=== PATIENT | female | born 1960 | race African-American/Black ===

== ENCOUNTER → 2018-05-28 12:12 | Outpatient (CLI) | payer OTHER, SELFPAY ==
[2018-05-28 14:26] LABS: Hematocrit 40.6 % (37-47); Hemoglobin 13.5 g/dl (12.0-15.0); Mean Corp Hgb Conc 33.3 g/gl (32-36); Mean Corpuscular Hgb 28.8 pg (27.0-32.0); Mean Corpuscular Volume 86.6 fL (81-99); Mean Platelet Vol. 9.2 fl (6.2-12.0); Platelet Count 359 K/mm3 (150-450); RBC Distribution Width CV 12.8 % (11.6-14.6); RBC Distribution Width SD 39.8 fl (35.1-43.9); Red Blood Count 4.69 M/mm3 (4.2-5.4); White Blood Count 8.4 K/mm3 (4.4-11.0)
[2018-05-28 14:36] LABS: Scan Indicated on CBC? Y/N NO
[2018-05-28 14:42] LABS: Vitamin B12 778 pg/mL (211-911); Vitamin D,25 Hydroxy 8.6 ng/mL (29.95-100.01)
[2018-05-28 14:46] LABS: ALB/GLOB Ratio 0.8 RATIO (0.9-2.4); AST(SGOT) 20 U/L (15-37); Alanine Aminotransfer ALT/SGPT 28 U/L (13-56); Albumin, Serum 3.6 g/dL (3.2-5.0); Alkaline Phosphatase 100 U/L (45-117); Anion Gap 7 (5-15); BUN 9 mg/dL (7-18); BUN/Creat Ratio 9.8 RATIO (10-20); Calcium,Total 8.9 mg/dL (8.5-10.1); Chloride 106 mmol/L (98-107); Creatinine, Serum 0.92 mg/dL (0.55-1.02); EST Glomerular Filtration Rate 66 mL/min (>60); Est Glom Filt Rate - Afr Amer 80 mL/min (>60); Globulin 4.7 g/dL (2.2-4.2); Glucose 89 mg/dL (74-106); Potassium 3.9 mmol/L (3.5-5.1); Protein, Total 8.3 g/dL (6.4-8.2); Sodium Level 140 mmol/L (136-145); Thyroid Stim Hormone (TSH) 1.79 uIU/mL (0.358-3.74)
== END ==
PROVIDERS: Family Provider Family Medicine; PCP Family Medicine; Visit Provider Nurse Practitioner Family
DX: R42 Dizziness and giddiness (principal); R53.83 Other fatigue; E56.9 Vitamin deficiency, unspecified; K59.00 Constipation, unspecified
CPT/HCPCS: 36415; 80053; 82306; 82607; 84443; 85027

== ENCOUNTER 2018-07-01 07:22 | Day surgery (SDC) | payer OTHER, SELFPAY ==
--- NOTE | 2018-07-01 | COLBX_PTH ---
PATIENT: ANDREW LYNN LOC: EN U#:[id number] AGE/SX: 57/F ROOM: RE07/01/[address]: Dr. Jared Robertson MD : 1960 BED: DIS: 07/01/2018 SPEC #: [id number] RECD: 07/01/18 14:35 STATUS: RAYO FABY #: [id number] CÉSAR: 07/01/18 00:[address]: Jared Robertson DEPT: SURGICAL PATHOLOGY RECD BY: Tesfaye Collado ENTERED: 07/01/18 14:35 SP TYPE: COLON BX OTHR DR: Dr. Isaiah Bryant, DO Tissues: Cecum, NOS Procedures: Surgery Specimen Level IV HEADER OPERATION: Colonoscopy PRE-OP DIAGNOSIS: Screening TISSUE SUBMITTED: Cecal polyp MICROSCOPIC DIAGNOSIS Cecal polyp, biopsy: Fragments of tubular adenoma. SJ:tani 07/02/18 MICROSCOPIC DESCRIPTION Slides are reviewed. GROSS DESCRIPTION Received in fixative is one container labeled with the patient's name and designated cecal polyp. The specimen consists of a pink-red polyp measuring 0.7 x 0.7 x 0.6 cm. The apparent base is inked. Also present in the container is a piece of tam-pink soft tissue measuring 0.3 x 0.3 x 0.1 cm. The polyp is bisected. The entire specimen is submitted in one cassette. / SJ:tani 07/01/18 TC:1 CPT: 56498
[2018-07-01 07:45] VITALS: BP 107/73; PULSE 77; RESP 16; TEMP 36.4; O2SAT 96; BMI 27.8
[2018-07-01 09:46] VITALS: BP 107/73; PULSE 73; RESP 14; TEMP 36.9; O2SAT 96
--- NOTE | 2018-07-01 09:50 | PCM.OPRPT ---
Problem List (1) Screen for colon cancer Status: Acute Report of Operation Date of Procedure: 07/01/18 Pre-Operative Diagnosis: Screening colon cancer Post-Operative Diagnosis: Cecum polyp Surgery/Procedure Performed:: Colonoscopy with snare polypectomy Description of Procedure: The major risks and benefits associated with the procedure were explained to the patient in detail. The patient verbalized understanding and agreement with the same. The patient was brought to the endoscopy suite. After adequate sedation was achieved, the patient was placed in the left lateral decubitus position and a digital rectal exam was performed. This examination was within normal limits. A well-lubricated colonoscope was then inserted into the rectum and advanced under direct visualization to the level of the cecum. The bowel prep was good. The cecum was identified by both visual and anatomic landmarks. A photograph was taken of the end of the cecum. The scope was then fully withdrawn while examining the color, texture, anatomy and integrity of the mucosa from the cecum to the anal canal. There was a polyp in the cecum just distal to the ileocecal valve. This was removed with cautery snare. Otherwise the findings were consistent with normal colonic mucosa. Over 6 minutes were taken to examine the colonic mucosa. Upon reaching the rectum the scope was retroflexed to examine the distal rectal vault. The scope was then straightened and was completely retrieved upon exiting the anal canal and the procedure was terminated. The patient was then transferred to the recovery room in stable condition. Recommendations for follow up: Depending on pathology
[2018-07-01 09:55] VITALS: BP 107/73; BP 108/60; PULSE 82; RESP 18; O2SAT 96
[2018-07-01 09:59] VITALS: BP 107/73; BP 121/72; PULSE 73; RESP 18; O2SAT 96
[2018-07-01 10:03] VITALS: BP 107/73; BP 116/71; PULSE 69; RESP 18; TEMP 36.3; O2SAT 96
[2018-07-01 10:22] VITALS: BP 107/73
== END 2018-07-01 10:24 | disposition home or self-care (01) ==
LOC: EN 07:22 → AC 07:23
PROVIDERS: Family Provider Family Medicine; PCP Family Medicine; Visit Provider Surgery
PROC: 0DJD8ZZ Inspection of Lower Intestinal Tract, Via Natural or Artificial Opening Endoscopic (ICD-10-PCS; CPT 45378; principal; 2018-07-01 08:40)
DX: Z12.11 Encounter for screening for malignant neoplasm of colon (principal); D12.0 Benign neoplasm of cecum; K64.9 Unspecified hemorrhoids; R19.7 Diarrhea, unspecified; K21.9 Gastro-esophageal reflux disease without esophagitis; G47.30 Sleep apnea, unspecified; F32.9 Major depressive disorder, single episode, unspecified; F41.9 Anxiety disorder, unspecified; Z79.899 Other long term (current) drug therapy; Z86.2 Personal history of diseases of the blood and blood-forming organs and certain disorders involving the immune mechanism
CPT/HCPCS: 45385; 88305; J7120

== ENCOUNTER → 2018-08-27 12:35 | Outpatient (CLI) | payer OTHER, SELFPAY ==
--- NOTE | 2018-08-27 12:38 | BI_ITS ---
MAMMOGRAPHY - BILATERAL SCREENING REASON FOR EXAM: Female, 57 years old. Routine annual screening examination. PERTINENT HISTORY: Non-contributory. TECHNIQUE: Digital bilateral breast randi (3D mammographic acquisition) in the CC and MLO projections. 2-D mediolateral oblique (MLO) and craniocaudad (CC) views of both breasts were obtained. CAD: Full Field Digital Mammography with Computer Added Detection was performed. COMPARISON: Comparison is made with prior ocular examination dated August 05, 2017. FINDINGS: Breast Composition: There are scattered areas of fibroglandular density. There are no dominant masses or suspicious calcifications. No other significant abnormalities are identified. There has been no significant change since the prior study. BI/SCREENING MAMM (CAD), BILAT IMPRESSION: Stable bilateral screening mammogram. Yearly follow-up mammogram recommended. (A) ASSESSMENT CATEGORY: BIRADS Category 1: Negative. A letter regarding these results will be sent to the patient by the facility within 30 days. Approximately 10% of breast cancers are not detected by mammography. A normal mammogram should not delay biopsy of a clinically suspicious abnormality. [id number] Electronically Signed: Dl Rainey MD at 8:21 EDT Tel [phone], Service support ,
== END ==
PROVIDERS: Family Provider Family Medicine; PCP Family Medicine; Visit Provider Family Medicine
DX: Z12.31 Encounter for screening mammogram for malignant neoplasm of breast (principal)
CPT/HCPCS: 77063; 77067

== ENCOUNTER → 2019-02-16 10:02 | Outpatient (CLI) | payer OTHER, SELFPAY ==
[2019-02-12 15:56] VITALS: BMI 28.8
[2019-02-16 13:05] LABS: Anion Gap 6 (5-15); BUN 15 mg/dL (7-18); BUN/Creat Ratio 17.1 RATIO (10-20); Calcium,Total 8.6 mg/dL (8.5-10.1); Chloride 109 mmol/L (98-107); Creatinine, Serum 0.88 mg/dL (0.55-1.02); EST Glomerular Filtration Rate 70 mL/min (>60); Est Glom Filt Rate - Afr Amer 85 mL/min (>60); Glucose 104 mg/dL (74-106); Hemoglobin A1c 6.1 % (4.2-6.3); Potassium 4.2 mmol/L (3.5-5.1); Sodium Level 138 mmol/L (136-145)
== END ==
PROVIDERS: Family Provider Family Medicine; PCP Family Medicine; Visit Provider Family Medicine
DX: Z83.3 Family history of diabetes mellitus (principal)
CPT/HCPCS: 36415; 80048; 83036

== ENCOUNTER → 2020-10-28 14:15 | Outpatient (CLI) | payer MEDICAID, SELFPAY ==
[2020-09-13 13:51] VITALS: BMI 27.6
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
== END ==
PROVIDERS: PCP Family Medicine; Referring Provider Nurse Practitioner Family; Visit Provider Nurse Practitioner Family
DX: M25.511 Pain in right shoulder (principal)
CPT/HCPCS: 73030

== ENCOUNTER → 2021-07-05 09:08 | Outpatient (CLI) | payer MEDICAID, SELFPAY ==
[2021-07-05 12:19] LABS: Hematocrit 40.9 % (37-47); Hemoglobin 13.3 g/dL (12.0-15.0); Mean Corp Hgb Conc 32.5 g/dL (32-36); Mean Corpuscular Hgb 28.9 pg (27.0-32.0); Mean Corpuscular Volume 88.7 fL (81-99); Mean Platelet Vol. 8.9 fl (6.2-12.0); Platelet Count 363 K/mm3 (150-450); RBC Distribution Width CV 12.7 % (11.6-14.6); RBC Distribution Width SD 41.6 fl (35.1-43.9); Red Blood Count 4.61 M/mm3 (4.2-5.4); White Blood Count 6.9 K/mm3 (4.4-11.0)
[2021-07-05 12:50] LABS: Anion Gap 4 (5-15); BUN 10 mg/dL (7-18); BUN/Creat Ratio 12.7 RATIO (10-20); Chloride 109 mmol/L (98-107); Creatinine, Serum 0.78 mg/dL (0.55-1.02); EST Glomerular Filtration Rate 79 mL/min (>60); Est Glom Filt Rate - Afr Amer 96 mL/min (>60); Glucose 108 mg/dL (74-106); Potassium 4.2 mmol/L (3.5-5.1); Sodium Level 138 mmol/L (136-145); Thyroid Stim Hormone (TSH) 1.36 uIU/mL (0.358-3.74)
== END ==
PROVIDERS: PCP Family Medicine; Referring Provider Family Medicine; Visit Provider Family Medicine
DX: R53.83 Other fatigue (principal); L65.9 Nonscarring hair loss, unspecified; N95.1 Menopausal and female climacteric states
CPT/HCPCS: 36415; 80048; 82306; 84443; 85027

== ENCOUNTER → 2022-04-11 | Outpatient (CLI) | payer MEDICAID, SELFPAY ==
[2022-04-11 17:12] LABS: Absolute Lymphocyte Count 1.91 X10^3/uL (0.83-4.51); Absolute Neutrophil Count 4.8 X10^3/uL (2.0-7.7); Basophil# 0.06 X10^3/uL; Basophil% 0.8 % (0-1); Eosinophil# 0.07 X10^3/uL; Eosinophils% 0.9 % (0-5); Hemoglobin 13.6 g/dL (12.0-15.0); Lymphocyte # 1.91 X10^3/ul (0.83-4.51); Lymphocyte % 25.8 % (19-41); Mean Corp Hgb Conc 32.4 g/dL (32-36); Mean Corpuscular Hgb 28.6 pg (27.0-32.0); Mean Corpuscular Volume 88.4 fL (81-99); Mean Platelet Vol. 9.1 fl (6.2-12.0); Monocyte% 6.8 % (0-10); NRBC Flagged by Analyzer 0 % (0-5); Neutrophil # 4.83 X10^3/uL (2.7-7.7); Neutrophil % 65.4 % (47-70); Platelet Count 363 K/mm3 (150-450); RBC Distribution Width CV 12.3 % (11.6-14.6); RBC Distribution Width SD 39.8 fl (35.1-43.9); Red Blood Count 4.75 M/mm3 (4.2-5.4); White Blood Count 7.4 K/mm3 (4.4-11.0)
[2022-04-11 17:25] LABS: Erythrocyte Sedimentation Rate 29 mm/hr (0-30)
[2022-04-11 17:40] LABS: ALB/GLOB Ratio 0.8 RATIO (0.9-2.4); AST(SGOT) 20 U/L (15-37); Alanine Aminotransfer ALT/SGPT 21 U/L (13-56); Albumin, Serum 3.6 g/dL (3.2-5.0); Alkaline Phosphatase 95 U/L (45-117); Amylase 111 U/L (25-115); Anion Gap 6 (5-15); BUN 11 mg/dL (7-18); BUN/Creat Ratio 11.6 RATIO (10-20); CRP 5.35 mg/L (0.0-3.0); Calcium,Total 9.3 mg/dL (8.5-10.1); Chloride 107 mmol/L (98-107); Creatinine, Serum 0.95 mg/dL (0.55-1.02); EST Glomerular Filtration Rate 63 mL/min (>60); Est Glom Filt Rate - Afr Amer 76 mL/min (>60); Globulin 4.3 g/dL (2.2-4.2); Glucose 105 mg/dL (74-106); LDH 200 U/L (84-246); Lipase 143 U/L (73-393); Potassium 3.8 mmol/L (3.5-5.1); Protein, Total 7.9 g/dL (6.4-8.2); Sodium Level 140 mmol/L (136-145); Thyroid Stim Hormone (TSH) 1.06 uIU/mL (0.358-3.74)
[2022-04-13 14:10] LABS: Anti-Centromere B Ab <0.2 AI (0.0-0.9); Anti-Chromatin <0.2 AI (0.0-0.9); Anti-Jo <0.2 AI (0.0-0.9); Anti-Scleroderma-70 AB <0.2 AI (0.0-0.9); RNP Ab <0.2 AI (0.0-0.9); SJOGREN'S Anti-SS-A test < 0.2 AI (0.0-0.9); SJOGREN'S Anti-SS-B test < 0.2 AI (0.0-0.9); Smith Ab <0.2 AI (0.0-0.9)
[2022-04-13 16:40] LABS: Anti-dsDNA Ab <1 IU/mL (0-9)
[2022-04-13 17:07] LABS: Endomysial Antibody IgA Negative (Negative)
[2022-04-13 20:14] LABS: Immunoglobulin A 207 mg/dL (87-352); t-Transglutaminase IgA <2 U/mL (0-3)
== END | disposition home or self-care (01) ==
PROVIDERS: Nurse Practitioner Adult Health; PCP Family Medicine; Visit Provider Internal Medicine Gastroenterology
DX: R10.13 Epigastric pain (principal); R10.30 Lower abdominal pain, unspecified; K59.00 Constipation, unspecified; D12.6 Benign neoplasm of colon, unspecified
CPT/HCPCS: 36415; 80053; 82150; 82784; 83516; 83615; 83690; 84443; 85025; 85652; 86140; 86225; 86235; 86255

== ENCOUNTER → 2022-06-04 | Outpatient (CLI) | payer MEDICAID, SELFPAY ==
--- NOTE | 2022-06-04 10:06 | US_ITS ---
STUDY: ABDOMINAL ULTRASOUND REASON FOR EXAM: Female, 61 years old. Abdominal pain TECHNIQUE: Transabdominal ultrasound was performed with real-time and static thomason scale imaging. TECHNICAL QUALITY: Adequate. COMPARISON: None. FINDINGS: Liver: The liver measures 12.2 cm. There is increased echogenicity consistent with fatty infiltration. The bile ducts are within normal limits. There is hepatic color flow. The direction of portal flow is hepatopetal. There is no demonstrated mass lesion. Portal vein measurement: Gallbladder: Normal distended gallbladder. The gallbladder wall measures 1.9 mm. There is a negative sonographic Peraza''s sign. There is no pericholecystic fluid. There are multiple echogenic structures within the gallbladder, consistent with multiple gallstones. Common Bile Duct (C.B.D.): The common bile duct measures 4 mm. Pancreas: Normal size of the head, body and tail of the pancreas. There is increased echogenicity of the pancreas. There is no demonstrated pancreatic mass or cyst. Spleen: Normal size of the spleen. The spleen measures 8.8 cm x 8.5 cm x 6.8 cm. Calcified splenic granulomas. Right Kidney: Normal size of the right kidney. The right kidney measures 10.8 cm x 6.1 cm x 5 cm. Normal renal cortex. The right cortex measures 1.2 cm. There is no demonstrated renal mass or cyst. There is no right hydronephrosis. Left Kidney: Normal size of the left kidney. The left kidney measures 11.7 cm x 4.7 cm x 4.3 cm. Normal renal cortex. The left cortex measures 1.1 cm. There is no demonstrated renal mass or cyst. There is no left hydronephrosis. Aorta: Unremarkable I.V.C.: The IVC is patent. There is no ascites. US/Abdomen Complete IMPRESSION: Fatty infiltration of the liver. Electronically Signed: Dl Rainey MD at 13:17 EDT ,
== END | disposition home or self-care (01) ==
LOC: US 09:46
PROVIDERS: PCP Family Medicine; Referring Provider Internal Medicine Gastroenterology; Visit Provider Internal Medicine Gastroenterology
DX: R10.9 Unspecified abdominal pain (principal); K76.0 Fatty (change of) liver, not elsewhere classified
CPT/HCPCS: 76700

== ENCOUNTER → 2022-06-20 | Outpatient (CLI) | payer MEDICAID, SELFPAY ==
--- NOTE | 2022-06-20 09:05 | US_ITS ---
STUDY: ABDOMINAL ULTRASOUND - ELASTOGRAPHY REASON FOR VISIT: Female, 61 years old. Fatty infiltration of the liver. TECHNIQUE: Liver stiffness measurements were obtained on a Kngroo RS 85 ultrasound machine using a CA 1-7 probe following the SRU guidelines. 3 measurements were obtained using a 2-D-SWE method. The IQR/M was 20% suggesting a quality data set. TECHNICAL QUALITY: Adequate. COMPARISON: Comparison is made with prior study dated 06/04/2022. FINDINGS: Liver: There is evidence of fatty infiltration of the liver. Median liver stiffness measured 8.3 kPa. US/Elastography Parenchyma/Organ IMPRESSION: Liver stiffness measures 8.3 kPa compatible with F2-F3 (Mild to moderate liver fibrosis) Metavir score. Electronically Signed: Dl Rainey MD at 15:35 EDT ,
== END | disposition home or self-care (01) ==
LOC: NM 09:05
PROVIDERS: PCP Family Medicine; Referring Provider Nurse Practitioner Adult Health; Visit Provider Nurse Practitioner Adult Health
DX: K76.0 Fatty (change of) liver, not elsewhere classified (principal)
CPT/HCPCS: 76981

== ENCOUNTER → 2022-07-02 | Outpatient (CLI) | payer MEDICAID, SELFPAY ==
--- NOTE | 2022-07-02 16:10 | CT_ITS ---
STUDY: CT ABDOMEN AND PELVIS WITH CONTRAST REASON FOR EXAM: Female, 61 years old. upper and lower abd pain, constipation -- oral and iv RADIATION DOSAGE (If Supplied By Facility): CTDIvol = ( 14.34 ) mGy, DLP = ( 893.25 ) mGycm TECHNIQUE: Transaxial images were obtained from the dome of the diaphragm to the symphysis pubis with oral contrast. Oral and amp; IV Readi-CAT and amp; 100mL Isovue-300 was administered. Sagittal and coronal images were reconstructed. Individualized dose optimization techniques were used for this CT. COMPARISON: None. FINDINGS: The visualized lung bases are unremarkable. The visualized portions of the heart are within normal limits. Normal liver. There are multiple gallstones. Normal spleen. Normal pancreas. Normal bilateral adrenal glands. Normal right kidney. Normal left kidney. Normal visualized stomach. Normal small intestine. Normal colon. The appendix is visualized and appears normal. Normal abdominal aorta. Normal inferior vena cava. Normal retroperitoneum. Normal urinary bladder. There is a small umbilical hernia containing fat. Normal osseous structures. CT/Abdomen/Pelvis WITH Contrast IMPRESSION: Cholelithiasis. Electronically Signed: Trever Ivan MD at 16:37 EDT ,
[2022-07-02 16:30] LABS: CREATININE FINGERSTICK < 0.9 mg/dL (0.55-1.02); EGFR FINGERSTICK > 60.0000 mL/min (>60)
== END | disposition home or self-care (01) ==
LOC: CT 15:58
PROVIDERS: PCP Family Medicine; Referring Provider Nurse Practitioner Adult Health; Visit Provider Nurse Practitioner Adult Health
DX: D12.6 Benign neoplasm of colon, unspecified (principal); K59.00 Constipation, unspecified; R10.30 Lower abdominal pain, unspecified; R10.13 Epigastric pain
CPT/HCPCS: 74177; Q9967

== ENCOUNTER → 2022-07-18 | Outpatient (CLI) | payer MEDICAID, SELFPAY ==
--- NOTE | 2022-07-18 12:18 | NM_ITS ---
CLINICAL: 61-year-old female with history of abdominal pain and chronic nausea. SEMI-SOLID PHASE 99m Tc SULFUR COLLOID GASTRIC EMPTYING STUDY COMPARISON: CT of the abdomen-pelvis report 07/02/2022 FINDINGS: The patient was administered 1.1 mCi of 99m Tc sulfur colloid mixed with oatmeal and consumed per os. Image acquisitions in the anterior-posterior projections were obtained for 60 minutes. There is prompt visualization of the stomach. There is no gastroesophageal reflux identified. The T ? linear fit was calculated to be 49.69 minutes, (Normal: 12-56 minutes). NM/Gastric Emptying Study IMPRESSION: 1. NORMAL 99m Tc sulfur colloid semi-solid phase (oatmeal) gastric emptying imaging examination. A. There is normal and preserved semi-solid phase gastric emptying compared to normal controls. (Nicole et al, J Nucl Med Tech 38: 186, 2010). Electronically Signed: Trever Hitchcock, at 20:37 EDT ,
== END | disposition home or self-care (01) ==
LOC: NM 12:17
PROVIDERS: PCP Family Medicine; Referring Provider Nurse Practitioner Adult Health; Visit Provider Nurse Practitioner Adult Health
DX: R10.13 Epigastric pain (principal); R14.0 Abdominal distension (gaseous); R68.81 Early satiety
CPT/HCPCS: 78264; A9541

== ENCOUNTER 2022-10-08 06:26 | Day surgery (SDC) | payer MEDICAID, SELFPAY ==
[2022-10-08] VITALS (7 sets, daily range): BP systolic 89–112; BP diastolic 58–74; PULSE 72–90; RESP 12–18; TEMP 35.9–36.3; O2SAT 95–98; BMI 26.7
[2022-10-08] MEDS: Lactated Ringers 1,000 ML 15 ML IV (06:40)
--- NOTE | 2022-10-08 07:00 | PCM.HP.BLA ---
History and Physical Date of Admission: 10/08/22 ?61 F who presents to the office today for approximately 6 months of epigastric pain. Describes it as severe, doesn't radiate. It is less bothersome since starting pantoprazole 40 mg daily approx 2 mos ago. Thinks it started with acid reflux. Has occasional heartburn. C/o intermittent burning with BM that she attributes to increased acid. Feels best to lie on right side, then stomach feels better. Occas nausea, no vomiting or hematemesis. Epigastric pain worse with belt or tight clothes. Intermittent, occurs approx 2x per week, wonders if it's gas. Increases with eating and also if stomach is empty. No relief from famotidine. Some relief with pantoprazole 40 mg daily. Takes daily fiber supplement, helps with bowels. Some discomfort in lower abd, may be related to constipation and gas, much less bothersome than epigastric pain. Having BM daily, but has to strain. Used to use Fleets enema 2x per week, felt great then. Took milk of magnesia once last week, then had BMs x 3 hours in the middle of the night. Stool looked black then, but now back to normal since she started daily fiber pill. Occas takes GasX, not clear if that helps symptoms. She thinks she has lost weight, can wear clothes now that used to be too tight. No aspirin. Occas takes aleve for sinus headache. 2018 screening colonoscopy--tubular adenoma ROS Const Constitutional: Positive for fatigue, headache(s) and weight change (gain); No fever(s), sleep problems, abnormal sleep pattern or change in appetite ENT ENT: Positive for headache(s); No difficulty swallowing, hoarseness or sore throat Resp Respiratory: No cough, hemoptysis or shortness of breath Cardio Cardiology: No chest pain at rest or generalized swelling Gastro GI: Positive for abdominal pain, bloating, change in bowel habits, constipation, heartburn, Blood in stool and nausea/dyspepsia; No belching, change in stool character, coffee ground emesis, cramping, diarrhea, difficulty swallowing, feeling full early, excessive flatus, incontinent of stools, Vomiting blood/hematemesis, loose stools, Black,tarry stools, pain with swallowing or vomiting Musc Musculoskeletal: Positive for joint pain, back pain, muscle cramps, Arthritis and leg pain at night; No joint swelling, numbness or tingling Skin Skin: Positive for itchy eyes; No rash Neuro Neurology: Positive for behavioral changes and headache(s); No confusion, numbness or tingling Psych Psychiatric: No abnormal sleep pattern, Positive for anxiety, Positive for behavioral changes, No change in appetite, No confusion and Positive for depression Endo Endocrine: Positive for fatigue and weight change (gain); No cold intolerance, heat intolerance or increased thirst/drinking Aller/Imm Allergy/Immunologic: Positive for itchy eyes; No food intolerance Dar/Lymp Hematologic/Lymphatic: No easy bleeding, easy bruising or enlarged lymph nodes Exam Const General: cooperative, healthy appearing, well developed and well groomed Nutritional Appearance: average body habitus Eyes General: appearance normal, both eyes and all related structures Neck Neck: normal visual inspection Chest Chest palpation & inspection: normal inspection of the chest Resp Effort & Inspection: normal respiratory effort GI Inspection: normal to inspection Auscultation: normal bowel sounds Percussion: normal to percussion Palpation: soft, no hepatosplenomegaly, no masses and nontender Skin General: no rashes or lesions noted Neuro General: patient alert, patient awake and patient oriented x3 Gait: normal gait Extrem General: no pedal edema Psych Mood: euthymic mood Affect: normal affect Quality Reporting Tobacco Screening ([facility] 138) Smoking Status: Never smoker Assessment and Plan Assessment and Plan (1) Lower abdominal pain: ?Status:?Acute (2) Epigastric pain: ?Status:?Acute (3) Constipation: ?Status:?Acute (4) Tubular adenoma of colon: ?Status:?Acute ? ? ? Orders:?Orders: ? Amylase Today R10.30, R10.13, K59.00, D12.6 ? ? Comprehensive Metabolic Profil Today R10.30, R10.13, K59.00, D12.6 ? ? CRP Today R10.30, R10.13, K59.00, D12.6 ? ? LDH Today R10.30, R10.13, K59.00, D12.6 ? ? Lipase Today R10.30, R10.13, K59.00, D12.6 ? ? Thyroid Stim Hormone (TSH) Today R10.30, R10.13, K59.00, D12.6 ? ? CBC W/Diff, Automated Today R10.30, R10.13, K59.00, D12.6 ? ? Erythrocyte Sed Rate Today R10.30, R10.13, K59.00, D12.6 ? ? JESUSITA Comprehensive Panel Today R10.30, R10.13, K59.00, D12.6 ? ? Celiac Disease Profile Today R10.30, R10.13, K59.00, D12.6 ? ? Abdomen/Pelvis WITH Contrast Today R10.30, R10.13, K59.00, D12.6 ?Plan: 61 yr old female w/ intermittent epigastric pain, heartburn, chronic constipation, lower abd pain, hx tubular adenoma. Epigastric pain has improved since starting PPI but she still has intermittent severe pain. DDx for her epigastric pain includes esophagitis, gastritis, peptic ulcer, duodenitis, pancreatitis, malignancy. Lower abdominal pain DDx includes constipation, gas pains, IBS, malignancy. She previously relied on Fleets enemas for BMs. Will have her try MiraLAX every evening in addition to prunes.? Biochemical w/u today. CT abdomen and pelvis with oral and IV contrast ordered to evaluate the upper and lower abdominal pains, constipation. Upper and lower endoscopy will be scheduled.? Follow-up approximately 6 weeks. Plan Details Other Medications: ?Discontinued: ? sertraline ?? Discontinued Reason:? Pt no longer taking 50 mg? PO DAILY 30 tabs 6RF ? ? ? cyclobenzaprine ?? Discontinued Reason:? Pt no longer taking 5 - 10 mg (0.5 - 1 x 10 mg) PO TID PRN 30 tabs 0RF muscle spasm ? ? I have examined the patient and the H&P has been reviewed. There are no clinical changes since date of exam.
--- NOTE | 2022-10-08 07:30 | EGD_PTH ---
PATIENT: ANDREW LYNN LOC: EN U#:[id number] AGE/SX: 61/F ROOM: RE10/08/[address]: Dr. Mark Aguirre DO : 1960 BED: DIS: 10/08/2022 SPEC #: [id number] RECD: 10/08/22 11:30 STATUS: RAYO FABY #: [id number] CÉSAR: 10/08/22 07:[address]: Mark Aguirre DEPT: SURGICAL PATHOLOGY RECD BY: Nellie Fortune ENTERED: 10/08/22 12:26 SP TYPE: EGD BIOPSY OT DR: Dr. Isaiah Bryant DO Tissues: A - Duodenum, NOS B - Esophagus, NOS C - Cecum, NOS D - Ileum, NOS E - COLON BIOPSY Procedures: Special Stain Group II Surgery Specimen Level IV Alcian Blue/PAS (control) HEADER OPERATION: Colonoscopy with biopsies, [place] [place] PRE-OP DIAGNOSIS: Abdominal pain, GERD TISSUE SUBMITTED: A ? Duodenal ulcer biopsy, B ? Distal esophagus biopsy, C ? Cecal cap biopsy, D ? Terminal ileum biopsy, E ? Random colon biopsy MICROSCOPIC DIAGNOSIS A. Duodenal ulcer, biopsy: Chronic nonspecific duodenitis with focal acute duodenitis. Focal gastric metaplasia. B. Distal esophagus, biopsy: Gastroesophageal junctional mucosa with chronic inflammation. No evidence of goblet cell metaplasia. See comment. C. Cecal cap, biopsy: Melanosis coli. D. Terminal ileum, biopsy: No pathologic change. E. Colon, random biopsy: Melanosis coli. AM:tani 10/09/2022 COMMENT B. Alcian blue/PAS stain with matched control supports the above diagnosis. MICROSCOPIC DESCRIPTION Slides are reviewed. GROSS DESCRIPTION A - Received in fixative is one container labeled with the patient's name and designated duodenal ulcer biopsy. The specimen consists of multiple irregular fragments of light tam soft tissue that in aggregate measure 1.3 x 0.3 x 0.1 cm. The specimen is totally submitted in one cassette. B - Received in fixative is one container labeled with the patient's name and designated distal esophagus biopsy. The specimen consists of multiple irregular fragments of light tam soft tissue that in aggregate measure 0.6 x 0.6 x 0.1 cm. The specimen is totally submitted in one cassette. C - Received in fixative is one container labeled with the patient's name and designated cecal cap biopsy. The specimen consists of two irregular fragments of light tam soft tissue that in aggregate measure 0.6 x 0.4 x 0.1 cm. The specimen is totally submitted in one cassette. D - Received in fixative is one container labeled with the patient's name and designated terminal ileum biopsy. The specimen consists of one irregular fragment of light tam soft tissue that measures 0.3 x 0.2 x 0.1 cm. The specimen is totally submitted in one cassette. E - Received in fixative is one container labeled with the patient's name and designated random colon biopsy. The specimen consists of multiple irregular fragments of light tam soft tissue that in aggregate measure 1 x 0.7 x 0.1 cm. The specimen is totally submitted in one cassette. / SJ:rg 10/08/2022 TC:3 CPT: 10566 x5, 87680
--- NOTE | 2022-10-08 08:02 | OP.EGD_ITS ---
Patient Name: Bharti Adair Procedure Date: 10/08/2022 7:20 AM Date of : 1960 Age: 61 Procedure: Upper GI endoscopy Indications: Epigastric abdominal pain, Failure to respond to medical treatment Providers: Mark Aguirre DO Referring MD: Isaiah Bryant Medicines: Monitored Anesthesia Care Patient Profile: This is a 61 year old female. Refer to note in patient chart for documentation of history and physical. Patient has symptoms of acute epigastric abdominal pain and chronic heartburn. Complications: No immediate complications. Procedure: Pre-Anesthesia Assessment: - Prior to the procedure, a History and Physical was performed, and patient medications and allergies were reviewed. The patient is competent. The risks and benefits of the procedure and the sedation options and risks were discussed with the patient. All questions were answered and informed consent was obtained. Patient identification and proposed procedure were verified by the physician in the pre-procedure area. Mental Status Examination: alert and oriented. Airway Examination: normal oropharyngeal airway and neck mobility. Respiratory Examination: clear to auscultation. CV Examination: normal. Prophylactic Antibiotics: The patient does not require prophylactic antibiotics. Prior Anticoagulants: The patient has taken no previous anticoagulant or antiplatelet agents. After reviewing the risks and benefits, the patient was deemed in satisfactory condition to undergo the procedure. The anesthesia plan was to use monitored anesthesia care (MAC). Immediately prior to administration of medications, the patient was re-assessed for adequacy to receive sedatives. The heart rate, respiratory rate, oxygen saturations, blood pressure, adequacy of pulmonary ventilation, and response to care were monitored throughout the procedure. The physical status of the patient was re-assessed after the procedure. After obtaining informed consent, the endoscope was passed under direct vision. Throughout the procedure, the patient's blood pressure, pulse, and oxygen saturations were monitored continuously. The Colonoscope was introduced through the mouth, and advanced to the second part of duodenum. The upper GI endoscopy was accomplished without difficulty. The patient tolerated the procedure well. Scope In: 7:27:37 AM Scope Out: 7:32:05 AM Total Procedure Duration Time 0 hours 4 minutes 28 seconds Findings: The Z-line was irregular and was found 37 cm from the incisors. Biopsies were taken with a cold forceps for histology. Biopsies were taken with a cold forceps for histology. Verification of patient identification for the specimen was done. Estimated blood loss was minimal. A small hiatal hernia was present. The entire examined stomach was normal. Three non-bleeding cratered duodenal ulcers with no stigmata of bleeding were found in the duodenal bulb. The largest lesion was 4 mm in largest dimension. Biopsies were taken with a cold forceps for histology. Verification of patient identification for the specimen was done. Estimated blood loss was minimal. Impression: - Z-line irregular, 37 cm from the incisors. Biopsied. - Small hiatal hernia. - Normal stomach. - Multiple non-bleeding duodenal ulcers with no stigmata of bleeding. Biopsied. Recommendation: - Discharge patient to home. - Resume previous diet. - Use Protonix (pantoprazole) 40 mg PO BID for 8 weeks. - Continue present medications. - No aspirin, ibuprofen, naproxen, or other non-steroidal anti-inflammatory drugs for 8 days. Procedure Code(s): --- Professional --- 41594, Esophagogastroduodenoscopy, flexible, transoral; with biopsy, single or multiple CPT copyright 2017 [employer]. All rights reserved. The codes documented in this report are preliminary and upon sanitor review may be revised to meet current compliance requirements. Mark Aguirre DO 10/08/2022 8:01:59 AM This report has been signed electronically. Number of Addenda: 0 Note Initiated On: 10/08/2022 7:20 AM
--- NOTE | 2022-10-08 08:02 | OP.CCLET_ITS ---
10/08/2022 Isaiah Bryant Re : Upper GI endoscopy procedure for Bharti Adair Dear Dr. Bryant This procedure was performed on Saturday, October 08, 2022. My impressions and recommendations are as follows: Impressions : - Z-line irregular, 37 cm from the incisors. Biopsied. - Small hiatal hernia. - Normal stomach. - Multiple non-bleeding duodenal ulcers with no stigmata of bleeding. Biopsied. Recommendations : - Discharge patient to home. - Resume previous diet. - Use Protonix (pantoprazole) 40 mg PO BID for 8 weeks. - Continue present medications. - No aspirin, ibuprofen, naproxen, or other non-steroidal anti-inflammatory drugs for 8 days. My findings are described in the full procedure note, which is enclosed. If I can be of further assistance, please feel free to contact me at . Sincerely, Mark Friend, 10/08/2022 8:01:59 AM This report has been signed electronically.
--- NOTE | 2022-10-08 08:08 | OP.COLON_ITS ---
Patient Name: Bharti Adair Procedure Date: 10/08/2022 7:32 AM Date of : 1960 Age: 61 Procedure: Colonoscopy Indications: Epigastric abdominal pain, Follow-up for history of adenomatous polyps in the colon Providers: Mark Aguirre DO Referring MD: Isaiah Bryant Medicines: Monitored Anesthesia Care Patient Profile: This is a 61 year old female. Refer to note in patient chart for documentation of history and physical. Patient has symptoms of acute epigastric abdominal pain and chronic heartburn. Last Colonoscopy: more than 3 years ago. Complications: No immediate complications. Procedure: Pre-Anesthesia Assessment: - Prior to the procedure, a History and Physical was performed, and patient medications and allergies were reviewed. The patient is competent. The risks and benefits of the procedure and the sedation options and risks were discussed with the patient. All questions were answered and informed consent was obtained. Patient identification and proposed procedure were verified by the physician in the pre-procedure area. Mental Status Examination: alert and oriented. Airway Examination: normal oropharyngeal airway and neck mobility. Respiratory Examination: clear to auscultation. CV Examination: normal. Prophylactic Antibiotics: The patient does not require prophylactic antibiotics. Prior Anticoagulants: The patient has taken no previous anticoagulant or antiplatelet agents. After reviewing the risks and benefits, the patient was deemed in satisfactory condition to undergo the procedure. The anesthesia plan was to use monitored anesthesia care (MAC). Immediately prior to administration of medications, the patient was re-assessed for adequacy to receive sedatives. The heart rate, respiratory rate, oxygen saturations, blood pressure, adequacy of pulmonary ventilation, and response to care were monitored throughout the procedure. The physical status of the patient was re-assessed after the procedure. After I obtained informed consent, the scope was passed under direct vision. Throughout the procedure, the patient's blood pressure, pulse, and oxygen saturations were monitored continuously. The Colonoscope was introduced through the anus and advanced to the terminal ileum. The colonoscopy was performed without difficulty. The patient tolerated the procedure well. The quality of the bowel preparation was good. Scope In: 7:33:53 AM Scope Withdrawal Time 0 hours 14 minutes 17 seconds Scope Out: 7:52:06 AM Total Procedure Duration Time 0 hours 18 minutes 13 seconds Findings: The perianal and digital rectal examinations were normal. An area of mildly congested mucosa was found in the recto-sigmoid colon, in the transverse colon, in the ascending colon and in the cecum. Biopsies were taken with a cold forceps for histology. Verification of patient identification for the specimen was done. Estimated blood loss was minimal. The terminal ileum appeared normal. Biopsies were taken with a cold forceps for histology. Verification of patient identification for the specimen was done. Estimated blood loss was minimal. Impression: - Congested mucosa in the recto-sigmoid colon, in the transverse colon, in the ascending colon and in the cecum. Biopsied. - The examined portion of the ileum was normal. Biopsied. Recommendation: - Discharge patient to home. - Resume previous diet. - Continue present medications. - Await pathology results. - Repeat colonoscopy in 5 years for surveillance. Procedure Code(s): --- Professional --- 24926, Colonoscopy, flexible; with biopsy, single or multiple CPT copyright 2017 [employer]. All rights reserved. The codes documented in this report are preliminary and upon technical engineer review may be revised to meet current compliance requirements. Mark Aguirre DO 10/08/2022 8:08:00 AM This report has been signed electronically. Number of Addenda: 0 Note Initiated On: 10/08/2022 7:32 AM
--- NOTE | 2022-10-08 08:09 | OP.CCLET_ITS ---
10/08/2022 Isaiah Bryant Re : Colonoscopy procedure for Bharti Adair Dear Dr. Bryant This procedure was performed on Saturday, October 08, 2022. My impressions and recommendations are as follows: Impressions : - Congested mucosa in the recto-sigmoid colon, in the transverse colon, in the ascending colon and in the cecum. Biopsied. - The examined portion of the ileum was normal. Biopsied. Recommendations : - Discharge patient to home. - Resume previous diet. - Continue present medications. - Await pathology results. - Repeat colonoscopy in 5 years for surveillance. My findings are described in the full procedure note, which is enclosed. If I can be of further assistance, please feel free to contact me at . Sincerely, Mark Aguirre, 10/08/2022 8:08:00 AM This report has been signed electronically.
== END 2022-10-08 08:55 | disposition home or self-care (01) ==
LOC: EN 06:26 → AC 06:28
PROVIDERS: PCP Family Medicine; Referring Provider Family Medicine; Visit Provider Internal Medicine Gastroenterology
PROC: 0DJD8ZZ Inspection of Lower Intestinal Tract, Via Natural or Artificial Opening Endoscopic (ICD-10-PCS; CPT 45378; principal; 2022-10-08 07:25)
DX: K26.9 Duodenal ulcer, unspecified as acute or chronic, without hemorrhage or perforation (principal); K44.9 Diaphragmatic hernia without obstruction or gangrene; K29.80 Duodenitis without bleeding; K21.9 Gastro-esophageal reflux disease without esophagitis; K63.89 Other specified diseases of intestine; M19.90 Unspecified osteoarthritis, unspecified site; Z78.0 Asymptomatic menopausal state; Z86.010 Personal history of colon polyps
CPT/HCPCS: 45380; 43239; 88305; 88313; J2405

== ENCOUNTER → 2022-11-14 | Outpatient (CLI) | payer MEDICAID, SELFPAY ==
[2022-11-14 12:58] LABS: Absolute Lymphocyte Count 1.82 X10^3/uL (0.83-4.51); Absolute Neutrophil Count 4.7 X10^3/uL (2.0-7.7); Basophil# 0.04 X10^3/uL; Basophil% 0.6 % (0-1); Eosinophil# 0.06 X10^3/uL; Eosinophils% 0.9 % (0-5); Hemoglobin 13.1 g/dL (12.0-15.0); Lymphocyte # 1.82 X10^3/ul (0.83-4.51); Mean Corpuscular Hgb 28.5 pg (27.0-32.0); Mean Corpuscular Volume 89.3 fL (81-99); Mean Platelet Vol. 9.1 fl (6.2-12.0); Monocyte% 5.7 % (0-10); NRBC Flagged by Analyzer 0 % (0-5); Neutrophil # 4.65 X10^3/uL (2.7-7.7); Neutrophil % 66.5 % (47-70); Platelet Count 343 K/mm3 (150-450); RBC Distribution Width CV 12.5 % (11.6-14.6); RBC Distribution Width SD 41.1 fl (35.1-43.9); Red Blood Count 4.59 M/mm3 (4.2-5.4)
[2022-11-14 13:06] LABS: Vitamin D,25 Hydroxy 20.5 ng/mL
[2022-11-14 13:34] LABS: ALB/GLOB Ratio 0.9 RATIO (0.9-2.4); AST(SGOT) 17 U/L (15-37); Alanine Aminotransfer ALT/SGPT 20 U/L (13-56); Albumin, Serum 3.6 g/dL (3.2-5.0); Alkaline Phosphatase 84 U/L (45-117); Anion Gap 6 (5-15); BUN 11 mg/dL (7-18); BUN/Creat Ratio 13.2 RATIO (10-20); Calcium,Total 9.1 mg/dL (8.5-10.1); Chloride 111 mmol/L (98-107); Cholesterol 226 mg/dL (200); Creatinine, Serum 0.84 mg/dL (0.55-1.02); EST Glomerular Filtration Rate 73 mL/min (>60); Est Glom Filt Rate - Afr Amer 89 mL/min (>60); Glucose 95 mg/dL (74-106); High Density Lipoprotein 71 mg/dL; Protein, Total 7.6 g/dL (6.4-8.2); Sodium Level 141 mmol/L (136-145); Thyroid Stim Hormone (TSH) 0.87 uIU/mL (0.358-3.74); Triglycerides 71 mg/dL; Very Low Density Lipoprotein 14 mg/dL (5-40)
== END | disposition home or self-care (01) ==
LOC: BIMLAB 10:43
PROVIDERS: PCP Family Medicine; Referring Provider Physician Assistant; Visit Provider Physician Assistant
DX: Z00.00 Encounter for general adult medical examination without abnormal findings (principal); F41.9 Anxiety disorder, unspecified; F32.A Depression, unspecified; Z86.2 Personal history of diseases of the blood and blood-forming organs and certain disorders involving the immune mechanism
CPT/HCPCS: 36415; 80053; 80061; 82306; 84443; 85025

== ENCOUNTER → 2023-03-05 | Outpatient (CLI) | payer MEDICAID, SELFPAY ==
[2023-03-05 14:01] LABS: Amphetamine Urine VISTA NEGATIVE (<1000 ng/mL); Barbiturate Urine VISTA NEGATIVE (< 200 ng/mL); Benzodiazepine Urine VISTA NEGATIVE (< 200 ng/mL); Cocaine Urine VISTA NEGATIVE (< 300 ng/mL); Ecstacy Urine VISTA NEGATIVE (< 500 ng/mL); Methadone Urine VISTA NEGATIVE (< 300 ng/mL); PCP Urine VISTA NEGATIVE (< 25 ng/mL); THC Urine VISTA NEGATIVE (< 50 ng/mL); Vista UDS pH Range 5
== END | disposition home or self-care (01) ==
LOC: LABSPEC 09:57
PROVIDERS: PCP Family Medicine; Visit Provider Nurse Practitioner Family
DX: F41.9 Anxiety disorder, unspecified (principal)
CPT/HCPCS: 80307

== ENCOUNTER → 2023-12-20 | Outpatient (CLI) | payer OTHER, SELFPAY ==
[2023-12-20 15:35] LABS: Bacteria 0 SEEN /hpf (None Seen); Mucous, Urine 0 SEEN /hpf (<or=2+); Red Blood Cells-Urine 0 SEEN /hpf (0-5)
--- OUTSIDE RECORDS SUMMARY | 2023-12-20 17:19 | XMS RPT_ITS | CCD ---
Author Name Unknown Address [address] [facility] [address] [place] [address] Organization [facility] Care Team Providers Care Entomology Professor Name Role Phone REESE HICKS DO Primary Care Physician LIO CAO DO Attending Unavailable REESE HICKS DO Primary Care Unavailable REESE HICKS DO Primary Care Unavailable LIO CAO DO Attending Unavailable Medications Current Medications Medication Drug Class(es) Dates Sig (Normalized) Sig (Original) famotidine 20 mg oral tablet (2 sources) Histamine-2 Receptor Antagonist Start: 06-07-2019 Pepcid 20 mg oral tablet Dose : 20 mg = 1 tab(s), Oral, qDay, # 30 tab(s), 0 Refill(s) Start Date: 06/07/19 Status: Ordered {20 (nirmatrelvir 150 MG Oral Tablet) / 10 (ritonavir 100 MG Oral Tablet) } Pack (1 source) Start: 05-20-2022 End: 05-25-2022 nirmatrelvir-ritona vir 150 mg-100 mg (300 mg-100 mg Dose) oral tablet Dose = 1 packet(s), Oral, BID, Take 1 Packet = two 150mg nirmatrelvir tabs and one 100mg ritonavir tab. 3 tablets to be taken together by mouth twice a day for 5 days, X 5 day(s), # 5 EA, 0 Refill(s), COVID-19 Start Date: 05/20/22 Stop Date: 05/25/22 Status: Ordered Problems Active Problems Problem Classification Problem Date Documented Da te Episodic/Chronic Nonspecific chest pain (1 source) Chest pain; Translations: [Chest pain, unspecified] Onset: 11-21-2023 Episodic Other connective tissue disease (1 source) Muscle pain; Translations: [Myalgia, unspecified site] Onset: 11-21-2023 Episodic Past or Other Problems Problem Classification Problem Date Documented Da te Episodic/Chronic Viral infection (1 source) Disease caused by 2019-nCoV; Translations: [COVID-19] Onset: 05-20-2022 Results Test Name Value Interpretation Reference Range Facil ity Vital Signs Date Time Vital Sign Value Performing Clinician Bettie dykes 11-21-2023 01:52-0500 Diastolic Blood Pressure Non-Invasive 85 mm[Hg] LIO REICHFIELD DO [facility] 11-21-2023 01:52-0500 Heart rate 76 /min LIO REICHFIELD DO [facility] 11-21-2023 01:52-0500 Respiratory rate 18 /min LIO REICHFIELD DO [facility] 11-21-2023 01:52-0500 Systolic Blood Pressure Non-Invasive 140 mm[Hg] LIO REICHFIELD DO [facility] 11-21-2023 00:05-0500 Blood Pressure Location LIO REICHFIELD DO [facility] 11-21-2023 00:05-0500 Blood Pressure Method LIO REICHFIELD D O [facility] 11-21-2023 00:05-0500 Body height 167.6 cm LIO REICHFIELD DO [facility] 11-21-2023 00:05-0500 Body temperature 99.68 [degF] LIO REICHFIELD DO [facility] 11-21-2023 00:05-0500 Body weight 77.3 kg LIO REICHFIELD DO [facility] 11-21-2023 00:05-0500 Diastolic Blood Pressure Non-Invasive 94 mm[Hg] LIO REICHFORMERLY [facility] DO [facility] 11-21-2023 00:05-0500 Heart rate 88 /min LIO ANSARIFORMERLY [facility] DO [facility] 11-21-2023 00:05-0500 Respiratory rate 18 /min LIO ANSARIFORMERLY [facility] DO [facility] 11-21-2023 00:05-0500 Systolic Blood Pressure Non-Invasive 168 mm[Hg] LIO ANSARIFORMERLY [facility] DO [facility] 05-20-2022 11:16-0400 Body temperature 98.6 [degF] DR MARÍA RODRIGES MD [facility] 05-20-2022 11:16-0400 Diastolic blood pressure 85 mm[Hg] DR MARÍA RODRIGES MD [facility] 05-20-2022 11:16-0400 Heart rate 96 /min DR MARÍA RODRIGES MD [facility] 05-20-2022 11:16-0400 Respiratory rate 18 /min DR MARÍA RODRIGES MD [facility] 05-20-2022 11:16-0400 Systolic blood pressure 112 mm[Hg] DR MARÍA RODRIGES MD [facility] Encounters Encounter Date Encounter Type Care Provider Facility Start: 11-21-2023 End: 11-21-2023 Emergency department patient visit LIO ANSARIFORMERLY [facility] DO Facility:B Start: 11-21-2023 End: 11-21-2023 Emergency department patient visit LIO ANSARIFORMERLY [facility] DO [facility] Start: 03-29-2023 End: 03-29-2023 Emergency department patient visit REESE HICKS DO Facility:B Start: 05-20-2022 End: 05-20-2022 Emergency department patient visit DR MARÍA RODRIGES MD [facility] Procedures Date Procedure Procedure Detail Performing Clinician None (qualifier value) DR NOA RODRIGES MD Immunizations Immunization Date Immunization Notes Care Provider Fa cility 06-07-2019 tetanus toxoid, redu kenzie diphtheria toxoid, and acellular pertussis vaccine, adsorbed DR MARÍA RODRIGES MD [facility] Payers Date Payer Category Payer Unknown [id number] 2023 Unknown [id number] 1960 Unknown [id number] 1960 Unknown [id number] Social History Date Type Detail Facility Tobacco smoking status Never smo ked tobacco (finding) [facility] Sex Assigned At Sex [facility] Functional Status Date Assessment Result Facility 11-21-2023 Functional Status Independent [facility] 11-21-2023 Functional Status Standard Safet y ID band on, Call device within reach, Bed in low position, Wheels locked, Upper/Half-Length side-rails up, personal items within reach, Bedside Cart Locked, Visitor at bedside [facility] 05-20-2022 Functional Status Independent [facility] 05-20-2022 Functional Status Standard Safet y ID band on, Call device within reach, Bed in low position, Wheels locked, Upper/Half-Length side-rails up, Phone within reach, personal items within reach, Assistive devices within reach, Toileting device within reach, Bedside Cart Locked, Safety level maintained [facility] Mental Status Date Assessment Result Facility 11-21-2023 Mental Status Orientation Oriented x 4 [facility] 11-21-2023 Mental Status [facility] 05-20-2022 Mental Status Orientation Oriented x 4 [facility] 05-20-2022 Mental Status [facility] Clinical Notes 05-20-2022 to 11-21-2023 Note Date & Type Note Facility 11-21-2023 Hospital Discharge instructions Patient Education 11/21/2023 00:23:14 Chest Pain, Uncertain Cause Uncertain Causes of Chest Pain Chest pain can happen for a number of reasons. Sometimes the cause can't be determined. If your condition does not seem serious, and your pain does not appear to be coming from your heart, your healthcare provider may recommend watching it closely. Sometimes the signs of a serious problem take more time to appear. Many problems not related to your heart can cause chest pain. These include: Musculoskeletal. Costochondritis is an inflammation of the tissues around the ribs that can occur from trauma or overuse injuries, or a strain of the muscles of the chest wall Respiratory. Pneumonia, collapsed lung (pneumothorax), or inflammation of the lining of the chest and lungs (pleurisy) Gastrointestinal. Esophageal reflux, heartburn, ulcers, or gallbladder disease Anxiety and panic disorders Nerve compression and inflammation Rare miscellaneous problems such as aortic aneurysm (a swelling of the large artery coming out of the heart) or pulmonary embolism (a blood clot in the lungs) Home care After your visit, follow these recommendations: Rest today and avoid strenuous activity. Take any prescribed medicine as directed. Be aware of any recurrent chest pain and notice any changes Follow-up care Follow up with your healthcare provider if you do not start to feel better within 24 hours, or as advised. Call 911 Call 911 if any of these occur: A change in the type of pain: if it feels different, becomes more severe, lasts longer, or begins to spread into your shoulder, arm, neck, jaw or back Shortness of breath or increased pain with breathing Weakness, dizziness, or fainting Rapid heart beat Crushing sensation in your chest When to seek medical advice Call your healthcare provider right away if any of the following occur: Cough with dark colored sputum (phlegm) or blood Fever of 100.4 F (38 C) or higher, or as directed by your healthcare provider Swelling, pain or redness in one leg [id number] [employer]. [address] [place] [address], [place] [address]. All rights reserved. This information is not intended as a substitute for professional medical care. Always follow your healthcare professional's instructions. Follow Up Care 11/21/2023 00:03:44 With:DEBORAH MIJARES MD Address: [address] [facility] [address] [address] [phone] When:1-2 days With:Go to emergency room if symptoms worsen Address:Unknown When:2-4 days With:REESE HICKS DO Address: [facility] [address] [address] [phone] When:2-4 days [facility] 11-21-2023 Note Discharge Instructions Thank you for allowing [facility] to assist you with your healthcare needs. The following is important discharge information regarding your hospital visit. Diagnosis from Today's Visit Chest pain Chest pain Musculoskeletal pain What to Do Next Instructions from Your Care Team Take Tylenol and or Motrin as needed for pain. Follow-up with your primary care provider. Follow-up with Dr. Mijares of cardiology or retail agent of your choosing by calling tomorrow. Return the emergency department immediately if you develop worsening pain, shortness of breath, or any other care concern. Your x-ray of the shoulder did show some AC arthritis. Follow-up with your primary care provider. No qualifying data available. Post Acute Orders No qualifying data available. You Need to Schedule the Following Appointments Follow Up with DEBORAH MIJARES MD When Within 1-2 days Where: [address] [facility] [address] [address] [phone] Follow Up with Go to emergency room if symptoms worsen When Within 2-4 days Follow Up with REESE HICKS DO When Within 2-4 days Where: [facility] [address] [place] [address] [place] [address]- [phone] Allergies NKA Medications Please ask your primary doctor or pharmacist before taking any other medication not listed, including over the counter drugs, herbal medications, vitamins and or supplements as they may interact with your home medications. What How Much When Instructions Last Dose Unchanged famotidine (Pepcid 20 mg oral tablet) 1 tab(s) by mouth Once a day Please take this list to your next doctor s visit. Bring all medications you take, including over the counter medications, herbals and other supplements with you to your doctor s visit. Patients and families are reminded to discard old lists and to update any records with all medication providers or retail pharmacies. Education Materials Uncertain Causes of Chest Pain Chest pain can happen for a number of reasons. Sometimes the cause can't be determined. If your condition does not seem serious, and your pain does not appear to be coming from your heart, your healthcare provider may recommend watching it closely. Sometimes the signs of a serious problem take more time to appear. Many problems not related to your heart can cause chest pain. These include: Musculoskeletal. Costochondritis is an inflammation of the tissues around the ribs that can occur from trauma or overuse injuries, or a strain of the muscles of the chest wall Respiratory. Pneumonia, collapsed lung (pneumothorax), or inflammation of the lining of the chest and lungs (pleurisy) Gastrointestinal. Esophageal reflux, heartburn, ulcers, or gallbladder disease Anxiety and panic disorders Nerve compression and inflammation Rare miscellaneous problems such as aortic aneurysm (a swelling of the large artery coming out of the heart) or pulmonary embolism (a blood clot in the lungs) Home care After your visit, follow these recommendations: Rest today and avoid strenuous activity. Take any prescribed medicine as directed. Be aware of any recurrent chest pain and notice any changes Follow-up care Follow up with your healthcare provider if you do not start to feel better within 24 hours, or as advised. Call 911 Call 911 if any of these occur: A change in the type of pain: if it feels different, becomes more severe, lasts longer, or begins to spread into your shoulder, arm, neck, jaw or back Shortness of breath or increased pain with breathing Weakness, dizziness, or fainting Rapid heart beat Crushing sensation in your chest When to seek medical advice Call your healthcare provider right away if any of the following occur: Cough with dark colored sputum (phlegm) or blood Fever of 100.4 F (38 C) or higher, or as directed by your healthcare provider Swelling, pain or redness in one leg [phone] [employer]. [address] [place] [address], [place] [address]. All rights reserved. This information is not intended as a substitute for professional medical care. Always follow your healthcare professional's instructions. Additional Information VACCINATE! IT SAVES LIVES! Members of the community who have not yet received the COVID-19 vaccine and would like to receive it can visit one of [facility] vaccine clinics. There are many vaccine clinic locations within the [facility]. For locations and available times, please visit [email or web address].[email or web address] [email or web address] It is important to note that some COVID mobile vaccine clinics are held outdoors and may be canceled in rainy or stormy conditions. To learn more about pediatric vaccinations (ages 5-11), we invite you to visit the [facility] webpage. https://www.eVariants.org/pa ges/0812-Funfx-Vuuvyufypzc-Freque wuuw-Cfdry-Iiwisevlp.html To learn more about the COVID-19 vaccine, we invite you to visit the CDC website for a list of frequently asked questions. https://www.cdc.gov/coronavirus/2 019-ncov/vaccines/faq.html [facility] Patient Portal Access Instructions: Stay connected with your healthcare team and access your personal medical information anytime with the [facility] Patient Portal. If you would like a full copy of your medical records please contact the [facility] Medical Records Department Saturday through Saturday between 8a.m. and 4:30p.m. Please follow the directions below to access the portal: 1.Access the email account you provided upon registration to the hospital.2.Look for an invitation email from [facility].3.Open the email and access the invitation link: Accept Invitation to [facility].Fill in the required machado to create your account. Sign into www.[employer]ak with your username and password that you created in the above steps to stay up to date. You can then view a summary of results, a summary of your visits, and the ability to download your summaries to your computer or send the information securely to a physician. Remember that your healthcare information is confidential, so carefully consider who you will allow to register on the [facility] Patient Portal for access to your information. You can also access the [facility] Patient Portal on the [employer] dony. Simply click on Health Records under Health Data and then click on the [employer] logo. HOW TO SAFELY DISPOSE OF PRESCRIPTION MEDICATIONS Please use one of the following methods to safely dispose of your unused medications. 1.Use a drug disposal kit: the drug disposal pouch allows you to safely discard your old and unused drugs. Ask your nurse to give you one when you are discharged.2.Visit a local take-back location: Many local pharmacies and police departments have programs that collect old and unwanted prescription drugs. Call your local pharmacy or go to http://Jiankongbao.PT [employer] Network/9H2Da2c to find one close to you.3.Make use of household items: Use cat litter or old coffee grounds to dispose medications if other options are not available. Mix your drugs with these household products, seal them in an airtight container and throw it into the garbage. Call [facility]: [phone] to be sure your drugs can be disposed of in this way. Some medicines may require a different approach.4.Never flush your medications down the toilet. IF YOU HAVE BEEN PRESCRIBED AN OPIOIDS FOR PAIN If you have been prescribed an opioid (such as hydrocodone, oxycodone or morphine), it is critical to understand the possible side effects and risks of opioid pain medications. Even when taken as directed, opioids can have several side effects including: Tolerance, meaning you might need to take more of a medication for the same pain relief. Nausea, vomiting and/or constipation. Sleepiness, dizziness, dry mouth, confusion, depression or itching. Physical dependence, meaning you have withdrawal symptoms when a medication is stopped ? this can develop within a few days. KNOW YOUR RESPONSIBILITIES It is important to know exactly how much and how often to take the opioid pain medications you are prescribed. Never take opioids in higher amounts or more often than prescribed. Do not combine opioids with alcohol or other drugs that cause drowsiness, such as benzodiazepines, also known as benzos, including diazepam and alprazolam, muscle relaxants or sleep aids. Never sell or share prescription opioids. This is illegal. Store opioids in a secure place and out of reach of others (including children, family, friends and visitors). The last page(s) of this document has been signed and retained as a CHART COPY Signatures Patient Education Materials Chest Pain, Uncertain Cause Medication Leaflets My discharge plan and instructions have been reviewed and explained to me and I,ANDREW LYNN understand my current condition and have read and understand these discharge instructions. I have received a written copy of the plan/instructions. If I have questions, I am aware that I should contact my doctor. Patient/Rn Vascular Signature: Date/Time: Relationship to Patient: ____ Witness Name/Signature: Date/Time: [facility] 11-21-2023 Note ORIGINAL EXAMINATION: 4 XRAY VIEWS OF THE LEFT SHOULDER11/21/2023 1:00 am COMPARISON: Left shoulder radiograph 03/29/2023 HISTORY: ORDERING SYSTEM PROVIDED HISTORY: Reason for Exam: Chest pain radiating down left arm FINDINGS: No acute fracture or dislocation is identified. Bony alignment appears maintained. Mild degenerative changes of the left acromioclavicular joint. The soft tissues appear unremarkable. The included thoracic structures are unremarkable. Stable calcified granuloma in the left lung. IMPRESSION: No acute fracture or dislocation. Mild acromioclavicular arthritis. I have personally reviewed the images of this examination, and agree with the resident's findings and interpretation. Interpreted by: Onur Zafar MD Preliminary Report By: Ya Espana Electronically signed By Onur Zafar MD Dictated Date: 11/21/2023 1:15:21 AM Prelim Date: 11/21/2023 1:18:25 AM Sign Date: 11/21/2023 1:33:05 AM [facility] Note ORIGINAL EXAMINATION: ONE XRAY VIEW OF THE CHEST11/21/2023 1:00 am COMPARISON: Chest radiograph 03/29/2023 HISTORY: ORDERING SYSTEM PROVIDED HISTORY: Reason for Exam: pain FINDINGS: Stable cardiomediastinal silhouette. No focal consolidation or pulmonary edema. Similar bilateral calcified granulomas. Streaky opacities in the right lung base may represent atelectasis. No pneumothorax or large volume pleural effusion. No acute osseous abnormalities. IMPRESSION: Streaky opacities in the right lung base are favored to represent atelectasis. I have personally reviewed the images of this examination, and agree with the resident's findings and interpretation. Interpreted by: Onur Zafar MD Preliminary Report By: Ya Espana Electronically signed By Onur Zafar MD Dictated Date: 11/21/2023 1:12:58 AM Prelim Date: 11/21/2023 1:15:13 AM Sign Date: 11/21/2023 1:31:21 AM Ordering Provider: LIO CAO [facility] 11-21-2023 Note Sinus rhythm Probable left atrial enlargement Electronic Signature: LIO CAO DO 11/21/2023 00:30:36 [facility] 05-20-2022 Hospital Discharge instructions Patient Education 05/20/2022 14:03:16 COVID-19 Prevent the Spread of COVID-19 If You Are Sick (03/29/2020)(CUSTOM) Prevent the Spread of COVID-19 If You Are Sick Accessible version: https://www.cdc.gov/coronavirus/2 019-ncov/mg-ysc-xyq-sick/steps-wh en-sick.html If you are sick with COVID-19 or think you might have COVID-19, follow the steps below to help protect other people in your home and community. Stay home except to get medical care. Stay home. Most people with COVID-19 have mild illness and are able to recover at home without medical care. Do not leave your home, except to get medical care. Do not visit public areas. Take care of yourself. Get rest and stay hydrated. Get medical care when needed. Call your doctor before you go to their office for care. But, if you have trouble breathing or other concerning symptoms, call 911 for immediate help. Avoid public transportation, ride-sharing, or taxis. Separate yourself from other people and pets in your home. As much as possible, stay in a specific room and away from other people and pets in your home. Also, you should use a separate bathroom, if available. If you need to be around other people or animals in or outside of the home, wear a cloth face covering. See COVID-19 and Animals if you have questions about pets: https://www.cdc.gov/coronavirus/2 019ncov/faq.html#IGRII01lxbfgwf Monitor your symptoms. Common symptoms of COVID-19 include fever and cough. Trouble breathing is a more serious symptom that means you should get medical attention. Follow care instructions from your healthcare provider and local health department. Your local health authorities will give instructions on checking your symptoms and reporting information. If you develop emergency warning signs for COVID-19 get medical attention immediately. Emergency warning signs include*: Trouble breathing Persistent pain or pressure in the chest New confusion or not able to be woken Bluish lips or face *This list is not all inclusive. Please consult your medical provider for any other symptoms that are severe or concerning to you. Call 911 if you have a medical emergency. If you have a medical emergency and need to call 911, notify the semi automatic sewing machine operator that you have or think you might have, COVID-19. If possible, put on a facemask before medical help arrives Call ahead before visiting your doctor. Call ahead. Many medical visits for routine care are being postponed or done by phone or telemedicine. If you have a medical appointment that cannot be postponed, call your doctor s office. This will help the office protect themselves and other patients. If you are sick, wear a cloth covering over your nose and mouth. You should wear a cloth face covering over your nose and mouth if you must be around other people or animals, including pets (even at home). You don t need to wear the cloth face covering if you are alone. If you can t put on a cloth face covering (because of trouble breathing for example), cover your coughs and sneezes in some other way. Try to stay at least 6 feet away from other people. This will help protect the people around you. Note: During the COVID-19 pandemic, medical grade facemasks are reserved for healthcare workers and some first responders. You may need to make a cloth face covering using a scarf or bandana. Cover your coughs and sneezes. Cover your mouth and nose with a tissue when you cough or sneeze. Throw used tissues in a lined trash can. Immediately wash your hands with soap and water for at least 20 seconds. If soap and water are not available, clean your hands with an alcohol-based hand termite inspector that contains at least 60% alcohol. Clean your hands often. Wash your hands often with soap and water for at least 20 seconds. This is especially important after blowing your nose, coughing, or sneezing; going to the bathroom; and before eating or preparing food. Use hand termite inspector if soap and water are not available. Use an alcohol-based hand termite inspector with at least 60% alcohol, covering all surfaces of your hands and rubbing them together until they feel dry. Soap and water are the best option, especially if your hands are visibly dirty. \ Avoid touching your eyes, nose, and mouth with unwashed hands. Avoid sharing personal household items. Do not share dishes, drinking glasses, cups, eating utensils, towels, or bedding with other people in your home. Wash these items thoroughly after using them with soap and water or put them in the trailer body assembler. Clean all high-touch surfaces everyday. Clean and disinfect high-touch surfaces in your sick room and bathroom. Let someone else clean and disinfect surfaces in common areas, but not your bedroom and bathroom. If a caregiver or other person needs to clean and disinfect a sick person s bedroom or bathroom, they should do so on an as-needed basis. The caregiver/other person should wear a mask and wait as long as possible after the sick person has used the bathroom High-touch surfaces include phones, remote controls, counters, tabletops, doorknobs, bathroom fixtures, toilets, keyboards, tablets, and bedside tables. Clean and disinfect areas that may have blood, stool, or body fluids on them. Use household business systems architect and disinfectants. Clean the area or item with soap and water or another detergent if it is dirty. Then use a household disinfectant. Be sure to follow the instructions on the label to ensure safe and effective use of the product. Many products recommend keeping the surface wet for several minutes to ensure germs are killed. Many also recommend precautions such as wearing gloves and making sure you have good ventilation during use of the product. Most EPA-registered household disinfectants should be effective. How to discontinue home isolation. People with COVID-19 who have stayed home (home isolated) can stop home isolation under the following conditions: If you will not have a test to determine if you are still contagious, you can leave home after these three things have happened: You have had no fever for at least 72 hours (that is three full days of no fever without the use of medicine that reduces fevers) AND other symptoms have improved (for example, when your cough or shortness of breath has improved) AND at least 10 days have passed since your symptoms first appeared. If you will be tested to determine if you are still contagious, you can leave home after these three things have happened: You no longer have a fever (without the use of medicine that reduces fevers) AND other symptoms have improved (for example, when your cough or shortness of breath has improved) AND you received two negative tests in a row, 24 hours apart. Your doctor will follow CDC guidelines. In all cases, follow the guidance of your healthcare provider and local health department. The decision to stop home isolation should be made in consultation with your healthcare provider and state and local health departments. Local decisions depend on local circumstances. cdc.gov/coronavirus Follow Up Care 05/20/2022 11:08:09 With:REESE HICKS DO Address: [facility] [address] [place] [phone] When:2-4 days Comments:Return to ED if symptoms worsen [facility] 05-20-2022 Note Discharge Instructions Thank you for allowing [facility] to assist you with your healthcare needs. The following is important discharge information regarding your hospital visit. Diagnosis from Today's Visit COVID-19 What to Do Next Instructions from Your Care Team Covid-19 Discharge Packet (ED ONLY) - Ordered -- 05/20/22 14:03:00 EDT, Once Post Acute Orders No qualifying data available. You Need to Schedule the Following Appointments Follow Up with REESE HICKS DO When Within 2-4 days Why: Return to ED if symptoms worsen Where: [facility] [address] [place] [phone] Allergies NKA Medications Please ask your primary doctor or pharmacist before taking any other medication not listed, including over the counter drugs, herbal medications, vitamins and or supplements as they may interact with your home medications. What How Much When Why Instructions Last Dose New nirmatrelvir-ritonavir (nirmatrelvir-ritonavir 150 mg-100 mg (300 mg-100 mg Dose) oral tablet) 1 Packet(s) by mouth Two (2) times a day COVID-19 Duration: 5 Days Take 1 Packet = two 150mg nirmatrelvir tabs and one 100mg ritonavir tab. 3 tablets to be taken together by mouth twice a day for 5 days Printed Prescription Unchanged famotidine (Pepcid 20 mg oral tablet) 1 tab(s) by mouth Once a day Please take this list to your next doctor s visit. Bring all medications you take, including over the counter medications, herbals and other supplements with you to your doctor s visit. Patients and families are reminded to discard old lists and to update any records with all medication providers or retail pharmacies. Medication Leaflets nirmatrelvir and ritonavir Vijay What is the most important information I should know about nirmatrelvir and ritonavir? The [place] Food and Drug Administration (FDA) has authorized emergency use of nirmatrelvir in combination with another medicine called ritonavir for the treatment of tlkb-qa-kwwirsjz COVID-19 in adults and people 12 years of age and older (weighing at least 40 kg or 88 lbs). What is nirmatrelvir and ritonavir? Nirmatrelvir in combination with ritonavir is an experimental medicine being studied for the treatment of ntdz-pq-tlaybohe COVID-19. This drug is still being studied and all of its risks are not yet known. The [place] Food and Drug Administration (FDA) has authorized emergency use of nirmatrelvir in combination with another medicine called ritonavir for the treatment of wczl-jc-jyqxboea COVID-19 in adults and people 12 years of age and older (weighing at least 40 kg or 88 lbs) testing positive for COVID-19, and who are at high risk for progression to severe COVID-19, including hospitalization or . Nirmatrelvir and ritonavir is not authorized for use: for initiation of treatment in people needing hospitalization due to COVID-19; for prevention before or after exposure of COVID-19; or longer than 5 consecutive days. Nirmatrelvir and ritonavir may also be used for purposes not listed in this medication guide. What should I discuss with my healthcare provider before taking nirmatrelvir and ritonavir? You should not use nirmatrelvir and ritonavir if you are allergic to it. Some drugs should not be used with nirmatrelvir and ritonavir, such as those listed below. alfuzosin, colchicine; sildenafil (Revatio) when used to treat pulmonary arterial hypertension (PAH); pain medicine--pethidine, piroxicam, propoxyphene; heart medicine--amiodarone, dronedarone, flecainide, propafenone, quinidine, ranolazine; antipsychotic medicine--lurasidone, pimozide, clozapine; ergot medicine--dihydroergotamine, ergotamine, methylergonovine; cholesterol-lowering medicine--lovastatin, simvastatin; or a sedative--triazolam, oral midazolam. Nirmatrelvir and ritonavir should not be started immediately after discontinuation of any of the following drugs: rifampin; Violeta's Wort; a cancer medicine--apalutamide; or seizure medicine--carbamazepine, phenobarbital, phenytoin. Tell your doctor if: you have liver problems or a liver disease such as hepatitis; you have kidney problems; you have an HIV-1 infection; you are or ; or you have any serious or chronic disease. COVID-19 is more likely to cause serious illness or in a woman. Not all risks are known yet, but being treated with nirmatrelvir and ritonavir is likely to be less harmful than being infected with COVID-19 during . Ritonavir can make control pills or skin patches less effective. Ask your doctor about other control options such as an injection, implant, vaginal ring, condom, diaphragm, cervical cap, or contraceptive sponge. How should I take nirmatrelvir and ritonavir? Follow all directions on your prescription label and read all medication guides or instruction sheets. Use the medicine exactly as directed. Take nirmatrelvir together with ritonavir (two tablets of nirmatrelvir and one tablet of ritonavir) twice a day for 5 consecutive days. Take this medicine as soon as possible after diagnosis of COVID-19 and within 5 days of when symptoms first appear. You may take nirmatrelvir and ritonavir with or without food. Swallow the tablets whole and do not crush, chew, or break them. You may need frequent blood tests to check your liver function. Being treated with nirmatrelvir and ritonavir will not make you less contagious to other people. Keep using infection control methods such as self-isolation, social distancing, hand-washing, using protective face covering, disinfecting surfaces you touch a lot, and not sharing personal items with others. Nirmatrelvir and ritonavir are still being studied and all of the risks are not yet known. What happens if I miss a dose? Use the medicine as soon as you can, but skip the missed dose if you are more than 8 hours late for the dose. Do not use two doses at one time. What happens if I overdose? Seek emergency medical attention or call the Poison Help line at . What should I avoid while taking nirmatrelvir and ritonavir? Follow your doctor's instructions about any restrictions on food, beverages, or activity. What are the possible side effects of nirmatrelvir and ritonavir? Get emergency medical help if you have signs of an allergic reaction (hives, difficult breathing, swelling in your face or throat) or a severe skin reaction (fever, sore throat, burning eyes, skin pain, red or purple skin rash with blistering and peeling). Call your doctor at once if you have: liver problems--loss of appetite, stomach pain (upper right side), tiredness, itching, dark urine, tay-colored stools, jaundice (yellowing of the skin or eyes). Ritonavir affects your immune system, which may cause certain side effects (even weeks or months after you've taken this medicine). Tell your doctor if you have: signs of a new infection--fever, night sweats, swollen glands, cold sores, cough, wheezing, diarrhea, weight loss; trouble speaking or swallowing, problems with balance or eye movement, weakness or prickly feeling; or swelling in your neck or throat (enlarged thyroid), menstrual changes, impotence. Common side effects may include: changes in your sense of taste; diarrhea; elevated blood pressure; or muscle pain. This is not a complete list of side effects and others may occur. Call your doctor for medical advice about side effects. You may report side effects to FDA at 9-012-REH-0906. What other drugs will affect nirmatrelvir and ritonavir? Sometimes it is not safe to use certain medicines at the same time. Some drugs can affect your blood levels of other drugs you use, which may increase side effects or make the medicines less effective. Many drugs can affect nirmatrelvir and ritonavir, and some drugs should not be used at the same time. Tell your doctor about all other medicines you use. This includes prescription and vnpy-evx-ewtqdbf medicines, vitamins, and herbal products. Not all possible interactions are listed here. Where can I get more information? Your doctor or pharmacist can provide more information about nirmatrelvir and ritonavir. Remember, keep this and all other medicines out of the reach of children, never share your medicines with others, and use this medication only for the indication prescribed. Every effort has been made to ensure that the information provided by [employer]. ('[employer]') is accurate, up-to-date, and complete, but no guarantee is made to that effect. Drug information contained herein may be time sensitive. [employer] information has been compiled for use by healthcare practitioners and consumers in the [place] and therefore [employer] does not warrant that uses outside of the [place] are appropriate, unless specifically indicated otherwise. [employer] drug information does not endorse drugs, diagnose patients or recommend therapy. [employer] drug information is an informational resource designed to assist licensed healthcare practitioners in caring for their patients and/or to serve consumers viewing this service as a supplement to, and not a substitute for, the expertise, skill, knowledge and judgment of healthcare practitioners. The absence of a warning for a given drug or drug combination in no way should be construed to indicate that the drug or drug combination is safe, effective or appropriate for any given patient. [employer] does not assume any responsibility for any aspect of healthcare administered with the aid of information [facility] provides. The information contained herein is not intended to cover all possible uses, directions, precautions, warnings, drug interactions, allergic reactions, or adverse effects. If you have questions about the drugs you are taking, check with your doctor, nurse or pharmacist. Copyright 8670-6841 [employer]. Version: 1.01. Revision Date: 11/15/2021. Education Materials Prevent the Spread of COVID-19 If You Are Sick Accessible version: https://www.cdc.gov/coronavirus/2 019-ncov/ee-fom-lxy-sick/steps-wh en-sick.html If you are sick with COVID-19 or think you might have COVID-19, follow the steps below to help protect other people in your home and community. Stay home except to get medical care. Stay home. Most people with COVID-19 have mild illness and are able to recover at home without medical care. Do not leave your home, except to get medical care. Do not visit public areas. Take care of yourself. Get rest and stay hydrated. Get medical care when needed. Call your doctor before you go to their office for care. But, if you have trouble breathing or other concerning symptoms, call 911 for immediate help. Avoid public transportation, ride-sharing, or taxis. Separate yourself from other people and pets in your home. As much as possible, stay in a specific room and away from other people and pets in your home. Also, you should use a separate bathroom, if available. If you need to be around other people or animals in or outside of the home, wear a cloth face covering. See COVID-19 and Animals if you have questions about pets: https://www.cdc.gov/coronavirus/2 019ncov/faq.html#MVMUT34zzoxvrz Monitor your symptoms. Common symptoms of COVID-19 include fever and cough. Trouble breathing is a more serious symptom that means you should get medical attention. Follow care instructions from your healthcare provider and local health department. Your local health authorities will give instructions on checking your symptoms and reporting information. If you develop emergency warning signs for COVID-19 get medical attention immediately. Emergency warning signs include*: Trouble breathing Persistent pain or pressure in the chest New confusion or not able to be woken Bluish lips or face *This list is not all inclusive. Please consult your medical provider for any other symptoms that are severe or concerning to you. Call 911 if you have a medical emergency. If you have a medical emergency and need to call 911, notify the semi automatic sewing machine operator that you have or think you might have, COVID-19. If possible, put on a facemask before medical help arrives Call ahead before visiting your doctor. Call ahead. Many medical visits for routine care are being postponed or done by phone or telemedicine. If you have a medical appointment that cannot be postponed, call your doctor s office. This will help the office protect themselves and other patients. If you are sick, wear a cloth covering over your nose and mouth. You should wear a cloth face covering over your nose and mouth if you must be around other people or animals, including pets (even at home). You don t need to wear the cloth face covering if you are alone. If you can t put on a cloth face covering (because of trouble breathing for example), cover your coughs and sneezes in some other way. Try to stay at least 6 feet away from other people. This will help protect the people around you. Note: During the COVID-19 pandemic, medical grade facemasks are reserved for healthcare workers and some first responders. You may need to make a cloth face covering using a scarf or bandana. Cover your coughs and sneezes. Cover your mouth and nose with a tissue when you cough or sneeze. Throw used tissues in a lined trash can. Immediately wash your hands with soap and water for at least 20 seconds. If soap and water are not available, clean your hands with an alcohol-based hand termite inspector that contains at least 60% alcohol. Clean your hands often. Wash your hands often with soap and water for at least 20 seconds. This is especially important after blowing your nose, coughing, or sneezing; going to the bathroom; and before eating or preparing food. Use hand termite inspector if soap and water are not available. Use an alcohol-based hand termite inspector with at least 60% alcohol, covering all surfaces of your hands and rubbing them together until they feel dry. Soap and water are the best option, especially if your hands are visibly dirty. \ Avoid touching your eyes, nose, and mouth with unwashed hands. Avoid sharing personal household items. Do not share dishes, drinking glasses, cups, eating utensils, towels, or bedding with other people in your home. Wash these items thoroughly after using them with soap and water or put them in the trailer body assembler. Clean all high-touch surfaces everyday. Clean and disinfect high-touch surfaces in your sick room and bathroom. Let someone else clean and disinfect surfaces in common areas, but not your bedroom and bathroom. If a caregiver or other person needs to clean and disinfect a sick person s bedroom or bathroom, they should do so on an as-needed basis. The caregiver/other person should wear a mask and wait as long as possible after the sick person has used the bathroom High-touch surfaces include phones, remote controls, counters, tabletops, doorknobs, bathroom fixtures, toilets, keyboards, tablets, and bedside tables. Clean and disinfect areas that may have blood, stool, or body fluids on them. Use household business systems architect and disinfectants. Clean the area or item with soap and water or another detergent if it is dirty. Then use a household disinfectant. Be sure to follow the instructions on the label to ensure safe and effective use of the product. Many products recommend keeping the surface wet for several minutes to ensure germs are killed. Many also recommend precautions such as wearing gloves and making sure you have good ventilation during use of the product. Most EPA-registered household disinfectants should be effective. How to discontinue home isolation. People with COVID-19 who have stayed home (home isolated) can stop home isolation under the following conditions: If you will not have a test to determine if you are still contagious, you can leave home after these three things have happened: You have had no fever for at least 72 hours (that is three full days of no fever without the use of medicine that reduces fevers) AND other symptoms have improved (for example, when your cough or shortness of breath has improved) AND at least 10 days have passed since your symptoms first appeared. If you will be tested to determine if you are still contagious, you can leave home after these three things have happened: You no longer have a fever (without the use of medicine that reduces fevers) AND other symptoms have improved (for example, when your cough or shortness of breath has improved) AND you received two negative tests in a row, 24 hours apart. Your doctor will follow CDC guidelines. In all cases, follow the guidance of your healthcare provider and local health department. The decision to stop home isolation should be made in consultation with your healthcare provider and state and local health departments. Local decisions depend on local circumstances. cdc.gov/coronavirus Additional Information VACCINATE! IT SAVES LIVES! Members of the community who have not yet received the COVID-19 vaccine and would like to receive it can visit one of [facility] vaccine clinics. There are many vaccine clinic locations within the [facility]. For locations and available times, please visit [email or web address]. It is important to note that some COVID mobile vaccine clinics are held outdoors and may be canceled in rainy or stormy conditions. To learn more about pediatric vaccinations (ages 5-11), we invite you to visit the [employer] webpage. [email or web address] [email or web address].html To learn more about the COVID-19 vaccine, we invite you to visit the [employer] website for a list of frequently asked questions. [email or web address] [email or web address] [employer] Patient Portal Access Instructions: Stay connected with your healthcare team and access your personal medical information anytime with the [employer] Patient Portal. If you would like a full copy of your medical records please contact the [facility] Medical Records Department Saturday through Saturday between 8a.m. and 4:30p.m. Please follow the directions below to access the portal: 1.Access the email account you provided upon registration to the hospital.2.Look for an invitation email from [facility].3.Open the email and access the invitation link: Accept Invitation to [facility]4.Fill in the required machado to create your account. Sign into [email or web address] with your username and password that you created in the above steps to stay up to date. You can then view a summary of results, a summary of your visits, and the ability to download your summaries to your computer or send the information securely to a physician. Remember that your healthcare information is confidential, so carefully consider who you will allow to register on the [employer] Patient Portal for access to your information. You can also access the [employer] Patient Portal on the [employer] dony. Simply click on Health Records under Health Data and then click on the [employer] logo. HOW TO SAFELY DISPOSE OF PRESCRIPTION MEDICATIONS Please use one of the following methods to safely dispose of your unused medications. 1.Use a drug disposal kit: the drug disposal pouch allows you to safely discard your old and unused drugs. Ask your nurse to give you one when you are discharged.2.Visit a local take-back location: Many local pharmacies and police departments have programs that collect old and unwanted prescription drugs. Call your local pharmacy or go to http://Jiankongbao.PT [employer]/5N8Ds4w to find one close to you.3.Make use of household items: Use cat litter or old coffee grounds to dispose medications if other options are not available. Mix your drugs with these household products, seal them in an airtight container and throw it into the garbage. Call [facility]: [phone] to be sure your drugs can be disposed of in this way. Some medicines may require a different approach.4.Never flush your medications down the toilet. IF YOU HAVE BEEN PRESCRIBED AN OPIOIDS FOR PAIN If you have been prescribed an opioid (such as hydrocodone, oxycodone or morphine), it is critical to understand the possible side effects and risks of opioid pain medications. Even when taken as directed, opioids can have several side effects including: Tolerance, meaning you might need to take more of a medication for the same pain relief. Nausea, vomiting and/or constipation. Sleepiness, dizziness, dry mouth, confusion, depression or itching. Physical dependence, meaning you have withdrawal symptoms when a medication is stopped ? this can develop within a few days. KNOW YOUR RESPONSIBILITIES It is important to know exactly how much and how often to take the opioid pain medications you are prescribed. Never take opioids in higher amounts or more often than prescribed. Do not combine opioids with alcohol or other drugs that cause drowsiness, such as benzodiazepines, also known as benzos, including diazepam and alprazolam, muscle relaxants or sleep aids. Never sell or share prescription opioids. This is illegal. Store opioids in a secure place and out of reach of others (including children, family, friends and visitors). The last page(s) of this document has been signed and retained as a CHART COPY Signatures Patient Education Materials COVID-19 Prevent the Spread of COVID-19 If You Are Sick (03/29/2020)(CUSTOM) Medication Leaflets nirmatrelvir and ritonavir My discharge plan and instructions have been reviewed and explained to me and I,LYNN ANDREW Harrell understand my current condition and have read and understand these discharge instructions. I have received a written copy of the plan/instructions. If I have questions, I am aware that I should contact my doctor. Patient/Rn Vascular Signature: Date/Time: Relationship to Patient: ____ Witness Name/Signature: Date/Time: [facility] 05-20-2022 Note ORIGINAL EXAMINATION: ONE XRAY VIEW OF THE CHEST 05/20/2022 11:46 am COMPARISON: None. HISTORY: ORDERING SYSTEM PROVIDED HISTORY: Reason for Exam: SOB/cough/fever FINDINGS: The lungs are without acute focal process. There is no effusion or pneumothorax. The cardiomediastinal silhouette is without acute process. Scattered calcified granulomata project over the lungs bilaterally. The osseous structures are without acute process. IMPRESSION: No acute process. Interpreted by: Jose Lugo Preliminary Report By: Jose Lugo Electronically signed By Jose Lugo Dictated Date: 05/20/2022 11:51:04 AM Prelim Date: 05/20/2022 11:51:25 AM Sign Date: 05/20/2022 11:51:25 AM Ordering Provider: MARÍA RODRIGES [facility] 05-20-2022 Note ORIGINAL EXAMINATION: ONE XRAY VIEW OF THE CHEST 05/20/2022 11:46 am COMPARISON: None. HISTORY: ORDERING SYSTEM PROVIDED HISTORY: Reason for Exam: SOB/cough/fever FINDINGS: The lungs are without acute focal process. There is no effusion or pneumothorax. The cardiomediastinal silhouette is without acute process. Scattered calcified granulomata project over the lungs bilaterally. The osseous structures are without acute process. IMPRESSION: No acute process. Interpreted by: Jose Lugo Preliminary Report By: Jose Lugo Electronically signed By Jose Lugo Dictated Date: 05/20/2022 11:51:04 AM Prelim Date: 05/20/2022 11:51:25 AM Sign Date: 05/20/2022 11:51:25 AM Ordering Provider: MARÍA RODRIGES [facility] 05-20-2022 SARS-CoV-2 (COVID-19) RNA KAEL+probe Ql (Nph) Positive *ABN* (05/20/22 11:33 AM) AO Auto Urine SS Evaluation + Plan note No data available for this section [facility] Summary Purpose Family History No Family History Records Found Advance Directives No Advanced Directives Records Found Additional Source Comments Care Team (unrecognized sect ion and content) Care Team Personnel Name: REESE HICKS DO Member Role: Primary Care Physician Address: Address: [address] Care Team Related Persons Name: DODIE LYNN Patient Care team informatio n (unrecognized section and content) Care Team Personnel Name: REESE HICKS DO Member Role: Primary Care Physician Address: Address: [address] Name: Aissatou Dias RN Position: AO RN Member Role: ED RN Name: LIO CAO DO Position: ED Physician Member Role: Attending Physician Address: Address: [address] [place] [id number] Care Team Related Persons Name: DODIE LYNN INFORMATION SOURCE (unrecogn ized section and content) FOR RECORDS PERTAINING TO PATIENTS WHO ARE OR HAVE BEEN ENROLLED IN A CHEMICAL DEPENDENCY/SUBSTANCEABUSE PROGRAM, SOME INFORMATION MAY BE OMITTED. This clinical summary was aggregated from multiple sources. Caution should be exercised in using it in the provision of clinical care. This summary normalizes information from multiple sources, and as a consequence, information in this document may materially change the coding, format and clinical context of patient data. In addition, data may be omitted in some cases. CLINICAL DECISIONS SHOULD BE BASED ON THE PRIMARY CLINICAL RECORDS. [facility]. provides no warranty or guarantee of the accuracy or completeness of information in this document.
[2023-12-20 17:24] LABS: Color, Urine Yellow (Yellow); Glucose, Dipstick Normal (Normal); Ketone-Dipstick 5 mg/dl (Negative); Leukocyte Esterase-Dipstick 100 /ul (Negative); Nitrite-Dipstick Negative (Negative); Occult Blood-Urine 10 /ul (Negative); Protein-Dipstick 15 mg/dl (Negative); Specific Gravity, Urine 1.025 (1.002-1.030); Urine Bilirubin Dipstick Negative (Negative); Urine Clarity Clear (Clear); Urine Urobilinogen Normal (Normal)
[2023-12-20 17:37] LABS: Vitamin B12 356 pg/mL (211-911)
[2023-12-20 17:46] LABS: Squamous Epithelial Cells - UA 0-5 SEEN /hpf (5-10); White Blood Cells 0-5 SEEN /hpf (0-5)
== END | disposition home or self-care (01) ==
PROVIDERS: PCP Family Medicine; Referring Provider Nurse Practitioner; Visit Provider Nurse Practitioner
DX: R30.0 Dysuria (principal); R53.83 Other fatigue
CPT/HCPCS: 36415; 81001; 82607; 87086

== ENCOUNTER → 2024-06-25 | Outpatient (CLI) | payer OTHER, SELFPAY ==
[2024-07-01 13:08] LABS: HPV APTIMA, High Risk Negative (Negative)
== END | disposition home or self-care (01) ==
LOC: LABSPEC 16:30
PROVIDERS: PCP Family Medicine; Visit Provider Family Medicine
DX: N95.1 Menopausal and female climacteric states (principal)
CPT/HCPCS: 87624; 88142

== ENCOUNTER → 2024-07-20 | Outpatient (CLI) | payer OTHER, SELFPAY ==
--- NOTE | 2024-07-20 13:24 | BI_ITS ---
MAMMOGRAPHY - BILATERAL SCREENING 3-D TOMOSYNTHESIS REASON FOR EXAM: Female, 63 years old. scree PERTINENT HISTORY: No significant family history. TECHNIQUE: 2-D mammograms and 3-D Tomosynthesis of the breast (s) were performed. CAD was performed. COMPARISON: 08/27/2019 FINDINGS: The breast composition is composed of scattered fibroglandular density. Scattered benign calcifications are seen. No dense spiculated masses or suspicious microcalcifications are identified. No architectural distortion is identified. There is no skin thickening or retraction. There has been no significant change since the prior study. BI/SCRN MAMM (CAD)W/CHRISTIAN BILAT IMPRESSION: No mammographic signs of malignancy. Routine yearly mammograms recommended. ASSESSMENT CATEGORY: BIRADS Category 1: Negative. A letter regarding these results will be sent to the patient by the facility within 30 days. FOLLOW UP RECOMMENDATION: Yearly follow up mammogram recommended. (A) Approximately 10% of breast cancers are not detected by mammography. A normal mammogram should not delay biopsy of a clinically suspicious abnormality. Electronically Signed: Trever Ivan MD at 14:40 EDT ,
== END | disposition home or self-care (01) ==
LOC: OPBI 13:24
PROVIDERS: PCP Family Medicine; Referring Provider Family Medicine; Visit Provider Family Medicine
DX: Z12.31 Encounter for screening mammogram for malignant neoplasm of breast (principal)
CPT/HCPCS: 77063; 77067

== ENCOUNTER → 2024-12-09 | Outpatient (CLI) | payer MEDICAID, SELFPAY ==
[2024-12-09 15:22] LABS: Absolute Neutrophil Count 4.3 X10^3/uL (2.0-7.7); Basophil# 0.05 X10^3/uL; Basophil% 0.7 % (0-1); Eosinophil# 0.07 X10^3/uL; Hemoglobin 12.7 g/dL (12.0-15.0); Lymphocyte % 31.3 % (19-41); Mean Corp Hgb Conc 31.8 g/dL (32-36); Mean Corpuscular Hgb 27.8 pg (27.0-32.0); Mean Corpuscular Volume 87.5 fL (81-99); Monocyte# 0.44 X10^3/uL; Monocyte% 6.3 % (0-10); NRBC Flagged by Analyzer 0 % (0-5); Neutrophil # 4.27 X10^3/uL (2.7-7.7); Neutrophil % 60.6 % (47-70); Platelet Count 341 K/mm3 (150-450); RBC Distribution Width CV 12.7 % (11.6-14.6); RBC Distribution Width SD 40.6 fl (35.1-43.9); Red Blood Count 4.57 M/mm3 (4.2-5.4)
[2024-12-09 16:06] LABS: ALB/GLOB Ratio 0.8 RATIO (0.9-2.4); AST(SGOT) 20 U/L (15-37); Alanine Aminotransfer ALT/SGPT 19 U/L (13-56); Albumin, Serum 3.5 g/dL (3.2-5.0); Alkaline Phosphatase 87 U/L (45-117); Anion Gap 6 (5-15); BUN 15 mg/dL (7-18); BUN/Creat Ratio 16.9 RATIO (10-20); Calcium,Total 9.4 mg/dL (8.5-10.1); Chloride 108 mmol/L (98-107); Creatinine, Serum 0.89 mg/dL (0.55-1.02); EST Glomerular Filtration Rate 68 mL/min (>60); Est Glom Filt Rate - Afr Amer 82 mL/min (>60); Globulin 4.3 g/dL (2.2-4.2); Glucose 120 mg/dL (74-106); Protein, Total 7.8 g/dL (6.4-8.2); Sodium Level 140 mmol/L (136-145); Thyroid Stim Hormone (TSH) 0.756 uIU/mL (0.358-3.740)
[2024-12-09 16:39] LABS: Vitamin D,25 Hydroxy 15.1 ng/mL
== END | disposition home or self-care (01) ==
LOC: BIMLAB 13:45
PROVIDERS: PCP Family Medicine; Visit Provider Family Medicine
DX: R53.83 Other fatigue (principal)
CPT/HCPCS: 36415; 80053; 82306; 84443; 85025

== ENCOUNTER → 2024-12-14 | Outpatient (CLI) | payer MEDICARE, SELFPAY ==
--- NOTE | 2024-12-14 15:36 | US_ITS ---
PROCEDURE: PELVIC W/ TRANSVAGINAL REASON FOR EXAM: Uterine prolapse TECHNIQUE: Transabdominal and transvaginal pelvic ultrasound COMPARISON: None. FINDINGS: The uterus is anteverted and appears heterogeneous in echotexture. Uterus measures 8.8 x 4.6 x 3.5 cm. No masses or fluid collections are identified. Endometrial stripe measures 3 mm, with punctate calcifications. Nabothian cysts within the lower uterine segment. The bilateral ovaries are not well appreciated. No adnexal masses are identified bilaterally. No free fluid seen within the pelvis. Urinary bladder measures 5.0 x 6.1 x 9.4 cm, for an estimated volume of 149.3 mL. US/Pelvic w/ Transvaginal IMPRESSION: 1. Heterogeneous uterus, with measurements provided above. No discrete masses or fluid collections are identified. 2. Bilateral ovaries are not well seen. No adnexal masses or fluid collections . 3. Additional measurements, as provided above. Reading [facility]
== END | disposition home or self-care (01) ==
LOC: US 15:34
PROVIDERS: PCP Family Medicine; Referring Provider Obstetrics & Gynecology; Visit Provider Obstetrics & Gynecology
DX: N81.6 Rectocele (principal)
CPT/HCPCS: 76830; 76856

== ENCOUNTER → 2025-03-15 | Outpatient (CLI) | payer MEDICARE, OTHER, SELFPAY ==
[2025-03-15 12:02] LABS: Absolute Lymphocyte Count 1.87 X10^3/uL (0.83-4.51); Absolute Neutrophil Count 5.3 X10^3/uL (2.0-7.7); Basophil# 0.05 X10^3/uL; Basophil% 0.6 % (0-1); Eosinophils% 1.3 % (0-5); Hematocrit 40.8 % (37-47); Hemoglobin 13.7 g/dL (12.0-15.0); Lymphocyte # 1.87 X10^3/ul (0.83-4.51); Lymphocyte % 23.8 % (19-41); Mean Corp Hgb Conc 33.6 g/dL (32-36); Mean Corpuscular Hgb 29.5 pg (27.0-32.0); Mean Corpuscular Volume 87.7 fL (81-99); Mean Platelet Vol. 8.4 fl (6.2-12.0); Monocyte# 0.57 X10^3/uL; Monocyte% 7.2 % (0-10); NRBC Flagged by Analyzer 0 % (0-5); Neutrophil # 5.26 X10^3/uL (2.7-7.7); Neutrophil % 66.8 % (47-70); Platelet Count 325 K/mm3 (150-450); RBC Distribution Width CV 12.5 % (11.6-14.6); RBC Distribution Width SD 39.8 fl (35.1-43.9); Red Blood Count 4.65 M/mm3 (4.2-5.4); White Blood Count 7.9 K/mm3 (4.4-11.0)
[2025-03-15 12:45] LABS: ALB/GLOB Ratio 1.1 RATIO (0.9-2.4); AST(SGOT) 20 U/L (<=31); Alanine Aminotransfer ALT/SGPT 12 U/L (<=34); Alkaline Phosphatase 89 U/L (35-104); Anion Gap 8 (5-15); BUN 11 mg/dL (4-19); BUN/Creat Ratio 13.1 RATIO (10-20); Calcium,Total 10.2 mg/dL (7.6-11.0); Carbon Dioxide 25.2 mmol/L (21.0-32.0); Chloride 105 mmol/L (98-108); Creatinine, Serum 0.82 mg/dL (0.70-1.20); EST Glomerular Filtration Rate 80 (>60); Globulin 3.6 g/dL (2.2-4.2); Glucose 90 mg/dL (70-99); Potassium 4.4 mmol/L (3.3-5.1); Protein, Total 7.6 g/dL (5.9-8.4); Sodium Level 138 mmol/L (133-145); Total Bilirubin 0.44 mg/dL (0.00-1.30)
== END | disposition home or self-care (01) ==
LOC: BWCLAB 11:28
PROVIDERS: PCP Family Medicine; Visit Provider Obstetrics & Gynecology
DX: Z01.818 Encounter for other preprocedural examination (principal)
CPT/HCPCS: 36415; 80053; 85025; 86850; 86900; 86901

== ENCOUNTER 2025-03-26 14:20 | Observation (INO) | payer MEDICARE, SELFPAY ==
--- NOTE | 2025-03-24 15:28 | PAT.ANESEVAL ---
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 When Was Last Pacemaker Check QUESTION #4 FULL TEXT: You/Your Family Experience fever (hyperthermia) with Anesthesia Last Oral Intake Last Oral intake: Last Oral Intake NPO since Meds taken in AM with sips of water? 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 Female Yes 03/24/25 13:28 HX of Motion Sickness No 03/24/25 13:28 HX of N/V After Surgery No 03/24/25 13:28 Non-Smoker Yes 03/24/25 13:28 Duration of Surgery greater Yes 03/24/25 13:28 than 60 minutes Number of Risk Factors 3 03/24/25 13:28 PONV Score Moderate Risk 03/24/25 13:28 Height & Weight Height & Weight: Anesthesia: Height & Weight Height 5 ft 6 in 03/15/25 10:55 Respiratory Assessment Respiratory Assessment - assembler aircraft power plant: Respiratory Tract Infection Hx - assembler aircraft power plant Hx Respiratory Tract Infection No 03/24/25 13:28 STOP Sleep Apnea STOP Sleep Apnea - assembler aircraft power plant: STOP Sleep Apnea - assembler aircraft power plant Hx Hypertension No 03/24/25 13:28 Hx Sleep Apnea No 03/24/25 13:28 CPAP BIPAP Do you snore loudly (louder No 03/24/25 13:28 than talking or can be heard Do you often feel tired/ Yes 03/24/25 13:28 fatigued/ sleepy during daytime? Has anyone observed you stop No 03/24/25 13:28 breathing during sleep? STOP Results Negative 03/24/25 13:28 QUESTION #5 FULL TEXT : Do you snore loudly (louder than talking or can be heard through closed doors)? 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 Specify any problems Hx of Preganancy in last 3 No 03/24/25 13:28 Months Nurse Filling Out Transfusion DSCHRIBER 03/24/25 13:28 & Questions: Date: 03/24/25 03/24/25 13:28 Time: 13:29 03/24/25 13:28 Patient unable to answer at this time (ie. 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: /Reproductive Hx- assembler aircraft power plant Hx Now No 03/24/25 13:28 Gestational Age (in weeks): EDC: Hx Hx Para Hx Section SAB No 03/24/25 13:28 PFSH Medical History (Updated 03/24/25 @ 13:34 by Gaby Watters) History of steroid therapy Bladder disease Restless legs Syncope History of ulceration Shortness of breath on exertion History of pain when walking History of edema Wears glasses Post-menopausal Arthritis Fatty liver Non-smoker Leg cramps Acid reflux Depression History of anemia Anxiety Home Medications ?Medication ?Instructions ?Recorded ?Last Taken ?Type calcium carbonate (Antacid Ext Str 300 mg PO TID PRN dyspepsia 03/24/25 Unknown History (calcium carb)) Allergy/AdvReac Type Severity Reaction Status Date / Time adhesive tape Allergy Unknown Rash Verified 03/24/25 13:27 Family History Mother Dementia Diabetes Sister Diabetes Hypertension Surgical History History of colonoscopy Social History Smoking Status: Never smoker alcohol intake: never substance use type: does not use caffeine: Yes what type of physical activity do you participate in: none seatbelt use: always do you feel safe at home: Yes additional social history: Audit: Pertinent Findings Pertinent Findings EKG Perinent findings: 11/21/2023. Sinus rhythm. Probable left atrial enlargement. Compared to 2022 nonspecific T waves are no longer seen. Recommendation Anesthesia Recommendation Anesthesia recommendation: OPTIMIZED for anesthesia
[2025-03-26] VITALS (13 sets, daily range): BP systolic 119–140; BP diastolic 68–82; PULSE 69–91; RESP 15–18; TEMP 36.1–37.1; O2SAT 94–100; BMI 28.7
--- NOTE | 2025-03-26 07:43 | PCM.HP.BLA ---
History and Physical Date of Admission: 03/26/25 Intake Vital Signs 12/17/2511:32 03/15/2510:55 Height 5 ft 6 in 5 ft 6 in Weight: 179 lb 6 oz 178 lb 4 oz BMI 28.9 28.8 BP 132/82 H 134/87 H Blood Pressure Location Rt brachial Position Sitting Respiration 16 Pulse 85 Pulse Source Monitor Temp 96.7 F L Pulse Oximetry (%) 96 Oxygen Delivery Method room air Intake Visit Reasons: TVH poss. BSO Cysto Cranberry Sorter Required: No Is patient in pain?: No Allergies adhesive tape Allergy (Unknown, Verified 03/15/25 10:53) Rash Medications ?Medication ?Instructions ?Recorded ?Confirmed ?Type NK 03/15/25 03/15/25 History Is last menstrual period known: No Post menopausal: Yes [facility] : No : [facility] Wears glasses Post-menopausal Arthritis Fatty liver Easy bruising Migraine headache Non-smoker Leg cramps Chronic cough Sleep apnea Abdominal pain Hemorrhoid Diarrhea Acid reflux Depression History of anemia Anxiety Surgical History History of colonoscopy Family History Mother Dementia DiabetesSister Diabetes Hypertension Social History Smoking Status: Never smoker alcohol intake: never substance use type: does not use caffeine: Yes what type of physical activity do you participate in: none seatbelt use: always do you feel safe at home: Yes additional social history: HPI H poss. BSO Cysto Details: ANDREW LYNN is a 64 year old , vaginal deliveries, who presents for vaginal hysterectomy consultation. She complains of having to push herself back up and has to strain often to have a bowel movement. She denies medical problems such as diabetes, high blood pressure, lupus, etc. She urinates often at night but denies incontinence unless she drinks a lot of water. She does not drink alcohol or use drugs. She is not interested in a pessary. Patient is sexually active very infrequently (every 2 months or less). She denies vaginal bleeding and stopped having periods when she was in her 40's . Ultrasound showed the following: FINDINGS: The uterus is anteverted and appears heterogeneous in echotexture. Uterus measures 8.8 x 4.6 x 3.5 cm. No masses or fluid collections are identified. Endometrial stripe measures 3 mm, with punctate calcifications. Nabothian cysts within the lower uterine segment. The bilateral ovaries are not well appreciated. No adnexal masses are identified bilaterally. No free fluid seen within the pelvis. Urinary bladder measures 5.0 x 6.1 x 9.4 cm, for an estimated volume of 149.3 mL. US/Pelvic w/ Transvaginal IMPRESSION: 1. Heterogeneous uterus, with measurements provided above. No discrete masses or fluid collections are identified. 2. Bilateral ovaries are not well seen. No adnexal masses or fluid collections. 3. Additional measurements, as provided above. History 3 Elective abortions Hx Para 3 Spontaneous abortions Hx # Term Pregnancies Ectopic pregnancies Hx # Pregnancies Multiple births # of living children Past Pregnancies Del. Date Name GA/Weeks Outcome Route Bth Weight Infant Gen Labor Lgth Anesthesia Del Locatn Provider FOB Unknown Josh Unknown Rell Unknown Jamari ROS Const ROS Unobtainable: All systems reviewed & are unremarkable except as noted in H Resp Resp: Reports system reviewed and no additional complaints, except as documented; Denies cough GI GI: Reports as per HPI Psych Psych: Reports system reviewed and no additional complaints, except as documented Exam Const General: cooperative, healthy appearing, comfortable and no acute distress Resp Effort & Inspection: normal respiratory effort Skin General: no rashes or lesions noted Psych Appearance: grossly normal Speech and Movement: speech and movement normal Coding Level of Care Code Off vis,est,level 4 Diagnoses Preoperative exam for gynecologic surgery Z Pelvic organ prolapse quantification stage 3 rectocele N81.6 Vaginal enterocele due to incomplete uterovaginal prolapse N81.2 Assessment and Plan Assessment and Plan (1) Preoperative exam for gynecologic surgery: Status: Acute (2) Pelvic organ prolapse quantification stage 3 rectocele: Status: Acute (3) Vaginal enterocele due to incomplete uterovaginal prolapse: Status: Acute Orders: Orders CBC W/Diff, Automated Today Z81 - Encounter for other preprocedural examination Type & Screen - PAT ONLY Today Z - Encounter for other preprocedural examination Comprehensive Metabolic Profil Today Z - Encounter for other preprocedural examination Plan After discussing the patient's diagnosis and treatment plan options, patient wishes to proceed with surgical management. I have discussed with the patient the risks, benefits, and alternatives of the procedure which include but are not limited to risks of anesthesia, bleeding, infection, possible damage to bowel, bladder, or surrounding vasculature which could lead to additional surgery to evaluate any complications. Patient agrees to procedure and wishes to proceed. ACOG/uptodate references given for additional information regarding procedure. plan total vaginal hysterectomy, possible BSO, and pelvic repair with Dr. Pruett
--- NOTE | 2025-03-26 09:44 | OP.PCM_ITS ---
Problems Associated Problem List Diagnoses (1) Abdominal bloating: (2) Menorrhagia with regular cycle: (3) Fibroid uterus: (4) Pelvic organ prolapse quantification stage 3 rectocele: Multi Select Codes Urinary/Genital Urinary/Genital CPT Codes: 11332 Cystoscopy and 26827 TLH+BS/O <250gr uterus Operative Report (Standard) Operative Information Date of Procedure: 03/26/25 Pre-Operative Diagnosis: Pelvic organ prolapse, menorrhagia, fibroid uterus Post-Operative Diagnosis: Pelvic organ prolapse, menorrhagia, fibroid uterus Surgery/Procedure Performed: total robotic hysterectomy, bilateral salpingectomy, lysis of adhesions pediatric rn: Yes Electrician Aircraft: Ramy James Tasks completed by first line production supervisor: Closing, Trocar and Retracting Additional chiropractor assistant?: No Type of Anesthesia: General RN Documented Start/Stop Times: Operation Date: 03/26/25 11:30 Case Time Into Pre-Op 03/26/25 09:31 Anesthesia Start 03/26/25 11:52 Into Room 03/26/25 11:52 Procedure Start 03/26/25 12:09 Procedure End 03/26/25 14:25 Anesthesia End 03/26/25 14:32 Out of Room 03/26/25 14:32 Into Recovery 03/26/25 14:36 Out of Recovery 03/26/25 15:55 Procedure Start Time: 12:09 Procedure Stop Time: 14:25 Select all DRAINS/GRAFTS/IMPLANTS that apply: None Estimated Blood Loss: 50cc Specimen collected: Yes Description of specimen(s) removed: uterus, fallopian tubes, cervix Description of surgery: Findings: 12 cm fibroid uterus, normal appearing ovaries and tubes with filshie clip on the right tube. Dense bowel adhesions to the anterior abdominal wall and mesh. Omental adhesions to the anterior abdominal wall (removed) and to the anterior uterus. Dense adhesions from the bladder to the uterus. The rest of the bowel and liver were found to be normal. Cystoscopy showed no evidence of leaking at approximately 250 cc of normal saline, positive ureteral orifices and jet flow are seen and no suture material was appreciated in the bladder. Specimens removed: Uterus and cervix, Bilateral tubes Reason for surgery: This is a 64-year-old G4, P4 who presented to my office with history of pelvic pain, enlarged fibroid uterus, and large rectocele. the planned procedure is for a robotic hysterectomy the risks benefits and alternatives were discussed with the patient the patient had a clear understanding of the procedure and a consent form was signed. Procedure: The patient was placed in the dorsal low lithotomy position and prepped and draped in the normal sterile fashion both abdominally and in the perineum. Her legs were placed in stirrups a Frankel catheter was inserted into the urethra without difficulty. A weighted speculum was placed in the vagina and a single- tooth tenaculum was used to grasp the anterior lip of the cervix. An Geosho uterine manipulator was inserted through the cervix without complication. It was then tied into place at the 2 and 10:00 locations on the cervix. Gloves were changed and attention was turned towards the abdomen. Approximately 20 cm above the pubic symphysis in the midline, and after Marcaine injection, a 8 mm incision was made. An 8 mm trocar was inserted through the laparoscope, then inserted into the abdomen under direct visualization using the laparoscope. Good abdominal placement was noted and no complications were appreciated. An air seal device was utilized to create pneumoperitoneum. At 12 cm lateral to the midline on the left and right sides 8 mm accessory ports were placed. Next a left upper quadrant 8 mm chiropractor assistant port site was placed. The patient was placed in steep Trendelenburg position. The robot was docked. The hysterectomy was initiated first by taking down omental adhesions to the anterior abdominal wall. There were dense adhesions of bowel to anterior abdominal wall that were not touched. The hysterectomy was started with taking down the round ligament on each side using the vessel sealer device. The fallopian tubes were removed with the vessel sealer device. There was found to be a filshie clip on the right tube. The broad ligament was then and taken down using the vessel sealer device. Next, dense adhesions to the anterior uterine segment and bladder were carefully taken down using a com bination of sharp and blunt dissection as well as electrocautery. The bladder flap was taken down without complication. This was done using monopolar cautery to the level of the cervical vaginal junction. After the bladder flap was created, uterine vessels were then isolated and cauterized using the vessel sealer device and EndoShears. At this point the uterine vessels were taken down further starting from the ascending branch, dissecting along the edges of the cervix to the level of the cervical vaginal junction with hemostasis appreciated. The cervical vaginal junction was then using monopolar cautery in a circumferential pattern across the superior aspect of the cervix. The specimen was delivered through the vagina and sent to pathology. The remaining vaginal cuff was then closed using a V lock suture. This was performed in a running technique. Excellent hemostasis was obtained and good closure was noted. Irrigation was then performed. All operative sites were n oted to be hemostatic. A cystoscopy was performed with a 70 degree cystoscope through the urethra into the bladder without complication. The bladder was instilled with approximately 250 cc of normal saline. Intraoperative images were made. Ureteral orifices and jets were identified. No suture material was appreciated in the bladder. The bladder was then drained and cystoscope was removed. The abdominal cavity was again examined using the laparoscope after the robot was undocked. All operative sites were noted to be hemostatic. The trochars were removed under direct visualization without complication and pneumoperitoneum was reduced. At this point the skin was then closed using 4-0 Monocryl subcuticular stitch and sealed with surgical glue. The patient tolerated the procedure well sponge lap and needle counts were correct x2 the patient was handed over to Dr. Pruett for her part. Surgical Findings: dense adhesions as above. Complications Complications: No Admit VTE Documentation VTE Present on Admission: No VTE Mechan Device Prophylaxis: SCD's VTE Pharm Prophylaxis ordered?: Yes
--- NOTE | 2025-03-26 09:45 | EKG12_ITS ---
Test Reason : P Blood Pressure : */* mmHG Vent. Rate : 70 BPM Atrial Rate : 70 BPM P-R Int : 178 ms QRS Dur : 84 ms QT Int : 398 ms P-R-T Axes : 75 53 57 degrees QTcB Int : 429 ms Normal sinus rhythm Normal ECG No previous ECGs available Confirmed by GEOVANNA HODGE, KARLO ([id number]), state editor NADRADE RODRIGUEZ ([id number]) on 03/29/2025 9:47:04 AM Referred By: Aliya Yen Confirmed By: KARLO AUSTIN MD
--- NOTE | 2025-03-26 10:12 | PCM.PRE.AN2 ---
ASA Classification* ASA Classification ASA Classification: 2 Assessment & Plan Anesthesia* Anesthesia Assessment Anesthesia Assessment: Discussed sedation and/or anesthesia options, risks, benefits, and alternatives with patient/parents/legal guardian/POA. Questions invited. The patient/parents/legal guardian/POA seems to understand and agrees to proceed with anesthesia plan. Reviewed the physical assessment, medical history, allergy history and patient home medications list prior to surgery/procedure/anesthetic and documented any changes. Performed airway and anesthesia risk assessments. Anesthesia Type Anesthesia Type: General Anesthesia Focused Assessment* Temperature: 98.7 F Pulse Rate: 80 Respiratory Rate: 16 Pulse Ox: 96 Airway Assessment Mouth opens: >3 cm Mallampati Score: II Focused Labs Anesthesia Preop lab: CBC WBC 7.9 K/mm3 (4.4-11.0) 03/15/25 11:03/15/25 RBC 4.65 M/mm3 (4.2-5.4) 03/15/25 11:03/15/25 Hgb 13.7 g/dL (12.0-15.0) 03/15/25 11:03/15/25 Hct 40.8 % (37-47) 03/15/25 11:03/15/25 Plt Count 325 K/mm3 (150-450) 03/15/25 11:03/15/25 CHEMISTRY Potassium 4.4 mmol/L (3.3-5.1) 03/15/25 11:03/15/25 Sodium 138 mmol/L (133-145) 03/15/25 11:03/15/25 BUN 11 mg/dL (4-19) 03/15/25 11:03/15/25 Creatinine 0.82 mg/dL (0.70-1.20) 03/15/25 11:03/15/25 Glucose 90 mg/dL (70-99) 03/15/25 11:03/15/25 TSH 0.756 uIU/mL (0.358-3.740) 12/09/24 13:45 12/09/24 COAG Pre-Assessment Diagnosis/Proposed Procedure Planned Operative Procedure(s): TOTAL VAGINAL HYSTERECTOMY POSS BILAT SALPINGO-OOPHERECTOMY PER DR CRANE POSTERIOR REPAIR POSS BILAT SACROSPINOUS LIGAMNET FIXATION,MIDURETHERAL SLING,CYSTO POSS DERMIS PER DR LENTZ Anesthesia History Anesthesia History - geographic information scientist: Anesthesia History - geographic information scientist Hx Hospitalization No 03/24/25 13:28 Any Problems With Anesthesia No 03/24/25 13:28 Cholinesterase deficiency No 03/24/25 13:28 You/Your Family Experience No 03/24/25 13:28 fever (hyperthermia) with Relationship Recent Exposure to Contagious No 03/26/25 09:50 Disease Does patient have nerve No 03/24/25 13:28 stimulator Patient instructed to have device shut off --Does patient have Pacemaker No 03/26/25 09:50 or ICD? When Was Last Pacemaker Check QUESTION #4 FULL TEXT: You/Your Family Experience fever (hyperthermia) with Anesthesia Last Oral Intake Last Oral intake: Last Oral Intake NPO since 00:00 03/26/25 09:50 Meds taken in AM with sips of No 03/26/25 09:50 water? Meds patient instructed to take am of surgery PONV PONV - geographic information scientist: PONV - geographic information scientist Female Yes 03/24/25 13:28 HX of Motion Sickness No 03/24/25 13:28 HX of N/V After Surgery No 03/24/25 13:28 Non-Smoker Yes 03/24/25 13:28 Duration of Surgery greater Yes 03/24/25 13:28 than 60 minutes Number of Risk Factors 3 03/24/25 13:28 PONV Score Moderate Risk 03/24/25 13:28 Height & Weight Height & Weight: Anesthesia: Height & Weight Height 5 ft 6 in 03/26/25 09:50 Respiratory Assessment Respiratory Assessment - geographic information scientist: Respiratory Tract Infection Hx - geographic information scientist Hx Respiratory Tract Infection No 03/24/25 13:28 STOP Sleep Apnea STOP Sleep Apnea - geographic information scientist: STOP Sleep Apnea - geographic information scientist Hx Hypertension No 03/24/25 13:28 Hx Sleep Apnea No 03/24/25 13:28 CPAP BIPAP Do you snore loudly (louder No 03/24/25 13:28 than talking or can be heard Do you often feel tired/ Yes 03/24/25 13:28 fatigued/ sleepy during daytime? Has anyone observed you stop No 03/24/25 13:28 breathing during sleep? STOP Results Negative 03/24/25 13:28 QUESTION #5 FULL TEXT : Do you snore loudly (louder than talking or can be heard through closed doors)? Tobacco Use History Tobacco Use History - geographic information scientist: Tobacco Use History - geographic information scientist Tobacco Use Smoking Status Never smoker 03/24/25 13:28 Hx Tobacco Use No 03/24/25 13:28 Years Smoking Packs Smoked per Day Smoking Cessation Date was within the last 15 years Hx Smoking Cessation Date Hx Smoking Cessation Counseling Hematologic Medial History Hematologic Hx - geographic information scientist: Hematologic Medical Hx - loading unit operator seating Hx of Blood Transfusion No 03/24/25 13:28 Hx of Transfusion in last 3 No 03/24/25 13:28 Months Date of Last Transfusion (if within last 3 months) Ever experience any problems No 03/24/25 13:28 with transfusion(s)? Specify any problems Hx of Preganancy in last 3 No 03/24/25 13:28 Months Nurse Filling Out Transfusion DSCHRIBER 03/24/25 13:28 & Questions: Date: 03/24/25 03/24/25 13:28 Time: 13:29 03/24/25 13:28 Patient unable to answer at this time (ie. confused, unrespo /Reproduction History /Reproductive History - geographic information scientist: /Reproductive Hx- geographic information scientist Hx Now No 03/24/25 13:28 Gestational Age (in weeks): EDC: Hx Hx Para Hx Section SAB No 03/24/25 13:28 Active Medications Active Medications: Current Medications Generic Name Dose Route Start Last Admin Trade Name Glendy PRN Reason Stop Dose Admin Acetaminophen 1,000 mg 03/26/25 11:30 Acetaminophen 500 Mg Tablet PO 03/26/25 11:31 PREOP ONE Celecoxib 400 mg 03/26/25 11:30 Celecoxib 200 Mg Capsule PO 03/26/25 11:31 PREOP ONE Gabapentin 600 mg 03/26/25 11:30 Gabapentin 600 Mg Tablet PO 03/26/25 11:31 PREOP ONE Lactated Ringer's 1,000 mls @ 40 mls/hr 03/26/25 11:30 IV .Q25H SUNIL Cefazolin Sodium 2 gm/ Sodium 110 mls @ 150 mls/hr 03/26/25 11:30 Chloride IV 03/26/25 12:13 INTRAOP ONE Lactated Ringer's 1,000 mls @ 70 mls/hr 03/26/25 11:30 IV .[id number] SUNIL Insulin Human Lispro 0 unit 03/26/25 11:30 Insulin Lispro 100 Unit/Ml Insuln.Pen SC Q4H PRN PRN BG >/= 180, SEE PROTOCOL Protocol Ondansetron HCl 4 mg 03/26/25 11:30 Ondansetron 4 Mg/2 Ml Vial IV 03/26/25 11:31 INTRAOP ONE Scopolamine HBr 1 patch 03/26/25 11:30 Scopolamine 1mg/72hr Patch TD 03/26/25 11:31 PREOP ONE PFSH Medical History History of steroid therapy Bladder disease Restless legs Syncope History of ulceration Shortness of breath on exertion History of pain when walking History of edema Wears glasses Post-menopausal Arthritis Fatty liver Non-smoker Leg cramps Acid reflux Depression History of anemia Anxiety Home Medications ?Medication ?Instructions ?Recorded ?Last Taken ?Type calcium carbonate (Antacid Ext Str 300 mg PO TID PRN dyspepsia 03/24/25 Unknown History (calcium carb)) Allergy/AdvReac Type Severity Reaction Status Date / Time adhesive tape Allergy Unknown Rash Verified 03/26/25 09:49 Family History Mother Dementia Diabetes Sister Diabetes Hypertension Surgical History History of colonoscopy Social History Smoking Status: Never smoker alcohol intake: never substance use type: does not use caffeine: Yes what type of physical activity do you participate in: none seatbelt use: always do you feel safe at home: Yes additional social history: Review of Systems (Anesthesia) ROS Narrative System reviewed and no additional complaints, except as documented.
[2025-03-26] MEDS: Lactated Ringers 1,000 ML 40 ML IV (10:15)
[2025-03-26] MEDS: Scopolamine 1mg/72hr Patch 1 PATCH TD (10:15)
[2025-03-26] MEDS: Celecoxib 200 MG Capsule 400 MG PO (10:15)
[2025-03-26] MEDS: Acetaminophen 500 MG Tablet 1000 MG PO (10:15)
[2025-03-26] MEDS: Gabapentin 600 MG Tablet PO (10:15)
[2025-03-26 10:39] LABS: Magnesium 2.1 mg/dL (1.5-2.2)
[2025-03-26] MEDS: Magnesium 1 GM over 15 mins IV (10:46)
[2025-03-26 11:20] LABS: Bedside Glucose 94 mg/dL (74-106)
[2025-03-26] MEDS: Lactated Ringers @ 70 MLS/HR 70 ML IV (11:30)
[2025-03-26] MEDS: Ondansetron 4 MG/2 ML Vial IV ×2 (11:30→20:03)
--- NOTE | 2025-03-26 11:30 | HYST_PTH ---
PATIENT: ANDREW LYNN LOC: MS3 U#:[id number] AGE/SX: 64/F ROOM: [facility] [place] RE03/26/[address]: Dr. Aliya Yen DO : 1960 BED: 1 DIS: 03/27/2025 SPEC #: [id number] RECD: 03/26/25 17:24 STATUS: RAYO HOBBS #: [id number] CÉSAR: 03/26/25 11:[address]: Aliya Yen DEPT: SURGICAL PATHOLOGY RECD BY: Nellie Fortune ENTERED: 03/29/25 07:28 SP TYPE: HYSTERECT OTHR DR: DO Dr. Liz Hall MD Tissues: Uterus, NOS Procedures: Immunohistochemical Stains Surgery Specimen Level V HEADER OPERATION: ERAS, hysterectomy, total vaginal, bilateral salpingectomy PRE-OP DIAGNOSIS: Preoperative exam for gynecologic surgery, pelvic organ prolapse quantification stage 3 rectocele, vaginal enterocele due to incomplete uterovaginal prolapse TISSUE SUBMITTED: A- Cervix, uterus, bilateral fallopian tubes MICROSCOPIC DIAGNOSIS A. Cervix, uterus, bilateral fallopian tubes, hysterectomy and bilateral salpingectomy: * Cervix: hyperkeratosis, dilated endocervical glands * Endometrium: proliferative phase * Myometrium: adenomyosis, focal small hemangioma - see note * Bilateral fallopian tubes: no specific pathologic change * Note: IHC for CD34 confirms the histologic impression. MICROSCOPIC DESCRIPTION Slides are reviewed. All matched controls reacted appropriately. These tests were developed and their performance characteristics determined by [facility]. They may not have been cleared or approved by the U.[place]. Food and Drug Administration. The FDA has determined that such clearance or approval is not necessary.? The above immunohistochemical/dualISH?markers are ordered and reviewed by the Pathologist. GROSS DESCRIPTION A. Received in formalin in a container labeled with the patient's name, date of , and cervix, uterus, bilateral fallopian tubes is a 79 g hysterectomy specimen with attached cervix and detached bilateral fallopian tube remnants. The uterus is 8.7 cm from fundus to ectocervix, 3.6 cm from cornu to cornu, and 4.0 cm from anterior to posterior. The serosa is tam-pink, smooth, and glistening. The white-pink ectocervix is 3.5 x 3.5 cm with a 0.9 cm slit-like os. The specimen is bivalved to reveal a 4 cm in length by 1 cm in diameter tam-pink and corrugated endocervical canal, with multiple nabothian cysts measuring up to 0.3 cm in greatest dimension. The triangular endometrial cavity is 4.0 cm in length by 2.2 cm in width with red-tam, velvety endometrium with an average thickness of 0.1 cm. The tam-pink myometrium is somewhat trabecular with scattered hemorrhagic foci, and exhibits an average thickness of 1.8 cm. No myometrial nodules are discovered. The bilateral fallopian tube remnants are unoriented. The first segment is 1 cm in length by 0.6 cm in diameter with a purple-thomason, smooth serosa and an unremarkable fimbriated end. Sectioning reveals a pinpoint lumen.The second segment is 2.5 cm in length by 0.7 cm in diameter with no distinct fimbriated end. The serosa is purple-thomason, smooth, with a 0.7 x 0.5 cm paratubal cyst. Sectioning reveals a pinpoint lumen. Mobile Paramedical Examiner sections:A1. Anterior cervix with anterior serosal shaveA2. Posterior cervix with posterior serosal shavesA3. Anterior endomyometrium with scattered hemorrhagic foci (superficial sections)A4. Posterior endomyometrium with scattered hemorrhagic foci (superficial sections)A5. Fimbriated fallopian tube segmentA6. Fallopian tube segment with no fimbriated end [facility] 03-29-2025 CPT:63111,70375
[2025-03-26] MEDS: Cefazolin 2 GM in 0.9% Normal Saline (100mL Bag) 100 ML IV (12:00)
[2025-03-26] MEDS: Bupiv/Epi 0.25% 30 ML Vial ×2 (12:09→13:25)
--- NOTE | 2025-03-26 13:25 | OP.PCM_ITS ---
Problems Associated Problem List Diagnoses (1) Fibroid uterus: (2) Menorrhagia with regular cycle: (3) Pelvic organ prolapse quantification stage 3 rectocele: Multi Select Codes Urinary/Genital Urinary/Genital CPT Codes: 07321 TVH+BS/O <250gr uterus Operative Report (Standard) Operative Information Date of Procedure: 03/26/25 Pre-Operative Diagnosis: pelvic organ prolapse, fibroid uterus Post-Operative Diagnosis: pelvic organ prolaps, fibroid uterus Surgery/Procedure Performed: total vaginal hysterectomy, bilateral salpingectomy drafter civil: Yes Casino Change Attendant: Ramy James Tasks completed by cutting table operator first: Hemostasis: Tie and Retracting Additional assistant associate full professor?: Yes Additional Mental Health Clinician #2: Liz Pruett Tasks completed by assistant associate full professor #2: Retracting Additional assistant associate full professor?: No Type of Anesthesia: General RN Documented Start/Stop Times: Operation Date: 03/26/25 11:30 Case Time Into Pre-Op 03/26/25 09:31 Anesthesia Start 03/26/25 11:52 Into Room 03/26/25 11:52 Procedure Start 03/26/25 12:09 Procedure Start Time: 12:09 Procedure Stop Time: 13:22 Select all DRAINS/GRAFTS/IMPLANTS that apply: None Estimated Blood Loss: 70cc Specimen collected: Yes Description of specimen(s) removed: uterus, cervix, bilateral fallopian tubes Description of surgery: Patient was taken to the operating room and was placed under general anesthesia was prepped and draped in normal sterile fashion in the dorsal lithotomy position. Preoperative antibiotics and SCDs and Frankel catheter was placed inside the bladder. Weighted speculum was placed in the vagina and the anterior and posterior lip of the cervix was grasped with 2 single tooth tenaculums and circumferentially injected with 1% lidocaine with epinephrine. A circumferential incision was made with a scalpel and the posterior cul-de-sac was entered into sharply and a longneck speculum was placed. The anterior cul-de-sac was also dissected down and entered into sharply and the uterosacral ligaments were clamped cut and suture ligated bilaterally followed by the cardinal ligaments which were Clamped cut and suture ligated bilaterally with 0 Vicryl. The uterus serially descended and progressive bites were taken bilaterally up to the level of the utero-ovarian ligament bilaterally which was clamped transected and double ligated with 0 Vicryl suture and 0 Vicryl free tie. Bilateral fallopian tubes were identified and the left ovary was visualized fairly high in the pelvis. The bilateral fallopian tubes were transected across the base with a Vania clamp and removed and sutured with 0 Vicryl suture as well as ligasure cautery to ensure hemostasis. Excellent hemostasis was noted. Posterior peritoneum was reapproximated with 2-0 Vicryl and a modified Valdez stitch was placed through the posterior vaginal cuff and bilateral uterosacral ligaments across the posterior cul-de-sac skimming along to provide apical support to the vagina. The vagina was closed with [id number] 0 Vicryl pop offs including the posterior and anterior peritoneum in the reapproximation. Excellent hemostasis was noted. The patietn was then handed over to Dr. Pruett for her portion of the procedure Surgical Findings: Grade 3 rectocele prolapse, grade 2 uterine prolapse, grade 2 cystocele. normal appearing uterus and tubes, non-visualized right ovary, normal left ovary. Complications Complications: No Admit VTE Documentation VTE Present on Admission: No VTE Mechan Device Prophylaxis: SCD's VTE Pharm Prophylaxis ordered?: Yes
--- NOTE | 2025-03-26 13:31 | PCM.DC ---
Discharge Instructions Diet Discharge Diet: No restrictions DC O2, CPAP, BIPAP needs Home O2 Discharge instructions: No Dressing / Incision Discharge Activity: Return to Normal Activity, May Not Drive (while taking narcotic pain medications.) and May Shower May resume sexual activity in: 6-8 weeks Dressing / Incision Call your doctor if your incision/area has: Continuous Slow Oozing, Sudden Increased Bleeding, Increased Pain/ Swelling, Increased Redness and Foul Smelling Discharge Call your doctor if you observe: Fever of 101 or Higher, Inability to urinate, Inability to have a bowel movement and Using more than 1 pad per hour Follow Up Care Please Follow Up With: Aliya Yen DO Test Results: Test results from this visit will be discussed in further detail at your follow-up appointment, if applicable. Discharge Plan Admission Attending Provider: Aliya Yen Primary Care Provider: Isaiah Bryant Consulting Providers: Liz Pruett Instructions Print Language: Japanese Discharge Orders/Prescriptions Prescriptions: No Action Antacid Ext Str (calcium carb) 300 mg (750 mg) tablet,chewable 300 mg PO TID PRN (Reason: dyspepsia) Referrals / Follow Up: Isaiah Bryant DO [Primary Care Provider] - Disposition Disposition (needs filled in before D/C Order can be placed): Home, Self Care
[2025-03-26] MEDS: Estrogens,Conj. 1 Tube 1 DOSE (13:40)
--- NOTE | 2025-03-26 14:24 | DCINST_ITS ---
Discharge Instructions Diet Discharge Diet: No restrictions Activity Discharge Activity: May Shower May resume sexual activity in: 8 weeks Lifting Restrictions: 5 pounds Additional Activity Instructions:: No strenuous activity, no exercise, no walking dog, no swimming, tub bathing or hot tubs Dressing / Incision Call your doctor if your incision/area has: Continuous Slow Oozing, Sudden Increased Bleeding, Increased Pain/ Swelling, Increased Redness and Foul Smelling Discharge Call your doctor if you observe: Fever of 101 or Higher, Inability to urinate, Inability to have a bowel movement and Using more than 1 pad per hour Follow Up Care Please Follow Up With: Aliya Yen DO When: Dr. Pruett, the office will call to make arrangements Test Results: Test results from this visit will be discussed in further detail at your follow- up appointment, if applicable. Discharge Plan Admission Admit Date/Time: 03/26/25 14:20 Attending Provider: Aliya Yen Primary Care Provider: Isaiah Bryant Consulting Providers: Liz Pruett Discharge Orders/Prescriptions Prescriptions: New ondansetron 8 mg tablet,disintegrating 8 mg PO Q8H PRN (Reason: nausea and vomiting) Qty: 10 0RF oxycodone-acetaminophen 5-325 mg tablet 1 tab PO Q8H PRN (Reason: pain) 3 Days Qty: 10 0RF Continued Antacid Ext Str (calcium carb) 300 mg (750 mg) tablet,chewable 300 mg PO TID PRN (Reason: dyspepsia) Referrals / Follow Up: Isaiah Bryant DO [Primary Care Provider] - Disposition Disposition (needs filled in before D/C Order can be placed): Home, Self Care
--- NOTE | 2025-03-26 14:27 | OP.PCM_ITS ---
Operative Report (Standard) Operative Information Date of Procedure: 03/26/25 Pre-Operative Diagnosis: Uterovaginal prolapse, stress urinary incontinence Post-Operative Diagnosis: Same Surgery/Procedure Performed: Posterior repair, mid urethral sling, cystoscopy with bilateral ureteral catheterization resource program teacher: Yes Quarantine Officer: Ramy James Tasks completed by casting assistant: Retracting Type of Anesthesia: General and Local RN Documented Start/Stop Times: Operation Date: 03/26/25 11:30 Case Time Into Pre-Op 03/26/25 09:31 Anesthesia Start 03/26/25 11:52 Into Room 03/26/25 11:52 Procedure Start 03/26/25 12:09 Procedure End 03/26/25 14:25 Procedure Start Time: 13:20 Procedure Stop Time: 14:25 Select all DRAINS/GRAFTS/IMPLANTS that apply: Implanted device Implanted device details: Altis mid urethral sling Estimated Blood Loss: 50 cc Specimen collected: No Description of surgery: The patient is a 64-year-old female with pelvic organ prolapse who presents for surgical intervention. Informed consent was obtained. She was taken to the operating room and placed on the operating room table. Anesthesia monitored the head, neck, airway, IV access and vital signs throughout the case. Once anesthesia was appropriately ministered, she was placed into dorsolithotomy position was prepped and draped in usual sterile fashion. A Frankel catheter was inserted to straight drain and the bladder was emptied. Dr. Garcia performed her portion of the procedure and the cuff line was closed by her. At this time the patient was removed from Trendelenburg positioning and the Frankel catheter was removed. A cystoscope was inserted through the urethra under direct visualization into the urinary bladder. The bladder mucosa was visualized in its entirety without evidence of mass, erythema, injury, laceration or hematuria. Each ureteral orifice was in correct anatomic position and each were intubated with a 5 Lao whistle-tip catheter which easily advanced to 20 cm without evidence of injury or obstruction. It is important to note that at this time there was no cystocele seen on cystoscopy or on pelvic examination. The length anteriorly of the vaginal vault was short and most of the vault length was posterior. There was good vault support at this time. There was a large rectocele defect remaining. The cystoscope was removed and the Frankel catheter was replaced to straight drain. The posterior wall was isolated and injected submucosally with local anesthetic with epinephrine for hydrostatic dissection and hemostatic control. A midline incision was made and sharp and blunt dissection were performed bilaterally. There were multiple venous varicosities identified diffusely between the rectum and the vaginal mucosa. The perineal body was reconstructed with interrupted 3-0 PDS sutures. The rectovaginal fascia was identified and brought together with interrupted sutures as well. A 2 layer closure was performed. The excess vaginal mucosa was trimmed and the incision was closed with running interlocking 2-0 Vicryl. Attention was then turned towards the mid urethra which was isolated and injected submucosally. A midline vertical incision was made approximately 2 cm in length. Sharp and blunt dissection was performed on either side of the urethra with care being taken to avoid entrance into the urethra or the vaginal mucosa. The Altis mid urethral sling was then placed into the obturator complexes bilaterally with care being taken to avoid entrance into the vaginal mucosa. The sling lay flat against the urethra and was positioned using the tensioning suture. When it was in good position the suture was cut. The incision was closed using running interlocking 2-0 Vicryl. She was then taken out of Trendelenburg position, the urethral Frankel was removed once again and the cystoscope was inserted through the urethra under direct visualization. There is no evidence of injury, laceration, foreign object or blood in the urine at this time. The urethra coapted appropriately at the area of the sling. There were no issues with replacement of the Frankel catheter. The vagina was packed with Premarin cream and vaginal packing. She was awakened and taken to the recovery room in good condition. There were no complications during this procedure. Surgical Findings: Multiple posterior vaginal wall varicosities Complications Complications: No Admit VTE Documentation VTE Present on Admission: Yes VTE Mechan Device Prophylaxis: SCD's VTE Pharm Prophylaxis ordered?: Yes
--- NOTE | 2025-03-26 14:45 | PCM.POST.ANE ---
Anesthesia: Postop Eval I Current Vital Signs Temperature: 97 F Pulse Rate: 72 Blood Pressure: 126/76 Respiratory Rate: 16 Pulse Ox: 96 Oxygen Delivery Method: Simple Mask Oxygen Flow Rate (L/min): 6 Assessment Airway patent: Yes Spontaneous unlabored respirations: Yes Mental status: Awake and Calm nausea: No Vomiting: No Anesthesia Complication: No Fluid Hydration Crystalloid volume administer (ml): 2,000 Total IV fluid infused: 2,000 Progress Note Anesthesia document: Postop Eval 1 completed: Yes
[2025-03-26 15:05] LABS: Absolute Lymphocyte Count 1.18 X10^3/uL (0.83-4.51); Basophil# 0.02 X10^3/uL; Basophil% 0.2 % (0-1); Eosinophil# 0.03 X10^3/uL; Eosinophils% 0.3 % (0-5); Hematocrit 35.6 % (37-47); Hemoglobin 11.9 g/dL (12.0-15.0); Lymphocyte # 1.18 X10^3/ul (0.83-4.51); Lymphocyte % 12.6 % (19-41); Mean Corp Hgb Conc 33.4 g/dL (32-36); Mean Corpuscular Hgb 29.2 pg (27.0-32.0); Mean Corpuscular Volume 87.3 fL (81-99); Mean Platelet Vol. 8.4 fl (6.2-12.0); Monocyte# 0.11 X10^3/uL; Monocyte% 1.2 % (0-10); NRBC Flagged by Analyzer 0 % (0-5); Neutrophil # 7.97 X10^3/uL (2.7-7.7); Neutrophil % 85.4 % (47-70); Platelet Count 292 K/mm3 (150-450); RBC Distribution Width CV 12.4 % (11.6-14.6); RBC Distribution Width SD 39.8 fl (35.1-43.9); Red Blood Count 4.08 M/mm3 (4.2-5.4); White Blood Count 9.3 K/mm3 (4.4-11.0)
--- NOTE | 2025-03-26 15:14 | POSTOPAN2_ITS ---
Anesthesia Postop Eval I Sum Postop Eval Completion status Anesthesia document: Postop Eval 1 completed: Yes Anesthesia Postop Eval I Summary Anesthesia Postop Eval I Summary: Anesthesia Postop Eval I: Assessment Summary Airway patent Yes 03/26/25 14:46 INSTITUTIONAL RESEARCH DIRECTOR.SKOBY Spontaneous unlabored Yes 03/26/25 14:46 INSTITUTIONAL RESEARCH DIRECTOR.CONSTANCE respirations Mental status Awake,Calm 03/26/25 14:46 INSTITUTIONAL RESEARCH DIRECTOR.SKOBY nausea No 03/26/25 14:46 INSTITUTIONAL RESEARCH DIRECTOR.SKOBY Vomiting No 03/26/25 14:46 INSTITUTIONAL RESEARCH DIRECTOR.AYLEENOBCorrie Anesthesia Postop Eval I: Fluid Summary Crystalloid volume administer 2,000 03/26/25 14:46 INSTITUTIONAL RESEARCH DIRECTOR.SKOBY (ml) Colloids volume administered ( ml) Blood Product volume administered (ml) Total IV fluid infused 2,000 03/26/25 14:46 INSTITUTIONAL RESEARCH DIRECTOR.AYLEENOBCorrie Anesthesia Postop Eval I: Summary Notes Anesthesia Complication No 03/26/25 14:46 INSTITUTIONAL RESEARCH DIRECTOR.CONSTANCE Anesthesia Complication Comment: Post-operative progress note Anesthesia: Postop Eval II Evaluation Mental status: Awake Pain Level: 0 nausea: No Vomiting: No
--- NOTE | 2025-03-26 15:14 | PCM.POSTANE2 ---
Anesthesia Postop Eval I Sum Postop Eval Completion status Anesthesia document: Postop Eval 1 completed: Yes Anesthesia Postop Eval I Summary Anesthesia Postop Eval I Summary: Anesthesia Postop Eval I: Assessment Summary Airway patent Yes 03/26/25 14:46 [email or web address] Spontaneous unlabored Yes 03/26/25 14:46 NURSE [email or web address] respirations Mental status Awake,Calm 03/26/25 14:46 [email or web address] [email or web address] nausea No 03/26/25 14:46 NURSE [email or web address] Vomiting No 03/26/25 14:46 [email or web address] [email or web address] Anesthesia Postop Eval I: Fluid Summary Crystalloid volume administer 2,000 03/26/25 14:46 [email or web address] (ml) Colloids volume administered ( ml) Blood Product volume administered (ml) Total IV fluid infused 2,000 03/26/25 14:46 NURSE [email or web address] Anesthesia Postop Eval I: Summary Notes Anesthesia Complication No 03/26/25 14:46 [email or web address] Anesthesia Complication Comment: Post-operative progress note Anesthesia: Postop Eval II Evaluation Mental status: Awake Pain Level: 0 nausea: No Vomiting: No
[2025-03-26 15:28] LABS: Anion Gap 9 (5-15); BUN 8 mg/dL (4-19); BUN/Creat Ratio 10.9 RATIO (10-20); Calcium,Total 8.6 mg/dL (7.6-11.0); Carbon Dioxide 21.6 mmol/L (21.0-32.0); Chloride 107 mmol/L (98-108); Creatinine, Serum 0.73 mg/dL (0.70-1.20); EST Glomerular Filtration Rate 92 (>60); Estimated Creatinine Clearance 75.12 ml/min (50-250); Glucose 122 mg/dL (70-99); Potassium 3.9 mmol/L (3.3-5.1); Sodium Level 138 mmol/L (133-145)
[2025-03-26] MEDS: Acetaminophen 325 MG Tablet 650 MG PO (17:11)
[2025-03-26] MEDS: Cephalexin 500 MG Capsule PO (21:50)
[2025-03-26] MEDS: oxyCODONE 5 MG Tablet PO (21:54)
[2025-03-27 00:36] VITALS: BP 127/74; PULSE 92; RESP 18; TEMP 36.4; O2SAT 98
[2025-03-27 00:38] VITALS: BMI 28.7
[2025-03-27] MEDS: Lactated Ringers 1,000 ML 75 ML IV (00:44)
[2025-03-27 05:15] VITALS: BP 134/77; PULSE 74; RESP 18; TEMP 37; O2SAT 99
[2025-03-27 05:20] VITALS: BMI 28.7
[2025-03-27] MEDS: Acetaminophen 325 MG Tablet 650 MG PO (05:35)
[2025-03-27] MEDS: Enoxaparin 40 MG/0.4 ML Syringe SC (08:45)
[2025-03-27] MEDS: Cephalexin 500 MG Capsule PO (08:45)
[2025-03-27] MEDS: oxyCODONE 5 MG Tablet PO (08:47)
--- NOTE | 2025-03-27 08:59 | PCM.PN.GU ---
Subjective Subjective Sitting up in chair at bedside. She is feeling emotional and tearful this morning. No nausea, vomiting, uncontrolled pain. No significant issues overnight and no significant bleeding. No calf pain. Objective Data Objective Data Vital Signs: Vital Signs Temp Pulse Resp BP Pulse Ox O2 Del Method O2 Flow Rate 98.6 F 74 18 134/77 H 99 Nasal Cannula 2 03/27/25 05:15 03/27/25 05:15 03/27/25 05:15 03/27/25 05:15 03/27/25 05:15 03/27/25 05:15 03/27/25 05:15 Oxygen Flow Rate (L/min) 2 Oxygen Delivery Method Nasal Cannula Weight: 80.739 kg Body Mass Index (BMI) 28.7 Intake & Output: Intake and Output for Last 24 Hours 03/25/25 03/26/25 03/27/25 23:59 23:59 23:59 Intake Total 1210 / 1210 800 / 800 Output Total 1150 / 1150 2300 / 2300 Balance 60 / 60 -1500 / -1500 Lab / Micro Data 03/26/25 14:50 03/26/25 14:50 Labs: Laboratory Results - last 24 hr 03/26/25 09:50: Magnesium 2.1 03/26/25 10:04: POC Glucose 94 03/26/25 14:50: WBC 9.3, RBC 4.08 L, Hgb 11.9 L, Hct 35.6 L, MCV 87.3, MCH 29.2, MCHC 33.4, RDW Std Deviation 39.8, RDW Coeff of Gavin 12.4, Plt Count 292, MPV 8.4, Immature Gran % (Auto) 0.300, Neut % (Auto) 85.4 H, Lymph % (Auto) 12.6 L, [place] % (Auto) 1.2, Eos % (Auto) 0.3, Baso % (Auto) 0.2, Absolute Neuts (auto) 8.0 H, Absolute Lymphs (auto) 1.18, Nucleated RBC % 0, Sodium 138, Potassium 3.9, Chloride 107, Carbon Dioxide 21.6, Anion Gap 9, BUN 8, Creatinine 0.73, Estim Creat Clear Calc 75.12, Est GFR (MDRD) Non-Af 92, BUN/Creatinine Ratio 10.9, Glucose 122 H, Calcium 8.6 Physical Exam Narrative Alert and oriented x 3 Abdomen soft, nontender nondistended Urine clear in Frankel catheter Lower extremities normal and nontender Frankel catheter and vaginal packing removed without incident no evidence of excessive bleeding. Assessment & Plan Assessment/Plan (1) Pelvic organ prolapse quantification stage 3 rectocele: (2) Fibroid uterus: (3) Menorrhagia with regular cycle: (4) ANA ROSA (stress urinary incontinence, female): PLAN: Plan Trial of void today Supportive care with ambulation, saline lock IV Continue regular diet Home later today
[2025-03-27 09:07] VITALS: BP 118/57; PULSE 76; RESP 16; TEMP 36.5; O2SAT 97
[2025-03-27 11:36] VITALS: BP 133/63; PULSE 74; RESP 16; TEMP 36.4; O2SAT 95
== END 2025-03-27 12:45 | disposition home or self-care (01) ==
LOC: SDC 15:24 → MS3 15:24
PROVIDERS: Anesthesiology; Urology; Admitting Provider Obstetrics & Gynecology; PCP Family Medicine; Referring Provider Obstetrics & Gynecology; Visit Provider Obstetrics & Gynecology
PROC: (CPT 58260; principal; 2025-03-26 11:10)
PROC: (CPT 57260; 2025-03-26 11:10)
DX: N81.2 Incomplete uterovaginal prolapse (principal); D25.9 Leiomyoma of uterus, unspecified; N39.3 Stress incontinence (female) (male); R14.0 Abdominal distension (gaseous); N92.0 Excessive and frequent menstruation with regular cycle; K21.9 Gastro-esophageal reflux disease without esophagitis; K59.00 Constipation, unspecified; N36.42 Intrinsic sphincter deficiency (ISD); N95.2 Postmenopausal atrophic vaginitis
CPT/HCPCS: 58571; 57288; S2900; 00840; 57250; 80048; 82962; 83735; 85025; 88307; 88342; 93005; 94668; 96361; 96372; 96374; 99221; 99252; C1758; G0378; G0463; J2405; J3475

== ENCOUNTER 2025-06-23 11:50 | Day surgery (SDC) | payer MEDICARE, SELFPAY ==
[2025-06-23] VITALS (8 sets, daily range): BP systolic 110–129; BP diastolic 67–84; PULSE 69–94; RESP 16; TEMP 36.1–36.6; O2SAT 94–100; BMI 28.4
[2025-06-23] MEDS: Lactated Ringers 1,000 ML 15 ML IV (12:10)
--- NOTE | 2025-06-23 12:22 | PCM.HP.STD ---
HPI - General General Date of Admission: 06/23/25 Date of Service: 06/23/25 Chief Complaint: Peptic ulcer HPI Narrative ANDREW LYNN, is a 64 F who presents with the Chief Complaint: epigastric pain BGI established in 2021 for epigastric pain x6 months. Started Pantoprazole 40 mg daily which helped. Pt also with constipation. BM daily but has to strain. Takes milk of mag as needed. EGD 10.08.22; - Z-line irregular, 37 cm from the incisors. Biopsied. - Small hiatal hernia. - Normal stomach. - Multiple non-bleeding duodenal ulcers with no stigmata of bleeding. Biopsied. Colonoscopy 10.08.22 - Congested mucosa in the recto-sigmoid colon, in the transverse colon, in the ascending colon and in the cecum. Biopsied. - The examined portion of the ileum was normal. Biopsied. OV 04.28.25 Pt having worsening epigastric pain over the past few months. She underwent gynecologic surgery about one month ago. When she used the vaginal estrogen she noticed much worse reflux and discontinued. She prefers to not take daily meds so she will just take rodo seltzer as needed. She had constipated after her surgery to due being on pain medications but this has resolved. [facility] Medical History ANA ROSA (stress urinary incontinence, female) History of steroid therapy Bladder disease Restless legs Syncope History of ulceration Shortness of breath on exertion History of pain when walking History of edema Wears glasses Post-menopausal Arthritis Fatty liver Non-smoker Leg cramps Acid reflux Depression History of anemia Anxiety Home Medications ?Medication ?Instructions ?Recorded ?Last Taken ?Type calcium carbonate (Antacid Ext Str 300 mg PO TID PRN dyspepsia 03/24/25 Unknown History (calcium carb)) pantoprazole 40 mg tablet,delayed 40 mg PO QDAY #30 tabs 05/07/25 Unknown Rx release Allergy/AdvReac Type Severity Reaction Status Date / Time adhesive tape Allergy Unknown Rash Verified 06/23/25 12:07 Family History Mother Dementia Diabetes Sister Diabetes Hypertension Surgical History Hx of hysterectomy S/P hysterectomy History of colonoscopy Social History Smoking Status: Never smoker alcohol intake: never substance use type: does not use caffeine: Yes what type of physical activity do you participate in: none seatbelt use: always do you feel safe at home: Yes additional social history: ROS Constitutional Constitutional: Denies fatigue, fever(s), poor appetite, weight gain or weight loss Gastrointestinal Gastrointestinal: Denies belching, bloating, change in bowel habits, change in stool character, chewing difficulty, coffee ground emesis, constipation, cramping, diarrhea, dyspepsia, dysphagia, early satiety, excessive flatus, fecal incontinence, heartburn, hematemesis, hematochezia, hemorrhoids, loose stools, melena, nausea, odynophagia, rectal bleeding, tenesmus, vomiting or weight changes Vital Signs Vital Signs Vital Signs: 06/23/25 12:07 06/23/25 12:07 Temperature 98 F Temperature Source Temporal Pulse Rate 69 Respiratory Rate 16 Respiratory Pattern Normal Blood Pressure 129/84 H Blood Pressure Mean 99 Blood Pressure Source Monitor Blood Pressure Position Semi-Fowlers Blood Pressure Location Right Arm Pulse Ox 100 Oxygen Delivery Method Room Air Weight Weight: 176 lb 5.917 oz Body Mass Index (BMI) 28.4 Physical Exam Const alert, oriented x3, no apparent distress and healthy appearing General Appearance: cooperative GI normal to inspection, nondistended, normoactive bowel sounds, soft to palpation, non-tender and non-distended Percussion: normal to percussion Rectal Exam: deferred Assessment & Plan Assessment/Plan (1) Abdominal bloating: (2) Epigastric pain: (3) Peptic ulcer: PLAN: Assessment and Plan Assessment and Plan (1) Epigastric pain: Status: Acute Plan: Andrew is a 64 yo female pt here today for evaluation of worsening epigastric pain over the past few months. Pt established in 2021 for similar issues and underwent bidirectional endoscopy. EGD showed duodenal ulcers and normal colonoscopy. About one month ago she had gynecologic surgery and has had worsening epigastric pain. I advised she re start her daily PPI however she prefers to not take daily medication. SHe will continue rodo seltzer PRN. SHe will be scheduled for EGD. No indication for repeat colonoscopy at this time. -EGD -Continue Rodo blevins -Recommended re starting PPI -f/u after procedure
--- NOTE | 2025-06-23 12:39 | PRE.ANES_ITS ---
ASA Classification* ASA Classification ASA Classification: 2 Assessment & Plan Anesthesia* Anesthesia Assessment Anesthesia Assessment: Discussed sedation and/or anesthesia options, risks, benefits, and alternatives with patient/parents/legal guardian/POA. Questions invited. The patient/parents/legal guardian/POA seems to understand and agrees to proceed with anesthesia plan. Reviewed the physical assessment, medical history, allergy history and patient home medications list prior to surgery/procedure/anesthetic and documented any changes. Performed airway and anesthesia risk assessments. Anesthesia Type Anesthesia Type: MAC History Source History Obtained from:: Patient and Chart Anesthesia Focused Assessment* Temperature: 98 F Pulse Rate: 69 Blood Pressure: 129/84 Respiratory Rate: 16 Pulse Ox: 100 Oxygen Delivery Method: Room Air Airway Assessment Mouth opens: >3 cm Mallampati Score: II Teeth Condition: Caps/Crowns Neck Range of motion (ROM): Limited ROM Labs Anesthesia Preop lab: CBC WBC 9.3 K/mm3 (4.4-11.0) 03/26/25 14:50 03/26/25 RBC 4.08 M/mm3 (4.2-5.4) L 03/26/25 14:50 03/26/25 Hgb 11.9 g/dL (12.0-15.0) L 03/26/25 14:50 5 Hct 35.6 % (37-47) L 03/26/25 14:50 03/26/25 Plt Count 292 K/mm3 (150-450) 03/26/25 14:50 03/26/25 CHEMISTRY Potassium 3.9 mmol/L (3.3-5.1) 03/26/25 14:50 03/26/25 Sodium 138 mmol/L (133-145) 03/26/25 14:50 03/26/25 Magnesium 2.1 mg/dL (1.5-2.2) 03/26/25 09:50 03/26/25 BUN 8 mg/dL (4-19) 03/26/25 14:50 03/26/25 Creatinine 0.73 mg/dL (0.70-1.20) 03/26/25 14:50 03/26/25 Glucose 122 mg/dL (70-99) H 03/26/25 14:50 03/26/25 POC Glucose 94 mg/dL (74-106) 03/26/25 10:04 03/26/25 TSH 0.756 uIU/mL (0.358-3.740) 12/09/24 13:45 11/12 08/05 COAG Pre-Assessment Diagnosis/Proposed Procedure Planned Operative Procedure(s): EGD Anesthesia History Anesthesia History - helper maintenance cleaning: Anesthesia History - helper maintenance cleaning Hx Hospitalization No 06/22/25 11:45 Any Problems With Anesthesia No 06/22/25 11:45 Cholinesterase deficiency No 06/22/25 11:45 You/Your Family Experience No 06/22/25 11:45 fever (hyperthermia) with Relationship Recent Exposure to Contagious No 06/23/25 12:07 Disease Does patient have nerve No 06/22/25 11:45 stimulator Patient instructed to have device shut off --Does patient have Pacemaker No 06/23/25 12:07 or ICD? When Was Last Pacemaker Check QUESTION #4 FULL TEXT: You/Your Family Experience fever (hyperthermia) with Anesthesia Last Oral Intake Last Oral intake: Last Oral Intake NPO since 08:30 06/23/25 12:07 Meds taken in AM with sips of water? Meds patient instructed to take am of surgery PONV PONV - helper maintenance cleaning: PONV - helper maintenance cleaning Female Yes 06/22/25 11:45 HX of Motion Sickness No 06/22/25 11:45 HX of N/V After Surgery No 06/22/25 11:45 Non-Smoker Yes 06/22/25 11:45 Duration of Surgery greater No 06/22/25 11:45 than 60 minutes Number of Risk Factors 2 06/22/25 11:45 PONV Score Moderate Risk 06/22/25 11:45 Height & Weight Height & Weight: Anesthesia: Height & Weight Height 5 ft 6 in 06/23/25 12:07 Weight: 80 kg 06/23/25 12:07 Body Mass Index (BMI) 28.4 06/23/25 12:07 Respiratory Assessment Respiratory Assessment - helper maintenance cleaning: Respiratory Tract Infection Hx - helper maintenance cleaning Hx Respiratory Tract Infection No 06/22/25 11:45 STOP Sleep Apnea STOP Sleep Apnea - helper maintenance cleaning: STOP Sleep Apnea - helper maintenance cleaning Hx Hypertension No 06/22/25 11:45 Hx Sleep Apnea No 06/22/25 11:45 CPAP BIPAP Do you snore loudly (louder No 06/22/25 11:45 than talking or can be heard Do you often feel tired/ No 06/22/25 11:45 fatigued/ sleepy during daytime? Has anyone observed you stop No 06/22/25 11:45 breathing during sleep? STOP Results Negative 06/22/25 11:45 QUESTION #5 FULL TEXT : Do you snore loudly (louder than talking or can be heard through closed doors)? 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 Specify any problems Hx of Preganancy in last 3 No 06/22/25 11:45 Months Nurse Filling Out Transfusion VCHRISTIN 06/22/25 11:45 & Questions: Date: 06/22/25 06/22/25 11:45 Time: 11:46 06/22/25 11:45 Patient unable to answer at this time (ie. confused, unrespo /Reproduction History /Reproductive History - helper maintenance cleaning: /Reproductive Hx- helper maintenance cleaning Hx Now No 06/22/25 11:45 Gestational Age (in weeks): EDC: Hx Hx Para Hx Section SAB No 06/22/25 11:45 Active Medications Active Medications: Current Medications Generic Name Dose Route Start Last Admin Trade Name Freq PRN Reason Stop Dose Admin Lactated Ringer's 1,000 mls @ 15 mls/hr 06/23/25 12:00 06/23/25 12:10 IV 15 mls/hr .Q48H SUNIL Administration PFSH Medical History ANA ROSA (stress urinary incontinence, female) History of steroid therapy Bladder disease Restless legs Syncope History of ulceration Shortness of breath on exertion History of pain when walking History of edema Wears glasses Post-menopausal Arthritis Fatty liver Non-smoker Leg cramps Acid reflux Depression History of anemia Anxiety Home Medications ?Medication ?Instructions ?Recorded ?Last Taken ?Type calcium carbonate (Antacid Ext Str 300 mg PO TID PRN d yspepsia 03/24/25 Unknown History (calcium carb)) pantoprazole 40 mg tablet,delayed 40 mg PO QDAY #30 ta bs 05/07/25 Unknown Rx release Allergy/AdvReac Type Severity Reaction Status Date / Time adhesive tape Allergy Unknown Rash Verified 06/23/25 12:07 Family History Mother Dementia Diabetes Sister Diabetes Hypertension Surgical History Hx of hysterectomy S/P hysterectomy History of colonoscopy Social History Smoking Status: Never smoker alcohol intake: never substance use type: does not use caffeine: Yes what type of physical activity do you participate in: none seatbelt use: always do you feel safe at home: Yes additional social history: Review of Systems (Anesthesia) ROS Narrative System reviewed and no additional complaints, except as documented.
--- NOTE | 2025-06-23 13:00 | EGD_PTH ---
PATIENT: ANDREW LYNN LOC: EN U#:[id number] AGE/SX: 64/F ROOM: RE06/23/[address]: Dr. Mark Aguirre DO : 1960 BED: DIS: 06/23/2025 SPEC #: [id number] RECD: 06/23/25 15:17 STATUS: RAYO FABY #: [id number] CÉSAR: 06/23/25 13:[address]: Mark Aguirre DEPT: SURGICAL PATHOLOGY RECD BY: Graham Mcmullen ENTERED: 06/23/25 15:34 SP TYPE: EGD BIOPSY VESTA DR: Dr. Isaiah Bryant, Tissues: A - Gastric mucous membrane Procedures: Immunohistochemical Stains Surgery Specimen Level IV HEADER OPERATION: EGD with biopsy PRE-OP DIAGNOSIS: Epigastric pain TISSUE SUBMITTED: A- Gastric body biopsy MICROSCOPIC DIAGNOSIS A. Gastric body, biopsy: - Oxyntic mucosa with active chronic gastritis. - IHC positive for H.pylori organisms. MICROSCOPIC DESCRIPTION Slides are reviewed. All matched controls reacted appropriately. These tests were developed and their performance characteristics determined by [facility]. They may not have been cleared or approved by the U.S. Food and Drug Administration. The FDA has determined that such clearance or approval is not necessary. The above immunohistochemical/dualISH markers are reviewed by the Pathologist. GROSS DESCRIPTION A. Received in fixative is one container labeled with the patient's name and designated Gastric body biopsy. The specimen consists of three irregular fragments of light tam soft tissue that measure 0.3 to 0.5 cm. The specimen is totally submitted in one cassette. NC 06/23/2025 CPT:53395,33215
--- NOTE | 2025-06-23 13:12 | OP.PROVAT_ITS ---
06/23/2025 Isaiah Bryant Re : Upper GI endoscopy procedure for Bharti Adair Dear Dr. Bryant This procedure was performed on Monday, June 23, 2025. My impressions and recommendations are as follows: Impressions : - Normal esophagus. - Chronic gastritis. Biopsied. - Normal examined duodenum. Recommendations : - Discharge patient to home. - Resume previous diet. - Continue present medications. - Await pathology results. My findings are described in the full procedure note, which is enclosed. If I can be of further assistance, please feel free to contact me at . Sincerely, Mark Aguirre, 06/23/2025 1:12:16 PM This report has been signed electronically.
--- NOTE | 2025-06-23 13:12 | OP.EGD_ITS ---
Patient Name: Bharti Adair Procedure Date: 06/23/2025 12:54 PM Date of : 1960 Age: 64 Procedure: Upper GI endoscopy Indications: Peptic ulcer Providers: Mark Aguirre DO Referring MD: Isaiah Bryant Medicines: Monitored Anesthesia Care Patient Profile: This is a 64 year old female. Refer to note in patient chart for documentation of history and physical. Patient has symptoms of chronic epigastric abdominal pain. Her most recent EGD for biopsy and EGD for treatment of bleeding was within the past three months. Complications: No immediate complications. Procedure: Pre-Anesthesia Assessment: - Prior to the procedure, a History and Physical was performed, and patient medications and allergies were reviewed. The patient is competent. The risks and benefits of the procedure and the sedation options and risks were discussed with the patient. All questions were answered and informed consent was obtained. Patient identification and proposed procedure were verified by the physician in the pre-procedure area. Mental Status Examination: alert and oriented. Airway Examination: normal oropharyngeal airway and neck mobility. Respiratory Examination: clear to auscultation. CV Examination: normal. Prophylactic Antibiotics: The patient does not require prophylactic antibiotics. Prior Anticoagulants: The patient has taken no anticoagulant or antiplatelet agents except for NSAID medication. ASA Grade Assessment: II - A patient with mild systemic disease. After reviewing the risks and benefits, the patient was deemed in satisfactory condition to undergo the procedure. The anesthesia plan was to use monitored anesthesia care (MAC). Immediately prior to administration of medications, the patient was re-assessed for adequacy to receive sedatives. The heart rate, respiratory rate, oxygen saturations, blood pressure, adequacy of pulmonary ventilation, and response to care were monitored throughout the procedure. The physical status of the patient was re-assessed after the procedure. After obtaining informed consent, the endoscope was passed under direct vision. Throughout the procedure, the patient's blood pressure, pulse, and oxygen saturations were monitored continuously. The Endoscope was introduced through the mouth, and advanced to the second part of duodenum. The upper GI endoscopy was accomplished without difficulty. The patient tolerated the procedure well. Scope In: 1:04:54 PM Scope Out: 1:07:41 PM Total Procedure Duration Time 0 hours 2 minutes 47 seconds Findings: The examined esophagus was normal. Patchy mild inflammation characterized by erythema was found in the gastric body, on the anterior wall of the stomach, on the greater curvature of the stomach, on the lesser curvature of the stomach and at the incisura. Biopsies were taken with a cold forceps for histology. Biopsies were taken with a cold forceps for Helicobacter pylori testing. Verification of patient identification for the specimen was done. Estimated blood loss was minimal. The examined duodenum was normal. Impression: - Normal esophagus. - Chronic gastritis. Biopsied. - Normal examined duodenum. Recommendation: - Discharge patient to home. - Resume previous diet. - Continue present medications. - Await pathology results. Procedure Code(s): --- Professional --- 21574, Esophagogastroduodenoscopy, flexible, transoral; with biopsy, single or multiple CPT copyright 2021 [employer]. All rights reserved. The codes documented in this report are preliminary and upon trench trimmer fine review may be revised to meet current compliance requirements. Mark Aguirre DO 06/23/2025 1:12:16 PM This report has been signed electronically. Number of Addenda: 0 Note Initiated On: 06/23/2025 12:54 PM
--- NOTE | 2025-06-23 13:23 | PCM.POST.ANE ---
Anesthesia: Postop Eval I Current Vital Signs Temperature: 97.6 F Pulse Rate: 94 Blood Pressure: 110/67 Respiratory Rate: 16 Pulse Ox: 95 Oxygen Delivery Method: Room Air Assessment Airway patent: Yes Spontaneous unlabored respirations: Yes Mental status: Awake and Calm nausea: No Vomiting: No Anesthesia Complication: No Fluid Hydration Crystalloid volume administer (ml): 400 Total IV fluid infused: 400 Progress Note Anesthesia document: Postop Eval 1 completed: Yes
--- NOTE | 2025-06-23 16:31 | PCM.POSTANE2 ---
Anesthesia Postop Eval I Sum Postop Eval Completion status Anesthesia document: Postop Eval 1 completed: Yes Anesthesia Postop Eval I Summary Anesthesia Postop Eval I Summary: Anesthesia Postop Eval I: Assessment Summary Airway patent Yes 06/23/25 13:23 [email or web address] Spontaneous unlabored Yes 06/23/25 13:23 [email or web address] respirations Mental status Awake,Calm 06/23/25 13:23 [email or web address] nausea No 06/23/25 13:23 [email or web address] Vomiting No 06/23/25 13:23 [email or web address] Anesthesia Postop Eval I: Fluid Summary Crystalloid volume administer 400 06/23/25 13:23 [email or web address] (ml) Colloids volume administered ( ml) Blood Product volume administered (ml) Total IV fluid infused 400 06/23/25 13:23 [email or web address] Anesthesia Postop Eval I: Summary Notes Anesthesia Complication No 06/23/25 13:23 [email or web address] Anesthesia Complication Comment: Post-operative progress note Anesthesia: Postop Eval II Evaluation Mental status: Awake Pain Level: 0 nausea: No Vomiting: No
== END 2025-06-23 13:48 | disposition home or self-care (01) ==
LOC: EN 11:51 → AC 11:53
PROVIDERS: PCP Family Medicine; Referring Provider Family Medicine; Visit Provider Internal Medicine Gastroenterology
PROC: 0DJ08ZZ Inspection of Upper Intestinal Tract, Via Natural or Artificial Opening Endoscopic (ICD-10-PCS; CPT 43235; principal; 2025-06-23 12:55)
DX: K29.50 Unspecified chronic gastritis without bleeding (principal); K21.9 Gastro-esophageal reflux disease without esophagitis; Z87.19 Personal history of other diseases of the digestive system; Z87.11 Personal history of peptic ulcer disease; Z79.899 Other long term (current) drug therapy
CPT/HCPCS: 43239; 88305; 88342; J2405

== ENCOUNTER → 2025-07-26 | Outpatient (CLI) | payer MEDICARE, SELFPAY ==
--- NOTE | 2025-07-26 13:46 | CDU_ITS ---
Reason For Study Reason For Study: Facial numbness Rt. Velocities/BP Lt. Velocities/BP Prox CCA 76.8/19.2 cm/sec. Prox CCA 83.4/21.1 cm/sec. Mid CCA 98.1/24.5 cm/sec. Mid CCA 78.7/22 cm/sec. Dist CCA 79.5/20.1 cm/sec. Dist CCA 76.8/25.8 cm/sec. Prox ICA 96.1/23.7 cm/sec. Prox ICA 110.1/29.8 cm/sec. Mid ICA 97.4/44.6 cm/sec. Mid ICA 90/43.3 cm/sec. Dist ICA 98.6/39.7 cm/sec. Dist ICA 98.6/42.1 cm/sec. Rt. ICA/CCA = 1.01. Lt. ICA/CCA = 1.40. Prox ECA 94.9/10.2 cm/sec. Prox ECA 83.4/9.7 cm/sec. Rt. Vert. 55.1/17.3 cm/sec. Lt. Vert. 67.9/16.3 cm/sec. Right Extracranial There is intimal thickening but no significant atherosclerotic plaque noted in the right common carotid artery. There is intimal thickening but no significant atherosclerotic plaque noted in the right internal carotid artery. There is intimal thickening but no significant atherosclerotic plaque noted in the right external carotid artery. Antegrade flow is noted in the right vertebral artery. Left Extracranial There is intimal thickening but no significant atherosclerotic plaque noted in the left common carotid artery. There is intimal thickening but no significant atherosclerotic plaque noted in the left internal carotid artery. There is intimal thickening but no significant atherosclerotic plaque noted in the left external carotid artery. Antegrade flow is noted in the left vertebral artery. Procedure Carotid Duplex 27289. This is a Carotid Duplex examination using B-mode, color flow and specral Doppler. Exam performed in department. VL/Carotid Duplex Ultrasound Interpretation Summary No significant atherosclerotic plaque or stenosis noted in the internal carotid arteries bilaterally. Flow within the vertebral arteries is antegrade bilaterally. Ordering Physician: Isaiah Bryant Referring Physician: Isaiah Bryant Performed By: Asia Bueno RVT
== END | disposition home or self-care (01) ==
LOC: CVS 13:46
PROVIDERS: PCP Family Medicine; Referring Provider Family Medicine; Visit Provider Family Medicine
DX: R20.0 Anesthesia of skin (principal)
CPT/HCPCS: 93880

== ENCOUNTER → 2025-07-28 | Outpatient (CLI) | payer MEDICARE, SELFPAY ==
--- NOTE | 2025-07-28 13:45 | BI_ITS ---
EXAM: SCRN MAMM (CAD)W/CHRISTIAN BILAT DATE: 07/28/2025 CLINICAL HISTORY: F, Age 64 y/o , SCREENING BREAST CANCER No family history. TECHNIQUE: Procedure Code: [id number] Modality: MG Procedure: SCRN MAMM (CAD)W/CHRISTIAN BILAT COMPARISON: Prior exam(s) dated July 20, 2024.. FINDINGS: TISSUE DENSITY: There are scattered areas of fibroglandular density. Bilateral Breast Mammographic Findings: No significant masses, calcifications or other abnormalities are identified. Stable small benign-appearing bilateral axillary lymph nodes. No suspicious masses, areas of developing architectural distortion, or suspicious calcifications. There has been no significant interval change. BI/SCRN MAMM (CAD)W/CHRISTIAN BILAT IMPRESSION: Stable bilateral screening mammogram. OVERALL FINAL ASSESSMENT BI-RADS 2: BENIGN RECOMMENDATION: Routine annual follow-up in 1 Year A letter with findings and recommendations will be mailed to the patient. Reading Location: [place] [id number]
--- OUTSIDE RECORDS SUMMARY | 2025-07-28 20:42 | XMS RPT_ITS | CCD ---
Author Organization [facility] Care Team Providers Care Business Operations Specialist Name Role Phone Dr. Reese Hicks Primary Care Provider [phone] Dr. Reese Hicks Attending Provider Dr. Reese Hicks Referring Provider Keyana RAMOS, BOGGER OPERATOR-C Miriam Beckford Attending Provider [phone] REESE HICKS DO Primary Care Physician Dr. Reese Hicks Primary Care Provider [phone] Dr. Reese Hicks Referring Provider Dr. Reese Hicks Primary Care Provider [phone] Dr. Reese Hicks Referring Provider Dr. Paola Pierre Attending Provider FriendDr. Flores Attending Provider [phone] Friend, Dr. Flores Other Provider [phone] Dr. Reese Hicks Primary Care Provider [phone] Dr. Reese Hicks Referring Provider [phone] DOMENICA Castaneda Attending Provider Dr. Reese Yeager Primary Care Provider [phone] Dr. Reese Hicks Referring Provider DOMENICA Castaneda Attending Provider Roshan Martin BOGGER OPERATOR, BOGGER OPERATOR-C Jose Attending Provider [phone] Dr. Reese Hicks Primary Care Provider [phone] Dr. Reese Hicks Attending Provider Dr. Reese Hicks Referring Provider [phone] JULIO Nick Attending Provider [phone] KILEY DO, LIO Attending Unavailable KURT CABALLERO, REESE R Primary Care Unavailable KILEY CABALLERO, LIO Attending Unavailable KURT CABALLERO, REESE R Primary Care Unavailable Kurt CABALLERO, Dr. Reese Walters Primary Care Provider Kurt CABALLERO, Dr. Reese Walters Attending Provider [phone] Kurt CABALLERO, Dr. Reese Walters Referring Provider [phone] Chetan Pappas DO, Dr. Pisano Attending Provider Chetan Pappas DO, Dr. Pisano Referring Provider Júnior Hanna Attending Provider Chetan Pappas DO, Dr. Pisano Other Provider [phone] Dr. Liz Pruett MD Other Provider Chetan Pappas DO, Dr. Pisano Admit Provider [phone] Dr. Reese Hicks DO Primary Care Provider Kurt CABALLERO, Dr. Reese Walters Referring Provider [phone] Kurt CABALLERO, Dr. Reese Walters Primary Care Provider Kurt CABALLERO, Dr. Reese Walters Referring Provider [phone] Chetan Pappas DO, Dr. Pisano Attending Provider Chetan Pappas DO, Dr. Pisano Referring Provider Merly Vernon Attending Provider [phone] RAVI DPM, DR MATTEO Villaseñor Attending REESE Leavitt DO R Primary Care Unavailable RAVI RAJAN, DR MATTEO Villaseñor Attending Antonella HICKS DO, REESE R Primary Care Unavailable Flynn HODGE, Dr. Hill Other Provider Dr. Liz Pruett MD Attending Provider Dr. Mark Aguirre DO Attending Provider Carla CABALLERO, Dr. Flores Other Provider Dr. Reese Hicks DO Attending Provider Brown, Reese R Primary Care Unavailable Valery Griggs Referring Unavailable Valery Griggs Attending Unavailable Mark Aguirre Attending Unavailable Brown, Reese R Primary Care Unavailable Brown, Reese R Referring Unavailable Brown, Reese R Primary Care Unavailable Brown, Reese R Referring Unavailable Merly Paulino Attending Unavailable Brown, Reese R Referring Unavailable VandAliya Perez Attending Unavailabl e Brown, Reese R Primary Care Unavailable Brown, Reese R Primary Care Unavailable Brown, Reese R Referring Unavailable Brown, Reese R Attending Unavailable Brown, Reese R Primary Care Unavailable Brown, Reese R Referring Unavailable Aliya Yen Attending Unavailabl e Conniee Vellux, Aliya Referring Unavailabl e Vande Aliya Pappas Attending Unavailabl e Brown, Reese R Primary Care Unavailable Brown, Reese R Primary Care Unavailable Aliya Yen Attending Unavailabl e Brown, Reese R Primary Care Unavailable Brown, Reese R Attending Unavailable Brown, Reese R Primary Care Unavailable Aliya Yen Admitting Unavailabl e Vande Vellux, Aliya Referring Unavailabl e Conniee Aliya Pappas Attending Unavailabl e Liz Pruett Consulting Unavailable Brown, Reese R Primary Care Unavailable Brown, Reese R Referring Unavailable Brown, Reese R Attending Unavailable Brown, Reese R Referring Unavailable Vande Aliya Pappas Attending Unavailabl e Brown, Reese R Primary Care Unavailable Brown, Reese R Primary Care Unavailable Brown, Reese R Referring Unavailable Júnior Nebsitt Attending Unavailable Brown, Reese R Primary Care Unavailable Brown, Reese R Referring Unavailable Vande Aliya Pappas Attending Unavailabl e Brown, Reese R Primary Care Unavailable Aliya Yen Attending Unavailabl e Conniee VelAliya wasserman Referring Unavailabl Liz Hemphill Consulting Unavailable Vande VelAliya wasserman Consulting Unavailabl e Brown, Reese R Primary Care Unavailable Brown, Reese R Referring Unavailable Friend, Mark Attending Unavailable Friend, Mark Consulting Unavailable Brown, Reese R Primary Care Unavailable Brown, Reese R Referring Unavailable Brown, Reese R Attending Unavailable Allergies Allergy Classification Reported Allergen(s) Allergy Type Date of Onset Reaction(s) Facility (1 source) Adhesive Tape Drug allergy (disorder) 07-07-2025 [facility] Repository Medications Current Medications Medication Drug Class(es) Dates Sig (Normalized) Sig (Original) Amoxicil-Clarithro my-Lansopraz (10 sources) Penicillin-class Antibacterial Start: 07-06-2025 Amoxicil-Clarithr jacquelin-Lansopraz 500-500-30 mg combo pack Active 0 PO .COMPLEX 112 0 July 06, 2025 4:02pm take 1 dose in the morning and 1 in the evening as directed on each daily card (for 10 days) PO Start: 06-30-2025 End: 07-06-2025 Aetrvtxt-Qvvamdeqzrw-Bqdhxma az 500-500-30 mg combo pack Discontinued 0 PO .COMPLEX 112 0 June 30, 2025 12:00am July 06, 2025 4:02pm take 1 dose in the morning and 1 in the evening as directed on each daily card (for 10 days) PO Start: 09-24-2023 End: 12-20-2023 take 1 capsule by mouth every eight hours Amoxicillin 500 mg capsule Discontinued 500 mg PO Q8H 30 0 September 24, 2023 1:00am December 20, 2023 3:53pm calcium carbonate 750 mg chewable tablet (6 sources) Start: 03-24-2025 take 1 tablet by mouth three times daily as needed Calcium Carbonate (Antacid Ext Str (Calcium Carb)) 300 mg (750 mg) tablet,chewable Active 300 mg PO THREE TIMES A DAY as needed for dyspepsia March 24, 2025 12:00am LORazepam 1 mg oral tablet (20 sources) Benzodiazepine Start: 07-07-2025 take 1 tablet by mouth once daily as needed for anxiety Lorazepam 1 mg tablet Active 1 mg PO DAILY as needed for anxiety 30 July 07, 2025 1:43pm Anxiety Anxiety disorder, unspecified may cause drowsiness Start: 03-05-2023 End: 03-15-2025 take 1 tablet by mouth once daily as needed for anxiety Lorazepam 1 mg tablet Discontinued 1 mg PO DAILY as needed for anxiety 30 June 25, 2024 10:16am March 15, 2025 10:58am Anxiety Anxiety disorder, unspecified may cause drowsiness Start: 05-28-2018 End: 09-22-2018 take 1 tablet by mouth at bedtime as needed for sleep Lorazepam (Ativan) 1 mg tablet Discontinued 1 mg PO AT BEDTIME as needed for sleep 30 2 May 28, 2018 12:23pm September 22, 2018 5:20pm Start: 05-28-2018 End: 02-22-2022 take 1 tablet by mouth twice daily as needed for anxiety Lorazepam (Ativan) 1 mg tablet Discontinued 1 mg PO TWICE A DAY as needed for anxiety 60 0 September 22, 2021 12:47pm February 22, 2022 12:42pm Watson (Nk) (1 source) Start: 03-15-2025 Watson (Nk) A ctive March 15, 2025 12:00am pantoprazole 40 mg delayed release oral tablet (20 sources) Proton Pump Inhibitor Start: 05-07-2025 take 1 tablet by mouth once daily Pantoprazole 40 mg tablet,delayed release (DR/EC) Active 40 mg PO daily 30 May 07, 2025 12:00am Start: 12-25-2022 End: 03-15-2025 take 1 tablet by mouth once daily Pantoprazole 40 mg tablet,delayed release (DR/EC) Discontinued 0 .ROUTE .COMPLEX 90 September 17, 2023 4:30pm March 15, 2025 10:58am TAKE 1 TABLET BY MOUTH EVERY DAY Start: 11-14-2022 End: 12-25-2022 take 1 tablet by mouth twice daily Pantoprazole (Protonix) 40 mg tablet,delayed release (DR/EC) Discontinued 40 mg PO TWICE A DAY November 14, 2022 1:00am December 25, 2022 3:11pm Start: 02-21-2022 End: 07-18-2022 take 1 tablet by mouth once daily Pantoprazole 40 mg tablet,delayed release (DR/EC) Discontinued 40 mg PO DAILY 30 February 21, 2022 12:00am July 18, 2022 2:15pm ursodiol 250 mg oral tablet (1 source) Bile Acid Start: 06-26-2022 take 250 mg by mouth twice daily Ursodiol Active 250 MG PO TWICE A DAY 180 June 26, 2022 12:00am {20 (nirmatrelvir 150 MG Oral Tablet) / 10 (ritonavir 100 MG Oral Tablet) } Pack (1 source) Start: 05-20-2022 End: 05-25-2022 nirmatrelvir-ritonavir 150 mg-100 mg (300 mg-100 mg Dose) oral tablet Dose = 1 packet(s), Oral, BID, Take 1 Packet = two 150mg nirmatrelvir tabs and one 100mg ritonavir tab. 3 tablets to be taken together by mouth twice a day for 5 days, X 5 day(s), # 5 EA, 0 Refill(s), COVID-19 Start Date: 05/20/22 Stop Date: 05/25/22 Status: Ordered Completed/Discontinued Medications Medication Drug Class(es) Dates Sig (Normalized) Sig (Original) acetaminophen 500 mg oral tablet (8 sources) Start: 09-17-2023 End: 12-20-2023 take 1 tablet by mouth every six hours as needed Acetaminophen (Tylenol Extra Strength) 500 mg tablet Discontinued 500 mg PO EVERY 6 HOURS as needed September 17, 2023 1:00am December 20, 2023 3:53pm acetaminophen 325 mg / butalbital 50 mg / caffeine 40 mg oral tablet (8 sources) Barbiturate, Central Nervous System Stimulant, Methylxanthine Start: 09-17-2023 End: 09-25-2023 Butalbital-Acetami nophen-Caff 50-325-40 mg tablet Discontinued 1 {tbl} PO EVERY 6 HOURS as needed for pain 30 September 17, 2023 1:00am September 25, 2023 5:09pm Start: 09-17-2023 End: 09-25-2023 take 1 tablet by mouth every six hours Itttkfdfwf-Ittnhemkwlnst-Lqkp Discontinu ed 1 TABLET PO EVERY 6 HOURS September 17, 2023 12:00am September 25, 2023 4:09pm acetaminophen 325 mg / oxyCODONE hydrochloride 5 mg oral tablet (6 sources) Opioid Agonist Start: 03-26-2025 End: 04-09-2025 Oxycodone-Acetaminophen 5-325 mg tablet Discontinued 1 {tbl} PO Q8H as needed for pain 10 3 0 March 26, 2025 April 09, 2025 10:53am Uterine leiomyoma Leiomyoma of uterus, unspecified benzonatate 200 mg oral capsule (14 sources) Non-narcotic Antitussive Start: 05-21-2022 End: 07-18-2022 Benzonatate 200 mg capsule Discontinued 200 mg PO 2 to 3 times per day as needed for cough 90 0 May 21, 2022 12:00am July 18, 2022 2:15pm cholecalciferol 1.25 mg oral capsule (15 sources) Vitamin D Start: 05-28-2018 End: 07-22-2019 take 1 capsule by mouth every week Cholecalciferol (Vitamin D3) 50,000 unit capsule Discontinued 92419 U PO EVERY WEEK 8 0 May 28, 2018 12:00am July 22, 2019 9:40am cyclobenzaprine hydrochloride 10 mg oral tablet (20 sources) Muscle Relaxant Start: 09-13-2020 End: 04-11-2022 take 5-10 mg by mouth three times daily as needed for muscle spasms Cyclobenzaprine 10 mg tablet Discontinued 5 - 10 mg PO THREE TIMES A DAY as needed for muscle spasm 30 0 July 04, 2021 4:06pm April 11, 2022 3:09pm DULoxetine 30 mg delayed release oral capsule (20 sources) Serotonin and Norepinephrine Reuptake Inhibitor Start: 02-12-2019 End: 07-22-2019 take 1 capsule by mouth once daily Duloxetine 30 mg capsule,delayed release(DR/EC) Discontinued 30 mg PO DAILY 30 3 June 08, 2019 3:06pm July 22, 2019 9:40am hot flashes escitalopram 10 mg oral tablet (20 sources) Serotonin Reuptake Inhibitor Start: 03-05-2023 End: 12-20-2023 take 1 tablet by mouth once daily Escitalopram Oxalate 10 mg tablet Discontinued 10 mg PO DAILY 90 March 05, 2023 9:47am December 20, 2023 3:54pm Start: 11-14-2022 End: 03-05-2023 take 1 tablet by mouth once daily Escitalopram Oxalate 5 mg tablet Discontinued 0 .ROUTE .COMPLEX 90 March 05, 2023 9:36am March 05, 2023 9:49am TAKE 1 TABLET BY MOUTH EVERY DAY Start: 09-13-2020 End: 07-04-2021 take 1 tablet by mouth once daily Escitalopram Oxalate (Lexapro) 5 mg tablet Discontinued 5 mg PO DAILY 90 January 18, 2021 5:19pm July 04, 2021 3:59pm famotidine 20 mg oral tablet (19 sources) Histamine-2 Receptor Antagonist Start: 06-07-2019 End: 02-21-2022 take 1 tablet by mouth once daily as needed for gastroesophageal reflux disease Famotidine (Pepcid) 20 mg tablet Discontinued 20 mg PO DAILY as needed for gerd 60 November 22, 2021 1:00am February 21, 2022 11:45am fluconazole 100 mg oral tablet (8 sources) Azole Antifungal Start: 10-24-2023 End: 12-20-2023 Fluconazole (Diflucan) 100 mg tablet Discontinued 100 mg PO DAILY 2 October 24, 2023 1:00am December 20, 2023 3:54pm take one tablet and repeat in three days. 30 actuat fluticasone furoate 0.1 mg/actuat dry powder inhaler (8 sources) Corticosteroid Start: 09-17-2023 End: 12-20-2023 Fluticasone Furoate 100 mcg/actuation blister with device Discontinued 1 NMA INHALATION DAILY 30 September 17, 2023 1:00am December 20, 2023 3:54pm in each nostril Start: 09-17-2023 End: 12-20-2023 Fluticasone Furoate Disconti nued 1 INH INHALATION DAILY September 17, 2023 12:00am December 20, 2023 2:54pm in each nostril hydrOXYzine hydrochloride 25 mg oral tablet (8 sources) Antihistamine Start: 09-25-2023 End: 12-20-2023 take 1 tablet by mouth three times daily as needed Hydroxyzine Hcl 25 mg tablet Discontinued 25 mg PO THREE TIMES A DAY as needed for pruritis September 25, 2023 1:00am December 20, 2023 3:54pm meloxicam 15 mg oral tablet (15 sources) Nonsteroidal Anti-inflammatory Drug Start: 10-28-2020 End: 01-18-2021 take 7.5-15 mg by mouth once daily as needed for pain Meloxicam 15 mg tablet Discontinued 7.5 - 15 mg PO DAILY as needed for shoulder pain 10 12October 28, 2020 1:00am January 18, 2021 5:02pm methylPREDNISolone 4 mg oral tablet (15 sources) Corticosteroid Start: 09-13-2020 End: 10-28-2020 take 1 tablet by mouth once Methylprednisolone (Medrol (Mauricio)) 4 mg tablets,dose pack Discontinued 0 PO per package directions 21 0 September 13, 2020 1:00am October 28, 2020 2:54pm PO PER PKG DIR nitrofurantoin, macrocrystals 100 mg oral capsule (8 sources) Nitrofuran Antibacterial Start: 12-20-2023 End: 12-25-2023 take 1 capsule by mouth every twelve hours at mealtime Nitrofurantoin Macrocrystal 100 mg capsule Discontinued 100 mg PO Q12H 10 5 0 December 20, 2023 1:00am December 24, 2023 1:00am December 25, 2023 1:04am Dysuria Dysuria must administer with a meal/food ondansetron 8 mg disintegrating oral tablet (6 sources) Serotonin-3 Receptor Antagonist Start: 03-26-2025 End: 04-09-2025 take 1 tablet by mouth every eight hours as needed for nausea and vomiting Ondansetron 8 mg tablet,disintegratin g Discontinued 8 mg PO Q8H as needed for nausea and vomiting 10 0 March 26, 2025 12:00am April 09, 2025 10:53am phenazopyridine hydrochloride 100 mg oral tablet (8 sources) Start: 12-20-2023 End: 12-09-2024 take 1 tablet by mouth three times daily as needed for pain Phenazopyridine 100 mg tablet Discontinued 100 mg PO THREE TIMES A DAY as needed for pain 30 0 December 20, 2023 1:00am December 09, 2024 2:30pm Dysuria Dysuria polyethylene glycol 3350 85221 mg powder for oral solution (20 sources) Osmotic Laxative Start: 05-28-2018 End: 07-30-2018 take 17 g by mouth once daily as needed for constipation Polyethylene Glycol 3350 17 GM packet Discontinued 17 g PO daily as needed for Constipation June 30, 2018 1:17pm July 30, 2018 11:29am Rhubarb Root Extract (Estroven Cmplt Menopause Rlf) 4 mg tablet (15 sources) Start: 12-08-2019 End: 10-28-2020 Rhubarb Root Extract (Estroven Cmplt Menopause Rlf) 4 mg tablet Discontinued MG PO December 08, 2019 4:46pm October 28, 2020 2:32pm Start: 12-08-2019 End: 10-28-2020 Rhubarb Root Extract (Estrov en Cmplt Menopause Rlf) 4 mg tablet Discontinued mg PO December 08, 2019 1:00am October 28, 2020 2:32pm Start: 12-08-2019 End: 10-28-2020 Rhubarb Root Extract (Estrov en Cmplt Menopause Rlf) 4 mg tablet Discontinued MG PO December 08, 2019 12:00am October 28, 2020 1:32pm Start: 12-08-2019 End: 10-28-2020 Rhubarb Root Extract (Estrov en Cmplt Menopause Rlf) 4 mg tablet Discontinued MG PO December 08, 2019 1:00am October 28, 2020 2:32pm sertraline 50 mg oral tablet (15 sources) Serotonin Reuptake Inhibitor Start: 07-04-2021 End: 04-11-2022 take 1 tablet by mouth once daily Sertraline 50 mg tablet Discontinued 50 mg PO DAILY 30 July 04, 2021 12:00am April 11, 2022 3:09pm vitamin e 180 mg oral capsule (12 sources) Start: 06-26-2022 End: 11-14-2022 take 1 capsule by mouth twice daily Vitamin E (Dl, Acetate) 180 mg (400 unit) capsule Discontinued 180 mg PO TWICE A DAY 180 June 26, 2022 12:00am November 14, 2022 10:59am NAFLD zolpidem tartrate 5 mg oral tablet (20 sources) gamma-Aminobutyri c Acid-ergic Agonist Start: 06-16-2020 End: 01-18-2021 take 1 tablet by mouth at bedtime as needed Zolpidem (Ambien) 5 mg tablet Discontinued 5 mg PO AT BEDTIME as needed for insomnia 20 0 September 13, 2020 3:28pm January 18, 2021 5:02pm Problems Active Problems Problem Classification Problem Date Documented Da te Episodic/Chronic Abdominal pain (20 sources) Epigastric pain; Translations: [Epigastric pain] Onset: 5 Episodic Allergic reactions (10 sources) Urticaria medicamentosa; Translations: [Allergic urticaria] 09-25-2023 Episodic Anxiety disorders (20 sources) Anxiety; Translations: [Anxiety disorder, unspecified] Onset: 5 11-16-2022 Chronic Comment on above: Did not tolerate Zol oft or Xanax; Cymbalta (Suicidal Ideation) NO MEDS Benign neoplasm of uterus (12 sources) Uterine leiomyoma; Translations: [Leiomyoma of uterus, unspecified] 03-26-2025 Episodic Biliary tract disease (13 sources) Biliary calculus; Translations: [Calculus of gallbladder without cholecystitis without obstruction] Episodic Esophageal disorders (15 sources) Gastroesophageal reflux disease; Translations: [Gastro-esophageal reflux disease without esophagitis] 07-01-2018 Chronic Comment on above: PRN TUMS Gastroduodenal ulcer (except hemorrhage) (5 sources) Peptic ulcer; Translations: [Peptic ulcer, site unspecified, unspecified as acute or chronic, without hemorrhage or perforation] Onset: 06-23-2025 Chronic Genitourinary symptoms and ill-defined conditions (16 sources) Female stress incontinence; Translations: [Stress incontinence (female) (male)] 03-27-2025 Chronic Genitourinary symptoms and ill-defined conditions (9 sources) Dysuria; Translations: [Dysuria] 12-20-2023 Episodic Hemorrhoids (16 sources) Hemorrhoids; Translations: [Unspecified hemorrhoids] 07-01-2018 Episodic Menopausal disorders (15 sources) Menopausal flushing; Translations: [Menopausal and female climacteric states] 02-12-2019 Chronic Menstrual disorders (12 sources) Menorrhagia; Translations: [Excessive and frequent menstruation with regular cycle] 03-26-2025 Chronic Mood disorders (17 sources) Depressive disorder; Translations: [Depression] Chronic Comment on above: NO MEDS Nausea and vomiting (12 sources) Nausea; Translations: [Nausea] Episodic Nonspecific chest pain (1 source) Chest pain; Translations: [Chest pain, unspecified] Onset: 4 Episodic Other and unspecified benign neoplasm (15 sources) Tubular adenoma of colon; Translations: [Benign neoplasm of colon, unspecified] 04-11-2022 Episodic Other and unspecified benign neoplasm (4 sources) Benign neoplasm of colon, unspecified; Translations: [Benign neoplasm of colon] Episodic Other connective tissue disease (1 source) Muscle pain; Translations: [Myalgia, unspecified site] Onset: 4 Episodic Other connective tissue disease (10 sources) Triggering of digit; Translations: [Trigger finger, left middle finger] 12-17-2024 Episodic Other connective tissue disease (9 sources) Acquired trigger finger; Translations: [Trigger finger, unspecified finger] 12-09-2024 Episodic Other connective tissue disease (1 source) Calcaneal spur of right foot; Translations: [Calcaneal spur, right foot] Episodic Other connective tissue disease (1 source) Plantar fascial fibromatosis; Translations: [Plantar fascial fibromatosis] Episodic Other gastrointestinal disorders (15 sources) Diarrhea; Translations: [Diarrhea, unspecified] 07-01-2018 Episodic Other gastrointestinal disorders (15 sources) Constipation; Translations: [Constipation, unspecified] 04-11-2022 Episodic Other gastrointestinal disorders (4 sources) Constipation, unspecified; Translations: [Constipation, unspecified] Episodic Other gastrointestinal disorders (20 sources) Abdominal bloating; Translations: [Abdominal distension (gaseous)] 06-12-2022 Episodic Other gastrointestinal disorders (1 source) Abdominal distension (gaseous); Translations: [Abdominal distension (gaseous)] Onset: 5 Episodic Other hematologic conditions (15 sources) History of anemia; Translations: [Personal history of diseases of the blood and blood-forming organs and certain disorders involving the immune mechanism] 07-01-2018 Episodic Comment on above: IN THE PAST Other nervous system disorders (8 sources) Paresthesia of hand ; Translations: [Paresthesia of skin] 12-20-2023 Episodic Other nervous system disorders (1 source) Paresthesia of skin; Translations: [Disturbance of skin sensation] 12-20-2023 Episodic Other nervous system disorders (2 sources) Anesthesia of skin; Translations: [Anesthesia of skin] Onset: 5 Episodic Other screening for suspected conditions (not mental disorders or infectious disease) (16 sources) Patient encounter status; Translations: [Encounter for screening for malignant neoplasm of colon] Onset: 5 07-01-2018 Episodic Other skin disorders (15 sources) Loss of hair; Translations: [Nonscarring hair loss, unspecified] 01-18-2021 Episodic Other upper respiratory infections (10 sources) Chronic frontal sinusitis; Translations: [Chronic frontal sinusitis] 09-17-2023 Chronic Prolapse of female genital organs (20 sources) Incomplete uterovaginal prolapse; Translations: [Vaginal enterocele due to incomplete uterovaginal prolapse] Onset: 05-1406-25-2024 Chronic Residual codes; unclassified (15 sources) Sleep apnea; Translations: [Sleep apnea, unspecified] 07-01-2018 Chronic Residual codes; unclassified (13 sources) Early satiety; Translations: [Early satiety] 06-12-2022 Episodic Past or Other Problems Problem Classification Problem Date Documented Da te Episodic/Chronic Malaise and fatigue (12 sources) Fatigue; Translations: [Other fatigue] Onset: 01-15-2025 12-20-2023 Episodic Other connective tissue disease (1 source) Calcaneal spur, right foot; Translations: [Calcaneal spur, right foot] Onset: 02-22-2025 Episodic Other connective tissue disease (1 source) Plantar fascial fibromatosis; Translations: [Plantar fascial fibromatosis] Onset: 02-22-2025 Episodic Other connective tissue disease (1 source) Trigger finger, left middle finger; Translations: [Trigger finger, left middle finger] Onset: 01-14-2025 Episodic Other connective tissue disease (1 source) Trigger finger, unspecified finger; Translations: [Trigger finger, unspecified finger] Onset: 01-15-2025 Episodic Viral infection (1 source) Disease caused by 2019-nCoV; Translations: [COVID-19] Onset: 05-20-2022 Results Test Name Value Interpretation Reference Range Facility Carotid Duplex Ultrasoundon 07-26-2025 Carotid Duplex Ultrasound [facility] [address] [place] [id number] Carotid Duplex Ultrasound 07/26/25 1357 MR#: [id number] Acct: [id number] Name: BHARTI ADAIR Rep #: [id number] : 1960 64 From: Faustino Castillo MD Attending Dr: Dr. Reese Hicks, DO Status: R EG CLI Ordering Dr: Reese Hicks DO Date: 07/26/25 Location: [facility] Sex: F AA Admitted: Reason For Study Reason For Study: Facial numbness Rt. Velocities/BP Lt. Velocities/BP Prox CCA 76.8/19.2 cm/sec. Prox CCA 83.4/21.1 cm/sec. Mid CCA 98.1/24.5 cm/sec. Mid CCA 78.7/22 cm/sec. Dist CCA 79.5/20.1 cm/sec. Dist CCA 76.8/25.8 cm/sec. Prox ICA 96.1/23.7 cm/sec. Prox ICA 110.1/29.8 cm/sec. Mid ICA 97.4/44.6 cm/sec. Mid ICA 90/43.3 cm/sec. Dist ICA 98.6/39.7 cm/sec. Dist ICA 98.6/42.1 cm/sec. Rt. ICA/CCA = 1.01. Lt. ICA/CCA = 1.40. Prox ECA 94.9/10.2 cm/sec. Prox ECA 83.4/9.7 cm/sec. Rt. Vert. 55.1/17.3 cm/sec. Lt. Vert. 67.9/16.3 cm/sec. Right Extracranial There is intimal thickening but no significant atherosclerotic plaque noted in the right common carotid artery. There is intimal thickening but no significant atherosclerotic plaque noted in the right internal carotid artery. There is intimal thickening but no significant atherosclerotic plaque noted in the right external carotid artery. Antegrade flow is noted in the right vertebral artery. Left Extracranial There is intimal thickening but no significant atherosclerotic plaque noted in the left common carotid artery. There is intimal thickening but no significant atherosclerotic plaque noted in the left internal carotid artery. There is intimal thickening but no significant atherosclerotic plaque noted in the left external carotid artery. Antegrade flow is noted in the left vertebral artery. Procedure Carotid Duplex 73349. This is a Carotid Duplex examination using B-mode, color flow and specral Doppler. Exam performed in department. VL/Carotid Duplex Ultrasound Interpretation Summary No significant atherosclerotic plaque or stenosis noted in the internal carotid arteries bilaterally. Flow within the vertebral arteries is antegrade bilaterally. Ordering Physician: Reese Hicks Referring Physician: Reese Hicks Performed By: Asia Bueno RVT 07/26/252046 Date Faustino Castillo MD CC: Dr. Reese Hicks, DO Date Dictated: 07/26/25 1357 Date Transcribed: 07/26/252046 Mobile Paint Specialist: Signed Normal [facility] Internal Medicine Office Vis iton 07-07-2025 Internal Medicine Office Visit [facility] [address] [place] [address] [place] [address] OFFICE VISIT Date of Service: 07/07/25 MR#: [id number] Acct: [id number] Name: BHARTI ADAIR Rep #: [id number] : 1960 Provider: Dr. Reese foley, DO Age/Sex: 64/F [place] [facility] [place] [facility] [place]: Signed Intake Vital Signs 06/23/25 12:07 07/07/25 13:19 Height 5 ft 6 in 5 ft 6 in Weight: 176 lb BMI 28.4 BP 118/74 Blood Pressure Location Lt brachial Position Sitting Respiration 18 Pulse 81 Pulse Source Monitor Temp 97.8 F Temp Source Temporal Pulse Oximetry (%) 99 Oxygen Delivery Method room air Intake Visit Reasons: NOT FEELING WELL Chief Complaint: I just do not feel well. 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 Required: No Is patient in pain?: Yes (R hip) Pain scale (1-10): 7 Allergies adhesive tape Allergy (Unknown, Verified 07/07/25 13:10) Rash Medications ???Medication ???Instructions ???Recorded ???Confirmed ???Type calcium carbonate (Antacid Ext Str 300 mg PO TID PRN dyspepsia 03/1107/07/25 History (calcium carb)) pantoprazole 40 mg tablet,delayed 40 mg PO QDAY #30 tabs 05/07/25 0 07/07/25 Rx release amoxicillin 500 mg-clarithromycin See Rx Instructions PO .COMPLEX 0 07/06/25 07/07/25 Rx 500 mg-lansoprazole 30 mg combo #112 pkgs pack lorazepam 1 mg tablet 1 mg PO DAILY PRN anxiety #30 tabs 08/27/25 08/27/25 Rx Have you fallen in the past year?: No Nurse's Note: R hip pain has been hurting for a few weeks. pt states when she tries to roll over it wakes her up and she can't sleep on that side.Pt states this has been hurting off an on since her hysterectomy a few years ago but is now pretty constant and more severe. Pt has been treating w/ tylneol and ibuprofen and rest which doesn't help much.Pt states the pain does radiate down the leg and up into the low back. Pt states she has bilateral heel spurs and wonders if that is making it worse. Pt states she also has a bruise on calf that has been there for a few months and does not go away she did not injure herself at all. Pt states she needs ativan refilled;. pt has not started atb yet as everywhere is out of stock, she has an infection in her stomach. [facility] Medical History ANA ROSA (stress urinary incontinence, female) History of steroid therapy Bladder disease Restless legs Syncope History of ulceration Shortness of breath on exertion History of pain when walking History of edema Wears glasses Post-menopausal Arthritis Fatty liver Non-smoker Leg cramps Acid reflux Depression History of anemia Anxiety Surgical History Hx of hysterectomy S/P hysterectomy History of colonoscopy Family History Mother Dementia Diabetes Sister Diabetes Hypertension Social History Smoking Status: Never smoker alcohol intake: never substance use type: does not use caffeine: Yes what type of physical activity do you participate in: none seatbelt use: always do you feel safe at home: Yes additional social history: HPI HPI Chief Complaint: I just do not feel well. Details: BHARTI ADAIR, is a 64 F who presents to the office today for several problems. She is worried about a twitching actually it tic that she gets in the left corner of her mouth which is getting more more pronounced. She also wants my opinion on heel spur surgery because she has intractable plantar fasciitis. She also still has some abdominal discomfort but she has not yet started her antibiotic regime for her H. pylori infection of the stomach which was found on a recent gastroscopy. ROS Const Constitutional: No body ache, chills, excessive sweating, fatigue, fever(s), frequent falls, headache(s), snoring, weakness, sleep problems or change in appetite Eyes Eyes: No blurry vision, change in vision, eye pain or Light sensitivity ENT ENT: No abnormal hearing, ear or mastoid pain, tinnitus, nasal congestion, headache(s), neck pain or sore throat Resp Respiratory: No cough, shortness of breath, snoring or wheezing Cardio Cardiology: No chest pain at rest, chest pain with exertion, excessive sweating, shortness of breath, dyspnea on exertion, lightheadedness, orthopnea or palpitations Gastro GI: No abdominal pain, change in bowel habits, constipation, cramping, diarrhea, nausea/dyspepsia or vomiting Genitourinary-Female: No burning urination, painful urination, urinary incontinence, urinary frequency, abnormal vaginal bleeding or pelvic pain Musc Musculoskeletal: Positive for joint pain, radiating pain into limb, stiffness and leg pain at n (more content not included)... Normal [facility] EGD Reporton 06-23-2025 EGD Report [facility] Medical Records Department [address] [place] [address] EGD Report MR#: [id number] Acct: [id number] Name: BHARTI ADAIR Rep #: [id number] : 1960 64 From: Mark Aguirre DO PCP: Dr. Reese Hicks, DO Status:[facility] [place] Patient Name: Bharti Adair Procedure Date: 06/23/2025 12:54 PM Date of : 1960 Age: 64 Procedure: Upper GI endoscopy Indications: Peptic ulcer Providers: Mark Aguirre DO Referring MD: Reese Hicks Medicines: Monitored Anesthesia Care Patient Profile: This is a 64 year old female. Refer to note in patient chart for documentation of history and physical. Patient has symptoms of chronic epigastric abdominal pain. Her most recent EGD for biopsy and EGD for treatment of bleeding was within the past three months. Complications: No immediate complications. Procedure: Pre-Anesthesia Assessment: - Prior to the procedure, a History and Physical was performed, and patient medications and allergies were reviewed. The patient is competent. The risks and benefits of the procedure and the sedation options and risks were discussed with the patient. All questions were answered and informed consent was obtained. Patient identification and proposed procedure were verified by the physician in the pre-procedure area. Mental Status Examination: alert and oriented. Airway Examination: normal oropharyngeal airway and neck mobility. Respiratory Examination: clear to auscultation. CV Examination: normal. Prophylactic Antibiotics: The patient does not require prophylactic antibiotics. Prior Anticoagulants: The patient has taken no anticoagulant or antiplatelet agents except for NSAID medication. ASA Grade Assessment: II - A patient with mild systemic disease. After reviewing the risks and benefits, the patient was deemed in satisfactory condition to undergo the procedure. The anesthesia plan was to use monitored anesthesia care (MAC). Immediately prior to administration of medications, the patient was re-assessed for adequacy to receive sedatives. The heart rate, respiratory rate, oxygen saturations, blood pressure, adequacy of pulmonary ventilation, and response to care were monitored throughout the procedure. The physical status of the patient was re-assessed after the procedure. After obtaining informed consent, the endoscope was passed under direct vision. Throughout the procedure, the patient's blood pressure, pulse, and oxygen saturations were monitored continuously. The Endoscope was introduced through the mouth, and advanced to the second part of duodenum. The upper GI endoscopy was accomplished without difficulty. The patient tolerated the procedure well. Scope In: 1:04:54 PM Scope Out: 1:07:41 PM Total Procedure Duration Time 0 hours 2 minutes 47 seconds Findings: The examined esophagus was normal. Patchy mild inflammation characterized by erythema was found in the gastric body, on the anterior wall of the stomach, on the greater curvature of the stomach, on the lesser curvature of the stomach and at the incisura. Biopsies were taken with a cold forceps for histology. Biopsies were taken with a cold forceps for Helicobacter pylori testing. Verification of patient identification for the specimen was done. Estimated blood loss was minimal. The examined duodenum was normal. Impression: - Normal esophagus. - Chronic gastritis. Biopsied. - Normal examined duodenum. Recommendation: - Discharge patient to home. - Resume previous diet. - Continue present medications. - Await pathology results. Procedure Code(s): --- Professional --- 62044, Esophagogastroduodenosc opy, flexible, transoral; with biopsy, single or multiple CPT copyright 2021 [employer]. All rights reserved. The codes documented in this report are preliminary and upon newspaper stuffer review may be revised to meet current compliance requirements. Mark Aguirre DO 06/23/2025 1:12:16 PM This report has been signed electronically. Number of Addenda: 0 Note Initiated On: 06/23/2025 12:54 PM 06/23/25 1312 Date Mark Aguirre DO Cosigner Signature: Date (if indicated) CC: Dr. Reese Hicks DO; Mark Aguirre DO Date Dictated: 06/23/25 1254 Date Transcribed: Mobile Paint Specialist: BRYAN Signed Normal [facility] Immunohistochemical Stainson 06-23-2025 Immunohistochemical Stains Patient Age/Sex Location Account Attending Physician BHARTI ADAIR 64/F EN [id number] Mark Aguirre DO Specimen: [id number] Received: 06/23/25 Status: RAYO Krause Num: [id number] Spec Type: EGD BIOPSY Subm Dr: Mark Aguirre DO HEADER OPERATION: EGD with biopsy PRE-OP DIAGNOSIS: Epigastric pain TISSUE SUBMITTED: A- Gastric body biopsy MICROSCOPIC DIAGNOSIS A. Gastric body, biopsy: - Oxyntic mucosa with active chronic gastritis. - IHC positive for H.pylori organisms. MICROSCOPIC DESCRIPTION Slides are reviewed. All matched controls reacted appropriately. These tests were developed and their performance characteristics determined by [facility]. They may not have been cleared or approved by the U.S. Food and Drug Administration. The FDA has determined that such clearance or approval is not necessary. The above immunohistochemical/kyle Maye markers are reviewed by the Pathologist. GROSS DESCRIPTION A. Received in fixative is one container labeled with the patient's name and designated Gastric body biopsy. The specimen consists of three irregular fragments of light tam soft tissue that measure 0.3 to 0.5 cm. The specimen is totally submitted in one cassette. NC 06/23/2025 CPT:64314,56916 Patient Age/Sex Location Account Attending Physician BHARTI ADAIR 64/F EN [id number] Mark Aguirre DO Signed (signature on file) Dr. Tammi Velasquez MD 06/28/25 1645 Normal [facility] Comment on above: Performed By: #### P IMWI ####[facility] [address] [place], [place], [id number] MR/OP.[facility] Medical Records Department [address] [place] [address] Provation Physician Letter MR#: [id number] Acct: [id number] Name: BHARTI ADAIR Rep #: [id number] : 1960 64 From: Mark Aguirre DO PCP: Dr. Reese Hicks, DO Status:REG [facility] 06/23/2025 Reese Hicks Re : Upper GI endoscopy procedure for Bharti Adair Dear Dr. Hicks This procedure was performed on Monday, June 23, 2025. My impressions and recommendations are as follows: Impressions : - Normal esophagus. - Chronic gastritis. Biopsied. - Normal examined duodenum. Recommendations : - Discharge patient to home. - Resume previous diet. - Continue present medications. - Await pathology results. My findings are described in the full procedure note, which is enclosed. If I can be of further assistance, please feel free to contact me at . Sincerely, Mark Aguirre DO 06/23/2025 1:12:16 PM This report has been signed electronically. 06/23/25 1312 Date Mark Aguirre DO Cosigner Signature: Date (if indicated) CC: Dr. Reese Hicks DO; Mark Aguirre DO Date Dictated: 06/23/25 1254 Date Transcribed: Mobile Paint Specialist: BRYAN Signed [facility] MR/POSTOP.[facility] 06-23-2025 MR/POSTOP.[facility] Medical Records Department [address] [place] [address] Anesthesia Postop Eval I 06/23/25 1323 MR#: [id number] Acct: [id number] Name: BHARTI ADAIR Rep #: [id number] : 1960 64 From: Lionel Gauthier PCP: Dr. Reese Hicks, DO Status:[facility] [place] Y Race: AA Location: [place] [address] Anesthesia: Postop Eval I Current Vital Signs Temperature: 97.6 F Pulse Rate: 94 Blood Pressure: 110/67 Respiratory Rate: 16 Pulse Ox: 95 Oxygen Delivery Method: Room Air Assessment Airway patent: Yes Spontaneous unlabored respirations: Yes Mental status: Awake and Calm nausea: No Vomiting: No Anesthesia Complication: No Fluid Hydration Crystalloid volume administer (ml): 400 Total IV fluid infused: 400 Progress Note Anesthesia document: Postop Eval 1 completed: Yes 06/23/25 1323 Date Lionel Huynh Signature: Date CC: Signed Normal [facility] MR/NDGSIXLB5et 06-23-2025 [facility] Medical Records Department [address] [place] [address] Anesthesia Postop Eval II 06/23/25 1631 MR#: [id number] Acct: [id number] Name: BHARTI ADAIR Rep #: [id number] : 1960 64 From: Lupe William CRNA PCP: Dr. Reese Hicks, DO Status:[facility] Y Race: AA Location: EN Anesthesia Postop Eval I Sum Postop Eval Completion status Anesthesia document: Postop Eval 1 completed: Yes Anesthesia Postop Eval I Summary Anesthesia Postop Eval I Summary: Anesthesia Postop Eval I: Assessment Summary Airway patent Yes 06/23/25 13:23 [email or web address] Spontaneous unlabored Yes 06/23/25 13:23 [email or web address] respirations Mental status Awake,Calm 06/23/25 13:23 [email or web address] nausea No 06/23/25 13:23 [email or web address] Vomiting No 06/23/25 13:23 [email or web address] Anesthesia Postop Eval I: Fluid Summary Crystalloid volume administer 400 06/23/25 13:23 [email or web address] (ml) Colloids volume administered ( ml) Blood Product volume administered (ml) Total IV fluid infused 400 06/23/25 13:23 [email or web address] Anesthesia Postop Eval I: Summary Notes Anesthesia Complication No 06/23/25 13:23 [email or web address] Anesthesia Complication Comment: Post-operative progress note Anesthesia: Postop Eval II Evaluation Mental status: Awake Pain Level: 0 nausea: No Vomiting: No 06/23/25 1631 Lupe William CRNA Cosigner Signature: Date CC: Signed Normal [facility] MRI FOOT W/O CONTRAST LEFTon 05-28-2025 MRI FOOT W/O CONTRAST LEFT ORIGINAL EXAMINATION: MRI left ankle without contrast TECHNIQUE: Multiplanar multisequence MRI of the ankle was performed without the administration of intravenous contrast. COMPARISON: None HISTORY: Heel pain, foot pain, suspected plantar fasciitis FINDINGS: TENDONS: Posterior tibial tendon: No significant tendinopathy or tenosynovitis. Flexor digitorum longus: No significant tendinopathy or tenosynovitis Flexor hallucis longus: No significant tendinopathy or tenosynovitis Anterior tibial tendon: No significant tendinopathy or tenosynovitis Extensor hallucis longus: No significant tendinopathy or tenosynovitis Extensor digitorum longus: No significant tendinopathy or tenosynovitis Peroneus brevis: No significant tendinopathy or tenosynovitis Peroneus longus: No significant tendinopathy or tenosynovitis Retro malleolar groove: Normal morphology Achilles tendon: No significant tendinosis/tear, Rachel tendinitis/bursitis Jose Eduardo spur: None LIGAMENTS: Anterior inferior tibiofibular syndesmotic ligament: No evidence of recent or high-grade sprain Posteroinferior tibiofibular syndesmotic ligament: No evidence of recent or high-grade sprain Anterior talofibular ligament: No evidence of recent or high-grade sprain Calcaneofibular ligament: No evidence of recent or high-grade sprain Posterior talofibular ligament: No evidence of recent or high-grade sprain Deltoid ligament complex: No evidence of recent or high-grade sprain Sprain (plantar calcaneal navicular) ligament: No evidence of recent or high-grade sprain PLANTAR FASCIA: There is moderate thickening and increased signal in the central band of the fascia near its calcaneal attachment. Other bands of the fascia are normal. Heel musculature: There is edema in the flexor digitorum brevis muscle underlying the central band and also edema in the overlying fat pad. Heel Heel spur: There is a small plantar calcaneal spur with reactive osteitis. BONES AND JOINTS: Tarsal coalition: None Tibiotalar joint: No significant osteoarthritis or osteochondral lesions Subtalar joints: Normal without arthritis Midfoot joints: Normal alignment at the Lisfranc joints. No significant arthritis Bone marrow signal: No aggressive bone marrow signal abnormality. MUSCLES: Other surrounding musculature in the ankle and hindfoot is normal. TARSAL TUNNEL: No space-occupying lesion, venous varicosity, ganglion cyst or tenosynovitis is seen encroaching on the tarsal tunnel. The neurovascular bundle shows normal course, caliber and signal characteristics. SINUS TARSI: Intact ligaments with preserved fat. REMAINING SOFT TISSUES: Noncontributory. IMPRESSION: There are findings of moderate to severe plantar fasciitis as described. Interpreted by: Suraj Vegas MD Preliminary Report By: Suraj Vegas MD Electronically signed By Suraj Vegas MD Dictated Date: 05/28/2025 11:36:18 AM Prelim Date: 05/28/2025 11:52:57 AM Sign Date: 05/28/2025 11:52:57 AM Ordering Provider: MATTEO Kamara [facility] MRI FOOT W/O CONTRAST RIGHTo n 05-28-2025 MRI FOOT W/O CONTRAST RIGHT ORIGINAL EXAMINATION: MRI right ankle without contrast TECHNIQUE: Multiplanar multisequence MRI of the ankle was performed without the administration of intravenous contrast. COMPARISON: None HISTORY: Foot pain, heel pain, suspected plantar fasciitis FINDINGS: TENDONS: Posterior tibial tendon: No significant tendinopathy or tenosynovitis. Flexor digitorum longus: No significant tendinopathy or tenosynovitis Flexor hallucis longus: No significant tendinopathy or tenosynovitis Anterior tibial tendon: No significant tendinopathy or tenosynovitis Extensor hallucis longus: No significant tendinopathy or tenosynovitis Extensor digitorum longus: No significant tendinopathy or tenosynovitis Peroneus brevis: No significant tendinopathy or tenosynovitis Peroneus longus: No significant tendinopathy or tenosynovitis Retro malleolar groove: Normal morphology Achilles tendon: No significant tendinosis/tear, Rachel tendinitis/bursitis Jose Eduardo spur: None LIGAMENTS: Anterior inferior tibiofibular syndesmotic ligament: No evidence of recent or high-grade sprain Posteroinferior tibiofibular syndesmotic ligament: No evidence of recent or high-grade sprain Anterior talofibular ligament: No evidence of recent or high-grade sprain Calcaneofibular ligament: No evidence of recent or high-grade sprain Posterior talofibular ligament: No evidence of recent or high-grade sprain Deltoid ligament complex: No evidence of recent or high-grade sprain Sprain (plantar calcaneal navicular) ligament: No evidence of recent or high-grade sprain PLANTAR FASCIA: There is thickening and increased intrasubstance signal in the central band of the plantar fascia near its calcaneal attachment. No partial or full-thickness tear is present. There is minimally edema in the underlying flexor digitorum brevis muscle and moderate edema in the overlying heel fat pad. Heel musculature: Other musculature in the hindfoot is unremarkable. Heel spur: There is a small plantar calcaneal spur without reactive osteitis. BONES AND JOINTS: Tarsal coalition: None Tibiotalar joint: No significant osteoarthritis or osteochondral lesions Subtalar joints: Normal without arthritis Midfoot joints: Normal alignment at the Lisfranc joints. No significant arthritis Bone marrow signal: No aggressive bone marrow signal abnormality. MUSCLES: Other surrounding musculature in the ankle and hindfoot is normal. TARSAL TUNNEL: No space-occupying lesion, venous varicosity, ganglion cyst or tenosynovitis is seen encroaching on the tarsal tunnel. The neurovascular bundle shows normal course, caliber and signal characteristics. SINUS TARSI: Intact ligaments with preserved fat. REMAINING SOFT TISSUES: Noncontributory. IMPRESSION: There are findings of moderate severity plantar fasciitis as described. Interpreted by: Suraj Vegas MD Preliminary Report By: Suraj Vegas MD Electronically signed By Suraj Vegas MD Dictated Date: 05/28/2025 11:53:11 AM Prelim Date: 05/28/2025 11:56:54 AM Sign Date: 05/28/2025 11:56:54 AM Ordering Provider: MATTOE RODRIGUES [facility] Direct Service Professional Office Visit Reporton 05-12-2025 Direct Service Professional Office Visit Report [facility] [address], [address] [place] [address] OFFICE VISIT Date of Service: 05/12/25 MR#: [id number] Acct: [id number] Name: BHARTI ADAIR Rep #: [id number] : 1960 Provider: Dr. 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 Required: No Is patient in pain?: No Allergies adhesive tape Allergy (Unknown, Verified 05/12/25 11:41) Rash Medications ???Medication ???Instructions ???Recorded ???Confirmed ???Type calcium carbonate (Antacid Ext Str 300 mg PO TID PRN dyspepsia 03/1105/12/25 History (calcium carb)) pantoprazole 40 mg tablet,delayed 40 mg PO QDAY #30 tabs 05/07/25 0 05/12/25 Rx release Is last menstrual period known: No Post menopausal: Yes Patient : No : No PFSH Medical History ANA ROSA (stress urinary incontinence, female) History of steroid therapy Bladder disease Restless legs Syncope History of ulceration Shortness of breath on exertion History of pain when walking History of edema Wears glasses Post-menopausal Arthritis Fatty liver Non-smoker Leg cramps Acid reflux Depression History of anemia Anxiety Surgical History S/P hysterectomy History of colonoscopy Family History Mother Dementia Diabetes Sister Diabetes Hypertension Social History Smoking Status: Never smoker alcohol intake: never substance use type: does not use caffeine: Yes what type of physical activity do you participate in: none seatbelt use: always do you feel safe at home: Yes additional social history: HPI 1 M F/U Details: BHARTI ADAIR is a 64 year old who presents for 6 week post op hysterectomy. She wants a letter to go back to work and has no complaints. History 3 Elective abortions Hx Para 3 Spontaneous abortions Hx # Term Pregnancies Ectopic pregnancies Hx # Pregnancies Multiple births # of living children Past Pregnancies Del. Date Name GA/Weeks Outcome Route Bth Weight Infant Gen Labor Lgth Anesthesia Del Locatn Provider FOB Unknown Josh Unknown Rell Unknown Jamari MARY ENT ENT: Reports system reviewed and no additional complaints, except as documented Cardio Card: Reports system reviewed and no additional complaints, except as documented Resp Resp: Denies cough, dyspnea or dyspnea on exertion GI GI: Denies abdominal pain, bloating or change in bowel habits : Denies vaginal odor or vaginal pruritus Details: lochia is mild Musc Musc: Reports system reviewed and no additional complaints, except as documented Exam Const General: cooperative, healthy appearing and comfortable Resp Effort Inspection: normal respiratory effort GI Palpation: soft and nontender Rectal Exam: other Other: cuff is intact and suture is dissolving. no bleeding or signs of infection Extrem General: no edema Coding Level of Care Code No Charge Diagnoses S/P hysterectomy Z90.710 Assessment and Plan Assessment and Plan (1) S/P hysterectomy: Status: Acute Comment: vag hyst with bs and pelvic floor repair (JV) Plan: healing well. restrictions lifted rto in one year 05/28/25 1623 Date Aliya Yanez Signature: Date (if applicable) CC: Normal [facility] Gastroenterology Visit Repor ton 04-28-2025 Gastroenterology Visit Report [facility] Gastroenterology [address] [place] [address] OFFICE VISIT Date of Service: 04/28/25 MR#: [id number] Acct: [id number] Name: BHARTI ADAIR Rep #: [id number] : 1960 Provider: DOMENICA Sullivan Age/Sex: 64/F [place] [facility] [place]: Signed Intake Vital Signs 04/09/25 10:44 Height 5 ft 6 in Weight: 174 lb BMI 28.0 BP 136/76 H Intake Visit Reasons: Last seen by Naya 04/11/22 has Ulcer Chief Complaint: epigastric pain Allergies adhesive tape Allergy (Unknown, Verified 04/09/25 10:45) Rash Have you fallen in the past year?: No Nurse's Note: OV 04/28/25 Pt here for a f/u and reports n/v/d/c, abdominal pain and bloody stools. PFSH Medical History ANA ROSA (stress urinary incontinence, female) History of steroid therapy Bladder disease Restless legs Syncope History of ulceration Shortness of breath on exertion History of pain when walking History of edema Wears glasses Post-menopausal Arthritis Fatty liver Non-smoker Leg cramps Acid reflux Depression History of anemia Anxiety Surgical History (Updated 04/09/25 @ 11:[address] Aliya Yen, ) S/P hysterectomy History of colonoscopy Family History Mother Dementia Diabetes Sister Diabetes Hypertension Social History Smoking Status: Never smoker alcohol intake: never substance use type: does not use caffeine: Yes what type of physical activity do you participate in: none seatbelt use: always do you feel safe at home: Yes additional social history: HPI HPI Chief Complaint: epigastric pain Details: BHARTI ADAIR, is a 64 F who presents to the office today for f/u. [facility]GI established in 2021 for epigastric pain x6 months. Started Pantoprazole 40 mg daily which helped. Pt also with constipation. BM daily but has to strain. Takes milk of mag as needed. EGD 10.08.22; - Z-line irregular, 37 cm from the incisors. Biopsied. - Small hiatal hernia. - Normal stomach. - Multiple non-bleeding duodenal ulcers with no stigmata of bleeding. Biopsied. Colonoscopy 10.08.22 - Congested mucosa in the recto-sigmoid colon, in the transverse colon, in the ascending colon and in the cecum. Biopsied. - The examined portion of the ileum was normal. Biopsied. OV 04.28.25 Pt having worsening epigastric pain over the past few months. She underwent gynecologic surgery about one month ago. When she used the vaginal estrogen she noticed much worse reflux and discontinued. She prefers to not take daily meds so she will just take keena seltzer as needed. She had constipated after her surgery to due being on pain medications but this has resolved. ROS Const Constitutional: Positive for fatigue, frequent falls and headache(s); No fever(s) or weight change ENT ENT: Positive for headache(s); No difficulty swallowing Gastro GI: Positive for abdominal pain, bloating, change in bowel habits, constipation, diarrhea, heartburn, excessive flatus, Blood in stool, loose stools, nausea/dyspepsia and vomiting; No belching, change in stool character, coffee ground emesis, cramping, difficulty swallowing, feeling full early, incontinent of stools, Vomiting blood/hematemesis, Black,tarry stools, pain with swallowing or other Musc Musculoskeletal: Positive for abnormal gait, numbness, stiffness, tingling, Arthritis, restless legs and leg pain at night; No joint pain Skin Skin: Positive for itchy eyes; No yellowing of the eye Neuro Neurology: Positive for abnormal gait, dizziness, frequent falls, headache(s), numbness, tingling and restless legs Psych Psychiatric: Positive for anxiety and Positive for depression Endo Endocrine: Positive for fatigue; No weight change Aller/Imm Allergy/Immunologic: Positive for itchy eyes Dar/Lymp Hematologic/Lymphatic: Positive for easy bruising; No easy bleeding Exam Const General: cooperative Resp Effort Inspection: normal respiratory effort Cardio Rate: regular rate Rhythm: regular rhythm GI Inspection: normal to inspection Auscultation: normal bowel sounds Palpation: soft and nontender Assessment and Plan Assessment and Plan (1) Epigastric pain: Status: Acute Plan: Bharti is a 64 yo female pt here today for evaluation of worsening epigastric pain over the past few months. Pt established in 2021 for similar issues and underwent bidirectional endoscopy. EGD showed duodenal ulcers and normal colonoscopy. About one month ago she had gynecologic surgery and has had worsening epigastric pain. I advised she re start her daily PPI however she prefers to not take daily medication. SHe will continue keena seltzer PRN. SHe w (more content not included)... Normal [facility] Direct Service Professional Office Visit Reporton 04-09-2025 Direct Service Professional Office Visit Report [facility] [address], [address] [place] [address] OFFICE VISIT Date of Service: 04/09/25 MR#: [id number] Acct: [id number] Name: BHARTI ADAIR Rep #: [id number] : 1960 Provider: Dr. Aliya Brand, Age/Sex: 64/F [place] [facility] [place]: Signed Intake Vital Signs 12/17/24 12:32 03/26/25 16:03 04/09/25 10:44 Height 5 ft 6 in 5 ft 6 in 5 ft 6 in Weight: 174 lb BMI 28.0 BP 136/76 H Intake Visit Reasons: 2 wk TVH poss. 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 Is patient in pain?: No Allergies adhesive tape Allergy (Unknown, Verified 04/09/25 10:45) Rash Medications ???Medication ???Instructions ???Recorded ???Confirmed ???Type calcium carbonate (Antacid Ext Str 300 mg PO TID PRN dyspepsia 03/1104/09/25 History (calcium carb)) Is last menstrual period known: No Post menopausal: Yes Patient : No : No PFSH Medical History ANA ROSA (stress urinary incontinence, female) History of steroid therapy Bladder disease Restless legs Syncope History of ulceration Shortness of breath on exertion History of pain when walking History of edema Wears glasses Post-menopausal Arthritis Fatty liver Non-smoker Leg cramps Acid reflux Depression History of anemia Anxiety Surgical History (Updated 04/09/25 @ 11:[address] Aliya Yen, DO) S/P hysterectomy History of colonoscopy Family History Mother Dementia Diabetes Sister Diabetes Hypertension Social History Smoking Status: Never smoker alcohol intake: never substance use type: does not use caffeine: Yes what type of physical activity do you participate in: none seatbelt use: always do you feel safe at home: Yes additional social history: HPI 2 wk TVH poss. BSO Cysto Details: BHARTI ADAIR is a 64 year old who presents for 2 week post op TVH BS cysto and A P/ sling repair with Dr. Pruett. Her only complaint is right upper thigh pain and had constipation which are both resolved. Pathology is still pending. History 3 Elective abortions Hx Para 3 Spontaneous abortions Hx # Term Pregnancies Ectopic pregnancies Hx # Pregnancies Multiple births # of living children Past Pregnancies Del. Date Name GA/Weeks Outcome Route Bth Weight Infant Gen [facility] Josh Unknown [place]ell Unknown Jamari ROS ENT ENT: Reports system reviewed and no additional complaints, except as documented Cardio Card: Reports system reviewed and no additional complaints, except as documented Resp Resp: Denies cough, dyspnea or dyspnea on exertion GI GI: Denies abdominal pain or bloating : Denies vaginal odor or vaginal pruritus Musc Musc: Reports system reviewed and no additional complaints, except as documented Exam Const General: cooperative, healthy appearing and comfortable Resp Effort Inspection: normal respiratory effort GI Palpation: soft and nontender Rectal Exam: other Extrem General: no edema Coding Level of Care Code No Charge Diagnoses ANA ROSA (stress urinary incontinence, female) N39.3 Preoperative exam for gynecologic surgery Z01.818 S/P hysterectomy Z90.710 Assessment and Plan Assessment and Plan (1) ANA ROSA (stress urinary incontinence, female): Status: Acute (2) Preoperative exam for gynecologic surgery: Status: Acute (3) S/P hysterectomy: Status: Acute Comment: vag hyst with bs and pelvic floor repair (JV) Plan post op restrictions discussed. RTO in 4 weeks for vaignal exam sending message to pathology 04/09/25 1146 Date Aliya Yanez Signature: Date (if applicable) CC: Normal [facility] Basic Metabolic Profile (BMP )on 03-28-2025 BUN Normal 4-19 [facility] Comment on above: Result Comment: Canc elled via OM: Order cancelled - Patient discharged Performed By: #### L 100.0100, L500.2500 ####[facility] [address] [place], [address] BUN/CRE Normal 10-20 [facility] Comment on above: Result Comment: Canc elled via OM: Order cancelled - Patient discharged Performed By: #### L 100.0100, L500.2500 ####[facility] [address] [place], [address] Calcium Normal 7.6-11.0 [facility] Comment on above: Result Comment: Canc elled via OM: Order cancelled - Patient discharged Performed By: #### L 100.0100, L500.2500 ####[facility] [address] [place], [address] CL Normal 98-108 [facility] Comment on above: Result Comment: Canc elled via OM: Order cancelled - Patient discharged Performed By: #### L 100.0100, L500.2500 ####[facility] [address] [place], [address] CO2 Normal 21.0-32.0 [facility] Comment on above: Result Comment: Canc elled via OM: Order cancelled - Patient discharged Performed By: #### L 100.0100, L500.2500 ####[facility] [address] [place], [address] CREAT,SERUM Normal 0.70-1.20 [facility] Comment on above: Result Comment: Canc elled via OM: Order cancelled - Patient discharged Performed By: #### L 100.0100, L500.2500 ####[facility] [address] [place], [address] eGFR Normal >60 [facility] Comment on above: Result Comment: Canc elled via OM: Order cancelled - Patient discharged Performed By: #### L 100.0100, L500.2500 ####[facility] [address] [place], [address] GAP Normal 5-15 [facility] Comment on above: Result Comment: Canc elled via OM: Order cancelled - Patient discharged Performed By: #### L 100.0100, L500.2500 ####[facility] [address] [place], [address] GLU Normal 70-99 [facility] Comment on above: Result Comment: Canc elled via OM: Order cancelled - Patient discharged Performed By: #### L 100.0100, L500.2500 ####[facility] [address] [place], [address] Potassium Normal 3.3-5.1 [facility] Comment on above: Result Comment: Canc elled via OM: Order cancelled - Patient discharged Performed By: #### L 100.0100, L500.2500 ####[facility] [address] [place], [address] Basic Metabolic Profile (BMP) Normal 133-145 [facility] Comment on above: Result Comment: Canc elled via OM: Order cancelled - Patient discharged Performed By: #### L 100.0100, L500.2500 ####[facility] [address] [place], [address] CBC W/Diff, Automatedon 05-1 Absolute Neut Normal 2.0-7.7 [facility] Comment on above: Result Comment: Canc elled via OM: Order cancelled - Patient discharged Performed By: #### L 100.0100, L500.2500 ####[facility] [address] [place], [address] HCT Normal 37-47 [facility] Comment on above: Result Comment: Canc elled via OM: Order cancelled - Patient discharged Performed By: #### L 100.0100, L500.2500 ####[facility] [address] [place], [address] HGB Normal 12.0-15.0 [facility] Comment on above: Result Comment: Canc elled via OM: Order cancelled - Patient discharged Performed By: #### L 100.0100, L500.2500 ####[facility] [address] [place], [address] MCH Normal 27.0-32.0 [facility] Comment on above: Result Comment: Canc elled via OM: Order cancelled - Patient discharged Performed By: #### L 100.0100, L500.2500 ####[facility] [address] [place], [address] MCHC Normal 32-36 [facility] Comment on above: Result Comment: Canc elled via OM: Order cancelled - Patient discharged Performed By: #### L 100.0100, L500.2500 ####[facility] [address] [place], [address] MCV Normal 81-99 [facility] Comment on above: Result Comment: Canc elled via OM: Order cancelled - Patient discharged Performed By: #### L 100.0100, L500.2500 ####[facility] [address] [place], [address] NEUT% Normal 47-70 [facility] Comment on above: Result Comment: Canc elled via OM: Order cancelled - Patient discharged Performed By: #### L 100.0100, L500.2500 ####[facility] [address] [place], [address] PLT Normal 150-450 [facility] Comment on above: Result Comment: Canc elled via OM: Order cancelled - Patient discharged Performed By: #### L 100.0100, L500.2500 ####[facility] [address] [place], [address] RBC Normal 4.2-5.4 [facility] Comment on above: Result Comment: Canc elled via OM: Order cancelled - Patient discharged Performed By: #### L 100.0100, L500.2500 ####[facility] [address] [place], [address] RDW CV Normal 11.6-14.6 [facility] Comment on above: Result Comment: Canc elled via OM: Order cancelled - Patient discharged Performed By: #### L 100.0100, L500.2500 ####[facility] [address] [place], [address] RDW SD Normal 35.1-43.9 [facility] Comment on above: Result Comment: Canc elled via OM: Order cancelled - Patient discharged Performed By: #### L 100.0100, L500.2500 ####[facility] [address] [place], [address] WBC Normal 4.4-11.0 [facility] Comment on above: Result Comment: Canc elled via OM: Order cancelled - Patient discharged Performed By: #### L 100.0100, L500.2500 ####[facility] [address] [place], [address] 12 Lead EKGon 03-26-2025 12 Lead EKG [facility] Cardiovascular Services [address] [place] [address] 12 Lead EKG 03/26/2557 MR#: [id number] Acct: [id number] Name: BHARTI ADAIR Rep #: [id number] : 1960 64 From: Robin Waite MD Attending Dr: Dr. Aliya Yen DO Statu s: DIS AMBER Ordering Dr: Scott Pozo MD Date: 03/26/25 Location: [facility] Sex: F AA Admitted: 03/26/25 Test Reason : P Blood Pressure : */* mmHG Vent. Rate : 70 BPM Atrial Rate : 70 BPM P-R Int : 178 ms QRS Dur : 84 ms QT Int : 398 ms P-R-T Axes : 75 53 57 degrees QTcB Int : 429 ms Normal sinus rhythm Normal ECG No previous ECGs available Confirmed by GEOVANNA HODGE, ROBIN ([id number]), editorial writer ANDRADE RODRIGUEZ ([id number]) on 03/29/2025 9:47:04 AM Referred By: Aliya Yen Confirmed By: ROBIN WAITE MD 03/29/25 0947 Date Robin Waite MD CC: Dr. Reese Hicks DO; Dr. Scott Pozo MD; Dr. Aliya Yen DO Signed Normal [facility] Absolute lymphocyte countOrd ered By: Liz Pruett on 03-26-2025 Lymphocytes Auto (Unsp spec) [#/Vol] 1.18 10*3/uL 0.83-4.51 [facility] Absolute neutrophil countOrd ered By: Liz Pruett on 03-26-2025 Neutrophils (Bld) [#/Vol] 8.0 10*3/uL High 2.0-7.7 [facility] Anion gap in Serum or Plasma Ordered By: Liz Pruett on 03-26-2025 Anion gap [Moles/Vol] 9 mmol/L 5-15 [facility] Automated lymphocyte count a s percentage of total leukocytesOrdered By: Liz Pruett on 03-26-2025 Lymphocytes/100 WBC Auto (Unsp spec) 12.6 % Low 19-41 [facility] BUN/creatinine ratioOrdered By: Liz Pruett on 03-26-2025 Urea nitrogen/Creatinine [Mass ratio] 10.9 mg/mg 10- [facility] Basic Metabolic Profile (BMP )on 03-26-2025 BUN/CRE 10.9 RATIO Normal - [facility] Comment on above: Order Comment: COLLE CT BMP in PACU, stat Performed By: #### L 100.0100, L500.2500 ####[facility] [address] [place], [address] Calcium [Mass/Vol] 8.6 mg/dL Normal 7.6-11.0 [facility] Comment on above: Order Comment: COLLE CT BMP in PACU, stat Performed By: #### L 100.0100, L500.2500 ####[facility] [address] [place], [address] Chloride [Moles/Vol] 107 mmol/L Normal 98-108 [facility] Comment on above: Order Comment: COLLE CT BMP in PACU, stat Performed By: #### L 100.0100, L500.2500 ####[facility] [address] [place], [address] CO2 [Moles/Vol] 21.6 mmol/L Normal 21.0-32.0 [facility] Comment on above: Order Comment: COLLE CT BMP in PACU, stat Performed By: #### L 100.0100, L500.2500 ####[facility] [address] [place], [address] Creatinine [Mass/Vol] 0.73 mg/dL Normal 0.70-1.20 [facility] Comment on above: Order Comment: COLLE CT BMP in PACU, stat Performed By: #### L 100.0100, L500.2500 ####[facility] [address] [place], [address] ECRCL 75.12 ml/min Normal 50-250 [facility] Comment on above: Order Comment: COLLE CT BMP in PACU, stat Performed By: #### L 100.0100, L500.2500 ####[facility] [address] [place], [address] GAP 9 Normal 5-15 [facility] Comment on above: Order Comment: COLLE CT BMP in PACU, stat Performed By: #### L 100.0100, L500.2500 ####[facility] [address] [place], [address] GFR/1.73 sq M.predicted among non-blacks MDRD (S/P/Bld) [Vol rate/Area] 92 mL/min/{1.73_m2} Normal >60 [facility] Comment on above: Order Comment: COLLE CT BMP in PACU, stat Result Comment: mL/m in/1.73m2 CKD-EPI Creatinine Equation (2020) Performed By: #### L 100.0100, L500.2500 ####[facility] [address] [place], [address] Glucose [Mass/Vol] 122 mg/dL High 70-99 [facility] Comment on above: Order Comment: COLLE CT BMP in PACU, stat Performed By: #### L 100.0100, L500.2500 ####[facility] [address] [place], [address] Potassium [Moles/Vol] 3.9 mmol/L Normal 3.3-5.1 [facility] Comment on above: Order Comment: COLLE CT BMP in PACU, stat Performed By: #### L 100.0100, L500.2500 ####[facility] [address] [place], [address] Sodium [Moles/Vol] 138 mmol/L Normal 133-145 [facility] Comment on above: Order Comment: COLLE CT BMP in PACU, stat Performed By: #### L 100.0100, L500.2500 ####[facility] [address] [place], [address] Urea nitrogen [Mass/Vol] 8 mg/dL Normal 4-19 [facility] Comment on above: Order Comment: COLLE CT BMP in PACU, stat Performed By: #### L 100.0100, L500.2500 ####[facility] [address] [place], [address] Basophil percentageOrdered B y: Liz Pruett on 03-26-2025 Basophils/100 WBC (Bld) 0.2 % 0-1 [facility] Bedside Glucoseon 03-26-2025 [place] GLU 94 mg/dL Normal 74-106 [facility] Comment on above: Result Comment: KETURAH ARREDONDO OF PATIENT CARE PER NURSING PROTOCOL Performed By: #### L 501.080 #### [facility] [address] [place], [address] CBC W/Diff, Automatedon 03-11 Absolute Lymph 1.18 X10 3/uL Normal 0.83-4.51 [facility] Comment on above: Order Comment: Comme nts: COLLECT CBC in PACU, stat Performed By: #### L 100.0100, L500.2500 ####[facility] [address] [place], [address] Absolute Neut 8.0 X10 3/uL High 2.0-7.7 [facility] Comment on above: Order Comment: Comme nts: COLLECT CBC in PACU, stat Performed By: #### L 100.0100, L500.2500 ####[facility] [address] [place], [address] Basophils/100 WBC (Bld) 0.2 % Normal 0-1 [facility] Comment on above: Order Comment: Comme nts: COLLECT CBC in PACU, stat Performed By: #### L 100.0100, L500.2500 ####[facility] [address] [place], [address] Eosinophils/100 WBC (Bld) 0.3 % Normal 0-5 [facility] Comment on above: Order Comment: Comme nts: COLLECT CBC in PACU, stat Performed By: #### L 100.0100, L500.2500 ####[facility] [address] [place], [address] Erythrocyte distribution width (RBC) [Ratio] 12.4 % Normal 11.6-14.6 [facility] Comment on above: Order Comment: Comme nts: COLLECT CBC in PACU, stat Performed By: #### L 100.0100, L500.2500 ####[facility] [address] [place], [address] Hematocrit (Bld) [Volume fraction] 35.6 % Low 37-47 [facility] Comment on above: Order Comment: Comme nts: COLLECT CBC in PACU, stat Performed By: #### L 100.0100, L500.2500 ####[facility] [address] [place], [address] Hemoglobin (Bld) [Mass/Vol] 11.9 g/dL Low 12.0-15.0 [facility] Comment on above: Order Comment: Comme nts: COLLECT CBC in PACU, stat Performed By: #### L 100.0100, L500.2500 ####[facility] [address] [place], [address] IG% 0.300 Normal 0.0-0.9 [facility] Comment on above: Order Comment: Comme nts: COLLECT CBC in PACU, stat Result Comment: IG% - Immature Granulocytes (promyelocytes, myelocytes and metamyelocytes) > 1% indicates that a LEFT SHIFT is Present. Performed By: #### L 100.0100, L500.2500 ####[facility] [address] [place], [address] Lymphocytes/100 WBC (Bld) 12.6 % Low 19-41 [facility] Comment on above: Order Comment: Comme nts: COLLECT CBC in PACU, stat Performed By: #### L 100.0100, L500.2500 ####[facility] [address] [place], [address] MCH (RBC) [Entitic mass] 29.2 pg Normal 27.0-32.0 [facility] Comment on above: Order Comment: Comme nts: COLLECT CBC in PACU, stat Performed By: #### L 100.0100, L500.2500 ####[facility] [address] [place], [address] MCHC (RBC) [Mass/Vol] 33.4 g/dL Normal 32-36 [facility] Comment on above: Order Comment: Comme nts: COLLECT CBC in PACU, stat Performed By: #### L 100.0100, L500.2500 ####[facility] [address] [place], [address] MCV (RBC) [Entitic vol] 87.3 fL Normal 81-99 [facility] Comment on above: Order Comment: Comme nts: COLLECT CBC in PACU, stat Performed By: #### L 100.0100, L500.2500 ####[facility] [address] [place], [address] Monocytes/100 WBC (Bld) 1.2 % Normal 0-10 [facility] Comment on above: Order Comment: Comme nts: COLLECT CBC in PACU, stat Performed By: #### L 100.0100, L500.2500 ####[facility] [address] [place], [address] Neutrophils/100 WBC (Bld) 85.4 % High 47-70 [facility] Comment on above: Order Comment: Comme nts: COLLECT CBC in PACU, stat Performed By: #### L 100.0100, L500.2500 ####[facility] [address] [place], [address] Nucleated RBC (Bld) [#/Vol] 0 10*3/uL Normal 0-5 [facility] Comment on above: Order Comment: Comme nts: COLLECT CBC in PACU, stat Performed By: #### L 100.0100, L500.2500 ####[facility] [address] [place], [address] Platelet mean volume (Bld) [Entitic vol] 8.4 fL Normal 6.2-12.0 [facility] Comment on above: Order Comment: Comme nts: COLLECT CBC in PACU, stat Performed By: #### L 100.0100, L500.2500 ####[facility] [address] [place], [address] Platelets (Bld) [#/Vol] 292 10*3/uL Normal 150-450 [facility] Comment on above: Order Comment: Comme nts: COLLECT CBC in PACU, stat Performed By: #### L 100.0100, L500.2500 ####[facility] [address] [place], [address] RBC (Bld) [#/Vol] 4.08 10*6/uL Low 4.2-5.4 [facility] Comment on above: Order Comment: Comme nts: COLLECT CBC in PACU, stat Performed By: #### L 100.0100, L500.2500 ####[facility] [address] [place], [address] RDW SD 39.8 fl Normal 35.1-43.9 [facility] Comment on above: Order Comment: Comme nts: COLLECT CBC in PACU, stat Performed By: #### L 100.0100, L500.2500 ####[facility] [address] [place], [address] WBC (Bld) [#/Vol] 9.3 10*3/uL Normal 4.4-11.0 [facility] Comment on above: Order Comment: Comme nts: COLLECT CBC in PACU, stat Performed By: #### L 100.0100, L500.2500 ####[facility] [address] [place], [address] Carbon dioxide, total [Moles /volume] in Central venous bloodOrdered By: Liz Pruett on 03-26-2025 CO2 [Moles/Vol] 21.6 mmol/L 21.0-32.0 [facility] Chloride assayOrdered By: Tong Pruett on 03-26-2025 Chloride [Moles/Vol] 107 mmol/L 98-108 [facility] Discharge Instructionon 03-11 Discharge Instruction [facility] Medical Records Department [address] [place] [address] Instructions for Home/Discharge Instructions 03/26/25 1424 MR#: [id number] Acct: [id number] Name: BHARTI ADAIR Rep #: [id number] : 1960 64 From: Liz Pruett MD PCP: Dr. Reese Hicks, DO Status:ADM AMBER Discharge Instructions Diet Discharge Diet: No restrictions Activity Discharge Activity: May Shower May resume sexual activity in: 8 weeks Lifting Restrictions: 5 pounds Additional Activity Instructions:: No strenuous activity, no exercise, no walking dog, no swimming, tub bathing or hot tubs Dressing / Incision Call your doctor if your incision/area has: Continuous Slow Oozing, Sudden Increased Bleeding, Increased Pain/ Swelling, Increased Redness and Foul Smelling Discharge Call your doctor if you observe: Fever of 101 or Higher, Inability to urinate, Inability to have a bowel movement and Using more than 1 pad per hour Follow Up Care Please Follow Up With: Aliya Yen DO When: Dr. Pruett, the office will call to make arrangements Test Results: Test results from this visit will be discussed in further detail at your follow-up appointment, if applicable. Discharge Plan Admission Admit Date/Time: 03/26/25 14:20 Attending Provider: Aliya Yen Primary Care Provider: Reese Hicks Consulting Providers: Liz Pruett Discharge Orders/Prescriptions Prescriptions: New ondansetron 8 mg tablet,disintegrating 8 mg PO Q8H PRN (Reason: nausea and vomiting) Qty: 10 0RF oxycodone-acetaminophen 5-325 mg tablet 1 tab PO Q8H PRN (Reason: pain) 3 Days Qty: 10 0RF Continued Antacid Ext Str (calcium carb) 300 mg (750 mg) tablet,chewable 300 mg PO TID PRN (Reason: dyspepsia) Referrals / Follow Up: Reese Hicks DO [Primary Care Provider] - Disposition Disposition (needs filled in before D/C Order can be placed): Home, Self Care 03/27/25 0859 Liz Pruett MD CC: Dr. Reese Hicks DO; Dr. Liz Pruett MD Signed Normal [facility] Discharge Instruction [facility] Medical Records Department [address] [place] [address] Instructions for Home/Discharge Instructions 03/26/25 1331 MR#: [id number] Acct: [id number] Name: BHARTI ADAIR Rep #: [id number] : 1960 64 From: Aliya Yen DO PCP: Dr. Reese Hicks DO Status:REG [facility] Discharge Instructions Diet Discharge Diet: No restrictions DC O2, CPAP, BIPAP needs Home O2 Discharge instructions: No Dressing / Incision Discharge Activity: Return to Normal Activity, May Not Drive (while taking narcotic pain medications.) and May Shower May resume sexual activity in: 6-8 weeks Dressing / Incision Call your doctor if your incision/area has: Continuous Slow Oozing, Sudden Increased Bleeding, Increased Pain/ Swelling, Increased Redness and Foul Smelling Discharge Call your doctor if you observe: Fever of 101 or Higher, Inability to urinate, Inability to have a bowel movement and Using more than 1 pad per hour Follow Up Care Please Follow Up With: Aliya Yen DO Test Results: Test results from this visit will be discussed in further detail at your follow-up appointment, if applicable. Discharge Plan Admission Attending Provider: Aliya Yen Primary Care Provider: Reese Hicks Consulting Providers: Liz Pruett Instructions Print Language: Monegasque Discharge Orders/Prescriptions Prescriptions: No Action Antacid Ext Str (calcium carb) 300 mg (750 mg) tablet,chewable 300 mg PO TID PRN (Reason: dyspepsia) Referrals / Follow Up: Reese Hicks DO [Primary Care Provider] - Disposition Disposition (needs filled in before D/C Order can be placed): Home, Self Care 03/26/25 1331 Aliya Yen DO CC: Dr. Reese Hicks DO; Dr. Liz Pruett MD Signed Normal [facility] Eosinophil percentageOrdered By: Liz Pruett on 03-26-2025 Eosinophils/100 WBC (Bld) 0.3 % 0-5 [facility] Erythrocyte distribution wid th ratioOrdered By: Liz Pruett on 03-26-2025 Erythrocyte distribution width (RBC) [Ratio] 12.4 % 11.6-14.6 [facility] Erythrocyte distribution wid th standard deviationOrdered By: Liz Pruett on 03-26-2025 Erythrocyte distribution width (RBC) [Ratio] 39.8 fl 35.1-43.9 [facility] Glomerular filtration rate ( GFR) estimation/1.73 sq m using serum, plasma, or whole bOrdered By: Liz Pruett on 03-26-2025 GFR/1.73 sq M.predicted among non-blacks MDRD (S/P/Bld) [Vol rate/Area] 92 mL/min/{1.73_m2} >60 [facility] Comment on above: mL/min/1.73m2 CKD-EP I Creatinine Equation (2020) [facility] By: Aliya Pappas on 03-26-2025 Glucose [Mass/Vol] 94 mg/dL 74-106 [facility] Comment on above: MANAGEMENT OF PATIEN T CARE PER NURSING PROTOCOL Hematocrit Auto (Bld) [Volum e fraction]Ordered By: Liz Pruett on 03-26-2025 Hematocrit (Bld) [Volume fraction] 35.6 % Low 37-47 [facility] Hemoglobin measurementOrdere d By: Liz Pruett on 03-26-2025 Hemoglobin (Bld) [Mass/Vol] 11.9 g/dL Low 12.0-15.0 [facility] Immature granulocytes/100 WB C Auto (Bld)Ordered By: Liz Pruett on 03-26-2025 Immature granulocytes/100 WBC (Bld) 0.300 % 0.0-0.9 [facility] Comment on above: IG% - Immature Granu locytes (promyelocytes, myelocytes and metamyelocytes) > 1% indicates that a LEFT SHIFT is Present. Immunohistochemical Stainson 03-26-2025 Immunohistochemical Stains Patient Age/Sex Location Account Attending Physician BHARTI ADAIR 64/F MS3 [id number] Beata Shields Specimen: [id number] Received: 03/26/25 Status: RAYO Krause Num: [id number] Spec Type: HYSTERECT Subm Dr: Dr. Aliya Yen DO HEADER OPERATION: ERAS, hysterectomy, total vaginal, bilateral salpingectomy PRE-OP DIAGNOSIS: Preoperative exam for gynecologic surgery, pelvic organ prolapse quantification stage 3 rectocele, vaginal enterocele due to incomplete uterovaginal prolapse TISSUE SUBMITTED: A- Cervix, uterus, bilateral fallopian tubes MICROSCOPIC DIAGNOSIS A. Cervix, uterus, bilateral fallopian tubes, hysterectomy and bilateral salpingectomy: * Cervix: hyperkeratosis, dilated endocervical glands * Endometrium: proliferative phase * Myometrium: adenomyosis, focal small hemangioma - see note * Bilateral fallopian tubes: no specific pathologic change * Note: IHC for CD34 confirms the histologic impression. MICROSCOPIC DESCRIPTION Slides are reviewed. All matched controls reacted appropriately. These tests were developed and their performance characteristics determined by [facility]. They may not have been cleared or approved by the U.S. Food and Drug Administration. The FDA has determined that such clearance or approval is not necessary.??? The above immunohistochemical/kyle Maye???markers are ordered and reviewed by the Pathologist. GROSS DESCRIPTION A. Received in formalin in a container labeled with the patient's name, date of , and cervix, uterus, bilateral fallopian tubes is a 79 g hysterectomy specimen with attached cervix and detached bilateral fallopian tube remnants. The uterus is 8.7 cm from fundus to ectocervix, 3.6 cm from cornu to cornu, and 4.0 cm from anterior to posterior. The serosa is tam-pink, smooth, and glistening. The white-pink ectocervix is 3.5 x 3.5 cm with a 0.9 cm slit-like os. The specimen is bivalved to reveal a 4 cm in length by 1 cm in diameter tam-pink and corrugated endocervical canal, with multiple nabothian cysts measuring up to 0.3 cm in greatest dimension. The triangular endometrial cavity is 4.0 cm in length by 2.2 cm in width with red-tam, velvety endometrium with an average thickness of 0.1 cm. The tam-pink myometrium is somewhat trabecular with scattered hemorrhagic foci, and exhibits an average thickness of 1.8 cm. No myometrial nodules are discovered. The bilateral fallopian tube remnants are unoriented. The first segment is 1 cm in length by 0.6 cm in diameter with a purple-thomason, smooth serosa and an unremarkable fimbriated end. Patient Age/Sex Location Account Attending Physician BHARTI ADAIR 64/F MS3 [id number] Beata Shields Sectioning reveals a pinpoint lumen.The second segment is 2.5 cm in length by 0.7 cm in diameter with no distinct fimbriated end. The serosa is purple-thomason, smooth, with a 0.7 x 0.5 cm paratubal cyst. Sectioning reveals a pinpoint lumen. Lead Driver sections:A1. Anterior cervix with anterior serosal shaveA2. Posterior cervix with posterior serosal shavesA3. Anterior endomyometrium with scattered hemorrhagic foci (superficial sections)A4. Posterior endomyometrium with scattered hemorrhagic foci (superficial sections)A5. Fimbriated fallopian tube segmentA6. Fallopian tube segment with no fimbriated end [facility] 03-29-2025 CPT:97306,70852 Patient Age/Sex Location Account Attending Physician BHARTI ADAIR 64/F MS3 [id number] Beata Shields Signed (signature on file) Dr. Tammi Velasquez MD 04/09/25 1216 Normal [facility] Comment on above: Performed By: #### P DIANE #### [facility] [place], [address] MCV (mean corpuscular volume ) determinationOrdered By: Liz Pruett on 03-26-2025 MCV (RBC) [Entitic vol] 87.3 fL 81-99 [facility] MR/POSTOP.ANEon 03-26-2025 MR/POSTOP.[facility] Medical Records Department [address] [place] [address] Anesthesia Postop Eval I 03/26/25 144 MR#: [id number] Acct: [id number] Name: BHARTI ADAIR Rep #: [id number] : 1960 64 From: Tracy Fernandez CRNA PCP: Dr. Reese Hicks, DO Status:REG SDC Y Race: AA Location: [place] [address] Anesthesia: Postop Eval I Current Vital Signs Temperature: 97 F Pulse Rate: 72 Blood Pressure: 126/76 Respiratory Rate: 16 Pulse Ox: 96 Oxygen Delivery Method: Simple Mask Oxygen Flow Rate (L/min): 6 Assessment Airway patent: Yes Spontaneous unlabored respirations: Yes Mental status: Awake and Calm nausea: No Vomiting: No Anesthesia Complication: No Fluid Hydration Crystalloid volume administer (ml): 2,000 Total IV fluid infused: 2,000 Progress Note Anesthesia document: Postop Eval 1 completed: Yes 03/26/251445 Date Tracy Fernandez GASOLINE FINISHER Cosigner Signature: Date CC: Signed Normal [facility] MR/TAMPCRPC1xf 03-26-2025 MR/POST[address] Medical Records Department [address] [place] [address] Anesthesia Postop Eval II 03/26/25 1514 MR#: [id number] Acct: [id number] Name: BHARTI ADAIR Rep #: [id number] : 1960 64 From: Scott Pozo MD PCP: Dr. Reese Hicks, DO Status:REG SDC Y Race: AA Location: [place] [address] Anesthesia Postop Eval I Sum Postop Eval Completion status Anesthesia document: Postop Eval 1 completed: Yes Anesthesia Postop Eval I Summary Anesthesia Postop Eval I Summary: Anesthesia Postop Eval I: Assessment Summary Airway patent Yes 03/26/25 14:46 GASOLINE FINISHER.SKOBY Spontaneous unlabored Yes 03/26/25 14:46 GASOLINE FINISHER.SKOBY respirations Mental status Awake,Calm 03/26/25 14:46 GASOLINE FINISHER.SKOBY nausea No 03/26/25 14:46 GASOLINE FINISHER.SKOBY Vomiting No 03/26/25 14:46 GASOLINE FINISHER.SKOBY Anesthesia Postop Eval I: Fluid Summary Crystalloid volume administer 2,000 03/26/25 14:46 GASOLINE FINISHER.SKOBY (ml) Colloids volume administered ( ml) Blood Product volume administered (ml) Total IV fluid infused 2,000 03/26/25 14:46 GASOLINE FINISHER.SKOBY Anesthesia Postop Eval I: Summary Notes Anesthesia Complication No 03/26/25 14:46 GASOLINE FINISHER.SKOBY Anesthesia Complication Comment: Post-operative progress note Anesthesia: Postop Eval II Evaluation Mental status: Awake Pain Level: 0 nausea: No Vomiting: No 03/26/25 1515 Date Scott Pozo MD Cosigner Signature: Date CC: Signed Normal [facility] Magnesiumon 03-26-2025 Magnesium [Mass/Vol] 2.1 mg/dL Normal 1.5-2.2 [facility] Comment on above: Performed By: #### L 501.5200 #### [facility] [address] [place], [address] Magnesium measurement (mass/ volume)Ordered By: Walter Miner on 03-26-2025 Magnesium (Unsp spec) [Mass/Vol] 2.1 mg/dL 1.5-2.2 [facility] Mean corpuscular hemoglobin (MCH) determinationOrdered By: Liz Pruett on 03-26-2025 MCH (RBC) [Entitic mass] 29.2 pg 27.0-32.0 [facility] Mean corpuscular hemoglobin concentration (MCHC) determinationOrdered By: Liz Pruett on 03-26-2025 MCHC (RBC) [Mass/Vol] 33.4 g/dL 32-36 [facility] Mean platelet volume determi nationOrdered By: Liz Pruett on 03-26-2025 Platelet mean volume (Bld) [Entitic vol] 8.4 fL 6.2-12.0 [facility] Monocyte percentageOrdered B y: Liz Pruett on 03-26-2025 Monocytes/100 WBC (Bld) 1.2 % 0-10 [facility] Neutrophil percentageOrdered By: Liz Pruett on 03-26-2025 Neutrophils/100 WBC (Bld) 85.4 % High 47-70 [facility] Nucleated red blood cell per centageOrdered By: Liz Pruett on 03-26-2025 Nucleated RBC/100 WBC (Bld) [Ratio] 0 % 0-5 [facility] Operative Reporton 5 Operative Report [facility] Medical Records Department [address] [place] [address] Operative Report 03/26/25 1427 MR#: [id number] Acct: [id number] Name: BHARTI ADAIR Rep #: [id number] : 1960 64 From: Liz Pruett MD PCP: Dr. Reese Hicks, DO Status:[facility] Location: [place] [address] Operative Report (Standard) Operative Information Date of Procedure: 03/26/25 Pre-Operative Diagnosis: Uterovaginal prolapse, stress urinary incontinence Post-Operative Diagnosis: Same Surgery/Procedure Performed: Posterior repair, mid urethral sling, cystoscopy with bilateral ureteral catheterization lining stuffer: Yes Rural Mail Carrier: Ramy James Tasks completed by assistant professor of biology: Retracting Type of Anesthesia: General and Local RN Documented Start/Stop Times: Operation Date: 03/26/25 11:30 Case Time Into Pre-Op 03/26/25 09:31 Anesthesia Start 03/26/25 11:52 Into Room 03/26/25 11:52 Procedure Start 03/26/25 12:09 Procedure End 03/26/25 14:25 Procedure Start Time: 13:20 Procedure Stop Time: 14:25 Select all DRAINS/GRAFTS/IMPLANTS that apply: Implanted device Implanted device details: Altis mid urethral sling Estimated Blood Loss: 50 cc Specimen collected: No Description of surgery: The patient is a 64-year-old female with pelvic organ prolapse who presents for surgical intervention. Informed consent was obtained. She was taken to the operating room and placed on the operating room table. Anesthesia monitored the head, neck, airway, IV access and vital signs throughout the case. Once anesthesia was appropriately ministered, she was placed into dorsolithotomy position was prepped and draped in usual sterile fashion. A Frankel catheter was inserted to straight drain and the bladder was emptied. Dr. Garcia performed her portion of the procedure and the cuff line was closed by her. At this time the patient was removed from Trendelenburg positioning and the Frankel catheter was removed. A cystoscope was inserted through the urethra under direct visualization into the urinary bladder. The bladder mucosa was visualized in its entirety without evidence of mass, erythema, injury, laceration or hematuria. Each ureteral orifice was in correct anatomic position and each were intubated with a 5 Kyrgyz whistle-tip catheter which easily advanced to 20 cm without evidence of injury or obstruction. It is important to note that at this time there was no cystocele seen on cystoscopy or on pelvic examination. The length anteriorly of the vaginal vault was short and most of the vault length was posterior. There was good vault support at this time. There was a large rectocele defect remaining. The cystoscope was removed and the Frankel catheter was replaced to straight drain. The posterior wall was isolated and injected submucosally with local anesthetic with epinephrine for hydrostatic dissection and hemostatic control. A midline incision was made and sharp and blunt dissection were performed bilaterally. There were multiple venous varicosities identified diffusely between the rectum and the vaginal mucosa. The perineal body was reconstructed with interrupted 3-0 PDS sutures. The rectovaginal fascia was identified and brought together with interrupted sutures as well. A 2 layer closure was performed. The excess vaginal mucosa was trimmed and the incision was closed with running interlocking 2-0 Vicryl. Attention was then turned towards the mid urethra which was isolated and injected submucosally. A midline vertical incision was made approximately 2 cm in length. Sharp and blunt dissection was performed on either side of the urethra with care being taken to avoid entrance into the urethra or the vaginal mucosa. The Altis mid urethral sling was then placed into the obturator complexes bilaterally with care being taken to avoid entrance into the vaginal mucosa. The sling lay flat against the urethra and was positioned using the tensioning suture. When it was in good position the suture was cut. The incision was closed using running interlocking 2-0 Vicryl. She was then taken out of Trendelenburg position, the urethral Frankel was removed once again and the cystoscope was inserted through the urethra under direct visualization. There is no evidence of injury, laceration, foreign object or blood in the urine at this time. The urethra coapted appropriately at the area of the sling. There were no issues with replacement of the Frankel catheter. The vagina was packed with Premarin cream and vaginal packing. She was awakened and taken to the recovery room in good condition. There were no complications during this procedure. Surgical Findings: Multiple posterior vaginal wall varicosities Complications Complications: No Admit VTE Documentation VTE Present on Admission: Yes VTE Mechan Device Prophylaxis: SCD's VTE Pharm Prophylaxis ordered?: (more content not included)... Normal [facility] Operative Report [facility] Medical Records Department [address] [place] [address] Operative Report 03/26/25 1325 MR#: [id number] Acct: [id number] Name: BHARTI ADAIR Rep #: [id number] : 1960 64 From: Aliya Yen DO PCP: Dr. Reese Hicks, DO Status:[facility] Location: [place] [address] Problems Associated Problem List Diagnoses (1) Fibroid uterus: (2) Menorrhagia with regular cycle: (3) Pelvic organ prolapse quantification stage 3 rectocele: Multi Select Codes Urinary/Genital Urinary/Genital CPT Codes: 95438 TVH+BS/O <250gr uterus Operative Report (Standard) Operative Information Date of Procedure: 03/26/25 Pre-Operative Diagnosis: pelvic organ prolapse, fibroid uterus Post-Operative Diagnosis: pelvic organ prolaps, fibroid uterus Surgery/Procedure Performed: total vaginal hysterectomy, bilateral salpingectomy lining stuffer: Yes Rural Mail Carrier: Ramy James Tasks completed by assistant professor of biology: Hemostasis: Tie and Retracting Additional surgical assistant?: Yes Additional Knockout Machine Operator #2: Liz Pruett Tasks completed by surgical assistant #2: Retracting Additional surgical assistant?: No Type of Anesthesia: General RN Documented Start/Stop Times: Operation Date: 03/26/25 11:30 Case Time Into Pre-Op 03/26/25 09:31 Anesthesia Start 03/26/25 11:52 Into Room 03/26/25 11:52 Procedure Start 03/26/25 12:09 Procedure Start Time: 12:09 Procedure Stop Time: 13:22 Select all DRAINS/GRAFTS/IMPLANTS that apply: None Estimated Blood Loss: 70cc Specimen collected: Yes Description of specimen(s) removed: uterus, cervix, bilateral fallopian tubes Description of surgery: Patient was taken to the operating room and was placed under general anesthesia was prepped and draped in normal sterile fashion in the dorsal lithotomy position. Preoperative antibiotics and SCDs and Frankel catheter was placed inside the bladder. Weighted speculum was placed in the vagina and the anterior and posterior lip of the cervix was grasped with 2 single tooth tenaculums and circumferentially injected with 1% lidocaine with epinephrine. A circumferential incision was made with a scalpel and the posterior cul-de-sac was entered into sharply and a longneck speculum was placed. The anterior cul-de-sac was also dissected down and entered into sharply and the uterosacral ligaments were clamped cut and suture ligated bilaterally followed by the cardinal ligaments which were Clamped cut and suture ligated bilaterally with 0 Vicryl. The uterus serially descended and progressive bites were taken bilaterally up to the level of the utero-ovarian ligament bilaterally which was clamped transected and double ligated with 0 Vicryl suture and 0 Vicryl free tie. Bilateral fallopian tubes were identified and the left ovary was visualized fairly high in the pelvis. The bilateral fallopian tubes were transected across the base with a Vania clamp and removed and sutured with 0 Vicryl suture as well as ligasure cautery to ensure hemostasis. Excellent hemostasis was noted. Posterior peritoneum was reapproximated with 2-0 Vicryl and a modified Valdez stitch was placed through the posterior vaginal cuff and bilateral uterosacral ligaments across the posterior cul-de-sac skimming along to provide apical support to the vagina. The vagina was closed with [id number] 0 Vicryl pop offs including the posterior and anterior peritoneum in the reapproximation. Excellent hemostasis was noted. The patietn was then handed over to Dr. Pruett for her portion of the procedure Surgical Findings: Grade 3 rectocele prolapse, grade 2 uterine prolapse, grade 2 cystocele. normal appearing uterus and tubes, non-visualized right ovary, normal left ovary. Complications Complications: No Admit VTE Documentation VTE Present on Admission: No VTE Mechan Device Prophylaxis: SCD's VTE Pharm Prophylaxis ordered?: Yes 03/26/25 1331 Cosigner Signature (if applicable): CC: Dr. Reese Hicks DO; Dr. Liz Pruett MD; Dr. Aliya Yen DO Signed Normal [facility] Operative Report [facility] Medical Records Department [address] [place] [address] Operative Report 03/26/25 0944 MR#: [id number] Acct: [id number] Name: BHARTI ADAIR Rep #: [id number] : 1960 64 From: Aliya Yen DO PCP: Dr. Reese Hicks DO Status:DIS AMBER Location: [place] [address] Problems Associated Problem List Diagnoses (1) Abdominal bloating: (2) Menorrhagia with regular cycle: (3) Fibroid uterus: (4) Pelvic organ prolapse quantification stage 3 rectocele: Multi Select Codes Urinary/Genital Urinary/Genital CPT Codes: 60876 Cystoscopy and 18389 TLH+BS/O <250gr uterus Operative Report (Standard) Operative Information Date of Procedure: 03/26/25 Pre-Operative Diagnosis: Pelvic organ prolapse, menorrhagia, fibroid uterus Post-Operative Diagnosis: Pelvic organ prolapse, menorrhagia, fibroid uterus Surgery/Procedure Performed: total robotic hysterectomy, bilateral salpingectomy, lysis of adhesions lining stuffer: Yes [employer]rier: Ramy James Tasks completed by assistant professor of biology: Closing, Trocar and Retracting Additional surgical assistant?: No Type of Anesthesia: General RN Documented Start/Stop Times: Operation Date: 03/26/25 11:30 Case Time Into Pre-Op 03/26/25 09:31 Anesthesia Start 03/26/25 11:52 Into Room 03/26/25 11:52 Procedure Start 03/26/25 12:09 Procedure End 03/26/25 14:25 Anesthesia End 03/26/25 14:32 Out of Room 03/26/25 14:32 Into Recovery 03/26/25 14:36 Out of Recovery 03/26/25 15:55 Procedure Start Time: 12:09 Procedure Stop Time: 14:25 Select all DRAINS/GRAFTS/IMPLANTS that apply: None Estimated Blood Loss: 50cc Specimen collected: Yes Description of specimen(s) removed: uterus, fallopian tubes, cervix Description of surgery: Findings: 12 cm fibroid uterus, normal appearing ovaries and tubes with filshie clip on the right tube. Dense bowel adhesions to the anterior abdominal wall and mesh. Omental adhesions to the anterior abdominal wall (removed) and to the anterior uterus. Dense adhesions from the bladder to the uterus. The rest of the bowel and liver were found to be normal. Cystoscopy showed no evidence of leaking at approximately 250 cc of normal saline, positive ureteral orifices and jet flow are seen and no suture material was appreciated in the bladder. Specimens removed: Uterus and cervix, Bilateral tubes Reason for surgery: This is a 64-year-old G4, P4 who presented to my office with history of pelvic pain, enlarged fibroid uterus, and large rectocele. the planned procedure is for a robotic hysterectomy the risks benefits and alternatives were discussed with the patient the patient had a clear understanding of the procedure and a consent form was signed. Procedure: The patient was placed in the dorsal low lithotomy position and prepped and draped in the normal sterile fashion both abdominally and in the perineum. Her legs were placed in stirrups a Frankel catheter was inserted into the urethra without difficulty. A weighted speculum was placed in the vagina and a single-tooth tenaculum was used to grasp the anterior lip of the cervix. An advincula uterine manipulator was inserted through the cervix without complication. It was then tied into place at the 2 and 10:00 locations on the cervix. Gloves were changed and attention was turned towards the abdomen. Approximately 20 cm above the pubic symphysis in the midline, and after Marcaine injection, a 8 mm incision was made. An 8 mm trocar was inserted through the laparoscope, then inserted into the abdomen under direct visualization using the laparoscope. Good abdominal placement was noted and no complications were appreciated. An air seal device was utilized to create pneumoperitoneum. At 12 cm lateral to the midline on the left and right sides 8 mm accessory ports were placed. Next a left upper quadrant 8 mm surgical assistant port site was placed. The patient was placed in steep Trendelenburg position. The robot was docked. The hysterectomy was initiated first by taking down omental adhesions to the anterior abdominal wall. There were dense adhesions of bowel to anterior abdominal wall that were not touched. The hysterectomy was started with taking down the round ligament on each side using the vessel sealer device. The fallopian tubes were removed with the vessel sealer device. There was found to be a filshie clip on the right tube. The broad ligament was then and taken down using the vessel sealer device. Next, dense adhesions to the anterior uterine segment and bladder were carefully taken down using a combination of sharp and blunt dissection as well as electrocautery. The bladder flap was taken down without complication. This was done using monopolar cautery to the level of the cervical vaginal junction. After the bladder flap was created, uterine vessels were then isolated and (more content not included)... Normal [facility] Platelet countOrdered By: Tong Pruett on 03-26-2025 Platelets (Bld) [#/Vol] 292 10*3/uL 150-450 [facility] Potassium measurement (mass/ volume)Ordered By: Liz Pruett on 03-26-2025 Potassium (Unsp spec) [Mass/Vol] 3.9 mmol/L 3.3-5.1 [facility] RBC Auto (Bld) [#/Vol]Ordere d By: Liz Pruett on 03-26-2025 RBC (Bld) [#/Vol] 4.08 10*6/uL Low 4.2-5.4 [facility] Serum creatinine measurement (mass/volume)Ordered By: Liz Pruett on 03-26-2025 Creatinine [Mass/Vol] 0.73 mg/dL 0.70-1.20 [facility] Serum glucose measurement (m ass/volume)Ordered By: Liz Pruett on 03-26-2025 Glucose [Mass/Vol] 122 mg/dL High 70-99 [facility] Serum or plasma calcium amilcar urement (mass/volume)Ordered By: Liz Pruett on 03-26-2025 Calcium [Mass/Vol] 8.6 mg/dL 7.6-11.0 [facility] Serum or plasma urea nitroge n measurement (mass/volume)Ordered By: Liz Pruett on 03-26-2025 Urea nitrogen [Mass/Vol] 8 mg/dL 4-19 [facility] Sodium levelOrdered By: Babak Pruett on 03-26-2025 Sodium [Moles/Vol] 138 mmol/L 133-145 [facility] White blood cell (WBC) count Ordered By: Liz Pruett on 03-26-2025 WBC (Bld) [#/Vol] 9.3 10*3/uL 4.4-11.0 [facility] MR/PAT.YOBANYon 03-24-2025 MR/PAT.YOBANY [facility] Medical Records Department [address] [place] [address] PAT - Anesthesia 03/24/25 1528 MR#: [id number] Acct: [id number] Name: BHARTI ADAIR Rep #: [id number] : 1960 64 From: Walter Miner MD PCP: Dr. 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 When Was Last Pacemaker Check QUESTION #4 FULL TEXT: You/Your Family Experience fever (hyperthermia) with Anesthesia Last Oral Intake Last Oral intake: Last Oral Intake NPO since Meds taken in AM with sips of water? 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 Has anyone observed you stop No 03/24/25 13:28 breathing during sleep? STOP Results Negative 03/24/25 13:28 QUESTION #5 FULL TEXT : Do you snore loudly (louder than talking or can be heard through closed doors)? 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 Specify any problems Hx of Preganancy in last 3 No 03/24/25 13:28 Months Nurse Filling Out Transfusion DSCHRIBER 03/24/25 13:28 Questions: Date: 03/24/25 03/24/25 13:28 Time: 13:29 03/24/25 13:28 Patient unable to answer at this time (ie. 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 Hx Now No 03/24/25 13:28 Gestational Age (in weeks): EDC: Hx Hx Para Hx Section SAB No 03/24/25 13:28 [facility] Medical History (Updated 03/24/25 @ 13:34 by Gaby Watters) History of steroid therapy Bladder disease Restless legs Syncope History of ulceration Shortness of breath on exertion History of pain when walking History of edema Wears glasses Post-menopausal Arthritis Fatty liver Non-smoker Leg cramps Acid reflux Depression History of anemia Anxiety Home Medications ???Medication ???Instructions ???Recorded ???Last Taken ???Type calcium carbonate (Antacid Ext Str 300 mg PO TID PRN dyspepsia 03/11 03/05 Unknown History (calcium carb)) Allergy/AdvReac Type Severity Reaction Status Date / Time adhesive tape Allergy Unknown Rash Verified 03/24/25 13:27 Family History Mother Dementia Diabe (more content not included)... Normal [facility] Absolute lymphocyte countOrd ered By: Aliya Pappas on 03-15-2025 Lymphocytes Auto (Unsp spec) [#/Vol] 1.87 10*3/uL 0.83-4.51 [facility] Absolute neutrophil countOrd ered By: Aliya Pappas on 03-15-2025 Neutrophils (Bld) [#/Vol] 5.3 10*3/uL 2.0-7.7 [facility] Anion gap in Serum or Plasma Ordered By: Aliya Pappas on 03-15-2025 Anion gap [Moles/Vol] 8 mmol/L 5-15 [facility] Automated lymphocyte count a s percentage of total leukocytesOrdered By: Aliya Elyse on 03-15-2025 Lymphocytes/100 WBC Auto (Unsp spec) 23.8 % 19- [facility] BUN/creatinine ratioOrdered By: Aliya Elyse on 03-15-2025 Urea nitrogen/Creatinine [Mass ratio] 13.1 mg/mg 10-20 [facility] Basophil percentageOrdered B y: Aliya Pappas on 03-15-2025 Basophils/100 WBC (Bld) 0.6 % 0-1 [facility] Bilirubin, totalOrdered By: Aliya Pappas on 03-15-2025 Bilirubin [Mass/Vol] 0.44 mg/dL 0.00-1.30 [facility] CBC W/Diff, Automatedon Absolute Lymph 1.87 X10 3/uL Normal 0.83-4.51 [facility] Comment on above: Performed By: #### L 500.4050, L100.0100, BTSPAT #### [facility] [address] [place], [address] Absolute Neut 5.3 X10 3/uL Normal 2.0-7.7 [facility] Comment on above: Performed By: #### L 500.4050, L100.0100, BTSPAT #### [facility] [address] [place], [address] Basophils/100 WBC (Bld) 0.6 % Normal 0-1 [facility] Comment on above: Performed By: #### L 500.4050, L100.0100, BTSPAT #### [facility] [address] [place], [address] Eosinophils/100 WBC (Bld) 1.3 % Normal 0-5 [facility] Comment on above: Performed By: #### L 500.4050, L100.0100, BTSPAT #### [facility] [address] [place], [address] Erythrocyte distribution width (RBC) [Ratio] 12.5 % Normal 11.6-14.6 [facility] Comment on above: Performed By: #### L 500.4050, L100.0100, BTSPAT #### [facility] [address] [place], [address] Hematocrit (Bld) [Volume fraction] 40.8 % Normal 37-47 [facility] Comment on above: Performed By: #### L 500.4050, L100.0100, BTSPAT #### [facility] [address] [place], [address] Hemoglobin (Bld) [Mass/Vol] 13.7 g/dL Normal 12.0-15.0 [facility] Comment on above: Performed By: #### L 500.4050, L100.0100, BTSPAT #### [facility] [address] [place], [address] IG% 0.300 Normal 0.0-0.9 [facility] Comment on above: Result Comment: IG% - Immature Granulocytes (promyelocytes, myelocytes and metamyelocytes) > 1% indicates that a LEFT SHIFT is Present. Performed By: #### L 500.4050, L100.0100, BTSPAT #### [facility] [address] [place], [address] Lymphocytes/100 WBC (Bld) 23.8 % Normal 19-41 [facility] Comment on above: Performed By: #### L 500.4050, L100.0100, BTSPAT #### [facility] [address] [place], [address] MCH (RBC) [Entitic mass] 29.5 pg Normal 27.0-32.0 [facility] Comment on above: Performed By: #### L 500.4050, L100.0100, BTSPAT #### [facility] [address] [place], [address] MCHC (RBC) [Mass/Vol] 33.6 g/dL Normal 32-36 [facility] Comment on above: Performed By: #### L 500.4050, L100.0100, BTSPAT #### [facility] [address] [place], [address] MCV (RBC) [Entitic vol] 87.7 fL Normal 81-99 [facility] Comment on above: Performed By: #### L 500.4050, L100.0100, BTSPAT #### [facility] [address] [place], [address] Monocytes/100 WBC (Bld) 7.2 % Normal 0-10 [facility] Comment on above: Performed By: #### L 500.4050, L100.0100, BTSPAT #### [facility] [address] [place], [address] Neutrophils/100 WBC (Bld) 66.8 % Normal 47-70 [facility] Comment on above: Performed By: #### L 500.4050, L100.0100, BTSPAT #### [facility] [address] [place], [address] Nucleated RBC (Bld) [#/Vol] 0 10*3/uL Normal 0-5 [facility] Comment on above: Performed By: #### L 500.4050, L100.0100, BTSPAT #### [facility] [address] [place], [address] Platelet mean volume (Bld) [Entitic vol] 8.4 fL Normal 6.2-12.0 [facility] Comment on above: Performed By: #### L 500.4050, L100.0100, BTSPAT #### [facility] [address] [place], [address] Platelets (Bld) [#/Vol] 325 10*3/uL Normal 150-450 [facility] Comment on above: Performed By: #### L 500.4050, L100.0100, BTSPAT #### [facility] [address] [place], [address] RBC (Bld) [#/Vol] 4.65 10*6/uL Normal 4.2-5.4 [facility] Comment on above: Performed By: #### L 500.4050, L100.0100, BTSPAT #### [facility] [address] [place], [address] RDW SD 39.8 fl Normal 35.1-43.9 [facility] Comment on above: Performed By: #### L 500.4050, L100.0100, BTSPAT #### [facility] [address] [place], [address] WBC (Bld) [#/Vol] 7.9 10*3/uL Normal 4.4-11.0 [facility] Comment on above: Performed By: #### L 500.4050, L100.0100, BTSPAT #### [facility] [address] [place], [address] Carbon dioxide, total [Moles /volume] in Central venous bloodOrdered By: Aliya Pappas on 03-15-2025 CO2 [Moles/Vol] 25.2 mmol/L 21.0-32.0 [facility] Chloride assayOrdered By: Sudhakar Pappas on 03-15-2025 Chloride [Moles/Vol] 105 mmol/L 98-108 [facility] Comprehensive Metabolic Prof ilon 03-15-2025 Albumin [Mass/Vol] 4.0 g/dL Normal 3.4-4.8 [facility] Comment on above: Performed By: #### L 500.4050, L100.0100, BTSPAT #### [facility] [address] [place], [address] Albumin/Globulin [Mass ratio] 1.1 {ratio} Normal 0.9-2.4 [facility] Comment on above: Performed By: #### L 500.4050, L100.0100, BTSPAT #### [facility] [address] [place], [address] ALK PHOS 89 U/L Normal 35-104 [facility] Comment on above: Performed By: #### L 500.4050, L100.0100, BTSPAT #### [facility] [address] [place], [address] ALT [Catalytic activity/Vol] 12 U/L Normal <=34 [facility] Comment on above: Performed By: #### L 500.4050, L100.0100, BTSPAT #### [facility] [address] [place], [address] AST [Catalytic activity/Vol] 20 U/L Normal <=31 [facility] Comment on above: Performed By: #### L 500.4050, L100.0100, BTSPAT #### [facility] [address] [place], [address] Bilirubin [Mass/Vol] 0.44 mg/dL Normal 0.00-1.30 [facility] Comment on above: Performed By: #### L 500.4050, L100.0100, BTSPAT #### [facility] [address] [place], [address] BUN/CRE 13.1 RATIO Normal 10-20 [facility] Comment on above: Performed By: #### L 500.4050, L100.0100, BTSPAT #### [facility] [address] [place], [address] Calcium [Mass/Vol] 10.2 mg/dL Normal 7.6-11.0 [facility] Comment on above: Performed By: #### L 500.4050, L100.0100, BTSPAT #### [facility] [address] [place], [address] Chloride [Moles/Vol] 105 mmol/L Normal 98-108 [facility] Comment on above: Performed By: #### L 500.4050, L100.0100, BTSPAT #### [facility] [address] [place], [address] CO2 [Moles/Vol] 25.2 mmol/L Normal 21.0-32.0 [facility] Comment on above: Performed By: #### L 500.4050, L100.0100, BTSPAT #### [facility] [address] [place], [address] Creatinine [Mass/Vol] 0.82 mg/dL Normal 0.70-1.20 [facility] Comment on above: Performed By: #### L 500.4050, L100.0100, BTSPAT #### [facility] [address] [place], [address] GAP 8 Normal 5-15 [facility] Comment on above: Performed By: #### L 500.4050, L100.0100, BTSPAT #### [facility] [address] [place], [address] GFR/1.73 sq M.predicted among non-blacks MDRD (S/P/Bld) [Vol rate/Area] 80 mL/min/{1.73_m2} Normal >60 [facility] Comment on above: Result Comment: mL/m in/1.73m2 CKD-EPI Creatinine Equation (2020) Performed By: #### L 500.4050, L100.0100, BTSPAT #### [facility] [address] [place], [address] Globulin (S) [Mass/Vol] 3.6 g/dL Normal 2.2-4.2 [facility] Comment on above: Performed By: #### L 500.4050, L100.0100, BTSPAT #### [facility] [address] [place], [address] Glucose [Mass/Vol] 90 mg/dL Normal 70-99 [facility] Comment on above: Performed By: #### L 500.4050, L100.0100, BTSPAT #### [facility] [address] [place], [address] Potassium [Moles/Vol] 4.4 mmol/L Normal 3.3-5.1 [facility] Comment on above: Performed By: #### L 500.4050, L100.0100, BTSPAT #### [facility] [address] [place], [address] Sodium [Moles/Vol] 138 mmol/L Normal 133-145 [facility] Comment on above: Performed By: #### L 500.4050, L100.0100, BTSPAT #### [facility] [address] [place], [address] T PROT 7.6 g/dL Normal 5.9-8.4 [facility] Comment on above: Performed By: #### L 500.4050, L100.0100, BTSPAT #### [facility] [address] [place], [address] Urea nitrogen [Mass/Vol] 11 mg/dL Normal 4-19 [facility] Comment on above: Performed By: #### L 500.4050, L100.0100, BTSPAT #### [facility] [address] [place], [address] Eosinophil percentageOrdered By: Aliya Pappas on 03-15-2025 Eosinophils/100 WBC (Bld) 1.3 % 0-5 [place] [facility] Erythrocyte distribution wid th ratioOrdered By: Aliya Pappas on 03-15-2025 Erythrocyte distribution width (RBC) [Ratio] 12.5 % 11.6-14.6 [facility] Erythrocyte distribution wid th standard deviationOrdered By: Aliya Pappas on 03-15-2025 Erythrocyte distribution width (RBC) [Ratio] 39.8 fl 35.1-43.9 [facility] Glomerular filtration rate ( GFR) estimation/1.73 sq m using serum, plasma, or whole bOrdered By: Aliya Pappas on 03-15-2025 GFR/1.73 sq M.predicted among non-blacks MDRD (S/P/Bld) [Vol rate/Area] 80 mL/min/{1.73_m2} >60 [facility] Comment on above: mL/min/1.73m2 CKD-EP I Creatinine Equation (2020) Hematocrit Auto (Bld) [Volum e fraction]Ordered By: Aliya Pappas on 03-15-2025 Hematocrit (Bld) [Volume fraction] 40.8 % 37-47 [facility] Hemoglobin measurementOrdere d By: Aliya Pappas on 03-15-2025 Hemoglobin (Bld) [Mass/Vol] 13.7 g/dL 12.0-15.0 [facility] Immature granulocytes/100 WB C Auto (Bld)Ordered By: Aliya Pappas on 03-15-2025 Immature granulocytes/100 WBC (Bld) 0.300 % 0.0-0.9 [facility] Comment on above: IG% - Immature Granu locytes (promyelocytes, myelocytes and metamyelocytes) > 1% indicates that a LEFT SHIFT is Present. Laboratory - Chemistry and C hemistry - challengeOrdered By: Aliya Pappas on 03-15-2025 AST [Catalytic activity/Vol] 20 U/L <32 [facility] MCV (mean corpuscular volume ) determinationOrdered By: Aliya Pappas on 03-15-2025 MCV (RBC) [Entitic vol] 87.7 fL 81-99 [facility] Mean corpuscular hemoglobin (MCH) determinationOrdered By: Aliya Pappas on 03-15-2025 MCH (RBC) [Entitic mass] 29.5 pg 27.0-32.0 [facility] Mean corpuscular hemoglobin concentration (MCHC) determinationOrdered By: Aliya Pappas on 03-15-2025 MCHC (RBC) [Mass/Vol] 33.6 g/dL 32-36 [facility] Mean platelet volume determi nationOrdered By: Aliya Pappas on 03-15-2025 Platelet mean volume (Bld) [Entitic vol] 8.4 fL 6.2-12.0 [facility] Monocyte percentageOrdered B y: Aliya Pappas on 03-15-2025 Monocytes/100 WBC (Bld) 7.2 % 0-10 [facility] Neutrophil percentageOrdered By: Aliya Pappas on 03-15-2025 Neutrophils/100 WBC (Bld) 66.8 % 47-70 [facility] Nucleated red blood cell per centageOrdered By: Aliya Pappas on 03-15-2025 Nucleated RBC/100 WBC (Bld) [Ratio] 0 % 0-5 [facility] Direct Service Professional Office Visit Reporton 03-15-2025 Direct Service Professional Office Visit Report [facility] [address], [address] [place] [address] OFFICE VISIT Date of Service: 03/15/25 MR#: [id number] Acct: [id number] Name: BHARTI ADAIR Rep #: [id number] : 1960 Provider: Dr. Aliya Brand DO Age/Sex: 64/F [place] [facility] [place]: Signed Intake Vital Signs 12/17/24 12:32 03/15/25 10:55 Height 5 ft 6 in 5 ft 6 in Weight: 179 lb 6 oz 178 lb 4 oz BMI 28.9 28.8 BP 132/82 H 134/87 H Blood Pressure Location Rt brachial Position Sitting Respiration 16 Pulse 85 Pulse Source Monitor Temp 96.7 F L Pulse Oximetry (%) 96 Oxygen Delivery Method room air Intake Visit Reasons: TVH poss. 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 Is patient in pain?: No Allergies adhesive tape Allergy (Unknown, Verified 03/15/25 10:53) Rash Medications ???Medication ???Instructions ???Recorded ???Confirmed ???Type NK 03/15/25 03/15/25 History Is last menstrual period known: No Post menopausal: Yes Patient : No : No PFSH Medical History Wears glasses Post-menopausal Arthritis Fatty liver Easy bruising Migraine headache Non-smoker Leg cramps Chronic cough Sleep apnea Abdominal pain Hemorrhoid Diarrhea Acid reflux Depression History of anemia Anxiety Surgical History History of colonoscopy Family History Mother Dementia Diabetes Sister Diabetes Hypertension Social History Smoking Status: Never smoker alcohol intake: never substance use type: does not use caffeine: Yes what type of physical activity do you participate in: none seatbelt use: always do you feel safe at home: Yes additional social history: HPI TVH poss. BSO Cysto Details: BHARTI ADAIR is a 64 year old , vaginal deliveries, who presents for vaginal hysterectomy consultation. She complains of having to push herself back up and has to strain often to have a priya wel movement. She denies medical problems such as diabetes, high blood pressure, lupus, etc. She urinates often at night but denies incontinence unless she drinks a lot of water. She does not drink alcohol or use drugs. She is not interested in a pessary. Patient is sexually active very infrequently (every 2 months or less). She denies vaginal bleeding and stopped having periods when she was in her 40's . Ultrasound showed the following: FINDINGS: The uterus is anteverted and appears heterogeneous in echotexture. Uterus measures 8.8 x 4.6 x 3.5 cm. No masses or fluid collections are identified. Endometrial stripe measures 3 mm, with punctate calcifications. Nabothian cysts within the lower uterine segment. The bilateral ovaries are not well appreciated. No adnexal masses are identified bilaterally. No free fluid seen within the pelvis. Urinary bladder measures 5.0 x 6.1 x 9.4 cm, for an estimated volume of 149.3 mL. US/Pelvic w/ Transvaginal IMPRESSION: 1. Heterogeneous uterus, with measurements provided above. No discrete masses or fluid collections are identified. 2. Bilateral ovaries are not well seen. No adnexal masses or fluid collections. 3. Additional measurements, as provided above. History 3 Elective abortions Hx Para 3 Spontaneous abortions Hx # Term Pregnancies Ectopic pregnancies Hx # Pregnancies Multiple births # of living children Past Pregnancies Del. Date Name GA/Weeks Outcome Route Bth Weight Gen Labor Lgth Anesthesia Del Locatn Provider FOB Unknown Josh Unknown Rell Unknown Jamari ROS Const ROS Unobtainable: All systems reviewed are unremarkable except as noted in H Resp Resp: Reports system reviewed and no additional complaints, except as documented; Denies cough GI GI: Reports as per HPI Psych Psych: Reports system reviewed and no additional complaints, except as documented Exam Const General: cooperative, healthy appearing, comfortable and no acute distress Resp Effort Inspection: normal respiratory effort Skin General: no rashes or lesions noted Psych Appearance: grossly normal Speech and Movement: speech and movement normal Coding Level of Care Code Off vis,est,level 4 Diagnoses Preoperative exam for gynecologic surgery Z01.818 Pelvic organ prolapse quantification stage 3 rectocele N81.6 Vaginal enterocele due to incomplete uterovaginal prolapse N81.2 Assessment and Plan Assessment and Plan (1) Preoperative exam for gynecologic surgery: Status: Acute (2) Pelvic organ prolapse quantification stage 3 rectocele: St (more content not included)... Normal [facility] Platelet countOrdered By: Sudhakar Pappas on 03-15-2025 Platelets (Bld) [#/Vol] 325 10*3/uL 150-450 [facility] Potassium measurement (mass/ volume)Ordered By: Aliya Pappas on 03-15-2025 Potassium (Unsp spec) [Mass/Vol] 4.4 mmol/L 3.3-5.1 [facility] RBC Auto (Bld) [#/Vol]Ordere d By: Aliya Pappas on 03-15-2025 RBC (Bld) [#/Vol] 4.65 10*6/uL 4.2-5.4 [facility] Serum creatinine measurement (mass/volume)Ordered By: Aliya Pappas on 03-15-2025 Creatinine [Mass/Vol] 0.82 mg/dL 0.70-1.20 [facility] Serum globulin measurementOr dered By: Aliya Pappas on 03-15-2025 Globulin (S) [Mass/Vol] 3.6 g/dL 2.2-4.2 [facility] Serum glucose measurement (m ass/volume)Ordered By: Aliya Pappas on 03-15-2025 Glucose [Mass/Vol] 90 mg/dL 70-99 [facility] Serum or plasma alanine le otransferase (ALT) measurementOrdered By: Aliya Pappas on 03-15-2025 ALT [Catalytic activity/Vol] 12 U/L <35 [facility] Serum or plasma albumin amilcar urement (mass/volume)Ordered By: Aliya Pappas on 03-15-2025 Albumin [Mass/Vol] 4.0 g/dL 3.4-4.8 [facility] Serum or plasma albumin/glob ulin mass ratioOrdered By: Aliya Pappas on 03-15-2025 Albumin/Globulin [Mass ratio] 1.1 {ratio} 0.9-2.4 [facility] Serum or plasma alkaline phyllis sphatase measurementOrdered By: Aliya Pappas on 03-15-2025 ALP [Catalytic activity/Vol] 89 U/L 35-104 [facility] Serum or plasma calcium amilcar urement (mass/volume)Ordered By: Aliya Pappas on 03-15-2025 Calcium [Mass/Vol] 10.2 mg/dL 7.6-11.0 [facility] Serum or plasma urea nitroge n measurement (mass/volume)Ordered By: Aliya Pappas on 03-15-2025 Urea nitrogen [Mass/Vol] 11 mg/dL 4-19 [facility] Sodium levelOrdered By: Venita Pappas on 03-15-2025 Sodium [Moles/Vol] 138 mmol/L 133-145 [facility] Total proteinOrdered By: Madisyn Pappas on 03-15-2025 Protein [Mass/Vol] 7.6 g/dL 5.9-8.4 [facility] Type AND Screen - PAT ONLYon 03-15-2025 ABO and Rh group Nom (Bld) Blood group B Rh(D) positive Normal [facility] Comment on above: Order Comment: 07 No N N S hysterectomy Performed By: #### L 500.4050, L100.0100, BTSPAT #### [facility] [address] [place], [address] White blood cell (WBC) count Ordered By: Aliya Pappas on 03-15-2025 WBC (Bld) [#/Vol] 7.9 10*3/uL 4.4-11.0 [facility] Internal Medicine Office Vis iton 12-17-2024 Internal Medicine Office Visit [facility] [address] [place] [address] [place] [address] OFFICE VISIT Date of Service: 12/17/24 MR#: [id number] Acct: [id number] Name: BHARTI ADAIR Rep #: [id number] : 1960 Provider: DOMENICA Milner Age/Sex: 64/F [place] [facility] [place]: Signed Intake Vital Signs 12/09/24 13:26 12/17/24 12:32 Height 5 ft 6 in 5 ft 6 in Weight: 176 lb 6 oz 179 lb 6 oz BMI 28.4 28.9 BP 112/62 132/82 H Blood Pressure Location Rt brachial Rt brachial Position Sitting Sitting Respiration 12 16 Pulse 88 85 Pulse Source Monitor Monitor Temp 97.2 F L 96.7 F L Temp Source Temporal Temporal Pulse Oximetry (%) 96 96 Oxygen Delivery Method room air room air Intake Visit Reasons: ACUTE TRIGGER FINGER INJ LEFT HAND Chief Complaint: FINGER 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 Required: No Accompanied by: Self Is patient in pain?: No Allergies adhesive tape Allergy (Unknown, Verified 12/17/24 12:23) Rash Medications ???Medication ???Instructions ???Recorded ???Confirmed ???Type lorazepam 1 mg tablet 1 mg PO DAILY PRN anxiety #30 tabs 09/17/23 12/17/24 Rx pantoprazole 40 mg tablet,delayed See Rx Instructions .Route 12/17/24 Rx release .COMPLEX #90 tabs lorazepam 1 mg tablet 1 mg PO DAILY PRN anxiety #30 tabs 06/25/24 12/17/24 Rx Have you fallen in the past year?: No [facility] Medical History Wears glasses Post-menopausal Arthritis Fatty liver Easy bruising Migraine headache Non-smoker Leg cramps Chronic cough Sleep apnea Abdominal pain Hemorrhoid Diarrhea Acid reflux Depression History of anemia Anxiety Surgical History History of colonoscopy Family History Mother Dementia Diabetes Sister Diabetes Hypertension Social History Smoking Status: Never smoker alcohol intake: never substance use type: does not use caffeine: Yes what type of physical activity do you participate in: none seatbelt use: always do you feel safe at home: Yes additional social history: HPI HPI Chief Complaint: FINGER Details: BHARTI ADAIR, is a 64 F who presents to the office today for an injection in her left middle finger for a trigger finger. Patient was recently seen by her PCP who wanted her to have this done. She states that the finger frequently sticks and she has to manually straighten it. This seems to be occurring more often and is sometimes uncomfortable to extend it. ROS Const Constitutional: No body ache, excessive sweating, fatigue, fever(s), frequent falls, headache(s), snoring, weakness, weight change, sleep problems or change in appetite Eyes Eyes: No blurry vision, change in vision, eye pain or Light sensitivity ENT ENT: No abnormal hearing, ear or mastoid pain, tinnitus, nasal congestion, headache(s), neck pain or sore throat Resp Respiratory: No cough, shortness of breath, snoring or wheezing Cardio Cardiology: No chest pain at rest, chest pain with exertion, excessive sweating, shortness of breath, dyspnea on exertion, lightheadedness, orthopnea or palpitations Gastro GI: No abdominal pain, change in bowel habits, constipation, cramping, diarrhea, nausea/dyspepsia or vomiting Genitourinary-Female: No burning urination, painful urination, urinary incontinence, urinary frequency, blood in urine, abnormal periods or pelvic pain Musc Musculoskeletal: No abnormal gait, joint pain, back pain, limited range of motion, neck pain, numbness, stiffness, tingling or Arthritis Skin Skin: No dry skin, redness, lesions, itchy eyes, rash or wounds Neuro Neurology: No abnormal gait, abnormal hearing, abnormal speech, dizziness, weakness, frequent falls, headache(s), memory loss, numbness or tingling Psych Psychiatric: No anxiety, No change in appetite, No depression, No memory loss and No Thoughts of harming yourself/Others Endo Endocrine: No cold intolerance, excessive sweating, fatigue, flushing, heat intolerance, increased thirst/drinking, increased hunger or weight change Aller/Imm Allergy/Immunologic: No itchy eyes, seasonal allergy symptoms, hives or wheezing Dar/Lymp Hematologic/Lymphatic: No easy bleeding, easy bruising or enlarged lymph nodes Exam Const General: cooperative, healthy appearing, comfortable, no acute distress, well developed and well groomed Nutritional Appearance: average body habitus Orientation: alert and awake Musc Other: evident trigger finger of the left middle finger. There is reproducible catching / locking. She also has a tender palpable nodule at the site of the A1 christ. Normal sensation to light touch normal distal radial pulse (more content not included)... Normal [facility] Pelvic w/ Transvaginalon Pelvic w/ Transvaginal [facility] Imaging Services [address] [place], [place] [address] Pelvic w/ Transvaginal MR#: [id number] Acct: [id number] Name: BHARTI ADAIR Rep #: [id number] : 1960 F 63 From: Matteo Valencia DO PCP: Dr. Reese Hicks, Status: REG CLI Study: Pelvic w/ Transvaginal Date of Exam: 12/14/24 Exam# [id number] Ordering Dr: Aliya Yen DO PROCEDURE: PELVIC W/ TRANSVAGINAL REASON FOR EXAM: Uterine prolapse TECHNIQUE: Transabdominal and transvaginal pelvic ultrasound COMPARISON: None. FINDINGS: The uterus is anteverted and appears heterogeneous in echotexture. Uterus measures 8.8 x 4.6 x 3.5 cm. No masses or fluid collections are identified. Endometrial stripe measures 3 mm, with punctate calcifications. Nabothian cysts within the lower uterine segment. The bilateral ovaries are not well appreciated. No adnexal masses are identified bilaterally. No free fluid seen within the pelvis. Urinary bladder measures 5.0 x 6.1 x 9.4 cm, for an estimated volume of 149.3 mL. US/Pelvic w/ Transvaginal IMPRESSION: 1. Heterogeneous uterus, with measurements provided above. No discrete masses or fluid collections are identified. 2. Bilateral ovaries are not well seen. No adnexal masses or fluid collections. 3. Additional measurements, as provided above. [facility]: Dr. Reese Hicks, ; Dr. Aliya Yen DO Mobile Paint Specialist: Signed Normal [facility] Absolute lymphocyte countOrd ered By: Reese Hicks on 12-09-2024 Lymphocytes Auto (Unsp spec) [#/Vol] 2.20 10*3/uL 0.83-4.51 [facility] Absolute neutrophil countOrd ered By: Reesesuleman Hicks on 12-09-2024 Neutrophils (Bld) [#/Vol] 4.3 10*3/uL 2.0-7.7 [facility] Albumin to globulin ratioOrd ered By: Reese Hicks on 12-09-2024 Albumin/Globulin [Mass ratio] 0.8 {ratio} Low 0.9-2.4 [facility] Automated lymphocyte count a s percentage of total leukocytesOrdered By: Reese Hicks on 12-09-2024 Lymphocytes/100 WBC Auto (Unsp spec) 31.3 % 19-41 [facility] Basophil percentageOrdered B y: Reese Hicks on 12-09-2024 Basophils/100 WBC (Bld) 0.7 % 0-1 [facility] Bilirubin, totalOrdered By: Reese Hicks on 12-09-2024 Bilirubin [Mass/Vol] 0.40 mg/dL 0.20-1.00 [facility] Comment on above: For patients on eltr ombopag therapy, use of Dimension [place] TBIL is not recommended. Blood urea nitrogen (BUN)/cr eatinine ratioOrdered By: Reese Hicks on 12-09-2024 Urea nitrogen/Creatinine [Mass ratio] 16.9 mg/mg 10-20 [facility] CBC W/Diff, Automatedon 11-12 Absolute Lymph 2.20 X10 3/uL Normal 0.83-4.51 [facility] Comment on above: Performed By: #### L 500.4050, L100.0100, L501.9520, L506.1000 ####[facility] [address] [place], [address] Absolute Neut 4.3 X10 3/uL Normal 2.0-7.7 [facility] Comment on above: Performed By: #### L 500.4050, L100.0100, L501.9520, L506.1000 ####[facility] [address] [place], [address] Basophils/100 WBC (Bld) 0.7 % Normal 0-1 [facility] Comment on above: Performed By: #### L 500.4050, L100.0100, L501.9520, L506.1000 ####[facility] [address] [place], [address] Eosinophils/100 WBC (Bld) 1.0 % Normal 0-5 [facility] Comment on above: Performed By: #### L 500.4050, L100.0100, L501.9520, L506.1000 ####[facility] [address] [place], [address] Erythrocyte distribution width (RBC) [Ratio] 12.7 % Normal 11.6-14.6 [facility] Comment on above: Performed By: #### L 500.4050, L100.0100, L501.9520, L506.1000 ####[facility] [address] [place], [address] Hematocrit (Bld) [Volume fraction] 40.0 % Normal 37-47 [facility] Comment on above: Performed By: #### L 500.4050, L100.0100, L501.9520, L506.1000 ####[facility] [address] [place], [address] Hemoglobin (Bld) [Mass/Vol] 12.7 g/dL Normal 12.0-15.0 [facility] Comment on above: Performed By: #### L 500.4050, L100.0100, L501.9520, L506.1000 ####[facility] [address] [place], [address] IG% 0.100 Normal 0.0-0.9 [facility] Comment on above: Result Comment: IG% - Immature Granulocytes (promyelocytes, myelocytes and metamyelocytes) > 1% indicates that a LEFT SHIFT is Present. Performed By: #### L 500.4050, L100.0100, L501.9520, L506.1000 ####[facility] [address] [place], [address] Lymphocytes/100 WBC (Bld) 31.3 % Normal 19-41 [facility] Comment on above: Performed By: #### L 500.4050, L100.0100, L501.9520, L506.1000 ####[facility] [address] [place], [address] MCH (RBC) [Entitic mass] 27.8 pg Normal 27.0-32.0 [facility] Comment on above: Performed By: #### L 500.4050, L100.0100, L501.9520, L506.1000 ####[facility] [address] [place], [address] MCHC (RBC) [Mass/Vol] 31.8 g/dL Low 32-36 [facility] Comment on above: Performed By: #### L 500.4050, L100.0100, L501.9520, L506.1000 ####[facility] [address] [place], [address] MCV (RBC) [Entitic vol] 87.5 fL Normal 81-99 [facility] Comment on above: Performed By: #### L 500.4050, L100.0100, L501.9520, L506.1000 ####[facility] [address] [place], [address] Monocytes/100 WBC (Bld) 6.3 % Normal 0-10 [facility] Comment on above: Performed By: #### L 500.4050, L100.0100, L501.9520, L506.1000 ####[facility] [address] [place], [address] Neutrophils/100 WBC (Bld) 60.6 % Normal 47-70 [facility] Comment on above: Performed By: #### L 500.4050, L100.0100, L501.9520, L506.1000 ####[facility] [address] [place], [address] Nucleated RBC (Bld) [#/Vol] 0 10*3/uL Normal 0-5 [facility] Comment on above: Performed By: #### L 500.4050, L100.0100, L501.9520, L506.1000 ####[facility] [address] [place], [address] Platelet mean volume (Bld) [Entitic vol] 9.0 fL Normal 6.2-12.0 [facility] Comment on above: Performed By: #### L 500.4050, L100.0100, L501.9520, L506.1000 ####[facility] [address] [place], [address] Platelets (Bld) [#/Vol] 341 10*3/uL Normal 150-450 [facility] Comment on above: Performed By: #### L 500.4050, L100.0100, L501.9520, L506.1000 ####[facility] [address] [place], [address] RBC (Bld) [#/Vol] 4.57 10*6/uL Normal 4.2-5.4 [facility] Comment on above: Performed By: #### L 500.4050, L100.0100, L501.9520, L506.1000 ####[facility] [address] [place], [address] RDW SD 40.6 fl Normal 35.1-43.9 [facility] Comment on above: Performed By: #### L 500.4050, L100.0100, L501.9520, L506.1000 ####[facility] [address] [place], [address] WBC (Bld) [#/Vol] 7.0 10*3/uL Normal 4.4-11.0 [facility] Comment on above: Performed By: #### L 500.4050, L100.0100, L501.9520, L506.1000 ####[facility] [address] [place], [address] Carbon dioxide measurementOr dered By: Reese Hicks on 12-09-2024 CO2 [Moles/Vol] 26.0 mmol/L 21.0-32.0 [facility] Chloride measurementOrdered By: Reese Hicks on 12-09-2024 Chloride [Moles/Vol] 108 mmol/L High 98-107 [facility] Comprehensive Metabolic Prof ilon 12-09-2024 Albumin [Mass/Vol] 3.5 g/dL Normal 3.2-5.0 [facility] Comment on above: Performed By: #### L 500.4050, L100.0100, L501.9520, L506.1000 ####[facility] [address] [place], [address] Albumin/Globulin [Mass ratio] 0.8 {ratio} Low 0.9-2.4 [facility] Comment on above: Performed By: #### L 500.4050, L100.0100, L501.9520, L506.1000 ####[facility] [address] [place], [address] ALK P 87 U/L Normal 45-117 [facility] Comment on above: Performed By: #### L 500.4050, L100.0100, L501.9520, L506.1000 ####[facility] [address] [place], [address] ALT [Catalytic activity/Vol] 19 U/L Normal 13-56 [facility] Comment on above: Performed By: #### L 500.4050, L100.0100, L501.9520, L506.1000 ####[facility] [address] [place], [address] AST [Catalytic activity/Vol] 20 U/L Normal 15-37 [facility] Comment on above: Performed By: #### L 500.4050, L100.0100, L501.9520, L506.1000 ####[facility] [address] [place], [address] Bilirubin [Mass/Vol] 0.40 mg/dL Normal 0.20-1.00 [facility] Comment on above: Result Comment: For patients on eltrombopag therapy, use of Dimension [place] TBIL is not recommended. Performed By: #### L 500.4050, L100.0100, L501.9520, L506.1000 ####[facility] [address] [place], [address] BUN/CRE 16.9 RATIO Normal 10-20 [facility] Comment on above: Performed By: #### L 500.4050, L100.0100, L501.9520, L506.1000 ####[facility] [address] [place], [address] CA,Total 9.4 mg/dL Normal 8.5-10.1 [facility] Comment on above: Performed By: #### L 500.4050, L100.0100, L501.9520, L506.1000 ####[facility] [address] [place], [address] Chloride [Moles/Vol] 108 mmol/L High 98-107 [facility] Comment on above: Performed By: #### L 500.4050, L100.0100, L501.9520, L506.1000 ####[facility] [address] [place], [address] CO2 [Moles/Vol] 26.0 mmol/L Normal 21.0-32.0 [facility] Comment on above: Performed By: #### L 500.4050, L100.0100, L501.9520, L506.1000 ####[facility] [address] [place], [address] Creatinine [Mass/Vol] 0.89 mg/dL Normal 0.55-1.02 [facility] Comment on above: Result Comment: The validity of the calculated GFR GFRAA in patients over 70 years has not been determined. Clinical correlation is essential. Performed By: #### L 500.4050, L100.0100, L501.9520, L506.1000 ####[facility] [address] [place], [address] EST GFR - AA 82 mL/min Normal >60 [facility] Comment on above: Result Comment: Afri can Andorran GFR Calc Performed By: #### L 500.4050, L100.0100, L501.9520, L506.1000 ####[facility] [address] [place], [address] GAP 6 Normal 5-15 [facility] Comment on above: Performed By: #### L 500.4050, L100.0100, L501.9520, L506.1000 ####[facility] [address] [place], [address] GFR/1.73 sq M.predicted among non-blacks MDRD (S/P/Bld) [Vol rate/Area] 68 mL/min/{1.73_m2} Normal >60 [facility] Comment on above: Result Comment: Non- GFR Calc Performed By: #### L 500.4050, L100.0100, L501.9520, L506.1000 ####[facility] [address] [place], [address] Globulin (S) [Mass/Vol] 4.3 g/dL High 2.2-4.2 [facility] Comment on above: Performed By: #### L 500.4050, L100.0100, L501.9520, L506.1000 ####[facility] [address] [place], [address] Glucose [Mass/Vol] 120 mg/dL High 74-106 [facility] Comment on above: Result Comment: Fast ing Glucose result from 100 to 125 mg/dL suggests IMPAIRED HOMEOSTASIS per A.D.A. criteria. Performed By: #### L 500.4050, L100.0100, L501.9520, L506.1000 ####[facility] [address] [place], [address] Potassium [Moles/Vol] 4.0 mmol/L Normal 3.5-5.1 [facility] Comment on above: Performed By: #### L 500.4050, L100.0100, L501.9520, L506.1000 ####[facility] [address] [place], [address] Sodium [Moles/Vol] 140 mmol/L Normal 136-145 [facility] Comment on above: Performed By: #### L 500.4050, L100.0100, L501.9520, L506.1000 ####[facility] [address] [place], [address] T PROT 7.8 g/dL Normal 6.4-8.2 [facility] Comment on above: Performed By: #### L 500.4050, L100.0100, L501.9520, L506.1000 ####[facility] [address] [place], [address] Urea nitrogen [Mass/Vol] 15 mg/dL Normal 7-18 [facility] Comment on above: Performed By: #### L 500.4050, L100.0100, L501.9520, L506.1000 ####[facility] [address] [place], [address] Eosinophil percentageOrdered By: Reese Hicks on 12-09-2024 Eosinophils/100 WBC (Bld) 1.0 % 0-5 [facility] Erythrocyte distribution wid th ratioOrdered By: Reese Hicks on 12-09-2024 Erythrocyte distribution width (RBC) [Ratio] 12.7 % 11.6-14.6 [facility] Erythrocyte distribution wid th standard deviationOrdered By: Reese Hicks on 12-09-2024 Erythrocyte distribution width (RBC) [Ratio] 40.6 fl 35.1-43.9 [facility] Glomerular filtration rate ( GFR) estimationOrdered By: Reese Hicks on 12-09-2024 GFR/1.73 sq M.predicted among non-blacks MDRD (S/P/Bld) [Vol rate/Area] 68 mL/min/{1.73_m2} >60 [facility] Comment on above: Non- GFR Calc Glucose measurementOrdered B y: Reese Hicks on 12-09-2024 Glucose [Mass/Vol] 120 mg/dL High 74-106 [facility] Comment on above: Fasting Glucose resu lt from 100 to 125 mg/dL suggests IMPAIRED HOMEOSTASIS per A.D.A. criteria. Hematocrit Auto (Bld) [Volum e fraction]Ordered By: Reese Hicks on 12-09-2024 Hematocrit (Bld) [Volume fraction] 40.0 % 37-47 [facility] Hemoglobin measurementOrdere d By: Reese Hicks on 12-09-2024 Hemoglobin (Bld) [Mass/Vol] 12.7 g/dL 12.0-15.0 [facility] Immature granulocytes/100 WB C Auto (Bld)Ordered By: Reese Hicks on 12-09-2024 Immature granulocytes/100 WBC (Bld) 0.100 % 0.0-0.9 [facility] Comment on above: IG% - Immature Granu locytes (promyelocytes, myelocytes and metamyelocytes) > 1% indicates that a LEFT SHIFT is Present. Internal Medicine Office Vis iton 12-09-2024 Internal Medicine Office Visit [facility] [address] [place] [address] [place] [address] OFFICE VISIT Date of Service: 12/09/24 MR#: [id number] Acct: [id number] Name: BHARTI ADAIR Rep #: [id number] : 1960 Provider: Dr. Reese Ahuja own, DO Age/Sex: 63/F [place] [facility] [place]: Signed Intake Vital Signs 10/21/24 14:33 12/09/24 13:26 Height 5 ft 6 in 5 ft 6 in Weight: 176 lb 176 lb 6 oz BMI 28.4 28.4 BP 149/80 H 112/62 Blood Pressure Location Rt brachial Position Sitting Respiration 12 Pulse 88 Pulse Source Monitor Temp 97.2 F L Temp Source Temporal Pulse Oximetry (%) 96 Oxygen Delivery Method room air Intake Visit Reasons: ISSUES WITH LEFT HAND 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 Required: No Accompanied by: Self Is patient in pain?: No Allergies adhesive tape Allergy (Unknown, Verified 12/09/24 13:28) Rash Medications ???Medication ???Instructions ???Recorded ???Confirmed ???Type lorazepam 1 mg tablet 1 mg PO DAILY PRN anxiety #30 tabs 09/17/23 12/09/24 Rx pantoprazole 40 mg tablet,delayed See Rx Instructions .Route 09/17/23 12/09/24 Rx release .COMPLEX #90 tabs lorazepam 1 mg tablet 1 mg PO DAILY PRN anxiety #30 tabs 06/25/24 12/09/24 Rx Have you fallen in the past year?: No PFSH Medical History Wears glasses Post-menopausal Arthritis Fatty liver Easy bruising Migraine headache Non-smoker Leg cramps Chronic cough Sleep apnea Abdominal pain Hemorrhoid Diarrhea Acid reflux Depression History of anemia Anxiety Surgical History History of colonoscopy Family History Mother Dementia Diabetes Sister Diabetes Hypertension Social History Smoking Status: Never smoker alcohol intake: never substance use type: does not use caffeine: Yes what type of physical activity do you participate in: none seatbelt use: always do you feel safe at home: Yes additional social history: HPI HPI Details: BHARTI ADAIR, is a 63 F who presents to the office today for pain in her left middle finger and concerns about being fatigued. She says over the last several months she has been exceptionally tired more so than usual. She notices no difference in bowel or bladder function, however she does have of significant uterine prolapse and is scheduled to have surgery sometime in the spring. She is also having problems with heel spurs and will be seeing a electric truck crane operator next week for that problem. ROS Const Constitutional: No body ache, excessive sweating, fatigue, fever(s), frequent falls, headache(s), snoring, weakness, weight change, sleep problems or change in appetite Eyes Eyes: No blurry vision, change in vision, eye pain or Light sensitivity ENT ENT: No abnormal hearing, ear or mastoid pain, tinnitus, nasal congestion, headache(s), neck pain or sore throat Resp Respiratory: No cough, shortness of breath, snoring or wheezing Cardio Cardiology: No chest pain at rest, chest pain with exertion, excessive sweating, shortness of breath, dyspnea on exertion, lightheadedness, orthopnea or palpitations Gastro GI: No abdominal pain, change in bowel habits, constipation, cramping, diarrhea, nausea/dyspepsia or vomiting Genitourinary-Female: No burning urination, painful urination, urinary incontinence, urinary frequency, blood in urine, abnormal periods or pelvic pain Musc Musculoskeletal: Positive for other (left hand middle finger stiff); No abnormal gait, joint pain, back pain, limited range of motion, neck pain, numbness, stiffness, tingling or Arthritis Skin Skin: No dry skin, redness, lesions, itchy eyes, rash or wounds Neuro Neurology: No abnormal gait, abnormal hearing, abnormal speech, dizziness, weakness, frequent falls, headache(s), memory loss, numbness or tingling Psych Psychiatric: No anxiety, No change in appetite, No depression, No memory loss and No Thoughts of harming yourself/Others Endo Endocrine: No cold intolerance, excessive sweating, fatigue, flushing, heat intolerance, increased thirst/drinking, increased hunger or weight change Aller/Imm Allergy/Immunologic: No itchy eyes, seasonal allergy symptoms, hives or wheezing Dar/Lymp Hematologic/Lymphatic: No easy bleeding, easy bruising or enlarged lymph nodes Exam Const General: cooperative and healthy appearing Nutritional Appearance: average body habitus Orientation: oriented x3 HENMT Head: normal to inspection Ears: hearing grossly normal bilaterally Nose: external nose normal Face and sinus: normal facial exam Mouth: oral mucosae normal Teeth and gingiva: dentition normal Eyes General: appearance normal, both (more content not included)... Normal [facility] Laboratory - Chemistry and C hemistry - challengeOrdered By: Reese Hicks on 12-09-2024 AST [Catalytic activity/Vol] 20 U/L 15-37 [facility] MCV (mean corpuscular volume ) determinationOrdered By: Reese Hicks on 12-09-2024 MCV (RBC) [Entitic vol] 87.5 fL 81-99 [facility] Mean corpuscular hemoglobin (MCH) determinationOrdered By: Reese Hicks on 12-09-2024 MCH (RBC) [Entitic mass] 27.8 pg 27.0-32.0 [facility] Mean corpuscular hemoglobin concentration (MCHC) determinationOrdered By: Reese Hicks on 12-09-2024 MCHC (RBC) [Mass/Vol] 31.8 g/dL Low 32-36 [facility] Mean platelet volume determi nationOrdered By: Reese Hicks on 12-09-2024 Platelet mean volume (Bld) [Entitic vol] 9.0 fL 6.2-12.0 [facility] Monocyte percentageOrdered B y: Reese Hicks on 12-09-2024 Monocytes/100 WBC (Bld) 6.3 % 0-10 [facility] Neutrophil percentageOrdered By: Reese Hicks on 12-09-2024 Neutrophils/100 WBC (Bld) 60.6 % 47-70 [facility] Nucleated red blood cell per centageOrdered By: Reese Hicks on 12-09-2024 Nucleated RBC/100 WBC (Bld) [Ratio] 0 % 0-5 [facility] Platelet countOrdered By: Do vito Hicks on 12-09-2024 Platelets (Bld) [#/Vol] 341 10*3/uL 150-450 [facility] Potassium measurementOrdered By: Reese Hicks on 12-09-2024 Potassium [Moles/Vol] 4.0 mmol/L 3.5-5.1 [facility] RBC Auto (Bld) [#/Vol]Ordere d By: Reese Hicks on 12-09-2024 RBC (Bld) [#/Vol] 4.57 10*6/uL 4.2-5.4 [facility] Serum anion gap measurementO rdered By: Reese Hicks on 12-09-2024 Anion gap [Moles/Vol] 6 mmol/L 5-15 [facility] Serum globulin measurementOr dered By: Reese Hicks on 12-09-2024 Globulin (S) [Mass/Vol] 4.3 g/dL High 2.2-4.2 [facility] Serum or plasma alanine le otransferase (ALT) measurementOrdered By: Reese Hicks on 12-09-2024 ALT [Catalytic activity/Vol] 19 U/L 13-56 [facility] Serum or plasma albumin amilcar urement (mass/volume)Ordered By: Reese Hicks on 12-09-2024 Albumin [Mass/Vol] 3.5 g/dL 3.2-5.0 [facility] Serum or plasma alkaline phyllis sphatase measurementOrdered By: Reese Hicks 12-09-2024 ALP [Catalytic activity/Vol] 87 U/L 45-117 [facility] Serum or plasma calcium amilcar urement (mass/volume)Ordered By: Reese Hicks 12-09-2024 Calcium [Mass/Vol] 9.4 mg/dL 8.5-10.1 [facility] Serum or plasma creatinine m easurement (mass/volume)Ordered By: Reese Hicks on 12-09-2024 Creatinine [Mass/Vol] 0.89 mg/dL 0.55-1.02 [facility] Comment on above: The validity of the calculated GFR & GFRAA in patients over 70 years has not been determined. Clinical correlation is essential. Serum or plasma thyroid stim ulating hormone (TSH) measurement (units/volume)Ordered By: Reese Hicks on 12-09-2024 TSH Qn 0.756 uIU/mL 0.358-3.740 [facility] Serum or plasma urea nitroge n measurement (mass/volume)Ordered By: Reese Hicks on 12-09-2024 Urea nitrogen [Mass/Vol] 15 mg/dL 7-18 [facility] Sodium levelOrdered By: Gary Hicks on 12-09-2024 Sodium [Moles/Vol] 140 mmol/L 136-145 [facility] Thyroid Stim Hormone (TSH)on 12-09-2024 TSH 0.756 uIU/mL Normal 0.358-3.740 [facility] Comment on above: Performed By: #### L 500.4050, L100.0100, L501.9520, L506.1000 ####[facility] [address] [place], [place], [id number] Total proteinOrdered By: Savannah Hicks on 12-09-2024 Protein [Mass/Vol] 7.8 g/dL 6.4-8.2 [facility] Vitamin D,25 Hydroxyon 12-09 Vitamin D 25-OH 15.1 ng/mL Normal [facility] Comment on above: Result Comment: Tona min D 25(OH) Status Range Deficiency <20 ng/mL (50nmol/L) Insufficiency 20 - 30 ng/mL (50 - 75 nmol/L) Sufficiency 30 - 100 ng/mL (75 - 250 nmol/L) Toxicity >100 ng/mL (>250 nmol/L) Performed By: #### L 500.4050, L100.0100, L501.9520, L506.1000 ####[facility] [address] [place], [place], [address] White blood cell (WBC) count Ordered By: Reese Hicks on 12-09-2024 WBC (Bld) [#/Vol] 7.0 10*3/uL 4.4-11.0 [facility] Direct Service Professional Office Visit Reporton 10-21-2024 Direct Service Professional Office Visit Report [facility] [address], [address] [place] [address] OFFICE VISIT Date of Service: 10/21/24 MR#: [id number] Acct: [id number] Name: BHARTI ADAIR Rep #: [id number] : 1960 Provider: Dr. Aliya Brand DO Age/Sex: 63/F [place] [facility] [place]: Signed Intake Vital Signs 06/25/24 10:00 10/21/24 14:33 Height 5 ft 6 in 5 ft 6 in Weight: 169 lb 4 oz 176 lb BMI 27.3 28.4 BP 120/82 H 149/80 H Blood Pressure Location Lt brachial Position Sitting Respiration 16 Pulse 76 Pulse Source Monitor Temp 98.0 F Pulse Oximetry (%) 98 Oxygen Delivery Method room air Intake Visit Reasons: POSS PROLAPSE UTERUS JV PER REFERRAL (DR HICKS) 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 Required: No Is patient in pain?: No Allergies adhesive tape Allergy (Unknown, Verified 10/21/24 14:33) Rash Medications ???Medication ???Instructions ???Recorded ???Confirmed ???Type lorazepam 1 mg tablet 1 mg PO DAILY PRN anxiety #30 tabs 09/17/23 10/21/24 Rx pantoprazole 40 mg tablet,delayed See Rx Instructions .Route 09/17/23 10/21/24 Rx release .COMPLEX #90 tabs phenazopyridine 100 mg tablet 100 mg PO TID PRN pain #30 tabs 12/20/23 10/21/24 Rx lorazepam 1 mg tablet 1 mg PO DAILY PRN anxiety #30 tabs 06/25/24 10/21/24 Rx Is last menstrual period known: No Post menopausal: No Patient : No : No PFSH Medical History Wears glasses Post-menopausal Arthritis Fatty liver Easy bruising Migraine headache Non-smoker Leg cramps Chronic cough Sleep apnea Abdominal pain Hemorrhoid Diarrhea Acid reflux Depression History of anemia Anxiety Surgical History History of colonoscopy Family History Mother Dementia Diabetes Sister Diabetes Hypertension Social History (Updated 10/21/24 @ 14:40 by Kimberly Morelos) Smoking Status: Never smoker alcohol intake: never substance use type: does not use caffeine: Yes what type of physical activity do you participate in: none seatbelt use: always do you feel safe at home: Yes additional social history: HPI POSS PROLAPSE UTERUS JV PER REFERRAL (DR HICKS) Details: BHARTI ADAIR is a 63 year old , vaginal deliveries, who presents for vaginal hysterectomy consultation. She complains of having to push herself back up and has to strain often to have a bowel movement. She denies medical problems such as diabetes, high blood pressure, lupus, etc. She urinates often at night but denies incontinence unless she drinks a lot of water. She does not drink alcohol or use drugs. She is not interested in a pessary. Patient is sexually active very infrequently (every 2 months or less). She denies vaginal bleeding and stopped having periods when she was in her 40's History 3 Elective abortions Hx Para 3 Spontaneous abortions Hx # Term Pregnancies Ectopic pregnancies Hx # Pregnancies Multiple births # of living children Past Pregnancies Del. Date Name GA/Weeks Outcome Route Bth Weight Gen Labor Lgth Anesthesia Del Locatn Provider FOB Unknown Josh Unknown [place]ell Unknown Jamari ROS Const ROS Unobtainable: All systems reviewed are unremarkable except as noted in H Resp Resp: Reports system reviewed and no additional complaints, except as documented; Denies cough GI GI: Reports as per HPI Psych Psych: Reports system reviewed and no additional complaints, except as documented Exam Const General: cooperative, healthy appearing, comfortable and no acute distress Resp Effort Inspection: normal respiratory effort GI Inspection: normal to inspection Palpation: soft and no hepatosplenomegaly External Female Exam: normal appearance of the urethra Urethra: normal appearance of the urethra Speculum Exam - Vagina: normal appearance of the vagina Speculum Exam - Cervix: normal appearance of the cervix Bimanual Exam- Adnexa, other: normal adnexae, normal, rectocele (moderate to severe ), cystocele and vaginal apex descent Pelvic Support: normal, cystocele moderate, rectocele (moderate to severe ) severe and vaginal apex descent Skin General: no rashes or lesions noted Psych Appearance: grossly normal Speech and Movement: speech and movement normal Coding Level of Care Code Off vis,new,level 4 Diagnoses Pelvic organ prolapse quantification stage 3 rectocele N81.6 Assessment and Plan Assessment and Plan (1) Pelvic organ prolapse quantification stage 3 rectocele: Status: Acute Plan: recommend pelvic ultrasound and consultation with Dr. Pruett for combo surgery (TVH + rectocele and cys (more content not included)... Normal [facility] Basophil percentageOrdered B y: Hilary Nick on 12-20-2023 Basophil percentage 0-5 SEEN /hpf 0-5 [facility] Bilirubin Test strip Ql (U)O rdered By: Hilary Nick on 12-20-2023 Bilirubin Ql (U) Negative Negative [facility] Culture, urineOrdered By: Janna Nick on 12-20-2023 Bacteria identified Cx Nom (U) Culture exhibits no growth. [facility] Ketones Test strip Ql (U)Ord ered By: Hilary Nick on 12-20-2023 Ketones Ql (U) 5 mg/dl Negative [facility] Laboratory - Chemistry and C hemistry - challengeOrdered By: Hilary Nick on 12-20-2023 Cobalamin (Vitamin B12) [Mass/Vol] 356 pg/mL 211-911 [facility] Laboratory - Chemistry and C hemistry - challengeon 12-20-2023 Bilirubin Ql (U) Small (1+) [facility] Glucose Ql (U) Negative [facility] Ketones Ql (U) Negative [facility] pH (U) 5.0 [pH] [facility] Specific gravity (U) [Rel density] 1.030 [facility] Urobilinogen (U) [Mass/Vol] 0.4608805 mg/dL [facility] Laboratory - Hematology and Cell countson 12-20-2023 Hemoglobin Ql (U) Trace [facility] Laboratory - Specimen inform ationon 12-20-2023 Clarity (U) Clear [facility] Color (U) Yellow [facility] Laboratory - Urinalysison Nitrite Ql (U) Negative [facility] Protein Ql (U) Trace [facility] Mucus LM Ql (Urine sed)Order ed By: Hilary Nick on 12-20-2023 Mucus Ql (Urine sed) 0 SEEN /hpf [facility] Nitrite Test strip Ql (U)Ord ered By: Hilary Nick on 12-20-2023 Nitrite Ql (U) Negative Negative [facility] No Panel InformationOrdered By: Hilary Nick on 12-20-2023 Urine RBC 0 SEEN /hpf 0-5 [facility] No Panel Informationon 12-20 Urine Leukocytes Positive [facility] Urine Non-Hemolyzed Blood Non-Hemolyzed [facility] Protein Test strip Ql (U)Ord ered By: Hilary Nick on 12-20-2023 Protein Ql (U) 15 mg/dl Negative [facility] Squamous epithelial cells de tection in urine sediment by light microscopyOrdered By: Hilary Nick on 12-20-2023 Epithelial cells.squamous LM Ql (Urine sed) 0-5 SEEN /hpf 5-10 [facility] Urine blood detectionOrdered By: Hilary Nick on 12-20-2023 RBC Ql (U) 10 /ul Negative [facility] Urine clarityOrdered By: Susanne Nick on 12-20-2023 Clarity (U) Clear Clear [facility] Urine color determinationOrd ered By: Hilary Nick on 12-20-2023 Color (U) Yellow Yellow [facility] Urine glucose detectionOrder ed By: Hilary Nick on 12-20-2023 Glucose Ql (U) Normal mg/dl Normal [facility] Urine leukocyte esterase det ection by dipstickOrdered By: Hilary Nick on 12-20-2023 Leukocyte esterase Test strip Ql (U) 100 /ul Negative [facility] Urine pHOrdered By: Hilary de paz on 12-20-2023 pH (U) 5.0 [pH] 5.0 - 8.0 [facility] Urine sediment bacteria coun t by microscopy (number/high power field)Ordered By: Hilary Nick on 12-20-2023 Bacteria LM.HPF (Urine sed) [#/Area] 0 /[HPF] None Seen [facility] Urine specific gravity measu rementOrdered By: Hilary Park on 12-20-2023 Specific gravity (U) [Rel density] 1.025 1.002-1.030 [facility] Urine urobilinogen measureme ntOrdered By: Hilary Park on 12-20-2023 Urobilinogen Ql (U) Normal mg/dl Normal [facility] .Auto Diffon 11-21-2023 Basophil, Absolute 0.1 10 3/mcL Normal 0.0-0.2 [facility] ([place]) Comment on above: Performed By: #### A ALICE, CBC, ADIFF, TROPHS, GFR, MDW, BMP #### [address] [address] Basophils/100 WBC (Bld) 0.6 % Normal 0.0-2.5 [facility] ([place]) Comment on above: Performed By: #### A ALICE, CBC, ADIFF, TROPHS, GFR, MDW, BMP #### [address] [address] Eosinophil, Absolute 0.1 10 3/mcL Normal 0.0-0.4 [facility] ([place]) Comment on above: Performed By: #### A ALICE, CBC, ADIFF, TROPHS, GFR, MDW, BMP #### [address] [address] Eosinophils/100 WBC (Bld) 0.6 % Normal 0.0-7.0 [facility] ([place]) Comment on above: Performed By: #### A ALICE, CBC, ADIFF, TROPHS, GFR, MDW, BMP #### [address] [address] Lymphocyte, Absolute 2.1 10 3/mcL Normal 0.8-3.9 [facility] ([place]) Comment on above: Performed By: #### A ALICE, CBC, ADIFF, TROPHS, GFR, MDW, BMP #### [address] [address] Lymphocytes/100 WBC (Bld) 18.1 % Normal 10.0-50.0 [facility] ([place]) Comment on above: Performed By: #### A ALICE, CBC, ADIFF, TROPHS, GFR, MDW, BMP #### [address] [address] Monocyte, Absolute 0.9 10 3/mcL Normal 0.2-1.0 [facility] ([place]) Comment on above: Performed By: #### A ALICE, CBC, ADIFF, TROPHS, GFR, MDW, BMP #### [address] [address] Monocytes/100 WBC (Bld) 8.1 % Normal 1.7-13.0 [facility] ([place]) Comment on above: Performed By: #### A ALICE, CBC, ADIFF, TROPHS, GFR, MDW, BMP #### [address] [address] Neutrophils/100 WBC (Bld) 72.6 % Normal 37.0-80.0 [facility] ([place]) Comment on above: Performed By: #### A ALICE, CBC, ADIFF, TROPHS, GFR, MDW, BMP #### [address] [address] .GFRon 11-21-2023 GFR 69 ml/min/1.73sqm Normal [facility] ([place]) Comment on above: Result Comment: GFR Population mean for , Non- Americans Ages 20-29 = 116 mL/min/1.73 sq.m. Ages 30-39 = 107 mL/min/1.73 sq.m. Ages 40-49 = 99 mL/min/1.73 sq.m. Ages 50-59 = 93 mL/min/1.73 sq.m. Ages 60-69 = 85 mL/min/1.73 sq.m. Ages 70+ = 75 mL/min/1.73 sq.m. Chronic Kidney Disease: Less than 60 mL/min/1.73 square meters End Stage Renal Disease: Less than 15 mL/min/1.73 square meters Performed By: #### T ROPHS, ADIFF, GFR, CBC, BMP, ANEU, MDW #### [address] [address] GFR Non- 57 ml/min/1.73sqm Normal [facility] ([place]) Comment on above: Result Comment: GFR Population mean for , Non- Americans Ages 20-29 = 116 mL/min/1.73 sq.m. Ages 30-39 = 107 mL/min/1.73 sq.m. Ages 40-49 = 99 mL/min/1.73 sq.m. Ages 50-59 = 93 mL/min/1.73 sq.m. Ages 60-69 = 85 mL/min/1.73 sq.m. Ages 70+ = 75 mL/min/1.73 sq.m. Chronic Kidney Disease: Less than 60 mL/min/1.73 square meters End Stage Renal Disease: Less than 15 mL/min/1.73 square meters Performed By: #### T BRII, ADIFF, GFR, CBC, BMP, ANEU, MDW #### [address] [address] .MDWon 11-21-2023 Monocyte Distribution Width 16.74 Normal 0.00-20.00 [facility] ([place]) Comment on above: Result Comment: For ED adult patients suspected of sepsis, MDW<=20.0 does not rule out sepsis or risk of sepsis Performed By: #### T BRII, ADIFF, GFR, CBC, BMP, ANEU, MDDanyelle #### [address] [address] .NEUABSon 11-21-2023 Neutrophil, Absolute 8.2 10 3/mcL High 2.9-6.2 [facility] ([place]) Comment on above: Performed By: #### T ROPHS, ADIFF, GFR, CBC, BMP, ANEU, MDW #### [address] [address] BMPon 11-21-2023 BUN/Creatinine Ratio 11 ratio Normal 7-27 [facility] ([place]) Comment on above: Performed By: #### T ROPHS, ADIFF, GFR, CBC, BMP, ANEU, MDW #### [address] [address] Calcium [Mass/Vol] 8.7 mg/dL Normal 8.4-10.2 [facility] ([place]) Comment on above: Performed By: #### T GIRISH TERESAIFF, GFR, CBC, IONA, ALBER BOSCH #### [address] [address] Chloride [Moles/Vol] 101 mmol/L Normal 98-107 [facility] ([place]) Comment on above: Performed By: #### T BRII, ADIFF, GFR, CBC, BMP, ALBER BOSCH #### [address] [address] CO2 [Moles/Vol] 24 mmol/L Normal 23-31 [facility] ([place]) Comment on above: Performed By: #### T BRII, ADIFF, GFR, CBC, BMP, ALBER BOSCH #### [address] [address] Creatinine [Mass/Vol] 0.98 mg/dL Normal 0.55-1.02 [facility] ([place]) Comment on above: Performed By: #### T EMILY TERESA, GFR, CBC, IONA, ALBER BOSCH #### [address] [address] Electrolyte Balance 12.0 mEq/L Normal 4.0-15.0 [facility] ([place]) Comment on above: Performed By: #### T GIRISH TERESAIFF, GFR, CBC, IONA, ALBER BOSCH #### [address] [address] Glucose [Mass/Vol] 149 mg/dL High 80-115 [facility] ([place]) Comment on above: Performed By: #### T BRII, ADIFF, GFR, CBC, IONA, ALBER BOSCH #### [address] [address] Potassium [Moles/Vol] 3.6 mmol/L Normal 3.5-5.1 [facility] ([place]) Comment on above: Performed By: #### T BRII, ADIFF, GFR, CBC, BMP, ALBER BOSCH #### [address] [address] Sodium [Moles/Vol] 137 mmol/L Normal 136-145 [facility] ([place]) Comment on above: Performed By: #### T ROPHS, ADIFF, GFR, CBC, BMP, MD HIROW #### [address] [address] Urea nitrogen [Mass/Vol] 11 mg/dL Normal 7-18 [facility] ([place]) Comment on above: Performed By: #### T ROPHS, ADIFF, GFR, CBC, BMP, MD HIROW #### [address] [address] CBCon 11-21-2023 Erythrocyte distribution width (RBC) [Ratio] 13.9 % Normal 11.5-14.5 [facility] ([place]) Comment on above: Performed By: #### A ALICE, CBC, ADIFF, TROPHS, GFR, MDW, BMP #### [address] [address] Hematocrit (Bld) [Volume fraction] 37.8 % Normal 37.0-47.0 [facility] ([place]) Comment on above: Performed By: #### A ALICE, CBC, ADIFF, TROPHS, GFR, MDW, BMP #### [address] [address] Hgb 12.8 G/dL Normal 12.0-16.0 [facility] ([place]) Comment on above: Performed By: #### A ALICE, CBC, ADIFF, TROPHS, GFR, MDW, BMP #### [address] [address] MCH (RBC) [Entitic mass] 29.1 pg Normal 27.0-31.2 [facility] ([place]) Comment on above: Performed By: #### A ALICE, CBC, ADIFF, TROPHS, GFR, MDW, BMP #### [address] [address] MCHC 33.8 G/dL Normal 33.0-37.0 [facility] ([place]) Comment on above: Performed By: #### A ALICE, CBC, ADIFF, TROPHS, GFR, MDW, BMP #### [address] [address] MCV (RBC) [Entitic vol] 86.0 fL Normal 80.0-94.0 [facility] ([place]) Comment on above: Performed By: #### A ALICE, CBC, ADIFF, TROPHS, GFR, MDW, BMP #### [address] [address] Platelet 311 10 3/mcL Normal 130-400 [facility] ([place]) Comment on above: Performed By: #### A ALICE, CBC, ADIFF, TROPHS, GFR, MDW, BMP #### [address] [address] Platelet mean volume (Bld) [Entitic vol] 6.5 fL Low 7.4-10.4 [facility] ([place]) Comment on above: Performed By: #### A ALICE, CBC, ADIFF, TROPHS, GFR, MDW, BMP #### [address] [address] RBC 4.40 10 6/mcL Normal 4.20-5.40 [facility] ([place]) Comment on above: Performed By: #### A ALICE, CBC, ADIFF, TROPHS, GFR, MDW, BMP #### [address] [address] WBC 11.4 10 3/mcL High 4.6-10.8 [facility] ([place]) Comment on above: Performed By: #### A ALICE, CBC, ADIFF, TROPHS, GFR, MDW, BMP #### [address] [address] LABORATORYOrdered By: SYSTEM SYSTEM on 11-21-2023 Basophil, Absolute 0.1 103/mcL Normal 0.0 - 0.2 10^3/mcL AO Workflow SS Basophils/100 WBC (Bld) 0.6 % Normal 0.0 - 2.5 % AO Workflow SS Calcium [Mass/Vol] 8.7 mg/dL Normal 8.4 - 10. 2 mg/dL AO ADM SS Chloride [Moles/Vol] 101 mmol/L Normal 98 - 10 7 mmol/L AO ADM SS CO2 [Moles/Vol] 24 mmol/L Normal 23 - 31 mmol/L AO ADM SS Creatinine [Mass/Vol] 0.98 mg/dL Normal 0.55 - 1.02 mg/dL AO ADM SS Electrolyte Balance 12.0 mEq/L Normal 4.0 - 15 .0 mEq/L AO ADM SS Eosinophil, Absolute 0.1 103/mcL Normal 0.0 - 0 .4 10^3/mcL AO Workflow SS Eosinophils/100 WBC (Bld) 0.6 % Normal 0.0 - 7.0 % AO Workflow SS Erythrocyte distribution width (RBC) [Ratio] 13.9 % Normal 11.5 - 14.5 % AO Workflow SS GFR/1.73 sq M.predicted among blacks MDRD (S/P/Bld) [Vol rate/Area] 69 ml/min/1.73sqm Invalid Interpretation Code AO Chemistry S Comment on above: Interpretive Data: GFR Population mean for , Non- Americans Ages 20-29 = 116 mL/min/1.73 sq.m. Ages 30-39 = 107 mL/min/1.73 sq.m. Ages 40-49 = 99 mL/min/1.73 sq.m. Ages 50-59 = 93 mL/min/1.73 sq.m. Ages 60-69 = 85 mL/min/1.73 sq.m. Ages 70+ = 75 mL/min/1.73 sq.m. Chronic Kidney Disease: Less than 60 mL/min/1.73 square meters End Stage Renal Disease: Less than 15 mL/min/1.73 square meters GFR/1.73 sq M.predicted among non-blacks MDRD (S/P/Bld) [Vol rate/Area] 57 ml/min/1.73sqm Invalid Interpretation Code AO Chemistry S Comment on above: Interpretive Data: GFR Population mean for , Non- Americans Ages 20-29 = 116 mL/min/1.73 sq.m. Ages 30-39 = 107 mL/min/1.73 sq.m. Ages 40-49 = 99 mL/min/1.73 sq.m. Ages 50-59 = 93 mL/min/1.73 sq.m. Ages 60-69 = 85 mL/min/1.73 sq.m. Ages 70+ = 75 mL/min/1.73 sq.m. Chronic Kidney Disease: Less than 60 mL/min/1.73 square meters End Stage Renal Disease: Less than 15 mL/min/1.73 square meters Glucose [Mass/Vol] 149 mg/dL High 80 - 115 mg/dL AO ADM SS Hematocrit (Bld) [Volume fraction] 37.8 % Normal 37.0 - 47.0 % AO Workflow SS Hemoglobin (Bld) [Mass/Vol] 12.8 G/dL Normal 12.0 - 16.0 G/dL AO Workflow SS Lymphocyte, Absolute 2.1 103/mcL Normal 0.8 - 3 .9 10^3/mcL AO Workflow SS Lymphocytes/100 WBC (Bld) 18.1 % Normal 10.0 - 50.0 % AO Workflow SS MCH (RBC) [Entitic mass] 29.1 pg Normal 27.0 - 31.2 pg AO Workflow SS MCHC 33.8 G/dL Normal 33.0 - 37.0 G/dL AO Workflow SS MCV (RBC) [Entitic vol] 86.0 fL Normal 80.0 - 94.0 fL AO Workflow SS Monocyte distribution width Auto (Bld) [Entitic vol] 16.74 1 Normal 0.00 - 20.00 AO Workflow SS Comment on above: Result Comment: For ED adult patients suspected of sepsis, MDW<=20.0 does not rule out sepsis or risk of sepsis Monocyte, Absolute 0.9 103/mcL Normal 0.2 - 1.0 10^3/mcL AO Workflow SS Monocytes/100 WBC (Bld) 8.1 % Normal 1.7 - 13.0 % AO Workflow SS Neutrophil, Absolute 8.2 103/mcL High 2.9 - 6 .2 10^3/mcL AO Workflow SS Neutrophils/100 WBC (Bld) 72.6 % Normal 37.0 - 80.0 % AO Workflow SS Platelet mean volume (Bld) [Entitic vol] 6.5 fL Low 7.4 - 10.4 fL AO Workflow SS Platelets (Bld) [#/Vol] 311 103/mcL Normal 130 - 400 10^3/mcL AO Workflow SS Potassium [Moles/Vol] 3.6 mmol/L Normal 3.5 - 5.1 mmol/L AO ADM SS RBC (Bld) [#/Vol] 4.40 106/mcL Normal 4.20 - 5.4 0 10^6/mcL AO Workflow SS Sodium [Moles/Vol] 137 mmol/L Normal 136 - 145 mmol/L AO ADM SS Troponin I.cardiac DL <= 0.01 ng/mL [Mass/Vol] 8.2 ng/L Normal 0.0 - 51.4 ng/L AO ADM SS Urea nitrogen [Mass/Vol] 11 mg/dL Normal 7 - 18 mg/dL AO ADM SS Urea nitrogen/Creatinine [Mass ratio] 11 ratio Normal 7 - 27 ratio AO ADM SS WBC (Bld) [#/Vol] 11.4 103/mcL High 4.6 - 10.8 10^3/mcL AO Workflow SS TROPHSon 11-21-2023 Troponin I High Sensitivity 8.2 ng/L Normal 0.0-51.4 [facility] ([place]) Comment on above: Performed By: #### T ROPHS, ADIFF, GFR, CBC, BMP, ANEU, MDW #### [id number] [place], [place] [address] XR CHEST 1 VIEWon 11-21-2023 XR CHEST 1 VIEW ORIGINAL EXAMINATION: ONE XRAY VIEW OF THE [...] Date: 11/21/2023 1:31:21 AM [facility] SHOULDER MINIMUM 2 VIEWS LEFTon 11-21-2023 XR SHOULDER MINIMUM 2 VIEWS LEFT ORIGINAL EXAMINATION: 4 XRAY VIEWS OF THE [...] Date: 11/21/2023 1:33:05 AM Ordering Provider: LIO CAO [facility] ([place]) .Auto Diffon 03-29-2023 Basophil, Absolute 0.1 10 3/mcL Normal 0.0-0.2 [facility]) Comment on above: Performed By: #### T ROPHS, ADIFF, GFR, CBC, BMP, ANEU, MDW #### [address] [address] Basophils/100 WBC (Bld) 0.9 % Normal 0.0-2.5 [facility] ([place]) Comment on above: Performed By: #### T ROPHS, ADIFF, GFR, CBC, BMP, ANEU, MDW #### [address] [address] Eosinophil, Absolute 0.2 10 3/mcL Normal 0.0-0.4 [facility] ([place]) Comment on above: Performed By: #### T ROPHS, ADIFF, GFR, CBC, BMP, ANEU, MDW #### [address] [address] Eosinophils/100 WBC (Bld) 1.5 % Normal 0.0-7.0 [facility] ([place]) Comment on above: Performed By: #### T ROPJENNIFER, ADIFF, GFR, CBC, BMP, ALBER BOSCH #### [address] [address] Lymphocyte, Absolute 2.6 10 3/mcL Normal 0.8-3.9 [facility] ([place]) Comment on above: Performed By: #### T ROPHS, ADIFF, GFR, CBC, BMP, ALBER BOSCH #### [address] [address] Lymphocytes/100 WBC (Bld) 25.6 % Normal 10.0-50.0 [facility] ([place]) Comment on above: Performed By: #### T ROPHS, ADIFF, GFR, CBC, BMP, ALBER BOSCH #### [address] [address] Monocyte, Absolute 0.7 10 3/mcL Normal 0.2-1.0 [facility] ([place]) Comment on above: Performed By: #### T BRII, ADIFF, GFR, CBC, IONA, ALBER BOSCH #### [address] [address] Monocytes/100 WBC (Bld) 7.4 % Normal 1.7-13.0 [facility] ([place]) Comment on above: Performed By: #### T ROPJENNIFER, ADIFF, GFR, CBC, BMP, ALBER BOSCH #### [address] [address] Neutrophils/100 WBC (Bld) 64.6 % Normal 37.0-80.0 [facility] ([place]) Comment on above: Performed By: #### T ROPHS, ADIFF, GFR, CBC, BMP, ALBER BOSCH #### [address] [address] .GFRon 03-29-2023 GFR 77 ml/min/1.73sqm Normal [facility] ([place]) Comment on above: Result Comment: GFR Population mean for , Non- Americans Ages 20-29 = 116 mL/min/1.73 sq.m. Ages 30-39 = 107 mL/min/1.73 sq.m. Ages 40-49 = 99 mL/min/1.73 sq.m. Ages 50-59 = 93 mL/min/1.73 sq.m. Ages 60-69 = 85 mL/min/1.73 sq.m. Ages 70+ = 75 mL/min/1.73 sq.m. Chronic Kidney Disease: Less than 60 mL/min/1.73 square meters End Stage Renal Disease: Less than 15 mL/min/1.73 square meters Performed By: #### T BRII, ADIFF, GFR, CBC, BMP, ALBER BOSCH #### Darshan [address] [address] GFR Non- 63 ml/min/1.73sqm Normal [facility] ([place]) Comment on above: Result Comment: GFR Population mean for , Non- Americans Ages 20-29 = 116 mL/min/1.73 sq.m. Ages 30-39 = 107 mL/min/1.73 sq.m. Ages 40-49 = 99 mL/min/1.73 sq.m. Ages 50-59 = 93 mL/min/1.73 sq.m. Ages 60-69 = 85 mL/min/1.73 sq.m. Ages 70+ = 75 mL/min/1.73 sq.m. Chronic Kidney Disease: Less than 60 mL/min/1.73 square meters End Stage Renal Disease: Less than 15 mL/min/1.73 square meters Performed By: #### T ROPHS, ADIFF, GFR, CBC, BMP, ALBER BOSCH #### Darshan [address] [address] .MDWon 03-29-2023 Monocyte Distribution Width 16.18 Normal 0.00-20.00 [facility] ([place]) Comment on above: Result Comment: For ED adult patients suspected of sepsis, MDW<=20.0 does not rule out sepsis or risk of sepsis Performed By: #### T ROPHS, ADIFF, GFR, CBC, BMP, ANEUALBER #### [address] [address] .NEUABSon 03-29-2023 Neutrophil, Absolute 6.5 10 3/mcL High 2.9-6.2 [facility] ([place]) Comment on above: Performed By: #### T BRII, ADIFF, GFR, CBC, BMP, ALBER BOSCH #### [address] [address] BMPon 03-29-2023 BUN/Creatinine Ratio 13 ratio Normal 7-27 [facility] ([place]) Comment on above: Performed By: #### T BRII, ADIFF, GFR, CBC, BMP, ALBER BOSCH #### [address] [address] Calcium [Mass/Vol] 8.6 mg/dL Normal 8.4-10.2 [facility] ([place]) Comment on above: Performed By: #### T BRII, ADIFF, GFR, CBC, BMP, ALBER BOSCH #### [address] [address] Chloride [Moles/Vol] 105 mmol/L Normal 98-107 [facility] ([place]) Comment on above: Performed By: #### T BRII, ADIFF, GFR, CBC, BMP, ALBER BOSCH #### [address] [address] CO2 [Moles/Vol] 28 mmol/L Normal 23-31 [facility] ([place]) Comment on above: Performed By: #### T BRII, ADIFF, GFR, CBC, BMP, ALBER BOSCH #### [address] [address] Creatinine [Mass/Vol] 0.90 mg/dL Normal 0.55-1.02 [facility] ([place]) Comment on above: Performed By: #### T ROPJENNIFER, ADIFF, GFR, CBC, BMP, ALBER BOSCH #### [address] [address] Electrolyte Balance 9.0 mEq/L Normal 4.0-15.0 [facility] ([place]) Comment on above: Performed By: #### T BRII, ADIFF, GFR, CBC, IONA, ALBER BOSCH #### [address] [address] Glucose [Mass/Vol] 118 mg/dL High 80-115 [facility] ([place]) Comment on above: Performed By: #### T ROPHS, ADIFF, GFR, CBC, IONA, ALBER BOSCH #### [address] [address] Potassium [Moles/Vol] 4.0 mmol/L Normal 3.5-5.1 [facility] ([place]) Comment on above: Performed By: #### T BRII, ADIFF, GFR, CBC, BMP, ALBER BOSCH #### [address] [address] Sodium [Moles/Vol] 142 mmol/L Normal 136-145 [facility] ([place]) Comment on above: Performed By: #### T FELICITYHS, ADIFF, GFR, CBC, IONA, ALBER BOSCH #### [address] [address] Urea nitrogen [Mass/Vol] 12 mg/dL Normal 7-18 [facility] ([place]) Comment on above: Performed By: #### T FELICITYHS, ADIFF, GFR, CBC, IONA, ALBER BOSCH #### [address] [address] CBCon 03-29-2023 Erythrocyte distribution width (RBC) [Ratio] 13.4 % Normal 11.5-14.5 [facility]) Comment on above: Performed By: #### T FELICITYHS, ADIFF, GFR, CBC, IONA, ALBER BOSCH #### [address] [address] Hematocrit (Bld) [Volume fraction] 38.0 % Normal 37.0-47.0 [facility] ([place]) Comment on above: Performed By: #### T ROPHS, ADIFF, GFR, CBC, BMP, ALBER BOSCH #### [address] [address] Hgb 12.8 G/dL Normal 12.0-16.0 [facility] ([place]) Comment on above: Performed By: #### T EMILY TERESA, GFR, CBC, BMP, ALBER BOSCH #### [address] [address] MCH (RBC) [Entitic mass] 29.0 pg Normal 27.0-31.2 [facility] ([place]) Comment on above: Performed By: #### T BRII, ADIFF, GFR, CBC, BMP, ALBER BOSCH #### [address] [address] MCHC 33.6 G/dL Normal 33.0-37.0 [facility] ([place]) Comment on above: Performed By: #### T BRII, EMILY, GFR, CBC, BMP, ALBER BOSCH #### [address] [address] MCV (RBC) [Entitic vol] 86.2 fL Normal 80.0-94.0 [facility] ([place]) Comment on above: Performed By: #### T EMILY TERESA, GFR, CBC, IONA, ALBER BOSCH #### [address] [address] Platelet 318 10 3/mcL Normal 130-400 [facility] ([place]) Comment on above: Performed By: #### T EMILY TERESA, GFR, CBC, BMP, ALBER BOSCH #### [address] [address] Platelet mean volume (Bld) [Entitic vol] 6.6 fL Low 7.4-10.4 [facility] ([place]) Comment on above: Performed By: #### T BRII ADIFF, GFR, CBC, BMP, ALBER BOSCH #### [address] [address] RBC 4.41 10 6/mcL Normal 4.20-5.40 [facility] ([place]) Comment on above: Performed By: #### T BRII, ADIFF, GFR, CBC, BMP, ALBER BOSCH #### [address] [address] WBC 10.0 10 3/mcL Normal 4.6-10.8 [facility] ([place]) Comment on above: Performed By: #### T BRII, ADIFF, GFR, CBC, BMP, ALBER BOSCH #### [address] [address] TROPHSon 03-29-2023 Troponin I High Sensitivity 8.1 ng/L Normal 0.0-51.4 [facility] ([place]) Comment on above: Performed By: #### T BRII #### [address] [address] Troponin I High Sensitivity 8.4 ng/L Normal 0.0-51.4 [facility] ([place]) Comment on above: Performed By: #### T BRII, ADIFF, GFR, CBC, IOAN, ALBER BOSCH #### [address] [address] XR CHEST 1 VIEWon 03-29-2023 XR CHEST 1 VIEW ORIGINAL EXAMINATION: ONE XRAY VIEW OF THE CHEST 03/29/2023 5:01 am COMPARISON: 05/20/2022 HISTORY: ORDERING SYSTEM PROVIDED HISTORY: Reason for Exam: chest pain FINDINGS: Normal cardiomediastinal silhouette. No focal consolidation, large pleural effusion pneumothorax. Bilateral scattered granulomas. No acute osseous findings. There are degenerative changes in the spine and shoulder joints. IMPRESSION: No acute radiographic findings. I have personally reviewed the images of this examination and agree with the resident's findings and interpretation. Interpreted by: Franco Veliz MD Preliminary Report By: Josefina Garcia Electronically signed By Franco Veliz MD Dictated Date: 03/29/2023 5:15:29 AM Prelim Date: 03/29/2023 5:25:48 AM Sign Date: 03/29/2023 5:52:29 AM Ordering Provider: LIO Kamara [facility] ([place]) XR SHOULDER MINIMUM 2 VIEWS LEFTon 03-29-2023 XR SHOULDER MINIMUM 2 VIEWS LEFT ORIGINAL EXAMINATION: 4 XRAY VIEWS OF THE LEFT SHOULDER 03/29/2023 5:02 am COMPARISON: None. HISTORY: ORDERING SYSTEM PROVIDED HISTORY: Reason for Exam: Left shoulder pain, no known injury. FINDINGS: No acute fracture or dislocation. Probable remote Hill-Sachs deformity. No radiopaque foreign body. No significant soft tissue or joint swelling. Head of humerus sits in the glenoid cavity. AC joint and coracoclavicular joint intervals are maintained. Mild degenerative changes at the AC joint. Included lung machado are unremarkable. Stable granuloma left hemithorax. IMPRESSION: No acute osseous findings. I have personally reviewed the images of this examination and agree with the resident's findings and interpretation. Interpreted by: Franco Veliz MD Preliminary Report By: Josefina Garcia Electronically signed By Franco Veliz MD Dictated Date: 03/29/2023 5:07:19 AM Prelim Date: 03/29/2023 5:15:17 AM Sign Date: 03/29/2023 5:51:06 AM Ordering Provider: LIO [facility] ([place]) Laboratory - Drug toxicology Ordered By: Jose Leone on 03-05-2023 Amphetamines Ql (U) Negative <1000 ng/mL [facility] Benzodiazepines Ql (U) Negative < 200 ng/mL [facility] Cannabinoids Screen Ql (U) Negative < 50 ng/mL [facility] Cocaine Ql (U) Negative < 300 ng/mL [facility] Opiates Ql (U) Negative < 300 ng/mL [facility] No Panel InformationOrdered By: Jose Leone on 03-05-2023 MDMA (Ecstasy) Screen Negative < 500 ng/mL [facility] Urine Barbiturates Screen Negative < 200 ng/mL [facility] Urine Drug Screen Comment [facility] Comment on above: CONFIRMATORY TESTING FOR ALL POSITIVE URINE DRUG SCREENRESULTS WILL ONLY BE SENT OUT UPON PHYSICIAN ORDER. VISTA Urine Drug Screen methods provide only preliminaryanalytical test results. A more specific alternate chemicalmethod must be used in order to obtain a confirmedanalytical result. Gas chromatography/mass spectrometery(GC/MS) is the preferred confirmatory method. Clinicalconsideration and professional judgement should be appliedto any drug of abuse test result, particularly whenpreliminary positive results are used. URINE TCA TESTING MUST BE ORDERED SEPARATELY. USE TESTMNEMONIC: [facility] Urine Methadone Screen Negative < 300 ng/mL [facility] Urine phencyclidine (PCP) de tectionOrdered By: Jose Leone on 03-05-2023 Phencyclidine Ql (U) Negative < 25 ng/mL [facility] [place] [facility] Absolute lymphocyte countOrd ered By: Jade Alessandrawilber on 11-14-2022 Lymphocytes Auto (Unsp spec) [#/Vol] 1.82 10*3/uL 0.83-4.51 [facility] Basophil percentageOrdered B y: Jadejennifer Castaneda on 11-14-2022 Basophils/100 WBC (Bld) 0.6 % 0-1 [facility] Bilirubin [Mass/Vol] 0.60 mg/dL 0.20-1.00 [facility] [place] [facility] Comment on above: For patients on eltr ombopag therapy, use of Dimension [place] TBIL is not recommended. Chloride [Moles/Vol] 111 mmol/L 98-107 [facility] [place] [facility] Cholesterol [Mass/Vol] 226 mg/dL <200 [facility] Comment on above: <200 mg/dL Desirable 200-240 mg/dL Borderline >240 mg/dL High Risk Eosinophils/100 WBC (Bld) 0.9 % 0-5 [facility] Glucose [Mass/Vol] 95 mg/dL 74-106 [facility] Neutrophils (Bld) [#/Vol] 4.7 10*3/uL 2.0-7.7 [facility] Neutrophils/100 WBC (Bld) 66.5 % 47-70 [facility] Potassium [Moles/Vol] 4.0 mmol/L 3.5-5.1 [facility] Protein [Mass/Vol] 7.6 g/dL 6.4-8.2 [facility] Sodium [Moles/Vol] 141 mmol/L 136-145 [facility] Triglyceride [Mass/Vol] 71 mg/dL <199 [facility] Comment on above: The drugs N-Acetylcy steine and Metamizole may falsely depress this assay.Serum Triglycerides Reference Interval Normal <150 mg/dL Borderline high 150 - 199 mg/dL High 200 - 499 mg/dL Very High > or = 500 mg/dL WBC (Bld) [#/Vol] 7.0 10*3/uL 4.4-11.0 [facility] Blood erythrocytes count (nu mber/volume)Ordered By: Jade Castaneda on 11-14-2022 RBC (Bld) [#/Vol] 4.59 10*6/uL 4.2-5.4 [facility] Blood hemoglobin measurement (mass/volume)Ordered By: Jade Castaneda on 11-14-2022 Hemoglobin (Bld) [Mass/Vol] 13.1 g/dL 12.0-15.0 [facility] Blood lymphocytes/100 leukoc ytesOrdered By: Jadejennifer Castaneda on 11-14-2022 Lymphocytes/100 WBC (Bld) 26.0 % 19-41 [facility] Blood monocytes/100 leukocyt esOrdered By: Jadejennifer Castaneda on 11-14-2022 Monocytes/100 WBC (Bld) 5.7 % 0-10 [facility] Blood platelet mean volumeOr dered By: Jade Castaneda on 11-14-2022 Platelet mean volume (Bld) [Entitic vol] 9.1 fL 6.2-12.0 [facility] Determination of erythrocyte mean corpuscular volume (MCV)Ordered By: Jade Castaneda on 11-14-2022 MCV (RBC) [Entitic vol] 89.3 fL 81-99 [facility] Hematocrit Auto (Bld) [Volum e fraction]Ordered By: Jade Castaneda on 11-14-2022 Hematocrit (Bld) [Volume fraction] 41.0 % 37-47 [facility] Laboratory - Chemistry and C hemistry - challengeOrdered By: Jade Castaneda on 11-14-2022 ALP [Catalytic activity/Vol] 84 U/L 45-117 [facility] ALT [Catalytic activity/Vol] 20 U/L 13-56 [facility] CO2 [Moles/Vol] 24.0 mmol/L 21.0-32.0 [facility] Globulin (S) [Mass/Vol] 4.0 g/dL 2.2-4.2 [facility] Urea nitrogen/Creatinine [Mass ratio] 13.2 mg/mg 10-20 [facility] Laboratory - Hematology and Cell countsOrdered By: Jade Castaneda on 11-14-2022 Erythrocyte distribution width (RBC) [Entitic vol] 41.1 fL 35.1-43.9 [facility] Erythrocyte distribution width (RBC) [Ratio] 12.5 % 11.6-14.6 [facility] Immature granulocytes/100 WBC (Bld) 0.300 % 0.0-0.9 [facility] Comment on above: IG% - Immature Granu locytes (promyelocytes, myelocytes and metamyelocytes) > 1% indicates that a LEFT SHIFT is Present. MCH (RBC) [Entitic mass] 28.5 pg 27.0-32.0 [facility] Nucleated RBC/100 WBC (Bld) [Ratio] 0 % 0-5 [facility] MCHC Auto (RBC) [Mass/Vol]Or dered By: Jade Castaneda on 11-14-2022 MCHC (RBC) [Mass/Vol] 32.0 g/dL 32-36 [facility] No Panel InformationOrdered By: Jade Castaneda on 11-14-2022 Estimated GFR (MDRD) Amer 89 mL/min >60 [facility] Comment on above: GFR Calc Estimated GFR (MDRD) Non-Af Amer 73 mL/min >60 [facility] Comment on above: Non- GFR Calc Thyroid Stimulating Hormone (TSH) 0.87 uIU/mL 0.358-3.74 [facility] Vitamin D 25-Hydroxy 20.5 ng/mL [facility] Comment on above: Vitamin D 25(OH) Sta tus Range Deficiency <20 ng/mL (50nmol/L) Insufficiency 20 - 30 ng/mL (50 - 75 nmol/L) Sufficiency 30 - 100 ng/mL (75 - 250 nmol/L) Toxicity >100 ng/mL (>250 nmol/L) Platelets bldOrdered By: Jagdish Castaneda on 11-14-2022 Platelets (Bld) [#/Vol] 343 10*3/uL 150-450 [facility] Serum or plasma albumin amilcar urement (mass/volume)Ordered By: Jade Castaneda on 11-14-2022 Albumin [Mass/Vol] 3.6 g/dL 3.2-5.0 [facility] Serum or plasma albumin/glob ulin mass ratioOrdered By: Jade [facility] center on 11-14-2022 Albumin/Globulin [Mass ratio] 0.9 {ratio} 0.9-2.4 [facility] Serum or plasma calcium amilcar urement (mass/volume)Ordered By: Jadejennifer Castaneda on 11-14-2022 Calcium [Mass/Vol] 9.1 mg/dL 8.5-10.1 [facility] Serum or plasma cholesterol in HDL measurement (mass/volume)Ordered By: Jdae [facility] on 11-14-2022 Cholesterol in HDL [Mass/Vol] 71 mg/dL >40 [facility] Comment on above: The drugs N-Acetylcy steine and Metamizole may falsely depress this assay. Reference Range HDL <40 mg/dL Low HDL Cholesterol HDL >or= 60 mg/dL High HDL Cholesterol Serum or plasma cholesterol in VLDL measurement (mass/volume)Ordered By: Jadejennifer Castaneda on 11-14-2022 Cholesterol in VLDL [Mass/Vol] 14 mg/dL 5-40 [facility] Serum or plasma creatinine m easurement (mass/volume)Ordered By: Jade [facility] on 11-14-2022 Creatinine [Mass/Vol] 0.84 mg/dL 0.55-1.02 [facility] Comment on above: The validity of the calculated GFR & GFRAA in patients over 70 years has not been determined. Clinical correlation is essential. Serum or plasma low density lipoprotein (LDL) cholesterol measurement (mass/volume)Ordered By: Jade [facility] on 11-14-2022 Cholesterol in LDL [Mass/Vol] 141 mg/dL 0-130 [facility] Serum or plasma urea nitroge n measurement (mass/volume)Ordered By: Jadesilvestre Castaneda on 11-14-2022 Urea nitrogen [Mass/Vol] 11 mg/dL 7-18 [facility] Thin prep Papanicolaou smear with manual screeningOrdered By: [facility] on 11-14-2022 Thin prep Papanicolaou smear with manual screening 17 U/L 15-37 [facility] Thin prep Papanicolaou smear with manual screening 6 5-15 [facility] Basophil percentageon 2021 Basophil percentage < 0.9 mg/dL 0.55-1.02 [facility] Work Phone: No Panel Informationon 07-02 Bedside Estimated GFR (eGFR) > 60.0000 mL/min >60 [facility] Work Phone: LABORATORYOrdered By: Daxa Mackenzie on 05-20-2022 ADMITTED TO INTENSIVE CARE UNIT FOR CONDITION OF INTEREST:FIND:PT:^PATIE NT:ORD: No (05/20/22 11:33 AM) Invalid Interpretation Code AO Auto Urine SS EMPLOYED IN A HEALTHCARE SETTING:FIND:PT:^PATIEN T:ORD: No (05/20/22 11:33 AM) Invalid Interpretation Code AO Auto Urine SS FIRST TEST FOR CONDITION OF INTEREST:FIND:PT:^PATIE NT:ORD: Unknown (05/20/22 11:33 AM) Invalid Interpretation Code AO Auto Urine SS FLUAV RNA KAEL+probe Ql (Upper resp) Negative (05/20/22 11:33 AM) Invalid Interpretation Code Negative AO Auto Urine SS FLUBV RNA KAEL+probe Ql (Upper resp) Negative (05/20/22 11:33 AM) Invalid Interpretation Code Negative AO Auto Urine SS HAS SYMPTOMS RELATED TO CONDITION OF INTEREST:FIND:PT:^PATIE NT:ORD: Yes (05/20/22 11:33 AM) Invalid Interpretation Code AO Auto Urine SS Illness or injury onset date and time [id number] Invalid Interpretation Code AO Auto Urine SS Patient was hospitalized because of this condition No (05/20/22 11:33 AM) Invalid Interpretation Code AO Auto Urine SS status Not (05/20/22 11:33 AM) Invalid Interpretation Code AO Auto Urine SS RESIDES IN A CONGREGATE CARE SETTING:FIND:PT:^PATIEN T:ORD: No (05/20/22 11:33 AM) Invalid Interpretation Code AO Auto Urine SS RSV RNA KAEL+probe Ql (Upper resp) Negative (05/20/22 11:33 AM) Invalid Interpretation Code Negative AO Auto Urine SS SARS-CoV-2 (COVID-19) RNA KAEL+probe Ql (Unsp spec) Positive results are indicative of the presence of SARS-CoV-2 RNA; clinical correlation with patient history and other diagnostic information is necessary to determine patient infection status. Positive results do not rule out bacterial infection or co-infection with other viruses. The agent detected may not be the definite cause of disease. Laboratories within the [facility] and its territories are required to report all positive results to the appropriate public health authorities.Detection of analyte target(s) does not imply that the corresponding virus(es) are infectious or are the causative agents for clinical symptoms.There is a risk of false positive values resulting from cross-contamination by target organisms, their nucleic acids or amplified product, or from non-specific signals in the assay.[employer] SARS-CoV-2 Assay is a Real-Time reverse-transcriptase polymerase chain reaction (RT-PCR) based qualitative in vitro diagnostic test intended for the qualitative detection of nucleic acid from the SARS-CoV-2 in nasopharyngeal swab specimens collected from individuals suspected of COVID-19 by their healthcare provider. Testing is limited to laboratories certified under the Clinical Laboratory Improvement Amendments of 1988 (CLIA), 42 U.S.C. 263a, to perform moderate and high complexity tests. Invalid Interpretation Code AO Auto Urine SS Absolute lymphocyte counton 04-11-2022 Lymphocytes Auto (Unsp spec) [#/Vol] 1.91 10*3/uL 0.83-4.51 [facility] Work Phone: Basophil percentageon 2021 Amylase [Catalytic activity/Vol] 111 U/L 25-115 [facility] Work Phone: Basophil percentage < 0.2 AI 0.0-0.9 [facility]: Basophils/100 WBC (Bld) 0.8 % 0-1 [facility] Work Phone: Bilirubin [Mass/Vol] 0.40 mg/dL 0.20-1.00 [facility] Work Phone: Comment on above: For patients on eltr ombopag therapy, use of Dimension [place] TBIL is not recommended. Chloride [Moles/Vol] 107 mmol/L 98-107 [facility] Work Phone: Eosinophils/100 WBC (Bld) 0.9 % 0-5 [facility] Work Phone: Glucose [Mass/Vol] 105 mg/dL 74-106 [facility] Work Phone: Comment on above: Fasting Glucose resu lt from 100 to 125 mg/dL suggests IMPAIRED HOMEOSTASIS per A.D.A. criteria. Neutrophils (Bld) [#/Vol] 4.8 10*3/uL 2.0-7.7 [facility] Work Phone: Neutrophils/100 WBC (Bld) 65.4 % 47-70 [facility] Work Phone: [phone] Potassium [Moles/Vol] 3.8 mmol/L 3.5-5.1 [facility] Work Phone: [phone] Protein [Mass/Vol] 7.9 g/dL 6.4-8.2 [facility] Work Phone: [phone] Sodium [Moles/Vol] 140 mmol/L 136-145 [facility] Work Phone: [phone] WBC (Bld) [#/Vol] 7.4 10*3/uL 4.4-11.0 [facility] Work Phone: [phone] Blood erythrocytes count (nu mber/volume)on 04-11-2022 RBC (Bld) [#/Vol] 4.75 10*6/uL 4.2-5.4 [facility] Work Phone: [phone] Blood hemoglobin measurement (mass/volume)on 04-11-2022 Hemoglobin (Bld) [Mass/Vol] 13.6 g/dL 12.0-15.0 [facility] Work Phone: Blood lymphocytes/100 leukoc yteson 04-11-2022 Lymphocytes/100 WBC (Bld) 25.8 % 19-41 [facility] Work Phone: Blood monocytes/100 leukocyt eson 04-11-2022 Monocytes/100 WBC (Bld) 6.8 % 0-10 [facility] Work Phone: Blood platelet mean volumeon 04-11-2022 Platelet mean volume (Bld) [Entitic vol] 9.1 fL 6.2-12.0 [facility] Work Phone: [phone] Determination of erythrocyte mean corpuscular volume (MCV)on 04-11-2022 MCV (RBC) [Entitic vol] 88.4 fL 81-99 [facility] Work Phone: [phone] Erythrocyte sedimentation ra marc 04-11-2022 ESR (Bld) [Velocity] 29 mm/h 0-30 [facility] Phone: [phone] Hematocrit Auto (Bld) [Volum e fraction]on 04-11-2022 Hematocrit (Bld) [Volume fraction] 42.0 % 37-47 [facility] Work Phone: [phone] Laboratory - Chemistry and C hemistry - challengeon 04-11-2022 ALP [Catalytic activity/Vol] 95 U/L 45-117 [facility] Work Phone: [phone] ALT [Catalytic activity/Vol] 21 U/L 13-56 [facility] Work Phone: [phone] CO2 [Moles/Vol] 27.0 mmol/L 21.0-32.0 [facility] Work Phone: [phone] Globulin (S) [Mass/Vol] 4.3 g/dL 2.2-4.2 [facility] Work Phone: [phone] Lipase [Catalytic activity/Vol] 143 U/L 73-393 [facility] Work Phone: [phone] Urea nitrogen/Creatinine [Mass ratio] 11.6 mg/mg 10-20 [facility] Work Phone: [phone] Laboratory - Hematology and Cell countson 04-11-2022 Erythrocyte distribution width (RBC) [Entitic vol] 39.8 fL 35.1-43.9 [facility] Work Phone: [phone] Erythrocyte distribution width (RBC) [Ratio] 12.3 % 11.6-14.6 [facility] Work Phone: [phone] Immature granulocytes/100 WBC (Bld) 0.300 % 0.0-0.9 [facility] Work Phone: [phone] Comment on above: IG% - Immature Granu locytes (promyelocytes, myelocytes and metamyelocytes) > 1% indicates that a LEFT SHIFT is Present. MCH (RBC) [Entitic mass] 28.6 pg 27.0-32.0 [facility] Work Phone: Nucleated RBC/100 WBC (Bld) [Ratio] 0 % 0-5 [facility] Work Phone: MCHC Auto (RBC) [Mass/Vol]on 04-11-2022 MCHC (RBC) [Mass/Vol] 32.4 g/dL 32-36 [facility] Work Phone: No Panel Informationon 04-11 Centromere B Antibody <0.2 AI 0.0-0.9 [facility] Work Phone: Endomysial IgA Antibody Negative Negative [facility] Work Phone: [phone] Estimated GFR (MDRD) Amer 76 mL/min >60 [facility] Work Phone: Comment on above: GFR Calc Estimated GFR (MDRD) Non-Af Amer 63 mL/min >60 [facility] Work Phone: Comment on above: Non- GFR Calc SCHEDULING CLERK Antibody <0.2 AI 0.0-0.9 [facility] Work Phone: Thyroid Stimulating Hormone (TSH) 1.06 uIU/mL 0.358-3.74 [facility] Work Phone: Platelets bldon 04-11-2022 Platelets (Bld) [#/Vol] 363 10*3/uL 150-450 [facility] Work Phone: Serum DNA double strand anti body assay (units/volume)on 04-11-2022 DNA double strand Ab Qn (S) [IU]/mL 0-9 [facility] Work Phone: Comment on above: Negative <5 Equivoca l 5 - 9 Positive >9 Serum IgA measurement (units /volume)on 04-11-2022 IgA Qn (S) 207 mg/dL 87-352 [facility] Work Phone: Comment on above: Performed at: [address] [id number] Director: Med [employer] PhD, Phone: [phone] Serum Wendy-1 antibody assay (u nits/volume)on 04-11-2022 Wendy-1 extractable nuclear Ab Qn (S) <0.2 AI 0.0-0.9 [facility] Work Phone: Serum Scl-70 extractable nuc lear antibody assay (units/volume)on 04-11-2022 SCL-70 extractable nuclear Ab Qn (S) <0.2 AI 0.0-0.9 [facility] Work Phone: Serum Velez extractable nucl ear antibody detectionon 04-11-2022 Velez extractable nuclear Ab Ql (S) <0.2 AI 0.0-0.9 [facility] Work Phone: Serum or plasma C reactive p rotein measurement (mass/volume)on 04-11-2022 CRP [Mass/Vol] 5.35 mg/L 0.0-3.0 [facility] Work Phone: Comment on above: C-Reactive Protein ( CRP) provides useful information for thediagnosis, therapy and monitoring of inflammatory processesand associated diseases. For the evaluation of Relative Riskfor Cardiovascular Disease, a High Sensitivity CRP (HSCRP)should be ordered. Serum or plasma albumin amilcar urement (mass/volume)on 04-11-2022 Albumin [Mass/Vol] 3.6 g/dL 3.2-5.0 [facility] Work Phone: Serum or plasma albumin/glob ulin mass ratioon 04-11-2022 Albumin/Globulin [Mass ratio] 0.8 {ratio} 0.9-2.4 [facility] Work Phone: Serum or plasma calcium amilcar urement (mass/volume)on 04-11-2022 Calcium [Mass/Vol] 9.3 mg/dL 8.5-10.1 [facility] Work Phone: Serum or plasma creatinine m easurement (mass/volume)on 04-11-2022 Creatinine [Mass/Vol] 0.95 mg/dL 0.55-1.02 [facility] Work Phone: Comment on above: The validity of the calculated GFR & GFRAA in patients over 70 years has not been determined. Clinical correlation is essential. Serum or plasma urea nitroge n measurement (mass/volume)on 04-11-2022 Urea nitrogen [Mass/Vol] 11 mg/dL 7-18 [facility] Work Phone: Serum tissue transglutaminas e IgA antibody assay (units/volume)on 04-11-2022 tTG IgA Qn (S) <2 U/mL 0-3 [facility] Work Phone: Comment on above: Negative 0 - 3 Weak Positive 4 - 10 Positive >10 Tissue Transglutaminase (tTG) has been identified as the endomysial antigen. Studies have demonstr- ated that endomysial IgA antibodies have over 99% specificity for gluten sensitive enteropathy. Thin prep Papanicolaou smear with manual screeningon 04-11-2022 Thin prep Papanicolaou smear with manual screening 20 U/L 15-37 [facility] Work Phone: Thin prep Papanicolaou smear with manual screening 6 5-15 [facility] Work Phone: Thin prep Papanicolaou smear with manual screening 200 U/L 84-246 [facility] Work Phone: Vital Signs Date Time Vital Sign Value Performing Clinician Facility 07-07-2025 13:19-0400 Body height 167.[address] Reese Hicks DO Work Phone: [facility] 07-07-2025 13:19-0400 Body mass index (BMI) [Ratio] 28.4 kg/m2 Dr. Reese Hicks DO Work Phone: [facility] 07-07-2025 13:19-040 Body temperature 97.8 [degF] Dr. Reese Hicks DO Work Phone: [facility] 07-07-2025 13:19-0400 Body weight 79.[address] Reese Hicks DO Work Phone: [facility] 07-07-2025 13:19-0400 Diastolic blood pressure 74 mm[Hg] Dr. Reese Hicks DO Work Phone: [facility] 07-07-2025 13:19-0400 Heart rate 81 /min Dr. Reese Hicks DO Work Phone: [facility] 07-07-2025 13:19-0400 Respiratory rate 18 /min Dr. Reese Hicks DO Work Phone: [facility] 07-07-2025 13:19-0400 SaO2% (BldA) [Mass fraction] 99 % Dr. Reese Hicks DO Work Phone: [facility] 07-07-2025 13:19-0400 Systolic blood pressure 118 mm[Hg] Dr. Reese Hicks DO Work Phone: [facility] 06-23-2025 13:30-0400 Body temperature 96.9 [degF] Dr. Reese Hicks DO Work Phone: [facility] 06-23-2025 13:30-0400 Diastolic blood pressure 70 mm[Hg] Dr. Reese Hicks DO Work Phone: [facility] 06-23-2025 13:30-0400 Heart rate 71 /min Dr. Reese Hicks DO Work Phone: [facility] 06-23-2025 13:30-0400 Respiratory rate 16 /min Dr. Reese Hicks DO Work Phone: [facility] 06-23-2025 13:30-0400 SaO2% (BldA) [Mass fraction] 96 % Dr. Reese Hicks DO Work Phone: [facility] 06-23-2025 13:30-0400 Systolic blood pressure 114 mm[Hg] Dr. Reese Hicks DO Work Phone: [facility] 06-23-2025 12:07-0400 Body height 167.[address] Reese Hicks DO Work Phone: [facility] 06-23-2025 12:07-0400 Body mass index (BMI) [Ratio] 28.4 kg/m2 Dr. Reese Hicks DO Work Phone: [facility] 06-23-2025 12:07-0400 Body weight [address] Reese Hicks DO Work Phone: [facility] 05-12-2025 11:42-0400 Body height 167.[address] Reese Hicks DO Work Phone: [facility] 05-12-2025 11:41-0400 Body mass index (BMI) [Ratio] 27.9 kg/m2 Dr. Reese Hicks DO Work Phone: [facility] 05-12-2025 11:41-0400 Body weight 78.[address] Reese Hicks DO Work Phone: [facility] 05-12-2025 11:41-0400 Diastolic blood pressure 76 mm[Hg] Dr. Reese Hicks DO Work Phone: [facility] 05-12-2025 11:41-0400 Systolic blood pressure 122 mm[Hg] Dr. Reese Hicks DO Work Phone: [facility] 04-09-2025 10:44-0400 Body height 167.[address] Reese Hicks DO Work Phone: [facility] 04-09-2025 10:44-0400 Body mass index (BMI) [Ratio] 28 kg/m2 Dr. Reese Hicks DO Work Phone: [facility] 04-09-2025 10:44-0400 Body weight 78.[address] Reese Hicks DO Work Phone: [facility] 04-09-2025 10:44-0400 Diastolic blood pressure 76 mm[Hg] Dr. Reese Hicks DO Work Phone: [facility] 04-09-2025 10:44-0400 Systolic blood pressure 136 mm[Hg] Dr. Reese Hicks DO Work Phone: [facility] 03-27-2025 11:36-0400 Body temperature 97.5 [degF] Dr. Reese Hicks DO Work Phone: [facility] 03-27-2025 11:36-0400 Diastolic blood pressure 63 mm[Hg] Dr. Reese Hicks DO Work Phone: [facility] 03-27-2025 11:36-0400 Heart rate 74 /min Dr. Reese Hicks DO Work Phone: [facility] 03-27-2025 11:36-0400 Respiratory rate 16 /min Dr. Reese Hicks DO Work Phone: [facility] 03-27-2025 11:36-0400 SaO2% (BldA) [Mass fraction] 95 % Dr. Reese Hicks DO Work Phone: [facility] 03-27-2025 11:36-0400 Systolic blood pressure 133 mm[Hg] Dr. Reese Hicks DO Work Phone: [facility] 03-27-2025 05:15-0400 Inhaled oxygen flow rate 2 L/min Dr. Reese Hicks DO Work Phone: [facility] 03-26-2025 16:03-0400 Body height 167.[address] Reese Hicks DO Work Phone: [facility] 03-26-2025 16:03-0400 Body mass index (BMI) [Ratio] 28.7 kg/m2 Dr. Reese Hicks DO Work Phone: [facility] 03-26-2025 16:03-0400 Body weight 80.[address] Reese Hicks DO Work Phone: [facility] 03-15-2025 10:55-0400 Body height 167.[address] Reese Hicks DO Work Phone: [facility] 03-15-2025 10:55-0400 Body mass index (BMI) [Ratio] 28.8 kg/m2 Dr. Reese Hicks DO Work Phone: [facility] 03-15-2025 10:55-0400 Body weight 80.[address] Reese Hicks DO Work Phone: [facility] 03-15-2025 10:55-0400 Diastolic blood pressure 87 mm[Hg] Dr. Reese Hicks DO Work Phone: [facility] 03-15-2025 10:55-0400 Systolic blood pressure 134 mm[Hg] Dr. Reese Hicks DO Work Phone: [facility] 12-17-2024 12:32-0500 Body mass index (BMI) [Ratio] 28.9 kg/m2 Dr. Reese Hicsk DO Work Phone: [facility] 12-17-2024 12:32-0500 Body temperature 96.7 [degF] Dr. Reese Hicks DO Work Phone: [facility] 12-17-2024 12:32-0500 Body weight 81.[address] Reese Hicks DO Work Phone: [facility] 12-17-2024 12:32-0500 Diastolic blood pressure 82 mm[Hg] Dr. Reese Hicks DO Work Phone: [facility] 12-17-2024 12:32-0500 Heart rate 85 /min Dr. Reese Hicks DO Work Phone: [facility] 12-17-2024 12:32-0500 Respiratory rate 16 /min Dr. Reese Hicks DO Work Phone: [facility] 12-17-2024 12:32-0500 SaO2% (BldA) [Mass fraction] 96 % Dr. Reese Hicks DO Work Phone: [facility] 12-17-2024 12:32-0500 Systolic blood pressure 132 mm[Hg] Dr. Reese Hicks DO Work Phone: [facility] 12-09-2024 13:26-0500 Body mass index (BMI) [Ratio] 28.4 kg/m2 Dr. Reese Hicks DO Work Phone: [facility] 12-09-2024 13:26-0500 Body temperature 97.2 [degF] Dr. Reese Hicks DO Work Phone: [facility] 12-09-2024 13:26-0500 Body weight [address] Reese Hicks DO Work Phone: [facility] 12-09-2024 13:26-0500 Diastolic blood pressure 62 mm[Hg] Dr. Reese Hicks DO Work Phone: [facility] 12-09-2024 13:26-0500 Heart rate 88 /min Dr. Reese Hicks DO Work Phone: [facility] 12-09-2024 13:26-0500 Respiratory rate 12 /min Dr. Reese Hicks DO Work Phone: [facility] 12-09-2024 13:26-0500 SaO2% (BldA) [Mass fraction] 96 % Dr. Reese Hicks DO Work Phone: [facility] 12-09-2024 13:26-0500 Systolic blood pressure 112 mm[Hg] Dr. Reese Hicks DO Work Phone: [facility] 12-20-2023 15:06-0500 Diastolic blood pressure 88 mm[Hg] Dr. Reese Hicks Work Phone: [facility] 12-20-2023 15:06-0500 Systolic blood pressure 160 mm[Hg] Dr. Reese Hicks Work Phone: [facility] 12-20-2023 15:00-0500 Body height 167.[address] Reese Hicks Work Phone: [facility] 12-20-2023 15:00-0500 Body mass index (BMI) [Ratio] 28.2 kg/m2 Dr. Reese Hicks Work Phone: [facility] 12-20-2023 15:00-0500 Body temperature 96.2 [degF] Dr. Reese Hicks Work Phone: [facility] 12-20-2023 15:00-0500 Body weight 79.[address] Reese Hicks Work Phone: [facility] 12-20-2023 15:00-0500 Heart rate 89 /min Dr. Reese Hicks Work Phone: [facility] 12-20-2023 15:00-0500 Respiratory rate 16 /min Dr. Reese Hicks Work Phone: [facility] 12-20-2023 15:00-0500 SaO2% (BldA) [Mass fraction] 98 % Dr. Reese Hicks Work Phone: [facility] 11-21-2023 01:52-0500 Diastolic Blood Pressure Non-Invasive 85 mm[Hg] LIO REICHFIELD DO [facility] 11-21-2023 01:52-0500 Heart rate 76 /min LIO REICHFIELD DO [facility] 11-21-2023 01:52-0500 Respiratory rate 18 /min LIO REICHFIELD DO [facility] 11-21-2023 01:52-0500 Systolic Blood Pressure Non-Invasive 140 mm[Hg] LIO REICHFIELD DO [facility] 11-21-2023 00:05-0500 Blood Pressure Location LIO REICHFIELD DO [facility] 11-21-2023 00:05-0500 Blood Pressure Method LIO REICHFIELD D O [facility] 11-21-2023 00:05-0500 Body height 167.6 cm LIO REICHFIELD DO [facility] 11-21-2023 00:05-0500 Body temperature 99.68 [degF] LIO REICHFIELD DO [facility] 11-21-2023 00:05-0500 Body weight 77.3 kg LIO REICHFIELD DO [facility] 11-21-2023 00:05-0500 Diastolic Blood Pressure Non-Invasive 94 mm[Hg] LIO CAO DO [facility] 11-21-2023 00:05-0500 Heart rate 88 /min LIO CAO DO [facility] 11-21-2023 00:05-0500 Respiratory rate 18 /min LIO CAO DO [facility] 11-21-2023 00:05-0500 Systolic Blood Pressure Non-Invasive 168 mm[Hg] LIO CAO DO [facility] 10-16-2023 14:04-0500 Body mass index (BMI) [Ratio] 28.3 kg/m2 Dr. Reese Hicks Work Phone: [facility] 10-16-2023 14:04-0500 Body temperature 97.8 [degF] Dr. Reese Hicks Work Phone: [facility] 10-16-2023 14:04-0500 Body weight 79.[address] Reese Hicks Work Phone: [facility] 10-16-2023 14:04-0500 Diastolic blood pressure 62 mm[Hg] Dr. Reese Hicks Work Phone: [facility] 10-16-2023 14:04-0500 Heart rate 82 /min Dr. Reese Hicks Work Phone: [facility] 10-16-2023 14:04-0500 Respiratory rate 16 /min Dr. Reese Hicks Work Phone: [facility] 10-16-2023 14:04-0500 SaO2% (BldA) [Mass fraction] 97 % Dr. Reese Hicks Work Phone: [facility] 10-16-2023 14:04-0500 Systolic blood pressure 118 mm[Hg] Dr. Reese Hicks Work Phone: [facility] 09-25-2023 14:50-0500 Body mass index (BMI) [Ratio] 27.2 kg/m2 Dr. Reese Hicks Work Phone: [facility] 09-25-2023 14:50-0500 Body temperature 97.3 [degF] Dr. Reese Hicks Work Phone: [facility] 09-25-2023 14:50-0500 Body weight 76.[address] Reese Hicks Work Phone: [facility] 09-25-2023 14:50-0500 Diastolic blood pressure 70 mm[Hg] Dr. Reese Hicks Work Phone: [facility] 09-25-2023 14:50-0500 Heart rate 76 /min Dr. Reese Hicks Work Phone: [facility] 09-25-2023 14:50-0500 Respiratory rate 15 /min Dr. Reese Hicks Work Phone: [facility] 09-25-2023 14:50-0500 SaO2% (BldA) [Mass fraction] 98 % Dr. Reese Hicks Work Phone: [facility] 09-25-2023 14:50-0500 Systolic blood pressure 126 mm[Hg] Dr. Reese Hicks Work Phone: [facility] 09-17-2023 09:34-0500 Body mass index (BMI) [Ratio] 27.4 kg/m2 Dr. Reese Hicks Work Phone: [facility] 09-17-2023 09:34-0500 Body temperature 97.5 [degF] Dr. Reese Hicks Work Phone: [facility] 09-17-2023 09:34-0500 Body weight 77.[address] Reese Hicks Work Phone: [facility] 09-17-2023 09:34-0500 Diastolic blood pressure 74 mm[Hg] Dr. Reese Hicks Work Phone: [facility] 09-17-2023 09:34-0500 Heart rate 85 /min Dr. Reese Hicks Work Phone: [facility] 09-17-2023 09:34-0500 Respiratory rate 17 /min Dr. Reese Hicks Work Phone: [facility] 09-17-2023 09:34-0500 SaO2% (BldA) [Mass fraction] 97 % Dr. Reese Hicks Work Phone: [facility] 09-17-2023 09:34-0500 Systolic blood pressure 116 mm[Hg] Dr. Reese Hicks Work Phone: [facility] 03-05-2023 09:40-0400 Body height 167.[address] Reese Hicks Work Phone: [facility] 03-05-2023 09:40-0400 Body mass index (BMI) [Ratio] 27.9 kg/m2 Dr. Reese Hicks Work Phone: [facility] 03-05-2023 09:40-0400 Body temperature 97.8 [degF] Dr. Reese Hicks Work Phone: [facility] 03-05-2023 09:40-0400 Body weight 78.[address] Reese Hicks Work Phone: [facility] 03-05-2023 09:40-0400 Diastolic blood pressure 84 mm[Hg] Dr. Reese iHcks Work Phone: [facility] 03-05-2023 09:40-0400 Heart rate 85 /min Dr. Reese Hicks Work Phone: [facility] 03-05-2023 09:40-0400 Respiratory rate 14 /min Dr. Reese Hicks Work Phone: [facility] 03-05-2023 09:40-0400 SaO2% (BldA) [Mass fraction] 96 % Dr. Reese Hicks Work Phone: [facility] 03-05-2023 09:40-0400 Systolic blood pressure 138 mm[Hg] Dr. Reese Hicks Work Phone: [facility] 11-14-2022 10:02-0500 Body temperature 97.2 [degF] Dr. Reese Hicks Work Phone: [facility] 11-14-2022 10:02-0500 Body weight 74.[address] Reese Hicks Work Phone: [facility] 11-14-2022 10:02-0500 Diastolic blood pressure 84 mm[Hg] Dr. Reese Hicks Work Phone: [facility] 11-14-2022 10:02-0500 Heart rate 82 /min Dr. Reese Hicks Work Phone: [facility] 11-14-2022 10:02-0500 Respiratory rate 18 /min Dr. Reese Hicks Work Phone: [facility] 11-14-2022 10:02-0500 SaO2% (BldA) [Mass fraction] 97 % Dr. Reese Hicks Work Phone: [facility] 11-14-2022 10:02-0500 Systolic blood pressure 124 mm[Hg] Dr. Reese Hicks Work Phone: [facility] 10-08-2022 08:12-0500 Body temperature 97.2 [degF] Dr. Reese Hicks Work Phone: [facility] 10-08-2022 08:12-0500 Diastolic blood pressure 69 mm[Hg] Dr. Reese Hicks Work Phone: [facility] 10-08-2022 08:12-0500 Heart rate 76 /min Dr. Reese Hicks Work Phone: [facility] 10-08-2022 08:12-0500 Respiratory rate 18 /min Dr. Reese Hicks Work Phone: [facility] 10-08-2022 08:12-0500 SaO2% (BldA) [Mass fraction] 98 % Dr. Reese Hicks Work Phone: [facility] 10-08-2022 08:12-0500 Systolic blood pressure 100 mm[Hg] Dr. Reese Hicks Work Phone: [facility] 10-08-2022 06:47-0500 Body height 167.[address] Reese Hicks Work Phone: [facility] 10-08-2022 06:47-0500 Body mass index (BMI) [Ratio] 26.7 kg/m2 Dr. Reese Hicks Work Phone: [facility] 10-08-2022 06:47-0500 Body weight 75.[address] Reese Hicks Work Phone: [facility] 07-18-2022 14:09-0400 Body mass index (BMI) [Ratio] 26.3 kg/m2 Dr. Reese Hicks Work Phone: [facility] Work Phone: 07-18-2022 14:09-0400 Body temperature 97.2 [degF] Dr. Reese Hicks Work Phone: [facility] Work Phone: 07-18-2022 14:09-0400 Body weight 74.[address] Reese Hicks Work Phone: [facility] Work Phone: 07-18-2022 14:09-0400 Diastolic blood pressure 75 mm[Hg] Dr. Reese Hicks Work Phone: [facility] Work Phone: 07-18-2022 14:09-0400 Heart rate 71 /min Dr. Reese Hicks Work Phone: [facility] Work Phone: 07-18-2022 14:09-0400 Respiratory rate 17 /min Dr. Reese Hicks Work Phone: [facility] Work Phone: 07-18-2022 14:09-0400 SaO2% (BldA) [Mass fraction] 98 % Dr. Reese Hicks Work Phone: [facility] Work Phone: 07-18-2022 14:09-0400 Systolic blood pressure 136 mm[Hg] Dr. Reese Hicks Work Phone: [facility] Work Phone: 05-20-2022 11:16-0400 Body temperature 98.6 [degF] DR MARÍA RODRIGES MD [facility] 05-20-2022 11:16-0400 Diastolic blood pressure 85 mm[Hg] DR MARÍA RODRIGES MD [facility] 05-20-2022 11:16-0400 Heart rate 96 /min DR MARÍA RODRIGES MD [facility] 05-20-2022 11:16-0400 Respiratory rate 18 /min DR MARÍA RODRIGES MD [facility] 05-20-2022 11:16-0400 Systolic blood pressure 112 mm[Hg] DR MARÍA RODRIGES MD [facility] Encounters Encounter Date Encounter Type Care Provider Facility Start: 07-28-2025 ambulatory Reese Hicks Facilit y:[facility] Start: 07-26-2025 ambulatory Reese Hicks Facilit y:[facility] Start: 07-07-2025 End: 07-07-[address] Reese Walters DO -[facility] Work Phone: Start: 07-07-2025 End: 07-07-[address] Reese Hicks DO Work Phone: [facility] Start: 06-23-2025 Non-patient / Non-visit Makr Edwards nd, DO -[facility] Start: 06-23-2025 End: 06-23-2025 Admission to same day surgery center Mark Friend DO -[facility] Work Phone: Start: 06-23-2025 End: 06-23-[address] Reees Hicks DO Work Phone: -[facility] Start: 05-26-2025 End: 05-26-[address] MATTEO RODRIGUES DPM Facility:[facility] Start: 05-26-2025 End: 05-26-[address] MATTEO RODRIGUES DPM [facility] Start: 05-12-2025 End: 05-12-[address] Aliya [facility] Work Phone: Start: 05-12-2025 End: 05-12-[address] Reese Hicks DO Work Phone: [facility] Start: 05-11-2025 Non-patient / Non-visit Dr. Tong Prutet MD -[facility] Work Phone: Start: 04-28-2025 End: 04-28-2025 Patient encounter procedure Merly METZGER -[facility] Work Phone: Start: 04-28-2025 End: 04-28-[address] Reese Hicks DO Work Phone: [facility] Work Phone: Start: 04-12-2025 Encounter for other preprocedural examination Aliya [facility] Start: 04-09-2025 End: 04-09-2025 [facility] Start: 04-09-2025 End: 04-09-[address] Aliya Yen DO [facility] Work Phone: Start: 04-09-2025 End: 04-09-[address] Reese Hicsk DO Work Phone: [facility] Work Phone: Start: 03-26-2025 End: 03-27-2025 ambulatory Reese Hicks Facility:[facility] Start: 03-26-2025 End: 03-27-2025 Evaluation and management of inpatient Dr. Aliya Yen DO -[facility] Work Phone: Start: 03-26-2025 End: 03-27-[address] Reese Hicks DO Work Phone: [facility] Work Phone: Start: 03-26-2025 ambulatory Reese Hicks Facilit y:[facility] Start: 03-26-2025 Non-patient / Non-visit Dr. Sudhakar Yen DO -[facility] Start: 03-24-2025 Encounter for other preprocedural examination [facility] Start: 03-15-2025 End: 03-15-2025 Admission to same day surgery center Dr. Aliya Yen DO [facility] Start: 03-15-2025 End: 03-15-[address] Aliya Yen DO -[facility] Work Phone: Start: 03-15-2025 End: 03-15-[address] Reese Hicks DO Work Phone: [facility] Work Phone: Start: 03-15-2025 End: 03-15-2025 ambulatory Reese Hicks Facility:[facility] Start: 02-22-2025 End: 03-24-[address] MATTEO RODRIGUES DPM Facility:[facility] Start: 02-22-2025 End: 03-24-[address] MATTEO RODRIGUES DPM [facility] Start: 12-17-2024 End: 12-17-2024 Patient encounter procedure Júnior METZGER -[facility] Work Phone: Start: 12-17-2024 End: 12-17-2024 ambulatory Reese Hicks Facility:[facility] Start: 12-14-2024 End: 12-14-[address] Aliya Yen DO -[facility] Work Phone: Start: 12-14-2024 End: 12-14-2024 ambulatory Aliya Yen Facility:[facility] Start: 12-09-2024 End: 12-09-[address] Reese Walters DO -[facility] Work Phone: Start: 12-09-2024 End: 12-09-2024 ambulatory Reese Hicks Facility:[facility] Start: 12-09-2024 End: 12-09-2024 ambulatory Reese Hicks Facility:[facility] Start: 10-21-2024 End: 10-21-2024 ambulatory Reese Hicks Facility:[facility] Start: 12-20-2023 End: 12-20-[address] Reese Hicks Work Phone: [facility] Work Phone: Start: 12-20-2023 End: 12-20-[address] Reese Hicks Work Phone: [facility] Work Phone: Start: 11-21-2023 End: 11-21-2023 Emergency department patient visit LIO CAO DO Facility:[facility] Start: 11-21-2023 End: 11-21-2023 [facility] Start: 10-16-2023 End: 10-16-[address] Reese Hicks Work Phone: [facility] Work Phone: Start: 09-25-2023 End: 09-25-[address] Reese Hicks Work Phone: [facility] Work Phone: Start: 09-17-2023 End: 09-17-[address] Reese Hicks Work Phone: [facility] Work Phone: Start: 03-29-2023 End: 03-29-2023 Emergency department patient visit LIO CAO DO Facility:[facility] Start: 03-05-2023 End: 03-05-[address] Reese Hicks Work Phone: [facility] Work Phone: Start: 03-05-2023 End: 03-05-[address] Reese Hicks Work Phone: [facility] Start: 11-14-2022 End: 11-14-[address] Reese Hicks Work Phone: [facility] Work Phone: Start: 11-14-2022 End: 11-14-2022 Encounter for general adult medical examination without abnormal findings Dr. Reese Hicks Work Phone: [facility] Start: 11-14-2022 End: 11-14-[address] Reese Hicks Work Phone: [facility] Start: 10-08-2022 Non-patient / Non-visit Dr. Higginbotham Work Phone: [facility] Start: 10-08-2022 End: 10-08-2022 Admission to same day surgery center Dr. Reese Hicks Work Phone: [facility] Start: 10-08-2022 End: 10-08-[address] Reese Hicks Work Phone: [facility] Work Phone: Start: 07-18-2022 End: 07-18-[address] Reese Hicks Work Phone: [facility] Start: 07-18-2022 End: 07-18-[address] [facility]ciks [facility] Start: 07-02-2022 End: 07-02-[address] Reese Hicks Work Phone: [facility] Work Phone: Start: 07-02-2022 End: 07-02-[address] [facility] Start: 06-20-2022 End: 06-20-[address] [facility] Start: 06-04-2022 End: 06-04-[address] Reese Hicks Work Phone[facility] Start: 05-20-2022 End: 05-20-2022 Emergency department patient visit DR MARÍA RODRIGES MD [facility] Start: 04-11-2022 End: 04-11-[address] Reese Hicks Work Phone: [facility] Start: 04-11-2022 End: 04-11-[address] Reese Hicks Work Phone: [facility] Start: 02-21-2022 End: 02-21-[address] Reese Hicks Work Phone: [facility] Procedures Date Procedure Procedure Detail Performing Clinician Start: 06-23-[address] Reese desir DO Work Phone: Start: 03-26-[address] Arsen Hicks DO Work Phone: Start: 03-26-[address] Reese Hicks DO Work Phone: Start: 03-26-[address] Reese Hicks DO Work Phone: Start: 12-14-[address] Reese Hicks DO Work Phone: Start: 12-09-2024 Measurement of renal function Dr. Alexia Hicks DO Work Phone: Comment on above: GFR Calc Start: 12-09-2024 Vitamin D, 25-hydroxy measurement Dr. Neftaly CABALLERO Work Phone: Comment on above: Vitamin D 25(OH) Status Range Deficiency <20 ng/mL (50nmol/L) Insufficiency 20 - 30 ng/mL (50 - 75 nmol/L) Sufficiency 30 - 100 ng/mL (75 - 250 nmol/L) Toxicity >100 ng/mL (>250 nmol/L) Start: 12-20-[address] Reese Hicks Work Phone: Start: 10-08-[address] Reese Hicks Work Phone: Start: 07-18-2022 Radionuclide gastric emptying study Dr. Reese Hicks Work Phone: Start: 07-02-2022 Computed tomography of abdomen and pelvis with contrast Dr. Reese Hicks Work Phone: Start: 06-20-[address] Reese hoskins Work Phone: Start: 06-04-[address] Reese Hicks Work Phone: H/O: hysterectomy S/P hysterectomy Dr. Neftaly CABALLERO Work Phone: Comment on above: vag hyst with bs and pelvic floor repair (JV) H/O: hysterectomy S/P hysterectomy Dr. Sudhakar Yen DO H/O: hysterectomy S/P hysterectomy Dr. Sudhakar Yen DO None (qualifier value) DR NOA RODRIGES MD Plan of Treatment Date Care Activity Detail Author Start: 06-23-2025 Egd transoral biopsy single/multiple EGD BIOPSY SINGLE/MULTIPLE [facility] Start: 06-23-2025 Patient discharge [facility] Start: 03-27-2025 Catheterization of vein [facility] Start: 03-27-2025 Patient discharge [facility] Start: 03-26-2025 Application of intermittent pneumatic compression device [facility] Start: 03-26-2025 Following clinical pathway protocol [facility] Start: 03-26-2025 Measuring intake and output [facility] Start: 03-26-2025 Deep breathing and coughing exercises [facility] Start: 03-26-2025 Incentive spirometry [facility] Start: 03-26-2025 Oxygen therapy [facility] Start: 03-26-2025 Following clinical pathway protocol [facility] Start: 03-26-2025 Provision of activity privileges [facility] Start: 03-26-2025 Taking patient vital signs [facility] Start: 03-26-2025 Vital signs measurements [facility] Start: 03-26-2025 End: 03-26-2025 [facility] Start: 03-26-2025 Admission procedure [facility] Start: 03-26-2025 Assessment of risk of venous thromboembolism [facility] Start: 03-26-2025 Anesthesia intraperitoneal lower abd w/laps nos ANESTH SURG LOWER ABDOMEN [facility] Start: 03-26-2025 Laps total hysterect 250 gm/< w/rmvl tube/ovary TLH W/T/O 250 G OR LESS [facility] Start: 03-26-2025 Post colporrhaphy rectocele w/wo perineorrhaphy REPAIR RECTUM & VAGINA [facility] Start: 03-26-2025 Sling operation stress incontinence REPAIR BLADDER DEFECT [facility] Start: 10-08-2022 Colonoscopy w/biopsy single/multiple COLONOSCOPY AND BIOPSY [facility] Start: 10-08-2022 Egd transoral biopsy single/multiple EGD BIOPSY SINGLE/MULTIPLE [facility] Start: 10-08-2022 Patient discharge [facility] CT Abdomen and Pelvi s W contrast IV [facility] Work Phone: CT Facial bones [facility] Patient referral [facility] Work Phone: US Carotid arteries [facility] Immunizations Immunization Date Immunization Notes Care Provider Saundra sevilla 10-16-2023 influenza, injectabl e, quadrivalent, preservative free Dr. Reese Hicks Work Phone: [facility] 06-07-2019 tetanus toxoid, reduced diphtheria toxoid, and acellular pertussis vaccine, adsorbed DR MARÍA RODRIGES MD [facility] Payers Date Payer Category Payer Private Health Insurance [id number] 2025 Medicare [id number] 2024 Unknown [id number] 2024 Self-pay [id number] 2023 Unknown [id number] 2023 Unknown [id number] 1960 Unknown [id number] 2.16.8 [id number] 1959 Unknown [id number] 2.16.8 40.1.427911.3.579.2.627 1959 Unknown [id number] [id number] 1960 Unknown [id number] 2.16.8 40.1.655635.3.579.2.627 Medicare [id number] Unknown [id number] Unknown [id number] Unknown [facility] [id number] Unknown [id number] 2.16.8 40.1.282544.3.579.2.462 Unknown [id number] 2.16.8 40.1.305300.3.579.2.462 Unknown [id number] 2.16.8 40.1.328697.3.579.2.462 Unknown [id number] 2.16.8 40.1.791454.3.579.2.462 Unknown [id number] 2.16.8 40.1.947800.3.579.2.462 Unknown [id number] 2.16.8 40.1.409259.3.579.2.462 Unknown [id number] 2.16.8 40.1.818723.3.579.2.462 Unknown [id number] 2.16.8 40.1.587572.3.579.2.462 Unknown [id number] 2.16.8 40.1.195276.3.579.2.462 Unknown [id number] 2.16.8 40.1.427991.3.579.2.462 Unknown [id number] 2.16.8 40.1.672258.3.579.2.462 Unknown [id number] 2.16.8 40.1.722995.3.579.2.462 Unknown [id number] 2.16.8 40.1.484478.3.579.2.462 Unknown [id number] 2.16.8 40.1.894734.3.579.2.462 Unknown [id number] 2.16.8 40.1.117099.3.579.2.462 Unknown [id number] 2.16.8 40.1.615332.3.579.2.462 Unknown [id number] 2.16.8 40.1.522590.3.579.2.462 Social History Date Type Detail Facility Start: 04-11-2022 End: 12-20-2023 Tobacco smoking status NHIS Unknown if ever smoked [facility] Start: 1960 Sex Assigned At Female [facility] Start: 10-21-2024 End: 06-22-2025 Tobacco smoking status Never smoked tobacco (finding) [facility] Sex Assigned At [facility] Start: 06-30-2018 Non-smoker [facility] Start: 02-28-2009 Sex Female (finding) [facility] Not [facility] NEGATED: Highlighted row Not [facility] Goals Date Patient Goal Desired Activity /State Functional Status Date Assessment Result Facility 03-27-2025 Functional status Up ad roseanna [facility] Work Phone: 11-21-2023 Functional Status Independent [facility] 11-21-2023 Functional Status Standard Safet y ID band on, Call device within reach, Bed in low position, Wheels locked, Upper/Half-Length side-rails up, personal items within reach, Bedside Cart Locked, Visitor at bedside [facility] 05-20-2022 Functional Status Independent [facility] 05-20-2022 Functional Status Standard Safet y ID band on, Call device within reach, Bed in low position, Wheels locked, Upper/Half-Length side-rails up, Phone within reach, personal items within reach, Assistive devices within reach, Toileting device within reach, Bedside Cart Locked, Safety level maintained [facility] Mental Status Date Assessment Result Facility 06-23-2025 Cognitive function Level Of Cons ciousness Awake;Alert;Appropriate [facility] Work Phone: 06-23-2025 Cognitive function Voice/Name [facility] Work Phone: 03-27-2025 Cognitive function Voice/Name [facility] Work Phone: 11-21-2023 Mental Status Orientation Oriented x 4 [facility] 11-21-2023 Mental Status [facility] 10-08-2022 Cognitive function Level Of Cons ciousness Awake;Alert;Appropriate;Follow s Commands [facility] Work Phone: 10-08-2022 Cognitive function Patient Orien tation Person;Place;Time [facility] Work Phone: 05-20-2022 Mental Status Orientation Oriented x 4 [facility] 05-20-2022 Mental Status [facility] Clinical Notes 05-20-2022 to 06-23-2025 Note Date & Type Note Facility 06-23-2025 Consult note [facility] 06-23-2025 Procedure note [facility] 06-23-2025 Procedure note [facility] 06-23-2025 Consult note [facility] 06-23-2025 History and physi charles note [facility] 06-23-2025 Note [facility] Medical Records Department [address] [place] [address] History Physical Exam 06/23/25 1222 MR#: [id number] Acct: [id number] Name: BHARTI ADAIR Rep #: [id number] : 1960 64 From: [facility] Friend DO PCP: Dr. Reese Hicks, DO Status:[facility] Location: [place] [address] HPI - General General Date of Admission: 06/23/25 Date of Service: 06/23/25 Chief Complaint: Peptic ulcer HPI Narrative BHARTI ADAIR, is a 64 F who presents with the Chief Complaint: epigastric pain [facility] established in 2021 for epigastric pain x6 months. Started Pantoprazole 40 mg daily which helped. Pt also with constipation. BM daily but has to strain. Takes milk of mag as needed. EGD 10.08.22; - Z-line irregular, 37 cm from the incisors. Biopsied. - Small hiatal hernia. - Normal stomach. - Multiple non-bleeding duodenal ulcers with no stigmata of bleeding. Biopsied. Colonoscopy 10.08.22 - Congested mucosa in the recto-sigmoid colon, in the transverse colon, in the ascending colon and in the cecum. Biopsied. - The examined portion of the ileum was normal. Biopsied. OV 6.25 Pt having worsening epigastric pain over the past few months. She underwent gynecologic surgery about one month ago. When she used the vaginal estrogen she noticed much worse reflux and discontinued. She prefers to not take daily meds so she will just take keena seltzer as needed. She had constipated after her surgery to due being on pain medications but this has resolved. [facility] Medical History ANA ROSA (stress urinary incontinence, female) History of steroid therapy Bladder disease Restless legs Syncope History of ulceration Shortness of breath on exertion History of pain when walking History of edema Wears glasses Post-menopausal Arthritis Fatty liver Non-smoker Leg cramps Acid reflux Depression History of anemia Anxiety Home Medications ???Medication ???Instructions ???Recorded ???Last Taken ???Type calcium carbonate (Antacid Ext Str 300 mg PO TID PRN dyspepsia 03/11 03/05 Unknown History (calcium carb)) pantoprazole 40 mg tablet,delayed 40 mg PO QDAY #30 tabs 05/07/25 U nknown Rx release Allergy/AdvReac Type Severity Reaction Status Date / Time adhesive tape Allergy Unknown Rash Verified 06/23/25 12:07 Family History Mother Dementia Diabetes Sister Diabetes Hypertension Surgical History Hx of hysterectomy S/P hysterectomy History of colonoscopy Social History Smoking Status: Never smoker alcohol intake: never substance use type: does not use caffeine: Yes what type of physical activity do you participate in: none seatbelt use: always do you feel safe at home: Yes additional social history: ROS Constitutional Constitutional: Denies fatigue, fever(s), poor appetite, weight gain or weight loss Gastrointestinal Gastrointestinal: Denies belching, bloating, change in bowel habits, change in stool character, chewing difficulty, coffee ground emesis, constipation, cramping, diarrhea, dyspepsia, dysphagia, early satiety, excessive flatus, fecal incontinence, heartburn, hematemesis, hematochezia, hemorrhoids, loose stools, melena, nausea, odynophagia, rectal bleeding, tenesmus, vomiting or weight changes Vital Signs Vital Signs Vital Signs: 06/23/25 12:07 06/23/25 12:07 Temperature 98 F Temperature Source Temporal Pulse Rate 69 Respiratory Rate 16 Respiratory Pattern Normal Blood Pressure 129/84 H Blood Pressure Mean 99 Blood Pressure Source Monitor Blood Pressure Position Semi-Fowlers Blood Pressure Location Right Arm Pulse Ox 100 Oxygen Delivery Method Room Air Weight Weight: 176 lb 5.917 oz Body Mass Index (BMI) 28.4 Physical Exam Const alert, oriented x3, no apparent distress and healthy appearing General Appearance: cooperative GI normal to inspection, nondistended, normoactive bowel sounds, soft to palpation, non-tender and non- distended Percussion: normal to percussion Rectal Exam: deferred Assessment Plan Assessment/Plan (1) Abdominal bloating: (2) Epigastric pain: (3) Peptic ulcer: PLAN: Assessment and Plan Assessment and Plan (1) Epigastric pain: Status: Acute Plan: Bharti is a 64 yo female pt here today for evaluation of worsening epigastric pain over the past few months. Pt established in 2021 for similar issues and underwent bidirectional endoscopy. EGD showed duodenal ulcers and normal colonoscopy. About one month ago she had gynecologic surgery and has had worsening epigastric pain. I advised (more content not included)... [facility] 04-28-2025 Progress note Note Date/Time April 28, 2025 1:57pm [facility] [address] [place] [address] OFFICE VISIT Date of Service: 04/28/25 MR#: [id number] Acct: [id number] Name: BHARTI ADAIR Rep #: [id number] : 1960 Provider: DOMENICA Sullivan Age/Sex: 64/F Location: [facility] [place] Status: Signed Intake Vital Signs 04/09/25 10:44 Height 5 ft 6 in Weight: 174 lb BMI 28.0 BP 136/76 H Intake Visit Reasons: Last seen by Naya 04/11/22 has Ulcer Chief Complaint: epigastric pain Allergies adhesive tape Allergy (Unknown, Verified 04/09/25 10:45) Rash Have you fallen in the past year?: No Nurse's Note: OV 04/28/25 Pt here for a f/u and reports n/v/d/c, abdominal pain and bloody stools. PFSH Medical History ANA ROSA (stress urinary incontinence, female) History of steroid therapy Bladder disease Restless legs Syncope History of ulceration Shortness of breath on exertion History of pain when walking History of edema Wears glasses Post-menopausal Arthritis Fatty liver Non-smoker Leg cramps Acid reflux Depression History of anemia Anxiety Surgical History (Updated 04/09/25 @ 11:[address] Aliya Yen, DO) S/P hysterectomy History of colonoscopy Family History Mother Dementia Diabetes Sister Diabetes Hypertension Social History Smoking Status: Never smoker alcohol intake: never substance use type: does not use caffeine: Yes what type of physical activity do you participate in: none seatbelt use: always do you feel safe at home: Yes additional social history: HPI HPI Chief Complaint: epigastric pain Details: BHARTI ADAIR, is a 64 F who presents to the office today for f/u. [facility] established in 2021 for epigastric pain x6 months. Started Pantoprazole 40 mg daily which helped. Pt also with constipation. BM daily but has to strain. Takes milk of mag as needed. EGD 10.08.22; - Z-line irregular, 37 cm from the incisors. Biopsied. - Small hiatal hernia. - Normal stomach. - Multiple non-bleeding duodenal ulcers with no stigmata of bleeding. Biopsied. Colonoscopy 10.08.22 - Congested mucosa in the recto-sigmoid colon, in the transverse colon, in the ascending colon and in the cecum. Biopsied. - The examined portion of the ileum was normal. Biopsied. OV 04.28.25 Pt having worsening epigastric pain over the past few months. She underwent gynecologic surgery about one month ago. When she used the vaginal estrogen she noticed much worse reflux and discontinued. She prefers to not takedaily meds so she will just take keena seltzer as needed. She had constipated after her surgery to due being on pain medications but this has resolved. ROS Const Constitutional: Positive for fatigue, frequent falls and headache(s); No fever(s) or weight change ENT ENT: Positive for headache(s); No difficulty swallowing Gastro GI: Positive for abdominal pain, bloating, change in bowel habits, constipation,diarrhea, heartburn, excessive flatus, Blood in stool, loose stools, nausea/dyspepsia and vomiting; No belching, change in stool character, coffee ground emesis, cramping, difficulty swallowing, feeling full early, incontinent of stools, Vomiting blood/hematemesis, Black,tarry stools, pain with swallowing or other Musc Musculoskeletal: Positive for abnormal gait, numbness, stiffness, tingling, Arthritis, restless legs and leg pain at night; No joint pain Skin Skin: Positive for itchy eyes; No yellowing of the eye Neuro Neurology: Positive for abnormal gait, dizziness, frequent falls, headache(s), numbness, tingling and restless legs Psych Psychiatric: Positive for anxiety and Positive for depression Endo Endocrine: Positive for fatigue; No weight change Aller/Imm Allergy/Immunologic: Positive for itchy eyes Dar/Lymp Hematologic/Lymphatic: Positive for easy bruising; No easy bleeding Exam Const General: cooperative Resp Effort & Inspection: normal respiratory effort Cardio Rate: regular rate Rhythm: regular rhythm GI Inspection: normal to inspection Auscultation: normal bowel sounds Palpation: soft and nontender Assessment and Plan Assessment and Plan (1) Epigastric pain: Status: Acute Plan: Bharti is a 64 yo female pt here today for evaluation of worsening epigastric pain over the past few months. Pt established in 2021 for similar issues and underwent bidirectional endoscopy. EGD showed duodenal ulcers and normal colonoscopy. About one month ago she had gynecologic surgery and has had worsening epigastric pain. I advised she re start her daily PPI however she prefers to not take daily medication. SHe will continue keena seltzer PRN. SHe will be scheduled for EGD. No indication for repeat colonoscopy at this time. -EGD -Continue Keena seltzer -Recommended re starting PPI -f/u after procedure Coding Level of Care Code Off vis,est,level 3 Diagnoses Epigastric pain R10.13 Clinical Quality Measures Falls Risk Screening/Assistive Devices Have you fallen in the past year?: No 04/28/25 1357 <Electronically signed by Merly METZGER> Date _ Merly METZGER Cosigner Signature: Date (if applicable) CC: ~ [facility] Work Phone: [phone] Progress [facility] [address] [place] [address] OFFICE VISIT Date of Service: 04/28/25 MR#: [id number] Acct: [id number] Name: BHARTI ADAIR Rep #: [id number] : 1960 Provider: DOMENICA Sullivan Age/Sex: 64/F [place] [facility] [place] Status: Signed Intake Vital Signs 04/09/25 10:44 Height 5 ft 6 in Weight: 174 lb BMI 28.0 BP 136/76 H Intake Visit Reasons: Last seen by Naya 04/11/22 has Ulcer Chief Complaint: epigastric pain Allergies adhesive tape Allergy (Unknown, Verified 04/09/25 10:45) Rash Have you fallen in the past year?: No Nurse's Note: OV 04/28/25 Pt here for a f/u and reports n/v/d/c, abdominal pain and bloody stools. [facility] Medical History ANA ROSA (stress urinary incontinence, female) History of steroid therapy Bladder disease Restless legs Syncope History of ulceration Shortness of breath on exertion History of pain when walking History of edema Wears glasses Post-menopausal Arthritis Fatty liver Non-smoker Leg cramps Acid reflux Depression History of anemia Anxiety Surgical History (Updated 04/09/25 @ 11:[address] Aliya Yen, DO) S/P hysterectomy History of colonoscopy Family History Mother Dementia Diabetes Sister Diabetes Hypertension Social History Smoking Status: Never smoker alcohol intake: never substance use type: does not use caffeine: Yes what type of physical activity do you participate in: none seatbelt use: always do you feel safe at home: Yes additional social history: HPI HPI Chief Complaint: epigastric pain Details: BHARTI ADAIR, is a 64 F who presents to the office today for f/u. [facility] established in 2021 for epigastric pain x6 months. Started Pantoprazole 40 mg daily which helped. Pt also with constipation. BM daily but has to strain. Takes milk of mag as needed. EGD 10.08.22; - Z-line irregular, 37 cm from the incisors. Biopsied. - Small hiatal hernia. - Normal stomach. - Multiple non-bleeding duodenal ulcers with no stigmata of bleeding. Biopsied. Colonoscopy 10.08.22 - Congested mucosa in the recto-sigmoid colon, in the transverse colon, in the ascending colon and in the cecum. Biopsied. - The examined portion of the ileum was normal. Biopsied. OV 6.18.25 Pt having worsening epigastric pain over the past few months. She underwent gynecologic surgery about one month ago. When she used the vaginal estrogen she noticed much worse reflux and discontinued. She prefers to not takedaily meds so she will just take keena seltzer as needed. She had constipated after her surgery to due being on pain medications but this has resolved. ROS Const Constitutional: Positive for fatigue, frequent falls and headache(s); No fever(s) or weight change ENT ENT: Positive for headache(s); No difficulty swallowing Gastro GI: Positive for abdominal pain, bloating, change in bowel habits, constipation,diarrhea, heartburn, excessive flatus, Blood in stool, loose stools, nausea/dyspepsia and vomiting; No belching, change in stool character, coffee ground emesis, cramping, difficulty swallowing, feeling full early, incontinent of stools, Vomiting blood/hematemesis, Black,tarry stools, pain with swallowing or other Musc Musculoskeletal: Positive for abnormal gait, numbness, stiffness, tingling, Arthritis, restless legs and leg pain at night; No joint pain Skin Skin: Positive for itchy eyes; No yellowing of the eye Neuro Neurology: Positive for abnormal gait, dizziness, frequent falls, headache(s), numbness, tingling and restless legs Psych Psychiatric: Positive for anxiety and Positive for depression Endo Endocrine: Positive for fatigue; No weight change Aller/Imm Allergy/Immunologic: Positive for itchy eyes Dar/Lymp Hematologic/Lymphatic: Positive for easy bruising; No easy bleeding Exam Const General: cooperative Resp Effort & Inspection: normal respiratory effort Cardio Rate: regular rate Rhythm: regular rhythm GI Inspection: normal to inspection Auscultation: normal bowel sounds Palpation: soft and nontender Assessment and Plan Assessment and Plan (1) Epigastric pain: Status: Acute Plan: Bharti is a 64 yo female pt here today for evaluation of worsening epigastric pain over the past fewmonths. Pt established in 2021 for similar issues and underwent bidirectional endoscopy. EGD showedduodenal ulcers and normal colonoscopy. About one month ago she had gynecologic surgery and has had worsening epigastric pain. I advised she re start her daily PPI however she prefers to not take daily medication. SHe will continue keena seltzer PRN. SHe will be scheduled for EGD. No indication for repeat colonoscopy at this time. -EGD -Continue Keena seltzer -Recommended re starting PPI -f/u after procedure Coding Level of Care Code Off vis,est,level 3 Diagnoses Epigastric pain R10.13 Clinical Quality Measures Falls Risk Screening/Assistive Devices Have you fallen in the past year?: No 04/28/25 1357 sov DOMENICA> Date _ Merly Huynh Signature: Date (if applicable) CC: ~ [facility]05-17-2025 Consult note [facility] Medical Records Department [address] [place] [address] Pre-Anesthesia Evaluation 03/26/25 1012 MR#: [id number] Acct: [id number] Name: BHARTI ADAIR Rep #:[id number] : 1960 64 From: Scott Pozo MD PCP: Dr. Reese Hicks, DO Status:RE G SDC Y Race: AA Location: [place] [address] ASA Classification* ASA Classification ASA Classification: 2 Assessment & Plan Anesthesia* Anesthesia Assessment Anesthesia Assessment: Discussed sedation and/or anesthesia options, risks, benefits, and alternatives with patient/parents/legal guardian/POA. Questions invited. The patient/parents/legal guardian/POA seems to understand and agrees to proceedwith anesthesia plan. Reviewed the physical assessment, medical history, allergy history and patient home medications list prior to surgery/procedure/anesthetic and documented any changes. Performed airway and anesthesia risk assessments. Anesthesia Type Anesthesia Type: General Anesthesia Focused Assessment* Temperature: 98.7 F Pulse Rate: 80 Respiratory Rate: 16 Pulse Ox: 96 Airway Assessment Mouth opens: >3 cm Mallampati Score: II Focused Labs Anesthesia Preop lab: CBC WBC 7.9 K/mm3 (4.4-11.0) 03/15/25 11:03/15/25 RBC 4.65 M/mm3 (4.2-5.4) 03/15/25 11:03/15/25 Hgb 13.7 g/dL (12.0-15.0) 03/15/25 11:03/15/25 Hct 40.8 % (37-47) 03/15/25 11:03/15/25 Plt Count 325 K/mm3 (150-450) 03/15/25 11:03/15/25 CHEMISTRY Potassium 4.4 mmol/L (3.3-5.1) 03/15/25 11:03/15/25 Sodium 138 mmol/L (133-145) 03/15/25 11:03/15/25 BUN 11 mg/dL (4-19) 03/15/25 11:03/15/25 Creatinine 0.82 mg/dL (0.70-1.20) 03/15/25 11:29 03/15/25 Glucose 90 mg/dL (70-99) 03/15/25 11:29 03/15/25 TSH 0.756 uIU/mL (0.358-3.740) 12/09/24 13:45 11/12 08/05 COAG Pre-Assessment Diagnosis/Proposed Procedure Planned Operative Procedure(s): TOTAL VAGINAL HYSTERECTOMY POSS BILAT SALPINGO- OOPHERECTOMY PER DR GARCIA POSTERIOR REPAIR POSS BILAT SACROSPINOUS LIGAMNET FIXATION,MIDURETHERAL SLING,CYSTO POSS DERMIS RAYMOND PRUETT Anesthesia History 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 When Was Last Pacemaker Check QUESTION #4 FULL TEXT: You/Your Family Experience fever (hyperthermia) with Anesthesia Last Oral Intake Last Oral intake: Last Oral Intake NPO since 00:00 03/26/25 09:50 Meds taken in AM with sips of No 03/26/25 09:50 water? 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 Has anyone observed you stop No 03/24/25 13:28 breathing during sleep? STOP Results Negative 03/24/25 13:28 QUESTION #5 FULL TEXT : Do you snore loudly (louder than talking or can be heard through closeddoors)? 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 Specify any problems Hx of Preganancy in last 3 No 03/24/25 13:28 Months Nurse Filling Out Transfusion DSCHRIBER 03/24/25 13:28 & Questions: Date: 03/24/25 03/24/25 13:28 Time: 13:29 03/24/25 13:28 Patient unable to answer at this time (ie. 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 Hx Now No 03/24/25 13:28 Gestational Age (in weeks): EDC: Hx Hx Para Hx Section SAB No 03/24/25 13:28 Active Medications Active Medications: Current Medications Generic Name Dose Route Start Last Admin Trade Name Freq PRN Reason Stop Dose Admin Acetaminophen 1,000 mg 03/26/25 11:30 Acetaminophen 500 Mg Tablet PO 03/26/25 11:31 PREOP ONE Celecoxib 400 mg 03/26/25 11:30 Celecoxib 200 Mg Capsule PO 03/26/25 11:31 PREOP ONE Gabapentin 600 mg 03/26/25 11:30 Gabapentin 600 Mg Tablet PO 03/26/25 11:31 PREOP ONE Lactated Ringer's 1,000 mls @ 40 mls/hr 03/26/25 11:30 IV .Q25H SUNIL Cefazolin Sodium 2 gm/ Sodium 110 mls @ 150 mls/hr 03/26/25 11:30 Chloride IV 03/26/25 12:13 INTRAOP ONE Lactated Ringer's 1,000 mls @ 70 mls/hr 03/26/25 11:30 IV .[id number] SUNIL Insulin Human Lispro 0 unit 03/26/25 11:30 Insulin Lispro 100 Unit/Ml Insuln.Pen SC Q4H PRN PRN BG >/= 180, SEE PROTOCOL Protocol Ondansetron HCl 4 mg 03/26/25 11:30 Ondansetron 4 Mg/2 Ml Vial IV 03/26/25 11:31 INTRAOP ONE Scopolamine HBr 1 patch 03/26/25 11:30 Scopolamine 1mg/72hr Patch TD 03/26/25 11:31 PREOP ONE PFSH Medical History History of steroid therapy Bladder disease Restless legs Syncope History of ulceration Shortness of breath on exertion History of pain when walking History of edema Wears glasses Post-menopausal Arthritis Fatty liver Non-smoker Leg cramps Acid reflux Depression History of anemia Anxiety Home Medications ?Medication ?Instructions ?Recorded ?Last Taken ?Type calcium carbonate (Antacid Ext Str 300 mg PO TID PRN d yspepsia 03/24/25 Unknown History (calcium carb)) Allergy/AdvReac Type Severity Reaction Status Date / Time adhesive tape Allergy Unknown Rash Verified 03/26/25 09:49 Family History Mother Dementia Diabetes Sister Diabetes Hypertension Surgical History History of colonoscopy Social History Smoking Status: Never smoker alcohol intake: never substance use type: does not use caffeine: Yes what type of physical activity do you participate in: none seatbelt use: always do you feel safe at home: Yes additional social history: Review of Systems (Anesthesia) ROS Narrative System reviewed and no additional complaints, except as documented. 03/26/25 1012 MD> Date _ Scott Pozo MD Cosigner Signature: Date CC: ~ Signed [facility]05-17-2025 Discharge summary [facility] Medical Records Department [address] [place] [address] Instructions for Home/Discharge Instructions 03/26/25 1331 MR#: [id number] Acct: [id number] Name: BHARTI ADAIR Rep #:[id number] : 1960 64 From: Aliya Yen DO PCP: Dr. Reese Hicks, DO Status:RE G [facility] [place] Discharge Instructions Diet Discharge Diet: No restrictions DC O2, CPAP, BIPAP needs Home O2 Discharge instructions: No Dressing / Incision Discharge Activity: Return to Normal Activity, May Not Drive (while taking narcotic pain medications.) and May Shower May resume sexual activity in: 6-8 weeks Dressing / Incision Call your doctor if your incision/area has: Continuous Slow Oozing, Sudden Increased Bleeding, Increased Pain/ Swelling, Increased Redness and Foul Smelling Discharge Call your doctor if you observe: Fever of 101 or Higher, Inability to urinate, Inability to have a bowel movement and Using more than 1 pad per hour Follow Up Care Please Follow Up With: Aliya Yen DO Test Results: Test results from this visit will be discussed in further detail at your follow- up appointment, if applicable. Discharge Plan Admission Attending Provider: Aliya Yne Primary Care Provider: Reese Hicks Consulting Providers: Liz Pruett Instructions Print Language: Monegasque Discharge Orders/Prescriptions Prescriptions: No Action Antacid Ext Str (calcium carb) 300 mg (750 mg) tablet,chewable 300 mg PO TID PRN (Reason: dyspepsia) Referrals / Follow Up: Reese Hicks DO [Primary Care Provider] - Disposition Disposition (needs filled in before D/C Order can be placed): Home, Self Care 03/26/25 1331Aliya Yen DO CC: Dr. Reese Hicks DO; Dr. Liz Pruett MD ~ Signed [facility]05-17-2025 History and physical note [facility] Medical Records Department [address] [place] [address] History & Physical Exam 03/26/25 0743 MR#: [id number] Acct: [id number] Name: BHARTI ADAIR Rep #:[id number] : 1960 64 From: Aliya Yen DO PCP: Dr. Reese Hicks DO Status:NC E SDC Location: [facility] [place] History and Physical Date of Admission: 03/26/25 Intake Vital Signs 12/17/2511:32 03/15/2510:55 Height 5 ft 6 in 5 ft 6 in Weight: 179 lb 6 oz 178 lb 4 oz BMI 28.9 28.8 BP 132/82 H 134/87 H Blood Pressure Location Rt brachial Position Sitting Respiration 16 Pulse 85 Pulse Source Monitor Temp 96.7 F L Pulse Oximetry (%) 96 Oxygen Delivery Method room air Intake Visit Reasons: TVH poss. 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 Is patient in pain?: No Allergies adhesive tape Allergy (Unknown, Verified 03/15/25 10:53) Rash Medications ?Medication ?Instructions ?Recorded ?Confirmed ?Type NK 03/15/25 03/15/25 History Is last menstrual period known: No Post menopausal: Yes Patient : No : No PFSH Medical History Wears glasses Post-menopausal Arthritis Fatty liver Easy bruising Migraine headache Non-smoker Leg cramps Chronic cough Sleep apnea Abdominal pain Hemorrhoid Diarrhea Acid reflux Depression History of anemia Anxiety Surgical History History of colonoscopy Family History Mother Dementia DiabetesSister Diabetes Hypertension Social History Smoking Status: Never smoker alcohol intake: never substance use type: does not use caffeine: Yes what type of physical activity do you participate in: none seatbelt use: always do you feel safe at home: Yes additional social history: HPI TVH poss. BSO Cysto Details: BHARTI ADAIR is a 64 year old , vaginal deliveries, who presents for vaginal hysterectomy consultation. She complains of having to push herself backup and has to strain often to have a bowel movement. She denies medical problems such as diabetes, high blood pressure, lupus, etc. She urinatesoften at night but denies incontinence unless she drinks a lot of water. She does not drink alcoholor use drugs. She is not interested in a pessary. Patient is sexually active very infrequently (every 2 months or less). She denies vaginal bleeding and stopped having periods when she was in her 40's . Ultrasound showedthe following: FINDINGS: The uterus is anteverted and appears heterogeneous in echotexture. Uterus measures 8.8 x 4.6 x 3.5 cm. No masses or fluid collections are identified. Endometrial stripe measures 3 mm, with punctate calcifications. Nabothian cysts within the lower uterine segment. The bilateral ovaries are not well appreciated. No adnexal masses are identified bilaterally. No free fluid seen within the pelvis. Urinary bladder measures 5.0 x 6.1 x 9.4 cm, for an estimated volume of 149.3 mL. US/Pelvic w/ Transvaginal IMPRESSION: 1. Heterogeneous uterus, with measurements provided above. No discrete masses or fluid collections are identified. 2. Bilateral ovaries are not well seen. No adnexal masses or fluid collections. 3. Additional measurements, as provided above. History 3 Elective abortions Hx Para 3 Spontaneous abortions Hx # Term Pregnancies Ectopic pregnancies Hx # Pregnancies Multiple births # of living children Past Pregnancies Del. Date Name GA/Weeks Outcome Route Bth Weight Gen Labor Lgth Anesthesia Del Locatn Provider FOB Unknown Josh Unknown Rell Unknown Jamari ROS Const ROS Unobtainable: All systems reviewed & are unremarkable except as noted in H Resp Resp: Reports system reviewed and no additional complaints, except as documented; Denies cough GI GI: Reports as per HPI Psych Psych: Reports system reviewed and no additional complaints, except as documented Exam Const General: cooperative, healthy appearing, comfortable and no acute distress Resp Effort & Inspection: normal respiratory effort Skin General: no rashes or lesions noted Psych Appearance: grossly normal Speech and Movement: speech and movement normal Coding Level of Care Code Off vis,est,level 4 Diagnoses Preoperative exam for gynecologic surgery Z01.818 Pelvic organ prolapse quantification stage 3 rectocele N81.6 Vaginal enterocele due to incomplete uterovaginal prolapse N81.2 Assessment and Plan Assessment and Plan (1) Preoperative exam for gynecologic surgery: Status: Acute (2) Pelvic organ prolapse quantification stage 3 rectocele: Status: Acute (3) Vaginal enterocele due to incomplete uterovaginal prolapse: Status: Acute Orders: Orders CBC W/Diff, Automated Today Z01.818 - Encounter for other preprocedural examination Type & Screen - PAT ONLY Today Z01.818 - Encounter for other preprocedural examination Comprehensive Metabolic Profil Today Z01.818 - Encounter for other preprocedural examination Plan After discussing the patient's diagnosis and treatment plan options, patient wishes to proceed withsurgical management. I have discussed with the patient the risks, benefits, and alternatives of theprocedure which include but are notlimited to risks of anesthesia, bleeding, infection, possible damage to bowel, bladder, or surrounding vasculature which could lead to additional surgery to evaluate any complications. Patient agrees to procedure and wishes to proceed. ACOG/uptodate references given for additional information regarding procedure. plan total vaginal hysterectomy, possible BSO, and pelvic repair with Dr. Pruett 03/26/25 0743 Cosigner Signature (if applicable): CC: Dr. Reese Hicks, DO; Dr. Aliya Yen DO~ Signed [facility]05-17-2025 Progress note Author Liz Pruett [facility] Note Date/Time March 27, 2025 9:01a m [facility] Medical Records Department [address] [place] [address] Progress Note - Urology 03/27/25 0859 MR#: [id number] Acct: [id number] Name: BHARTI ADAIR Rep #:[id number] : 1960 64 From: Liz Cota PCP: Dr. Reese Hicks, DO Status:AD M AMBER Location: [place]3 WE064-2 Subjective Subjective Sitting up in chair at bedside. She is feeling emotional and tearful this morning. No nausea, vomiting, uncontrolled pain. No significant issues overnight and no significant bleeding. No calf pain. Objective Data Objective Data Vital Signs: Vital Signs Temp Pulse Resp BP Pulse Ox O2 Del Method O2 Flow Rate 98.6 F 74 18 134/77 H 99 Nasal Cannula 2 03/27/25 05:15 03/27/25 05:15 03/27/25 05:15 03/27/25 05:15 03/27/25 05:15 03/27/25 05:15 03/27/25 05:15 Oxygen Flow Rate (L/min) 2 Oxygen Delivery Method Nasal Cannula Weight: 80.739 kg Body Mass Index (BMI) 28.7 Intake & Output: Intake and Output for Last 24 Hours 03/25/25 03/26/25 03/27/25 23:59 23:59 23:59 Intake Total 1210 / 1210 800 / 800 Output Total 1150 / 1150 2300 / 2300 Balance 60 / 60 -1500 / -1500 Lab / Micro Data 03/26/25 14:50 03/26/25 14:50 Labs: Laboratory Results - last 24 hr 03/26/25 09:50: Magnesium 2.1 03/26/25 10:04: POC Glucose 94 03/26/25 14:50: WBC 9.3, RBC 4.08 L, Hgb 11.9 L, Hct 35.6 L, MCV 87.3, MCH 29.2,MCHC 33.4, RDW Std Deviation 39.8, RDW Coeff of Gavin 12.4, Plt Count 292, MPV 8.4, Immature Gran % (Auto) 0.300, Neut % (Auto) 85.4 H, Lymph % (Auto) 12.6 L, Hendry % (Auto) 1.2, Eos % (Auto) 0.3, Baso % (Auto) 0.2, Absolute Neuts (auto) 8.0 H, Absolute Lymphs (auto) 1.18, Nucleated RBC % 0, Sodium 138, Potassium 3.9, Chloride 107, Carbon Dioxide 21.6, Anion Gap 9, BUN 8, Creatinine 0.73, Estim Creat Clear Calc 75.12, Est GFR (MDRD) Non-Af 92, BUN/Creatinine Ratio 10.9, Glucose 122 H, Calcium 8.6 Physical Exam Narrative Alert and oriented x 3 Abdomen soft, nontender nondistended Urine clear in Frankel catheter Lower extremities normal and nontender Frankel catheter and vaginal packing removed without incident no evidence of excessive bleeding. Assessment & Plan Assessment/Plan (1) Pelvic organ prolapse quantification stage 3 rectocele: (2) Fibroid uterus: (3) Menorrhagia with regular cycle: (4) ANA ROSA (stress urinary incontinence, female): PLAN: Plan Trial of void today Supportive care with ambulation, saline lock IV Continue regular diet Home later today 03/27/25 0901 <Electronically signed by Liz Pruett MD> Cosigner Signature (if applicable): CC: ~ Signed [facility] Work Phone: 1(150) 115-344205-17-2025 Discharge summary Author Liz Pruett [facility] Note Date/Time March 27, 2025 8:59a m [facility] Medical Records Department [address] [place] [address] Instructions for Home/Discharge Instructions 03/26/25 1424 MR#: [id number] Acct: [id number] Name: BHARTI ADAIR Rep #:[id number] : 1960 64 From: Liz Cota PCP: Dr. Reese Hicks, DO Status:AD M AMBER Discharge Instructions Diet Discharge Diet: No restrictions Activity Discharge Activity: May Shower May resume sexual activity in: 8 weeks Lifting Restrictions: 5 pounds Additional Activity Instructions:: No strenuous activity, no exercise, no walking dog, no swimming, tub bathing or hot tubs Dressing / Incision Call your doctor if your incision/area has: Continuous Slow Oozing, Sudden Increased Bleeding, Increased Pain/ Swelling, Increased Redness and Foul Smelling Discharge Call your doctor if you observe: Fever of 101 or Higher, Inability to urinate, Inability to have a bowel movement and Using more than 1 pad per hour Follow Up Care Please Follow Up With: Aliya Yen DO When: Dr. Pruett, the office will call to make arrangements Test Results: Test results from this visit will be discussed in further detail at your follow- up appointment, if applicable. Discharge Plan Admission Admit Date/Time: 03/26/25 14:20 Attending Provider: Aliya Yen Primary Care Provider: Reese Hicks Consulting Providers: Liz Pruett Discharge Orders/Prescriptions Prescriptions: New ondansetron 8 mg tablet,disintegrating 8 mg PO Q8H PRN (Reason: nausea and vomiting) Qty: 10 0RF oxycodone-acetaminophen 5-325 mg tablet 1 tab PO Q8H PRN (Reason: pain) 3 Days Qty: 10 0RF Continued Antacid Ext Str (calcium carb) 300 mg (750 mg) tablet,chewable 300 mg PO TID PRN (Reason: dyspepsia) Referrals / Follow Up: Reese Hicks DO [Primary Care Provider] - Disposition Disposition (needs filled in before D/C Order can be placed): Home, Self Care 03/27/25 0859<Electronically signed by Liz Pruett MD>Liz Pruett MD CC: Dr. Reese Hicks DO; Dr. Liz Pruett MD ~ Signed [facility] Work Phone: 1(554) 704-984605-17-2025 Progress note [facility] Medical Records Department [address] [place] [address] Progress Note - Urology 03/27/25 0859 MR#: [id number] Acct: [id number] Name: BHARTI ADAIR Rep #:[id number] : 1960 64 From: Liz Cota PCP: Dr. Reese Hicks DO Status:AD M [facility] Location: [place]3 AD118-0 Subjective Subjective Sitting up in chair at bedside. She is feeling emotional and tearful this morning. No nausea, vomiting, uncontrolled pain. No significant issues overnight and no significant bleeding. No calf pain. Objective Data Objective Data Vital Signs: Vital Signs Temp Pulse Resp BP Pulse Ox O2 Del Method O2 Flow Rate 98.6 F 74 18 134/77 H 99 Nasal Cannula 2 03/27/25 05:15 03/27/25 05:15 03/27/25 05:15 03/27/25 05:15 03/27/25 05:15 03/27/25 05:15 03/27/25 05:15 Oxygen Flow Rate (L/min) 2 Oxygen Delivery Method Nasal Cannula Weight: 80.739 kg Body Mass Index (BMI) 28.7 Intake & Output: Intake and Output for Last 24 Hours 03/25/25 03/26/25 03/27/25 23:59 23:59 23:59 Intake Total 1210 / 1210 800 / 800 Output Total 1150 / 1150 2300 / 2300 Balance 60 / 60 -1500 / -1500 Lab / Micro Data 03/26/25 14:50 03/26/25 14:50 Labs: Laboratory Results - last 24 hr 03/26/25 09:50: Magnesium 2.1 03/26/25 10:04: POC Glucose 94 03/26/25 14:50: WBC 9.3, RBC 4.08 L, Hgb 11.9 L, Hct 35.6 L, MCV 87.3, MCH 29.2,MCHC 33.4, RDW Std Deviation 39.8, RDW Coeff of Gavin 12.4, Plt Count 292, MPV 8.4, Immature Gran % (Auto) 0.300, Neut % (Auto) 85.4 H, Lymph % (Auto) 12.6 L, Hendry % (Auto) 1.2, Eos % (Auto) 0.3, Baso % (Auto) 0.2, Absolute Neuts (auto) 8.0 H, Absolute Lymphs (auto) 1.18, Nucleated RBC % 0, Sodium 138, Potassium 3.9, Chloride 107, Carbon Dioxide 21.6, Anion Gap 9, BUN 8, Creatinine 0.73, Estim Creat Clear Calc 75.12, Est GFR (MDRD) Non-Af 92, BUN/Creatinine Ratio 10.9, Glucose 122 H, Calcium 8.6 Physical Exam Narrative Alert and oriented x 3 Abdomen soft, nontender nondistended Urine clear in Frankel catheter Lower extremities normal and nontender Frankel catheter and vaginal packing removed without incident no evidence of excessive bleeding. Assessment & Plan Assessment/Plan (1) Pelvic organ prolapse quantification stage 3 rectocele: (2) Fibroid uterus: (3) Menorrhagia with regular cycle: (4) ANA ROSA (stress urinary incontinence, female): PLAN: Plan Trial of void today Supportive care with ambulation, saline lock IV Continue regular diet Home later today 03/27/25 0901 Cosigner Signature (if applicable): CC: ~ Signed [facility]05-17-2025 Discharge summary [facility] Medical Records Department [address] [place] [address] Instructions for Home/Discharge Instructions 03/26/25 1424 MR#: [id number] Acct: [id number] Name: BHARTI ADAIR Rep #:[id number] : 1960 64 From: Liz Cota PCP: Dr. Reese Hicks, DO Status:AD M AMBER Discharge Instructions Diet Discharge Diet: No restrictions Activity Discharge Activity: May Shower May resume sexual activity in: 8 weeks Lifting Restrictions: 5 pounds Additional Activity Instructions:: No strenuous activity, no exercise, no walking dog, no swimming,tub bathing or hot tubs Dressing / Incision Call your doctor if your incision/area has: Continuous Slow Oozing, Sudden Increased Bleeding, Increased Pain/ Swelling, Increased Redness and Foul Smelling Discharge Call your doctor if you observe: Fever of 101 or Higher, Inability to urinate, Inability to have a bowel movement and Using more than 1 pad per hour Follow Up Care Please Follow Up With: Aliya Yen DO When: Dr. Pruett, the office will call to make arrangements Test Results: Test results from this visit will be discussed in further detail at your follow- up appointment, if applicable. Discharge Plan Admission Admit Date/Time: 03/26/25 14:20 Attending Provider: Aliya Yen Primary Care Provider: Reese Hicks Consulting Providers: Liz Pruett Discharge Orders/Prescriptions Prescriptions: New ondansetron 8 mg tablet,disintegrating 8 mg PO Q8H PRN (Reason: nausea and vomiting) Qty: 10 0RF oxycodone-acetaminophen 5-325 mg tablet 1 tab PO Q8H PRN (Reason: pain) 3 Days Qty: 10 0RF Continued Antacid Ext Str (calcium carb) 300 mg (750 mg) tablet,chewable 300 mg PO TID PRN (Reason: dyspepsia) Referrals / Follow Up: Reese Hicks DO [Primary Care Provider] - Disposition Disposition (needs filled in before D/C Order can be placed): Home, Self Care 03/27/25 0859Liz Pruett MD CC: Dr. Reese Hicks DO; Dr. Liz Pruett MD ~ Signed [facility]05-16-2025 Consult note Author Scott Pozo [facility] Note Date/Time March 26, 2025 3:15p m [facility] Medical Records Department [address] [place] [address] Anesthesia Postop Eval II 03/26/25 1514 MR#: [id number] Acct: [id number] Name: BHARTI ADAIR Rep #:[id number] : 1960 64 From: Scott Pozo MD PCP: Dr. Reese Hicks DO Status:RE G SDC Y Race: AA Location: [address] Anesthesia Postop Eval I Sum Postop Eval Completion status Anesthesia document: Postop Eval 1 completed: Yes Anesthesia Postop Eval I Summary Anesthesia Postop Eval I Summary: Anesthesia Postop Eval I: Assessment Summary Airway patent Yes 03/26/25 14:46 [email or web address] Spontaneous unlabored Yes 03/26/25 14:46 [email or web address] respirations Mental status Awake,Calm 03/26/25 14:46 [email or web address] nausea No 03/26/25 14:46 [email or web address] Vomiting No 03/26/25 14:46 [email or web address] Anesthesia Postop Eval I: Fluid Summary Crystalloid volume administer 2,000 03/26/25 14:46 [email or web address] (ml) Colloids volume administered ( ml) Blood Product volume administered (ml) Total IV fluid infused 2,000 03/26/25 14:46 [email or web address] Anesthesia Postop Eval I: Summary Notes Anesthesia Complication No 03/26/25 14:46 [email or web address] Anesthesia Complication Comment: Post-operative progress note Anesthesia: Postop Eval II Evaluation Mental status: Awake Pain Level: 0 nausea: No Vomiting: No 03/26/25 1515 <Electronically signed by Scott Pozo MD> Date _ Scott Pozo MD Cosigner Signature: Date CC: ~ Signed [facility] Work Phone: 1(929) 205-939505-16-2025 Consult note Author Tracy Fernandez [facility] Note Date/Time March 26, 2025 2:46p m [facility] Medical Records Department [address] [place] [address] Anesthesia Postop Eval I 03/26/25 1445 MR#: [id number] Acct: [id number] Name: BHARTI ADAIR Rep #:[id number] : 1960 64 From: Tracy smith GASOLINE FINISHER PCP: Dr. Reese Hicks, DO Status: G [facility] Y Race: AA Location: [place] [address] Anesthesia: Postop Eval I Current Vital Signs Temperature: 97 F Pulse Rate: 72 Blood Pressure: 126/76 Respiratory Rate: 16 Pulse Ox: 96 Oxygen Delivery Method: Simple Mask Oxygen Flow Rate (L/min): 6 Assessment Airway patent: Yes Spontaneous unlabored respirations: Yes Mental status: Awake and Calm nausea: No Vomiting: No Anesthesia Complication: No Fluid Hydration Crystalloid volume administer (ml): 2,000 Total IV fluid infused: 2,000 Progress Note Anesthesia document: Postop Eval 1 completed: Yes 03/26/25 1446 <Electronically signed by Tracy sutton GASOLINE FINISHER> Date _ Tracy Fernandez CRNA Cosigner Signature: Date CC: ~ Signed [facility] Work Phone: 1(552) 527-582605-16-2025 Discharge summary Author Aliya Pappas [facility] Note Date/Time March 27, 2025 12:45 pm [facility] Medical Records Department [address] [place] [address] Instructions for Home/Discharge Instructions 03/26/25 1331 MR#: [id number] Acct: [id number] Name: BHARTI ADAIR Rep #:[id number] : 1960 64 From: Aliya Yen DO PCP: Dr. Reese Hicks DO Status:RE G [facility] Discharge Instructions Diet Discharge Diet: No restrictions DC O2, CPAP, BIPAP needs Home O2 Discharge instructions: No Dressing / Incision Discharge Activity: Return to Normal Activity, May Not Drive (while taking narcotic pain medications.) and May Shower May resume sexual activity in: 6-8 weeks Dressing / Incision Call your doctor if your incision/area has: Continuous Slow Oozing, Sudden Increased Bleeding, Increased Pain/ Swelling, Increased Redness and Foul Smelling Discharge Call your doctor if you observe: Fever of 101 or Higher, Inability to urinate, Inability to have a bowel movement and Using more than 1 pad per hour Follow Up Care Please Follow Up With: Aliya Yen DO Test Results: Test results from this visit will be discussed in further detail at your follow- up appointment, if applicable. Discharge Plan Admission Attending Provider: Aliya Yen Primary Care Provider: Reese Hicks Consulting Providers: Liz Pruett Instructions Print Language: Monegasque Discharge Orders/Prescriptions Prescriptions: No Action Antacid Ext Str (calcium carb) 300 mg (750 mg) tablet,chewable 300 mg PO TID PRN (Reason: dyspepsia) Referrals / Follow Up: Reese Hicks DO [Primary Care Provider] - Disposition Disposition (needs filled in before D/C Order can be placed): Home, Self Care 03/26/25 1331<Electronically signed by Aliya Yen DO>Aliya Yen DO CC: Dr. Reese Hicks DO; Dr. Liz Pruett MD ~ Signed [facility] Work Phone: 1(248) 657-125205-16-2025 Consult note [facility] Medical Records Department [address] [place] [address] Anesthesia Postop Eval II 03/26/25 1514 MR#: [id number] Acct: [id number] Name: BHARTI ADAIR Rep #:[id number] : 1960 64 From: Scott Pozo MD PCP: Dr. Reese Hicks, DO Status:RE G SDC Y Race: AA Location: [facility] Anesthesia Postop Eval I Sum Postop Eval Completion status Anesthesia document: Postop Eval 1 completed: Yes Anesthesia Postop Eval I Summary Anesthesia Postop Eval I Summary: Anesthesia Postop Eval I: Assessment Summary Airway patent Yes 03/26/25 14:46 [email or web address] Spontaneous unlabored Yes 03/26/25 14:46 GASOLINE [email or web address].[email or web address] respirations Mental status Awake,Calm 03/26/25 14:46 [email or web address] [email or web address].[email or web address] nausea No 03/26/25 14:46 GASOLINE [email or web address].[email or web address] Vomiting No 03/26/25 14:46 GASOLINE [email or web address].[email or web address] Anesthesia Postop Eval I: Fluid Summary Crystalloid volume administer 2,000 03/26/25 14:46 GASOLINE [email or web address].[email or web address] (ml) Colloids volume administered ( ml) Blood Product volume administered (ml) Total IV fluid infused 2,000 03/26/25 14:46 GASOLINE [email or web address].[email or web address] Anesthesia Postop Eval I: Summary Notes Anesthesia Complication No 03/26/25 14:46 GASOLINE [email or web address].[email or web address] Anesthesia Complication Comment: Post-operative progress note Anesthesia: Postop Eval II Evaluation Mental status: Awake Pain Level: 0 nausea: No Vomiting: No 03/26/25 1515 MD> Date _ Scott Pozo MD Cosigner Signature: Date CC: ~ Signed [facility]05-16-2025 Consult note [facility] Medical Records Department [address] [place] [address] Anesthesia Postop Eval I 03/26/25 1445 MR#: [id number] Acct: [id number] Name: BHARTI ADAIR Rep #:[id number] : 1960 64 From: Tracy smith GASOLINE FINISHER PCP: Dr. Reese Hicks, DO Status:PARMINDER Dawkins [facility] Y Race: AA Location: [place] [address] Anesthesia: Postop Eval I Current Vital Signs Temperature: 97 F Pulse Rate: 72 Blood Pressure: 126/76 Respiratory Rate: 16 Pulse Ox: 96 Oxygen Delivery Method: Simple Mask Oxygen Flow Rate (L/min): 6 Assessment Airway patent: Yes Spontaneous unlabored respirations: Yes Mental status: Awake and Calm nausea: No Vomiting: No Anesthesia Complication: No Fluid Hydration Crystalloid volume administer (ml): 2,000 Total IV fluid infused: 2,000 Progress Note Anesthesia document: Postop Eval 1 completed: Yes 03/26/25 1446 lesley GASOLINE FINISHER> Date _ Tracy Fernandez GASOLINE FINISHER Cosigner Signature: Date CC: ~ Signed [facility]05-16-2025 Procedure note [facility] Medical Records Department [address] [place] [address] Operative Report 03/26/25 1427 MR#: [id number] Acct: [id number] Name: BHARTI ADAIR Rep #:[id number] : 1960 64 From: Liz Cota PCP: Dr. Reese Hicks, DO Status:PARMINDER ATKINSON Location: [place] [address] Operative Report (Standard) Operative Information Date of Procedure: 03/26/25 Pre-Operative Diagnosis: Uterovaginal prolapse, stress urinary incontinence Post-Operative Diagnosis: Same Surgery/Procedure Performed: Posterior repair, mid urethral sling, cystoscopy with bilateral ureteral catheterization lining stuffer: Yes Rural Mail Carrier: Ramy James Tasks completed by assistant professor of biology: Retracting Type of Anesthesia: General and Local RN Documented Start/Stop Times: Operation Date: 03/26/25 11:30 Case Time Into Pre-Op 03/26/25 09:31 Anesthesia Start 03/26/25 11:52 Into Room 03/26/25 11:52 Procedure Start 03/26/25 12:09 Procedure End 03/26/25 14:25 Procedure Start Time: 13:20 Procedure Stop Time: 14:25 Select all DRAINS/GRAFTS/IMPLANTS that apply: Implanted device Implanted device details: Altis mid urethral sling Estimated Blood Loss: 50 cc Specimen collected: No Description of surgery: The patient is a 64-year-old female with pelvic organ prolapse who presents for surgical intervention. Informed consent was obtained. She was taken to the operating room and placed on the operating room table. Anesthesia monitored thehead, neck, airway, IV access and vital signs throughout the case. Once anesthesia was appropriately ministered, she was placed into dorsolithotomy position was prepped and draped in usual sterile fashion. A Frankel catheter was inserted to straight drain and the bladder was emptied. Dr. Garcia performed her portion of the procedure and the cuff line was closedby her. At this time the patient was removed from Trendelenburg positioning and the Frankel catheter w as removed. A cystoscope was inserted through the urethra under direct visualization into the urinary bladder. The bladder mucosa was visualized in its entirety without evidence of mass, erythema, injury, laceration or hematuria. Each ureteral orifice was in correct anatomic positionand each were intubated with a 5 Kyrgyz whistle-tip catheter which easily advanced to 20 cm without evidence of injury or obstruction. It is important tonote that at this time there was no cystocele seen on cystoscopy or on pelvic examination. The length anteriorly of the vaginal vault was short and most of the vault length was posterior. There was good vault support at this time. There was a large rectocele defect remaining. The cystoscope was removed and the Frankel catheter was replaced to straight drain. Theposterior wall was isolated and injected submucosally with local anesthetic with epinephrine for hydrostatic dissection and hemostatic control. A midline incision was made and sharp and blunt dissecti on were performed bilaterally. There were multiple venous varicosities identified diffusely betweenthe rectum and the vaginal mucosa. The perineal body was reconstructed with interrupted 3-0 PDS sutures. The rectovaginal fascia was identified and brought together with interrupted sutures as well. A 2 layer closure was performed. The excess vaginal mucosa was trimmed and the incision was closed with running interlocking 2-0 Vicryl. Attention was then turned towards the mid urethra which was isolated and injected submucosally. A midline vertical incision was made approximately 2 cm in length. Sharp and blunt dissection was performed on either side of the urethra with care being taken to avoid entrance into the urethra or the vaginal mucosa. The Altis mid urethral sling was then placed intothe obturator complexes bilaterally with care being taken to avoid entrance into the vaginal mucosa. The sling lay flat against the urethra and was positioned using the tensioning suture. When it wasin good position the suture was cut. The incision was closed using running interlocking 2-0 Vicryl.She was then taken out of Trendelenburg position, the urethral Frankel was removed once again and thecystoscope was inserted through the urethra under direct visualization. There is no evidence of injury, laceration, foreign object or blood in the urine at this time. The urethra coapted appropriately at the area of the sling. There were no issues with replacement of the Frankel catheter. The vagina was packed with Premarin cream and vaginal packing. She was awakened and taken to the recovery room in good condition. There were no complications during this procedure. Surgical Findings: Multiple posterior vaginal wall varicosities Complications Complications: No Admit VTE Documentation VTE Present on Admission: Yes VTE Mechan Device Prophylaxis: SCD's VTE Pharm Prophylaxis ordered?: Yes 03/26/25 1440 Cosigner Signature (if applicable): CC: Dr. Reese Hicks DO; Dr. Liz Pruett MD; Dr. Aliya Yen DO~ Signed [facility]05-16-2025 Procedure note [facility] Medical Records Department [address] [place] [address] Operative Report 03/26/25 1325 MR#: [id number] Acct: [id number] Name: BHARTI ADAIR Rep #:[id number] : 1960 64 From: Aliya Yen DO PCP: Dr. Reese Hicsk, DO Status:[facility] Location: [place] [address] Problems Associated Problem List Diagnoses (1) Fibroid uterus: (2) Menorrhagia with regular cycle: (3) Pelvic organ prolapse quantification stage 3 rectocele: Multi Select Codes Urinary/Genital Urinary/Genital CPT Codes: 62592 TVH+BS/O <250gr uterus Operative Report (Standard) Operative Information Date of Procedure: 03/26/25 Pre-Operative Diagnosis: pelvic organ prolapse, fibroid uterus Post-Operative Diagnosis: pelvic organ prolaps, fibroid uterus Surgery/Procedure Performed: total vaginal hysterectomy, bilateral salpingectomy lining stuffer: Yes Rural Mail Carrier: Ramy James Tasks completed by assistant professor of biology: Hemostasis: Tie and Retracting Additional surgical assistant?: Yes Additional Knockout Machine Operator #2: Liz Pruett Tasks completed by surgical assistant #2: Retracting Additional surgical assistant?: No Type of Anesthesia: General RN Documented Start/Stop Times: Operation Date: 03/26/25 11:30 Case Time Into Pre-Op 03/26/25 09:31 Anesthesia Start 03/26/25 11:52 Into Room 03/26/25 11:52 Procedure Start 03/26/25 12:09 Procedure Start Time: 12:09 Procedure Stop Time: 13:22 Select all DRAINS/GRAFTS/IMPLANTS that apply: None Estimated Blood Loss: 70cc Specimen collected: Yes Description of specimen(s) removed: uterus, cervix, bilateral fallopian tubes Description of surgery: Patient was taken to the operating room and was placed under general anesthesia was prepped and draped in normal sterile fashion in the dorsal lithotomy position. Preoperative antibiotics and SCDs and Frankel catheter was placed inside the bladder. Weighted speculum was placed in the vagina and the anteriorand posterior lip of the cervix was grasped with 2 single tooth tenaculums and circumferentially injected with 1% lidocaine with epinephrine. A circumferential incision was made with a scalpel and the posterior cul-de-sac was entered into sharply and a longneck speculum was placed. The anterior cul-de-sac was also dissected down and entered into sharply and the uterosacral ligaments were cla mped cut and suture ligated bilaterally followed by the cardinal ligaments which were Clamped cut and suture ligated bilaterally with 0 Vicryl. The uterus serially descended and progressive bites were taken bilaterally up to the level of the utero-ovarian ligament bilaterally which was clamped transected and double ligated with 0 Vicryl suture and 0 Vicryl free tie. Bilateral fallopian tubes wereidentified and the left ovary was visualized fairly high in the pelvis. The bilateral fallopian tubes were transected across the base with a Vania clamp and removed and sutured with 0 Vicryl suture as well as ligasure cautery to ensure hemostasis. Excellent hemostasis was noted. Posterior peritoneum was reapproximated with 2-0 Vicryl and a modified Valdez stitch was placed through the posterior vaginal cuff and bilateral uterosacral ligaments across the posterior cul-de-sac skimming along to provide apical support to the vagina. The vagina was closed with [id number] 0 Vicryl pop offs including the posterior and anterior peritoneum in the reapproximation. Excellent hemostasis was noted.The patietnwas then handed over to Dr. Pruett for her portion of the procedure Surgical Findings: Grade 3 rectocele prolapse, grade 2 uterine prolapse, grade 2 cystocele. normal appearing uterus and tubes, non-visualized right ovary, normal left ovary. Complications Complications: No Admit VTE Documentation VTE Present on Admission: No VTE Mechan Device Prophylaxis: SCD's VTE Pharm Prophylaxis ordered?: Yes 03/26/25 1331 Cosigner Signature (if applicable): CC: Dr. Reese Hicks DO; Dr. Liz Pruett MD; Dr. Aliya Yen DO~ Signed [facility]05-16-2025 Consult note Author Scott Pozo [facility] Note Date/Time March 27, 2025 12:45 pm [facility] Medical Records Department [address] [place] [address] Pre-Anesthesia Evaluation 03/26/25 1012 MR#: [id number] Acct: [id number] Name: BHARTI ADAIR Rep #:[id number] : 1960 64 From: Scott Pozo MD PCP: Dr. Reese Hicks DO Status:RE G SDC Y Race: AA Location: [place] [address] ASA Classification* ASA Classification ASA Classification: 2 Assessment & Plan Anesthesia* Anesthesia Assessment Anesthesia Assessment: Discussed sedation and/or anesthesia options, risks, benefits, and alternatives with patient/parents/legal guardian/POA. Questions invited. The patient/parents/legal guardian/POA seems to understand and agrees to proceedwith anesthesia plan. Reviewed the physical assessment, medical history, allergy history and patient home medications list prior to surgery/procedure/anesthetic and documented any changes. Performed airway and anesthesia risk assessments. Anesthesia Type Anesthesia Type: General Anesthesia Focused Assessment* Temperature: 98.7 F Pulse Rate: 80 Respiratory Rate: 16 Pulse Ox: 96 Airway Assessment Mouth opens: >3 cm Mallampati Score: II Focused Labs Anesthesia Preop lab: CBC WBC 7.9 K/mm3 (4.4-11.0) 03/15/25 11:03/15/25 RBC 4.65 M/mm3 (4.2-5.4) 03/15/25 11:03/15/25 Hgb 13.7 g/dL (12.0-15.0) 03/15/25 11:03/15/25 Hct 40.8 % (37-47) 03/15/25 11:03/15/25 Plt Count 325 K/mm3 (150-450) 03/15/25 11:03/15/25 CHEMISTRY Potassium 4.4 mmol/L (3.3-5.1) 03/15/25 11:03/15/25 Sodium 138 mmol/L (133-145) 03/15/25 11:03/15/25 BUN 11 mg/dL (4-19) 03/15/25 11:03/15/25 Creatinine 0.82 mg/dL (0.70-1.20) 03/15/25 11:03/15/25 Glucose 90 mg/dL (70-99) 03/15/25 11:03/15/25 TSH 0.756 uIU/mL (0.358-3.740) 12/09/24 13:45 11/12 08/05 COAG Pre-Assessment Diagnosis/Proposed Procedure Planned Operative Procedure(s): TOTAL VAGINAL HYSTERECTOMY POSS BILAT SALPINGO-OOPHERECTOMY PER DR GARCIA POSTERIOR REPAIR POSS BILAT SACROSPINOUS LIGAMNET FIXATION,MIDURETHERAL SLING,CYSTO POSS DERMIS PER DR PRUETT Anesthesia History 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 When Was Last Pacemaker Check QUESTION #4 FULL TEXT: You/Your Family Experience fever (hyperthermia) with Anesthesia Last Oral Intake Last Oral intake: Last Oral Intake NPO since 00:00 03/26/25 09:50 Meds taken in AM with sips of No 03/26/25 09:50 water? 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 Has anyone observed you stop No 03/24/25 13:28 breathing during sleep? STOP Results Negative 03/24/25 13:28 QUESTION #5 FULL TEXT : Do you snore loudly (louder than talking or can be heard through closed doors)? 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 Specify any problems Hx of Preganancy in last 3 No 03/24/25 13:28 Months Nurse Filling Out Transfusion DSCHRIBER 03/24/25 13:28 & Questions: Date: 03/24/25 03/24/25 13:28 Time: 13:29 03/24/25 13:28 Patient unable to answer at this time (ie. 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 Hx Now No 03/24/25 13:28 Gestational Age (in weeks): EDC: Hx Hx Para Hx Section SAB No 03/24/25 13:28 Active Medications Active Medications: Current Medications Generic Name Dose Route Start Last Admin Trade Name Freq PRN Reason Stop Dose Admin Acetaminophen 1,000 mg 03/26/25 11:30 Acetaminophen 500 Mg Tablet PO 03/26/25 11:31 PREOP ONE Celecoxib 400 mg 03/26/25 11:30 Celecoxib 200 Mg Capsule PO 03/26/25 11:31 PREOP ONE Gabapentin 600 mg 03/26/25 11:30 Gabapentin 600 Mg Tablet PO 03/26/25 11:31 PREOP ONE Lactated Ringer's 1,000 mls @ 40 mls/hr 03/26/25 11:30 IV .Q25H SUNIL Cefazolin Sodium 2 gm/ Sodium 110 mls @ 150 mls/hr 03/26/25 11:30 Chloride IV 03/26/25 12:13 INTRAOP ONE Lactated Ringer's 1,000 mls @ 70 mls/hr 03/26/25 11:30 IV .[id number] SUNIL Insulin Human Lispro 0 unit 03/26/25 11:30 Insulin Lispro 100 Unit/Ml Insuln.Pen SC Q4H PRN PRN BG >/= 180, SEE PROTOCOL Protocol Ondansetron HCl 4 mg 03/26/25 11:30 Ondansetron 4 Mg/2 Ml Vial IV 03/26/25 11:31 INTRAOP ONE Scopolamine HBr 1 patch 03/26/25 11:30 Scopolamine 1mg/72hr Patch TD 03/26/25 11:31 PREOP ONE PFSH Medical History History of steroid therapy Bladder disease Restless legs Syncope History of ulceration Shortness of breath on exertion History of pain when walking History of edema Wears glasses Post-menopausal Arthritis Fatty liver Non-smoker Leg cramps Acid reflux Depression History of anemia Anxiety Home Medications ?Medication ?Instructions ?Recorded ?Last Taken ?Type calcium carbonate (Antacid Ext Str 300 mg PO TID PRN d yspepsia 03/24/25 Unknown History (calcium carb)) Allergy/AdvReac Type Severity Reaction Status Date / Time adhesive tape Allergy Unknown Rash Verified 03/26/25 09:49 Family History Mother Dementia Diabetes Sister Diabetes Hypertension Surgical History History of colonoscopy Social History Smoking Status: Never smoker alcohol intake: never substance use type: does not use caffeine: Yes what type of physical activity do you participate in: none seatbelt use: always do you feel safe at home: Yes additional social history: Review of Systems (Anesthesia) ROS Narrative System reviewed and no additional complaints, except as documented. 03/26/25 1012 <Electronically signed by Scott Pozo MD> Date _ Scott Pozo MD Cosigner Signature: Date CC: ~ Signed [facility] Work Phone: 1(550) 457-644305-16-2025 History and physical note Author Aliya Pappas [facility] Note Date/Time March 27, 2025 12:45 pm [facility] Medical Records Department [address] [place] [address] History & Physical Exam 03/26/25 0743 MR#: [id number] Acct: [id number] Name: BHARTI ADAIR Rep #:[id number] : 1960 64 From: Aliya Yen DO PCP: Dr. Reese Hicks, DO Status:[facility] E SDC Location: [facility] History and Physical Date of Admission: 03/26/25 Intake Vital Signs 12/17/2511:32 03/15/2510:55 Height 5 ft 6 in 5 ft 6 in Weight: 179 lb 6 oz 178 lb 4 oz BMI 28.9 28.8 BP 132/82 H 134/87 H Blood Pressure Location Rt brachial Position Sitting Respiration 16 Pulse 85 Pulse Source Monitor Temp 96.7 F L Pulse Oximetry (%) 96 Oxygen Delivery Method room air Intake Visit Reasons: TVH poss. 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 Is patient in pain?: No Allergies adhesive tape Allergy (Unknown, Verified 03/15/25 10:53) Rash Medications ?Medication ?Instructions ?Recorded ?Confirmed ?Type NK 03/15/25 03/15/25 History Is last menstrual period known: No Post menopausal: Yes Patient : No : No PFSH Medical History Wears glasses Post-menopausal Arthritis Fatty liver Easy bruising Migraine headache Non-smoker Leg cramps Chronic cough Sleep apnea Abdominal pain Hemorrhoid Diarrhea Acid reflux Depression History of anemia Anxiety Surgical History History of colonoscopy Family History Mother Dementia DiabetesSister Diabetes Hypertension Social History Smoking Status: Never smoker alcohol intake: never substance use type: does not use caffeine: Yes what type of physical activity do you participate in: none seatbelt use: always do you feel safe at home: Yes additional social history: HPI TVH poss. BSO Cysto Details: BHARTI ADAIR is a 64 year old , vaginal deliveries, who presents for vaginal hysterectomy consultation. She complains of having to push herself backup and has to strain often to have a bowel movement. She denies medical problems such as diabetes, high blood pressure, lupus, etc. She urinates often at night but denies incontinence unless she drinks a lot of water. She does not drink alcohol or use drugs. She is not interested in a pessary. Patient is sexually active very infrequently (every 2 months or less). She denies vaginal bleeding and stopped having periods when she was in her 40's . Ultrasound showedthe following: FINDINGS: The uterus is anteverted and appears heterogeneous in echotexture. Uterus measures 8.8 x 4.6 x 3.5 cm. No masses or fluid collections are identified. Endometrial stripe measures 3 mm, with punctate calcifications. Nabothian cysts within the lower uterine segment. The bilateral ovaries are not well appreciated. No adnexal masses are identified bilaterally. No free fluid seen within the pelvis. Urinary bladder measures 5.0 x 6.1 x 9.4 cm, for an estimated volume of 149.3 mL. US/Pelvic w/ Transvaginal IMPRESSION: 1. Heterogeneous uterus, with measurements provided above. No discrete masses or fluid collections are identified. 2. Bilateral ovaries are not well seen. No adnexal masses or fluid collections. 3. Additional measurements, as provided above. History 3 Elective abortions Hx Para 3 Spontaneous abortions Hx # Term Pregnancies Ectopic pregnancies Hx # Pregnancies Multiple births # of living children Past Pregnancies Del. Date Name GA/Weeks Outcome Route Bth Weight Infant Gen Labor Lgth Anesthesia Del Locatn Provider FOB Unknown Josh Unknown Rell Unknown Jamari ROS Const ROS Unobtainable: All systems reviewed & are unremarkable except as noted in H Resp Resp: Reports system reviewed and no additional complaints, except as documented; Denies cough GI GI: Reports as per HPI Psych Psych: Reports system reviewed and no additional complaints, except as documented Exam Const General: cooperative, healthy appearing, comfortable and no acute distress Resp Effort & Inspection: normal respiratory effort Skin General: no rashes or lesions noted Psych Appearance: grossly normal Speech and Movement: speech and movement normal Coding Level of Care Code Off vis,est,level 4 Diagnoses Preoperative exam for gynecologic surgery Z01.818 Pelvic organ prolapse quantification stage 3 rectocele N81.6 Vaginal enterocele due to incomplete uterovaginal prolapse N81.2 Assessment and Plan Assessment and Plan (1) Preoperative exam for gynecologic surgery: Status: Acute (2) Pelvic organ prolapse quantification stage 3 rectocele: Status: Acute (3) Vaginal enterocele due to incomplete uterovaginal prolapse: Status: Acute Orders: Orders CBC W/Diff, Automated Today Z01.818 - Encounter for other preprocedural examination Type & Screen - PAT ONLY Today Z01.818 - Encounter for other preprocedural examination Comprehensive Metabolic Profil Today Z01.818 - Encounter for other preprocedural examination Plan After discussing the patient's diagnosis and treatment plan options, patient wishes to proceed with surgical management. I have discussed with the patient the risks, benefits, and alternatives of the procedure which include but are notlimited to risks of anesthesia, bleeding, infection, possible damage to bowel, bladder, or surrounding vasculature which could lead to additional surgery to evaluate any complications. Patient agrees to procedure and wishes to proceed. ACOG/uptodate references given for additional information regarding procedure. plan total vaginal hysterectomy, possible BSO, and pelvic repair with Dr. Pruett 03/26/25742 <Electronically signed by Aliya Yen DO> Cosigner Signature (if applicable): CC: Dr. Reese Hicks DO; Dr. Aliya Yen DO~ Signed [facility] Work Phone: 1(218) 616-534805-16-2025 [facility] Medical Records Department [address] [place] [address] History Physical Exam 03/26/25742 MR#: [id number] Acct: [id number] Name: BHARTI ADAIR Rep #: [id number] : 1960 64 From: Aliya Yen DO PCP: Dr. Reese Hicks, DO Status:PRE [facility] Location: [facility] History and Physical Date of Admission: 03/26/25 Intake Vital Signs 12/17/2511:32 03/15/2510:55 Height 5 ft 6 in 5 ft 6 in Weight: 179 lb 6 oz 178 lb 4 oz BMI 28.9 28.8 BP 132/82 H 134/87 H Blood Pressure Location Rt brachial Position Sitting Respiration 16 Pulse 85 Pulse Source Monitor Temp 96.7 F L Pulse Oximetry (%) 96 Oxygen Delivery Method room air Intake Visit Reasons: TVH poss. 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 Is patient in pain?: No Allergies adhesive tape Allergy (Unknown, Verified 03/15/25 10:53) Rash Medications ???Medication ???Instructions ???Recorded ???Confirmed ???Type NK 03/15/25 03/15/25 History Is last menstrual period known: No Post menopausal: Yes Patient : No : No PFSH Medical History Wears glasses Post-menopausal Arthritis Fatty liver Easy bruising Migraine headache Non-smoker Leg cramps Chronic cough Sleep apnea Abdominal pain Hemorrhoid Diarrhea Acid reflux Depression History of anemia Anxiety Surgical History History of colonoscopy Family History Mother Dementia DiabetesSister Diabetes Hypertension Social History Smoking Status: Never smoker alcohol intake: never substance use type: does not use caffeine: Yes what type of physical activity do you participate in: none seatbelt use: always do you feel safe at home: Yes additional social history: HPI TVH poss. BSO Cysto Details: BHARTI ADAIR is a 64 year old , vaginal deliveries, who presents for vaginal hysterectomy consultation. She complains of having to push herself back up and has to strain often to have a bowel movement. She denies medical problems such as diabetes, high blood pressure, lupus, etc. She urinates often at night but denies incontinence unless she drinks a lot of water. She does not drink alcohol or use drugs. She is not interested in a pessary. Patient is sexually active very infrequently (every 2 months or less). She denies vaginal bleeding and stopped having periods when she was in her 40's . Ultrasound showed the following: FINDINGS: The uterus is anteverted and appears heterogeneous in echotexture. Uterus measures 8.8 x 4.6 x 3.5 cm. No masses or fluid collections are identified. Endometrial stripe measures 3 mm, with punctate calcifications. Nabothian cysts within the lower uterine segment. The bilateral ovaries are not well appreciated. No adnexal masses are identified bilaterally. No free fluid seen within the pelvis. Urinary bladder measures 5.0 x 6.1 x 9.4 cm, for an estimated volume of 149.3 mL. US/Pelvic w/ Transvaginal IMPRESSION: 1. Heterogeneous uterus, with measurements provided above. No discrete masses or fluid collections are identified. 2. Bilateral ovaries are not well seen. No adnexal masses or fluid collections. 3. Additional measurements, as provided above. History 3 Elective abortions Hx Para 3 Spontaneous abortions Hx # Term Pregnancies Ectopic pregnancies Hx # Pregnancies Multiple births # of living children Past Pregnancies Del. Date Name GA/Weeks Outcome Route Bth Weight Infant Gen Labor Lgth Anesthesia Del Locatn Provider FOB Unknown Josh Unknown Rell Unknown Jamari ROS Const ROS Unobtainable: All systems reviewed are unremarkable except as noted in H Resp Resp: Reports system reviewed and no additional complaints, except as documented; Denies cough GI GI: Reports as per HPI Psych Psych: Reports system reviewed and no additional complaints, except as documented Exam Const General: cooperative, healthy appearing, comfortable and no acute distress Resp Effort Inspection: normal respiratory effort Skin General: no rashes or lesions noted Psych Appearance: grossly normal Speech and Movement: speech and movement normal Coding Level of Care Code Off vis,est,level 4 Diagnoses Preoperative exam for gynecologic surgery Z01.818 Pelvic organ prolapse quantification stage 3 rectocele N81.6 Vaginal enterocele due to incomplete uterovaginal prolapse N81.2 Assessment and Plan Assessment and Plan (1) Preoperative exam for gynecologic surgery: Status: Acute (2) Pelvic organ prolapse quantifica (more content not included)...[facility]05-05-2025 Evaluation note* Diagnosis Onset Date Resolution Status Admit Date Preoperative exam for gynecologic surgery acute March 15 10:51am Vaginal enterocele due to incomplete uterovaginal prolapse acute March 15, 2025 10:51am Pelvic organ prolapse quantification stage 3 rectocele resolved March 15, 2025 10:51am Abdominal bloating acute March 262024 2:20pm ANA ROSA (stress urinary incontinence, female) acute March 26, 2025 2:20pm Fibroid uterus resolved March 26, 2025 2:20pm Menorrhagia with regular cycle resol sara March 26, 2025 2:20pm Pelvic organ prolapse quantification stage 3 rectocele resolved March 26, 2025 2:20pm Preoperative exam for gynecologic surgery acute April 09 10:33am S/P hysterectomy acute March 10:33am ANA ROSA (stress urinary incontinence, female) acute April 09, 2025 10:33am Epigastric pain acute April 1:03pm [facility] Work Phone: 1(489) 738-374205-05-2025 Evaluation note* Diagnosis Onset Date Resolution Status Admit Date Preoperative exam for gynecologic surgery acute March 15 10:51am Vaginal enterocele due to incomplete uterovaginal prolapse acute March 15, 2025 10 :51am Pelvic organ prolapse quantification stage 3 rectocele resolved March 15, 2025 10 :51am Abdominal bloating acute March 262024 2:20pm ANA ROSA (stress urinary incontinence, female) acute March 26, 2025 2:20pm Fibroid uterus resolved March 26, 2025 2:20pm Menorrhagia with regular cycle resol sara March 26, 2025 2:20pm Pelvic organ prolapse quantification stage 3 rectocele resolved March 26, 2025 2 :20pm Preoperative exam for gynecologic surgery acute April 09 10:33am S/P hysterectomy acute March 10:33am ANA ROSA (stress urinary incontinence, female) acute April 09, 2025 10:33am Epigastric pain acute April 1:03pm S/P hysterectomy acute May 11:31am Abdominal bloating acute June 23, 2025 11:50am Epigastric pain acute June 232024 11:50am Peptic ulcer acute June 23, 2025 11:50am [facility] Work Phone: 1(306) 554-197002-06-2025 Evaluation note* Diagnosis Onset Date Resolution Status Admit Date Trigger finger, left middle finger acute December 17 12:30pm Preoperative exam for gynecologic surgery acute March 15 10:51am Vaginal enterocele due to incomplete uterovaginal prolapse acute March 15, 2025 10 :51am Pelvic organ prolapse quantification stage 3 rectocele resolved March 15, 2025 10 :51am Abdominal bloating acute March 262024 2:20pm ANA ROSA (stress urinary incontinence, female) acute March 26, 2025 2:20pm Fibroid uterus resolved March 26, 2025 2:20pm Menorrhagia with regular cycle resol sara March 26, 2025 2:20pm Pelvic organ prolapse quantification stage 3 rectocele resolved March 26, 2025 2 :20pm [facility] Work Phone: 1(565) 228-789301-29-2025 Evaluation note* Diagnosis Onset Date Resolution Status Admit Date Fatigue acute December 09, 2024 1:11pm Trigger finger (acquired) acute December 09, 2024 1:11pm Trigger finger, left middle finger acute December 17 12:30pm Pelvic organ prolapse quantification stage 3 rectocele acute March 15, 2025 10 :51am Preoperative exam for gynecologic surgery acute March 15 10:51am Vaginal enterocele due to incomplete uterovaginal prolapse acute March 15, 2025 10 :51am [facility] Work Phone: 1(390) 309-277901-29-2025 Evaluation note* Diagnosis Onset Date Resolution Status Admit Date Fatigue acute December 09, 2024 1:11pm Trigger finger (acquired) acute December 09, 2024 1:11pm Trigger finger, left middle finger acute December 17 12:30pm Pelvic organ prolapse quantification stage 3 rectocele acute March 15, 2025 10 :51am Preoperative exam for gynecologic surgery acute March 15 10:51am Vaginal enterocele due to incomplete uterovaginal prolapse acute March 15, 2025 10 :51am Abdominal bloating acute March 262024 2:20pm Fibroid uterus acute March 26, 2025 2:20pm Menorrhagia with regular cycle acute March 26, 2025 2:20pm Pelvic organ prolapse quantification stage 3 rectocele acute March 26, 2025 2 :20pm ANA ROSA (stress urinary incontinence, female) acute March 26, 2025 2:20pm [facility] Work Phone: 1(223) 659-954301-11-2024 Hospital Discharge instructions Patient Education 11/21/2023 00:23:14 [...] the signs of a serious problem take moretime to appear. Many problems not related to [...] Swelling, pain or redness in one leg 6825-4327 [employer]. [address] [place] [address]. All rights reserved. This information is not intended as a substitute for professional medical care. Always follow yourhealthcare professional's instructions. Follow Up Care 11/21/2023 00:03:44 With:DEBORAH MIJARES MD Address: [address] [facility] [address] [place] [address] [phone] When:1-2 days With:Go to emergency room if symptoms worsen Address:Unknown When:2-4 days With:REESE HICKS DO Address: [facility] [address] [place] [phone] When:2-4 days [facility] 01-11-2024 Note Discharge Instructions Thank you for allowing [facility] to assist you with your healthcare needs. The following is importantdischarge information regarding your hospital visit. Diagnosis from Today's Visit Chest pain Chest pain Musculoskeletal pain What to Do Next Instructions from Your Care Team Take Tylenol and or Motrin as needed for pain. Follow-up with your primary care provider. Follow-upwith Dr. Mijares of cardiology or bail bond agent of your choosing by calling tomorrow. Return the emergency department immediately if you develop worsening pain, shortness of breath, or any other care concern. Your x- ray of the shoulder did show some AC arthritis. Follow-up with your primary care provider. No qualifying data available. Post Acute Orders No qualifying data available. You Need to Schedule the Following Appointments Follow Up with DEBORAH MIJARES MD When Within 1-2 days Where: [address] [facility] [address] [place] [address]- [phone] Follow Up with Go to emergency room if symptoms worsen When Within 2-4 days Follow Up with REESE HICKS DO When Within 2-4 days Where: [facility] [address] [place] [address] [place] [address] [phone] Allergies NKA Medications Please ask your primary doctor or pharmacist before taking any other medication not listed, including over the counter drugs, herbal medications, vitamins and or supplements as they may interact withyour home medications. What How Much When Instructions [...] the signs of a serious problem take moretime to appear. Many problems not related to [...] Swelling, pain or redness in one leg 0626-3245 [employer]. [address] [place] [address]. All rights reserved. This information is not intended as a substitute for professional medical care. Always follow yourhealthcare professional's instructions. Additional Information VACCINATE! IT SAVES LIVES! Members of the community who have not yet received the COVID-19 vaccine and would like to receive it can visit one of [facility] vaccine clinics. There are many vaccine clinic locations within the [facility]. For locations and available times, please visit www.gettheshot.coronavirus.[place].gov/. It is important to note that some COVID mobile vaccine clinics are held outdoors and may be canceled in rainy or stormy conditions. To learn more about pediatric vaccinations (ages 5-11), we invite you to visit the [facility] webpage. https://www.akronItalia Onlines.org/pages/0329-Kpfyz-Whyhakxxucu-Bddczwqrnv-Opcuw-Twq stions.htmlTo learn more about the COVID-19 vaccine, we invite you to visit the CDC website for a list of frequently asked questions. https://www.cdc.gov/coronavirus/2019-ncov/vaccines/faq.html [facility] Patient Portal Access Instructions: Stay connected with your healthcare team and access your personal medical information anytime with the [facility] Patient Portal. If you would like a full copy of your medical records please contact the [facility] Medical Records Department Saturday through Saturday between 8a.m. and 4:30p.m. Please follow the directions below to access the portal: 1.Access the email account you provided upon registration to the hospital.2.Look for an invitation email from [facility].3.Open the email and access the invitation link: Accept Invitation to [facility]4.Fill in the required machado to create your account. Sign into [email or web address] with your username and password that you [...] you will allow to register on the [facility] Patient Portal for access to your information. You can also access the [facility] Patient Portal on the [employer]. Simply click on Health Records under Paper Hunter[employer] and then click on the Darshan logo. HOW TO SAFELY DISPOSE OF PRESCRIPTION MEDICATIONS Please use one of the following methods to safely dispose of your unused medications. 1.Use a drug disposal kit: the drug disposal pouch allows you to safely discard your old and unuseddrugs. Ask your nurse to give you one when you are discharged.2.Visit a local take-back location: Many local pharmacies and police departments have programs that collect old and unwanted prescriptiondrugs. Call your local pharmacy or go to http://Farseer.[employer]/1A8Pg3c to find one close to you.3.Make use of household items: Use cat litter or old coffee grounds to dispose medications if other options arenot available. Mix your drugs with these household products, seal them in an airtight container andthrow it into the garbage. Call [facility]: [phone] to be sure your drugs can be [...] drowsiness, such as benzodiazepines, also known as benzos,including diazepam and alprazolam, muscle relaxants or sleep aids. Never sell or share prescriptionopioids. This is illegal. Store opioids in a secure place and out of reach of others (including children, family, friends and visitors). The last page(s) of this document has been signed and retained as a CHART COPY Signatures Patient Education Materials Chest Pain, Uncertain Cause Medication Leaflets My discharge plan and instructions have been reviewed and explained to me and I,BHARTI ADAIR understand my current condition and have read and understand these discharge instructions. I have received a written copy of the plan/instructions. If I have questions, I am aware that I should contact my doctor. Patient/Lead Driver Signature: Date/Time: Relationship to Patient: Witness Name/Signature: Date/Time: [facility]01-11-2024 Note ORIGINAL EXAMINATION: 4 XRAY VIEWS OF [...] Sign Date: 11/21/2023 1:33:05 AM Ordering Provider: [facility]01-11[facility]2024 Note ORIGINAL EXAMINATION: ONE XRAY VIEW OF [...] Date: 11/21/2023 1:31:21 AM [facility]ing [facility] NoteSinus rhythm Probable left atrial enlargement Electronic Signature: LIO CAO DO 11/21/2023 00:30:36[facility] 07-10-2022 Hospital Discharge instructions Patient Education 05/20/2022 14:03:16 COVID-19 Prevent the Spread of COVID-19 If You Are Sick (03/29/2020)(CUSTOM) Prevent the Spread of COVID-19 If You Are Sick Accessible version: https://www.cdc.gov/coronavirus/2019-ncov/if-qps-efa-sick/rdvdq-rdhi-hkra.html If you are sick with COVID-19 or [...] need to be around other people or animalsin or outside of the home, wear a cloth face covering. See COVID-19 and Animals if you have questions about pets: https://www.cdc.gov/coronavirus/2019ncov/faq.html#HFKCK06zuuttcx Monitor your symptoms. Common symptoms of COVID-19 [...] and need to call 911, notify the refinery operator helper crude unit that you have or think you might [...] your coughs and sneezes in some other way.Try to stay at least 6 feet away from other people. This will help protect the people around you. Note: During the COVID-19 pandemic, medical grade facemasks are reserved for healthcare workers andsome first responders. You may need to make [...] clean your hands with an alcohol-based hand title curator that contains at least 60% alcohol. Clean your hands often. Wash your hands often with soap and water for at least 20 seconds. This is especially important after blowing your nose, coughing, or sneezing; going to the bathroom; and before eating or preparing food. Use hand title curator if soap and water are not available. Use an alcohol-based hand title curator with atleast 60% alcohol, covering all surfaces of your [...] and water or put them in the gettering operator. Clean all high-touch surfaces everyday. Clean and [...] or body fluids on them. Use household logistics analytics manager and disinfectants. Clean the area or item [...] days of no fever without the use ofmedicine that reduces fevers) AND other symptoms have [...] in consultation with your healthcare provider and [facility] and local health departments. Local decisions depend on local circumstances. cdc.gov/coronavirus Follow Up Care 05/20/2022 11:08:09 With:REESE HICKS DO Address: [facility] [address] [phone] When:2-4 days Comments:Return to ED if symptoms worsen [facility] 07-10-2022 Note Discharge Instructions Thank you for allowing [facility] to assist you with your healthcare needs. The following is importantdischarge information regarding your hospital visit. Diagnosis from Today's Visit COVID-19 What to Do Next Instructions from Your Care Team Covid-19 Discharge Packet (ED ONLY) - Ordered -- 05/20/22 14:03:00 EDT, Once Post Acute Orders No qualifying data available. You Need to Schedule the Following Appointments Follow Up with REESE HICKS DO When Within 2-4 days Why: Return to ED if symptoms worsen Where: [facility] [address] [place] [address] [place] [phone] Allergies NKA Medications Please ask your primary doctor or pharmacist before taking any other medication not listed, including over the counter drugs, herbal medications, vitamins and or supplements as they may interact withyour home medications. What How Much When Why [...] medicine called ritonavir for the treatment of mdmx-tm-gmgtiecu COVID-19 in adults and people 12 years of age and older (weighing at least 40 kg or 88 lbs). What is nirmatrelvir and ritonavir? Nirmatrelvir in combination with ritonavir is an experimental medicine being studied for the treatment of swgz-id-kfcwjaci COVID-19. This drug is still being studied and all of its risks are not yet known. The [place] Food and Drug Administration (FDA) has authorized emergency use of nirmatrelvir in combination with another medicine called ritonavir for the treatment of ajkl-mc-lwfqszkm COVID-19 in adults and people 12 years [...] of any of the following drugs: rifampin; [place]'s Wort; a cancer medicine--apalutamide; or seizure medicine--carbamazepine, [...] tablets of nirmatrelvir and one tablet of ritonavir)twice a day for 5 consecutive days. Take [...] you are more than 8 hours late forthe dose. Do not use two doses at [...] balance or eye movement, weakness or prickly feeling;or swelling in your neck or throat (enlarged thyroid), menstrual changes, impotence. Common side effects may include: changes in your sense of taste; diarrhea; elevated blood pressure; or muscle pain. This is not a complete list of side effects and others may occur. Call your doctor for medical advice about side effects. You may report side effects to FDA at 7-836-ANH-3137. What other drugs will affect nirmatrelvir and [...] medicines you use. This includes prescription and sqht-zrv-triqegj medicines, vitamins, and herbal products. Not all [...] to ensure that the information provided by [employer]. ('[employer]') is accurate, up-to-date, and complete, but no guarantee is made to that effect. Drug information contained herein may be time sensitive. better. information has been compiled for use by healthcare practitioners and consumers in the [place] and therefore better. does not warrant that uses outside of the [place] are appropriate, unless specifically indicated otherwise. [employer] drug information does not endorse drugs, diagnose patients or recommend therapy. [employer] drug information isan informational resource designed to assist licensed healthcare practitioners in caring for their p atients and/or to serve consumers viewing this service as a supplement to, and not a substitute for, the expertise, skill, knowledge and judgment of healthcare practitioners. The absence of a warningfor a given drug or drug combination in no way should be construed to indicate that the drug or drug combination is safe, effective or appropriate for any given patient. better. does not assume any responsibility for any aspect of healthcare administered with the aid of information better. provides. The information contained herein is not intended to cover all possible uses, directions, precautions, warnings, drug interactions, allergic reactions, or adverse effects. If you have questions about the drugs you are taking, check with your doctor, nurse or pharmacist. Copyright 8103-1590 [employer]. Version: 1.01. Revision Date: 11/15/2021. Education Materials Prevent the Spread of COVID-19 If You Are Sick Accessible version: https://www.cdc.gov/coronavirus/2019-ncov/rt-nlr-fzi-sick/evzzd-ezcr-qvow.html If you are sick with COVID-19 or [...] need to be around other people or animalsin or outside of the home, wear a cloth face covering. See COVID-19 and Animals if you have questions about pets: https://www.cdc.gov/coronavirus/2019ncov/faq.html#SQUKC34quqjliq Monitor your symptoms. Common symptoms of COVID-19 [...] and need to call 911, notify the refinery operator helper crude unit that you have or think you might [...] your coughs and sneezes in some other way.Try to stay at least 6 feet away from other people. This will help protect the people around you. Note: During the COVID-19 pandemic, medical grade facemasks are reserved for healthcare workers andsome first responders. You may need to make [...] clean your hands with an alcohol-based hand title curator that contains at least 60% alcohol. Clean your hands often. Wash your hands often with soap and water for at least 20 seconds. This is especially important after blowing your nose, coughing, or sneezing; going to the bathroom; and before eating or preparing food. Use hand title curator if soap and water are not available. Use an alcohol-based hand title curator with atleast 60% alcohol, covering all surfaces of your [...] and water or put them in the gettering operator. Clean all high-touch surfaces everyday. Clean and [...] or body fluids on them. Use household logistics analytics manager and disinfectants. Clean the area or item [...] days of no fever without the use ofmedicine that reduces fevers) AND other symptoms have [...] to receive it can visit one of [facility] vaccine clinics. There are many vaccine clinic locations within the [facility]. For locations and available times, please visit www.[email or web address].[place].org. It is important to note that some COVID mobile vaccine clinics are held outdoors and may be canceled in rainy orstormy conditions. To learn more about pediatric vaccinations (ages 5-11), we invite you to visit the [facility] webpage. https://www.akSportbooms.org/pages/5028-Lgzcc-Lkcpzecikjr-Xgzoltghbq-Ebnje-Ykp stions.htmlTo learn more about the COVID-19 vaccine, we invite you to visit the [facility] website for a list of frequently asked questions. https://darshan.org/assets/Kfbmrzvo-tgv-Siqbhgev/tfxwj-Kpgqlmr-Yuscfqjdbc _Asked-Questions.pdf [facility] Patient Portal Access Instructions: Stay connected with your healthcare team and access your personal medical information anytime with the [facility] Patient Portal. If you would like a full copy of your medical records please contact the [facility] Medical Records Department Saturday through Saturday between 8a.m. and 4:30p.m. Please follow the directions below to access the portal: 1.Access the email account you provided upon [facility] to the [facility].2.Look for an invitation email from [facility].3.Open the email and access the invitation link: Accept Invitation to [facility]4.Fill in the required machado to create your account. Sign into [email or web address] with your username and password that you [...] you will allow to register on the [facility] Patient Portal for access to your information. You can also access the [employer] Patient Portal on the Smart Picture Tech. Simply click on Health Records under everbill and then click on the [employer] logo. HOW TO SAFELY DISPOSE OF PRESCRIPTION MEDICATIONS Please use one of the following methods to safely dispose of your unused medications. 1.Use a drug disposal kit: the drug disposal pouch allows you to safely discard your old and unuseddrugs. Ask your nurse to give you one when you are discharged.2.Visit a local take-back location: Many local pharmacies and police departments have programs that collect old and unwanted prescriptiondrugs. Call your local pharmacy or go to http://Farseer.[employer]/4V0Jw9r to find one close to you.3.Make use of household items: Use cat litter or old coffee grounds to dispose medications if other options arenot available. Mix your drugs with these household products, seal them in an airtight container andthrow it into the garbage. Call [facility]: [phone] to be sure your drugs can be [...] drowsiness, such as benzodiazepines, also known as benzos,including diazepam and alprazolam, muscle relaxants or sleep aids. Never sell or share prescriptionopioids. This is illegal. Store opioids in a [...] been reviewed and explained to me and I,BHARTI ADAIR understand my current condition and have read and understand these discharge instructions. I have received a written copy of the plan/instructions. If I have questions, I am aware that I should contact my doctor. Patient/Lead Driver Signature: Date/Time: Relationship to Patient: Witness Name/Signature: Date/Time: [facility]07-10-2022 Note ORIGINAL EXAMINATION: ONE XRAY VIEW OF [...] By: Jose Lugo Electronically signed By Jose uLgo Dictated Date: 05/20/2022 11:51:04 AM Prelim Date: 05/20/2022 11:51:25 AM Sign Date: 05/20/2022 11:51:25 AM Ordering Provider: MARÍA RODRIGES [facility]07-10-2022 Note ORIGINAL EXAMINATION: ONE XRAY VIEW OF [...] Sign Date: 05/20/2022 11:51:25 AM Ordering Provider: [facility]07-10-2022 SARS-CoV-2 (COVID-19) RNA KAEL+probe Ql (Nph)Positive *ABN* (05/20/22 11:33 AM)AO Auto Urine SSConsult note Author Gaurav Mendez [facility] Note Date/Time June 23, 2025 12 :42pm [facility] Medical Records Department [address] [place] [address] Pre-Anesthesia Evaluation 06/23/25 1239 MR#: [id number] Acct: [id number] Name: BHARTI ADAIR Rep #:[id number] : 1960 64 From: Gaurav Cota PCP: Dr. Reese Hicks, DO Status:RE G SDC Y Race: AA Location: [place] [address] ASA Classification* ASA Classification ASA Classification: 2 Assessment & Plan Anesthesia* Anesthesia Assessment Anesthesia Assessment: Discussed sedation and/or anesthesia options, risks, benefits, and alternatives with patient/parents/legal guardian/POA. Questions invited. The patient/parents/legal guardian/POA seems to understand and agrees to proceedwith anesthesia plan. Reviewed the physical assessment, medical history, allergy history and patient home medications list prior to surgery/procedure/anesthetic and documented any changes. Performed airway and anesthesia risk assessments. Anesthesia Type Anesthesia Type: MAC History Source History Obtained from:: Patient and Chart Anesthesia Focused Assessment* Temperature: 98 F Pulse Rate: 69 Blood Pressure: 129/84 Respiratory Rate: 16 Pulse Ox: 100 Oxygen Delivery Method: Room Air Airway Assessment Mouth opens: >3 cm Mallampati Score: II Teeth Condition: Caps/Crowns Neck Range of motion (ROM): Limited ROM Labs Anesthesia Preop lab: CBC WBC 9.3 K/mm3 (4.4-11.0) 03/26/25 14:50 03/26/25 RBC 4.08 M/mm3 (4.2-5.4) L 03/26/25 14:50 03/26/25 Hgb 11.9 g/dL (12.0-15.0) L 03/26/25 14:50 5 Hct 35.6 % (37-47) L 03/26/25 14:50 03/26/25 Plt Count 292 K/mm3 (150-450) 03/26/25 14:50 03/26/25 CHEMISTRY Potassium 3.9 mmol/L (3.3-5.1) 03/26/25 14:50 03/26/25 Sodium 138 mmol/L (133-145) 03/26/25 14:50 03/26/25 Magnesium 2.1 mg/dL (1.5-2.2) 03/26/25 09:50 03/26/25 BUN 8 mg/dL (4-19) 03/26/25 14:50 03/26/25 Creatinine 0.73 mg/dL (0.70-1.20) 03/26/25 14:50 03/26/25 Glucose 122 mg/dL (70-99) H 03/26/25 14:50 03/26/25 POC Glucose 94 mg/dL (74-106) 03/26/25 10:04 03/26/25 TSH 0.756 uIU/mL (0.358-3.740) 12/09/24 13:45 11/12 08/05 COAG Pre-Assessment Diagnosis/Proposed Procedure Planned Operative Procedure(s): EGD Anesthesia History 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 When Was Last Pacemaker Check QUESTION #4 FULL TEXT: You/Your Family Experience fever (hyperthermia) with Anesthesia Last Oral Intake Last Oral intake: Last Oral Intake NPO since 08:30 06/23/25 12:07 Meds taken in AM with sips of water? 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 Female Yes 06/22/25 11:45 HX of Motion Sickness No 06/22/25 11:45 HX of N/V After Surgery No 06/22/25 11:45 Non-Smoker Yes 06/22/25 11:45 Duration of Surgery greater No 06/22/25 11:45 than 60 minutes Number of Risk Factors 2 06/22/25 11:45 PONV Score Moderate Risk 06/22/25 11:45 Height & Weight Height & Weight: Anesthesia: Height & Weight Height 5 ft 6 in 06/23/25 12:07 Weight: 80 kg 06/23/25 12:07 Body Mass Index (BMI) 28.4 06/23/25 12:07 Respiratory Assessment Respiratory Assessment - 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 Has anyone observed you stop No 06/22/25 11:45 breathing during sleep? STOP Results Negative 06/22/25 11:45 QUESTION #5 FULL TEXT : Do you snore loudly (louder than talking or can be heard through closed doors)? 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 Specify any problems Hx of Preganancy in last 3 No 06/22/25 11:45 Months Nurse Filling Out Transfusion VCHRISTIN 06/22/25 11:45 & Questions: Date: 06/22/25 06/22/25 11:45 Time: 11:46 06/22/25 11:45 Patient unable to answer at this time (ie. 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 Hx Now No 06/22/25 11:45 Gestational Age (in weeks): EDC: Hx Hx Para Hx Section SAB No 06/22/25 11:45 Active Medications Active Medications: Current Medications Generic Name Dose Route Start Last Admin Trade Name Freq PRN Reason Stop Dose Admin Lactated Ringer's 1,000 mls @ 15 mls/hr 06/23/25 12:00 06/23/25 12:10 IV 15 mls/hr .Q48H SUNIL Administration PFSH Medical History ANA ROSA (stress urinary incontinence, female) History of steroid therapy Bladder disease Restless legs Syncope History of ulceration Shortness of breath on exertion History of pain when walking History of edema Wears glasses Post-menopausal Arthritis Fatty liver Non-smoker Leg cramps Acid reflux Depression History of anemia Anxiety Home Medications ?Medication ?Instructions ?Recorded ?Last Taken ?Type calcium carbonate (Antacid Ext Str 300 mg PO TID PRN d yspepsia 03/24/25 Unknown History (calcium carb)) pantoprazole 40 mg tablet,delayed 40 mg PO QDAY #30 ta bs 05/07/25 Unknown Rx release Allergy/AdvReac Type Severity Reaction Status Date / Time adhesive tape Allergy Unknown Rash Verified 06/23/25 12:07 Family History Mother Dementia Diabetes Sister Diabetes Hypertension Surgical History Hx of hysterectomy S/P hysterectomy History of colonoscopy Social History Smoking Status: Never smoker alcohol intake: never substance use type: does not use caffeine: Yes what type of physical activity do you participate in: none seatbelt use: always do you feel safe at home: Yes additional social history: Review of Systems (Anesthesia) ROS Narrative System reviewed and no additional complaints, except as documented. 06/23/25 1242 <Electronically signed by Gaurav Mendez MD> Date _ Gauarv Mendez MD Cosigner Signature: Date CC: ~ Signed [facility] Work Phone: Consult note Author Lionel Gauthier [facility] Note Date/Time June 23, 2025 1: 48pm [facility] Medical Records Department [address] [place] [address] Anesthesia Postop Eval I 06/23/25 1323 MR#: [id number] Acct: [id number] Name: BHARTI ADAIR Rep #:[id number] : 1960 64 From: Lionel Gauthier PCP: Dr. Reese Hicks, DO Status:RE G [facility] Y Race: AA Location: [place] [address] Anesthesia: Postop Eval I Current Vital Signs Temperature: 97.6 F Pulse Rate: 94 Blood Pressure: 110/67 Respiratory Rate: 16 Pulse Ox: 95 Oxygen Delivery Method: Room Air Assessment Airway patent: Yes Spontaneous unlabored respirations: Yes Mental status: Awake and Calm nausea: No Vomiting: No Anesthesia Complication: No Fluid Hydration Crystalloid volume administer (ml): 400 Total IV fluid infused: 400 Progress Note Anesthesia document: Postop Eval 1 completed: Yes 06/23/25 1323 <Electronically signed by Lionel Gauthier > Date _ Lionel Huynh Signature: Date CC: ~ Signed [facility] Work Phone: Evaluation + Plan note No data available for this section [facility] Evaluation note* Diagnosis Onset Date Resolution Status Abdominal pain acute Depression acute Constipation acute Epigastric pain acute Lower abdominal pain acute Tubular adenoma of colon [facility] Work Phone: Evaluation note* Diagnosis Onset Date Resolution Status Constipation acute Epigastric pain acute Lower abdominal pain acute Tubular adenoma of colon [facility] Work Phone: Evaluation note* Diagnosis Onset Date Resolution Status Cholelithiasis acute Epigastric pain acute Nausea acute [facility] Work Phone: Evaluation note* Diagnosis Onset Date Resolution Status Anxiety chronic Healthcare maintenance nonea ctive [facility] Work Phone: Evaluation note* Diagnosis Onset Date Resolution Status Anxiety chronic Healthcare maintenance nonea ctive Anxiety chronic Hemorrhoid chronic [facility] Work Phone: Evaluation note* Diagnosis Onset Date Resolution Status Anxiety chronic Sinusitis chronic, frontal c hronic Urticaria due to drug allergy acute Urticaria due to drug allergy acute Sinusitis chronic, frontal c hronic Dysuria acute Fatigue acute Left hand paresthesia acute [facility] Work Phone: History and physical note Author Mark Friend [facility] Note Date/Time June 23, 2025 12 :24pm [facility] Medical Records Department [address] [place] [address] History & Physical Exam 06/23/25 1222 MR#: [id number] Acct: [id number] Name: BHARTI ADAIR Rep #:[id number] : 1960 64 From: Mark Aguirre DO PCP: Dr. Reese Hicks, DO Status:RE G [facility] Location: [place] [address] HPI - General General Date of Admission: 06/23/25 Date of Service: 06/23/25 Chief Complaint: Peptic ulcer HPI Narrative BHARTI ADAIR, is a 64 F who presents with the Chief Complaint: epigastric pain [facility] established in 2021 for epigastric pain x6 months. Started Pantoprazole 40 mg daily which helped. Pt also with constipation. BM daily but has to strain. Takes milk of mag as needed. EGD 10.08.22; - Z-line irregular, 37 cm from the incisors. Biopsied. - Small hiatal hernia. - Normal stomach. - Multiple non-bleeding duodenal ulcers with no stigmata of bleeding. Biopsied. Colonoscopy 10.08.22 - Congested mucosa in the recto-sigmoid colon, in the transverse colon, in the ascending colon and in the cecum. Biopsied. - The examined portion of the ileum was normal. Biopsied. OV 6.25 Pt having worsening epigastric pain over the past few months. She underwent gynecologic surgery about one month ago. When she used the vaginal estrogen she noticed much worse reflux and discontinued. She prefers to not takedaily meds so she will just take keena seltzer as needed. She had constipated after her surgery to due being on pain medications but this has resolved. [facility] Medical History ANA ROSA (stress urinary incontinence, female) History of steroid therapy Bladder disease Restless legs Syncope History of ulceration Shortness of breath on exertion History of pain when walking History of edema Wears glasses Post-menopausal Arthritis Fatty liver Non-smoker Leg cramps Acid reflux Depression History of anemia Anxiety Home Medications ?Medication ?Instructions ?Recorded ?Last Taken ?Type calcium carbonate (Antacid Ext Str 300 mg PO TID PRN d yspepsia 03/24/25 Unknown History (calcium carb)) pantoprazole 40 mg tablet,delayed 40 mg PO QDAY #30 ta bs 05/07/25 Unknown Rx release Allergy/AdvReac Type Severity Reaction Status Date / Time adhesive tape Allergy Unknown Rash Verified 06/23/25 12:07 Family History Mother Dementia Diabetes Sister Diabetes Hypertension Surgical History Hx of hysterectomy S/P hysterectomy History of colonoscopy Social History Smoking Status: Never smoker alcohol intake: never substance use type: does not use caffeine: Yes what type of physical activity do you participate in: none seatbelt use: always do you feel safe at home: Yes additional social history: ROS Constitutional Constitutional: Denies fatigue, fever(s), poor appetite, weight gain or weight loss Gastrointestinal Gastrointestinal: Denies belching, bloating, change in bowel habits, change in stool character, chewing difficulty, coffee ground emesis, constipation, cramping, diarrhea, dyspepsia, dysphagia, early satiety, excessive flatus, fecalincontinence, heartburn, hematemesis, hematochezia, hemorrhoids, loose stools, melena, nausea, odynophagia, rectal bleeding, tenesmus, vomiting or weight changes Vital Signs Vital Signs Vital Signs: 06/23/25 12:07 06/23/25 12:07 Temperature 98 F Temperature Source Temporal Pulse Rate 69 Respiratory Rate 16 Respiratory Pattern Normal Blood Pressure 129/84 H Blood Pressure Mean 99 Blood Pressure Source Monitor Blood Pressure Position Semi-Fowlers Blood Pressure Location Right Arm Pulse Ox 100 Oxygen Delivery Method Room Air Weight Weight: 176 lb 5.917 oz Body Mass Index (BMI) 28.4 Physical Exam Const alert, oriented x3, no apparent distress and healthy appearing General Appearance: cooperative GI normal to inspection, nondistended, normoactive bowel sounds, soft to palpation,non-tender and non-distended Percussion: normal to percussion Rectal Exam: deferred Assessment & Plan Assessment/Plan (1) Abdominal bloating: (2) Epigastric pain: (3) Peptic ulcer: PLAN: Assessment and Plan Assessment and Plan (1) Epigastric pain: Status: Acute Plan: Bharti is a 64 yo female pt here today for evaluation of worsening epigastric pain over the past few months. Pt established in 2021 for similar issues and underwent bidirectional endoscopy. EGD showed duodenal ulcers and normal colonoscopy. About one month ago she had gynecologic surgery and has had worsening epigastric pain. I advised she re start her daily PPI however she prefers to not take daily medication. SHe will continue keena freder PRN. SHe will be scheduled for EGD. No indication for repeat colonoscopy at this time. -EGD -Continue Keena seltzer -Recommended re starting PPI -f/u after procedure 06/23/25 1224 <Electronically signed by Mark Aguirre DO> Cosigner Signature (if applicable): CC: Dr. Reese Hicks, DO; Mark Aguirre, DO~ Signed [facility] Work Phone: Hospital Discharge instructions No data available for this section [facility] Progress note No data available for this section [facility] Reason for referral (narrative)No reason for referral [facility] Work Phone: Chief Complaint and Reason for Visit Chief Complaint Depression SEVERE EPIGASTRIC PAIN E ORDER Reason for Visit Abdominal pain Depression Constipation Epigastric pain Lower abdominal pain Tubular adenoma of colon Chief Complaint Depression SEVERE EPIGASTRIC PAIN E ORDER ABD PAIN Reason for Visit Abdominal pain Depression Constipation Epigastric pain Lower abdominal pain Tubular adenoma of colon Chief Complaint SEVERE EPIGASTRIC PA IN E ORDER ABD PAIN ABD BLOATING, EPIGASTRIC PAIN, EARLY SATIETY Reason for Visit Constipation Epigastric pain Lower abdominal pain Tubular adenoma of colon Chief Complaint SEVERE EPIGASTRIC PA IN E ORDER ABD PAIN ABD BLOATING, EPIGASTRIC PAIN, EARLY SATIETY ABD PAIN Reason for Visit Constipation Epigastric pain Lower abdominal pain Tubular adenoma of colon Chief Complaint ABD BLOATING, EPIGAS TRIC PAIN, EARLY SATIETY ABD PAIN ABD BLOATING, EPIGASTRIC PAIN, EARLY SATIETY CALCULUS OF GALLBLADDER WITHOUT CHOLECYSTITIS Reason for Visit Cholelithiasis Epigastric pain Nausea Chief Complaint Med refills Reason for Visit 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 BSO Cysto March 15, 2025 10:51a m Reason for Visit Admit Date Fatigue December 09, 2024 1 :11pm Trigger finger (acquired) December 09, 2024 1:11pm Trigger finger, left middle finger Febru hazel 2024 12:30pm Pelvic organ prolapse quantification sta ge 3 rectocele March 15, 2025 10:51am Preoperative exam for gynecologic surger y March 15, 2025 10:51am Vaginal enterocele due to incomplete [place] rovaginal prolapse March 15, 2025 10:51am Chief Complaint Admit Date ISSUES WITH LEFT HAND December 09 1:11pm PELVIC ORGAN PROLAPSE December 14, 2024 3:21pm ACUTE TRIGGER FINGER INJ LEFT HAND Febru hazel 2024 12:30pm TVH poss. BSO Cysto March 15, 2025 10:51a m Hysterectomy,Total Vaginal, possible Lai ateral Sap March 26, 2025 7:43am Hysterectomy,Total Vaginal, possible Lai ateral Sap March 26, 2025 2:20pm Reason for Visit Admit Date Fatigue December 09, 2024 1 :11pm Trigger finger (acquired) December 09, 2024 1:11pm Trigger finger, left middle finger Febru [email or web address] 12:30pm Pelvic organ prolapse quantification sta ge 3 rectocele March 15, 2025 10:51am Preoperative exam for gynecologic surger y March 15, 2025 10:51am Vaginal enterocele due to incomplete [place] rovaginal prolapse March 15, 2025 10:51am Abdominal bloating March 26, 2025 2:20p m Fibroid uterus March 26, 2025 2:20p m Menorrhagia with regular cycle March 26, 2025 2:20pm Pelvic organ prolapse quantification sta ge 3 rectocele March 26, 2025 2:20pm ANA ROSA (stress urinary incontinence, female ) March 26, 2025 2:20pm Chief Complaint Admit Date PELVIC ORGAN PROLAPSE December 14, 2024 3:21pm ACUTE TRIGGER FINGER INJ LEFT HAND Febru hazel 2024 12:30pm TV[facility] poss. BSO Cysto March 15, 2025 10:51a m Hysterectomy,Total Vaginal, possible Lai ateral Sap March 26, 2025 7:43am Hysterectomy,Total Vaginal, possible Lai ateral Sap March 26, 2025 2:20pm 2 wk [facility] poss. BSO Cysto April 09, 2025 10:33am Reason for Visit Admit Date Trigger finger, left middle finger Febru hazel 2024 12:30pm Preoperative exam for gynecologic surger y March 15, 2025 10:51am Vaginal enterocele due to incomplete [place] rovaginal prolapse March 15, 2025 10:51am Pelvic organ prolapse quantification sta ge 3 rectocele March 15, 2025 10:51am Abdominal bloating March 26, 2025 2:20p m ANA ROSA (stress urinary incontinence, female ) March 26, 2025 2:20pm Fibroid uterus March 26, 2025 2:20p m Menorrhagia with regular cycle March 26, 2025 2:20pm Pelvic organ prolapse quantification sta ge 3 rectocele March 26, 2025 2:20pm Chief Complaint Admit Date TVH poss. BSO Cysto March 15, 2025 10:51a m Hysterectomy,Total Vaginal, possible Lai ateral Sap March 26, 2025 7:43am Hysterectomy,Total Vaginal, possible Lai ateral Sap March 26, 2025 2:20pm 2 wk TV[facility] poss. BSO Cysto April 09, 2025 10:33am Last seen by Naya 04/11/22 has Ulcer April 28, 2025 1:03pm Reason for Visit Admit Date Preoperative exam for gynecologic surger y March 15, 2025 10:51am Vaginal enterocele due to incomplete [place] rovaginal prolapse March 15, 2025 10:51am Pelvic organ prolapse quantification sta ge 3 rectocele March 15, 2025 10:51am Abdominal bloating March 26, 2025 2:20p m ANA ROSA (stress urinary incontinence, female ) March 26, 2025 2:20pm Fibroid uterus March 26, 2025 2:20p m Menorrhagia with regular cycle March 26, 2025 2:20pm Pelvic organ prolapse quantification sta ge 3 rectocele March 26, 2025 2:20pm Preoperative exam for gynecologic surger y April 09, 2025 10:33am S/P hysterectomy April 09, 2025 10:33 am ANA ROSA (stress urinary incontinence, female ) April 09, 2025 10:33am Epigastric pain April 28, 2025 1:03 pm Chief Complaint Admit Date TV[facility] poss. BSO Cysto March 15, 2025 10:51a m Hysterectomy,Total Vaginal, possible Lai ateral Sap March 26, 2025 7:43am Hysterectomy,Total Vaginal, possible Lai ateral Sap March 26, 2025 2:20pm 2 wk [facility] poss. BSO Cysto April 09, 2025 10:33am Last seen by Naya 04/11/22 has Ulcer April 28, 2025 1:03pm 1 M F/U May 12, 2025 11:31 am Reason for Visit Admit Date Preoperative exam for gynecologic surger y March 15, 2025 10:51am Vaginal enterocele due to incomplete [place] rovaginal prolapse March 15, 2025 10:51am Pelvic organ prolapse quantification sta ge 3 rectocele March 15, 2025 10:51am Abdominal bloating March 26, 2025 2:20p m ANA ROSA (stress urinary incontinence, female ) March 26, 2025 2:20pm Fibroid uterus March 26, 2025 2:20p m Menorrhagia with regular cycle March 26, 2025 2:20pm Pelvic organ prolapse quantification sta ge 3 rectocele March 26, 2025 2:20pm Preoperative exam for gynecologic surger y April 09, 2025 10:33am S/P hysterectomy April 09, 2025 10:33 am ANA ROSA (stress urinary incontinence, female ) April 09, 2025 10:33am Epigastric pain April 28, 2025 1:03 pm S/P hysterectomy May 12, 2025 11:31 am Abdominal bloating June 23, 2025 11 :50am Epigastric pain June 23, 2025 11 :50am Peptic ulcer June 23, 2025 11 :50am Chief Complaint Admit Date TVH poss. BSO Cysto March 15, 2025 10:51a m Hysterectomy,Total Vaginal, possible Lai ateral Sap March 26, 2025 7:43am Hysterectomy,Total Vaginal, possible Lai ateral Sap March 26, 2025 2:20pm 2 wk [facility] poss. BSO Cysto April 09, 2025 10:33am Last seen by Naya 04/11/22 has Ulcer April 28, 2025 1:03pm 1 M F/U May 12, 2025 11:31 am NOT FEELING WELL July 07, 2025 12 :51pm Family History No Family History Records Found Relationship Condition Age at Onset Recorded Date/T heidi mother Dementia Unknown Diabetes mellitus Unknown sister Diabetes mellitus Unknown Hypertension Unknown Advance Directives No Advanced Directives Records Found Advance Directive Response Recorded Date/ Time Living Will Yes June 30 8 1:17pm Power of Flute Polisher Yes June 30 1:17pm Advance Directive Response Recorded Date/ Time Name of Medical Power of Flute Polisher SON October 03, 2022 11:15am Living Will Yes October 03 11:15am Power of Flute Polisher Yes October 03, 2022 11:15am Advance Directive Response Recorded Date/ Time Living Will Yes October 03 12:15pm Power of Flute Polisher Yes October 03, 2022 12:15pm Advance Directive Response Recorded Date/ Time Living Will Yes October 03 11:15am Power of Flute Polisher Yes October 03, 2022 11:15am Advance Directive Response Recorded Date/ Time Do you have a Healthcare Power of Flute Polisher? Yes March 26, 2025 4:03pm Advance Directive Response Recorded Date/ Time Do you have a Healthcare Power of Flute Polisher? Yes March 26, 2025 4:03pm Do you have a Healthcare Power of Flute Polisher? Yes June 22, 2025 11:45am Summary Purpose Additional Source Comments Goals (unrecognized section and content) Goals may be documented in a n alternate section No data available for this sectionGoals may be documented in an alternate sectionGoals may be documented in an alternate sectionGoals may be documented in an alternate sectionGoals may be documented in an alternate section No data available for this sectionGoals may be documented in an alternate sectionGoals may be documented in an alternate section No data available for this section No data available for this section Care Team (unrecognized sect ion and content) Care Team Personnel Name: REESE HICKS DO Member Role: Primary Care Physician Address: Address: [facility] [address] [place] [id number]- Care Team Related Persons Name: DODIE ADAIR Care Teams (unrecognized sec tion and content) Team Status: Active Member Role Status Dates Dr. Reese Hicks , DO Family Provider Active Dr. Reese Hicks , DO Primary Care Provider Active Team Status: Active Member Role Status Dates Dr. Reese Hicks , DO Primary Care Provider, Referr ing Provider Active Dr. Mark Aguirre , DO Attending Provider, Other Prov ider Active Team Status: Inactive Member Role Status Dates Dr. Reese Hicks , DO Primary Care Provider, Referr ing Provider Active DOMENICA Stoddard Attending Provider Active Team Status: Inactive Member Role Status Dates Dr. Reese Hicks , DO Primary Care Provider, Referr ing Provider Active Dr. Mark Aguirre , DO Attending Provider Active Team Status: Inactive Member Role Status Dates Dr. Reese Hicks , DO Primary Care Provider Active DOMENICA Stoddard Attending Provider, Referring Pro vider Active Team Status: Inactive Member Role Status Dates Dr. Reese Hicks , DO Primary Care Provider, Referr ing Provider Active Jose Leone BOGGER OPERATOR, BOGGER OPERATOR-C Attending Provider Active Team Status: Inactive Member Role Status Dates Dr. Reese Hicks DO Primary Care Provider Active Jose Leone BOGGER OPERATOR, BOGGER OPERATOR-C Attending Provider Active Team Status: Inactive Member Role Status Dates Dr. Reese Hicks , DO Primary Care Pr ovider, Attending Provider, Referring Provider Active Team Status: Inactive Member Role Status Dates Dr. Reese Hicks DO Primary Care Provider, Referr ing Provider Active Hilary Nick NP-C Attending Provider Active Team Status: Inactive Member Role Status Dates Dr. Reese Hicks DO Primary Care Provider Active Hilary Nick NP-C Attending Provider, Referring Pro vider Active Team Status: Active Member Role Status Dates Dr. Reese Hicks DO Primary Care Provider Active Team Status: Inactive Member Role Status Dates Dr. Reese Hicks DO Primary Care Provider Active Start: December 09, 2024 End: December 09, 2024 Dr. Reese Hicks DO Attending Provider Active Start: December 09, 2024 End: December 09, 2024 Dr. Reese Hicks DO Referring Provider Active Start: December 09, 2024 End: December 09, 2024 Team Status: Inactive Member Role Status Dates Dr. Reese Hicks DO Primary Care Provider Active Start: December 09, 2024 End: December 09, 2024 Dr. Reese Hicks DO Attending Provider Active Start: December 09, 2024 End: December 09, 2024 Team Status: Inactive Member Role Status Dates Dr. Reese Hicks , Primary Care Provider Active Start: December 14, 2024 End: December 14, 2024 Dr. Aliya Yen , DO Attending Provider Activ e Start: December 14, 2024 End: December 14, 2024 Dr. Aliya Yen , DO Referring Provider Activ e Start: December 14, 2024 End: December 14, 2024 Team Status: Inactive Member Role Status Dates Dr. Reese Hicks , DO Primary Care Provider Active Start: December 17, 2024 End: December 17, 2024 Dr. Reese Hicks , DO Referring Provider Active Start: December 17, 2024 End: December 17, 2024 DOMENICA Fonseca Attending Provider Active St art: December 17, 2024 End: December 17, 2024 Team Status: Inactive Member Role Status Dates Dr. Reese Hicks DO Primary Care Provider Active Start: March 15, 2025 End: March 15, 2025 Dr. Reese Hicks , Referring Provider Active Start: March 15, 2025 End: March 15, 2025 Dr. Aliya Yen , DO Attending Provider Activ e Start: March 15, 2025 End: March 15, 2025 Team Status: Inactive Member Role Status Dates Dr. Reese Hicks , Primary Care Provider Active Start: March 15, 2025 End: March 15, 2025 Dr. Aliya Yen , DO Attending Provider Activ e Start: March 15, 2025 End: March 15, 2025 Team Status: Active Member Role Status Dates Dr. Reese Hicks DO Primary Care Provider Active Start: March 26, 2025 Dr. Aliya Yen , DO Attending Provider Activ e Start: March 26, 2025 Dr. Aliya Yen DO Referring Provider Activ e Start: March 26, 2025 Dr. Aliya Yen , DO Other Provider Active Start: March 26, 2025 Dr. Liz Pruett MD Other Provider Active Sta rt: March 26, 2025 Team Status: Inactive Member Role Status Dates Dr. Reese Hicks DO Primary Care Provider Active Start: March 26, 2025 End: March 27, 2025 Dr. Aliya Yen , DO Admit Provider Active Start: March 26, 2025 End: March 27, 2025 Dr. Aliya Yen , DO Attending Provider Activ e Start: March 26, 2025 End: March 27, 2025 Dr. Aliya Yen , DO Referring Provider Activ e Start: March 26, 2025 End: March 27, 2025 Dr. Liz Pruett MD Other Provider Active Sta rt: March 26, 2025 End: March 27, 2025 Team Status: Inactive Member Role Status Dates Dr. Reese Hicks , DO Primary Care Provider Active Start: April 09, 2025 End: April 09, 2025 Dr. Reese Hicks , DO Referring Provider Active Start: April 09, 2025 End: April 09, 2025 Dr. Aliya Yen , DO Attending Provider Activ e Start: April 09, 2025 End: April 09, 2025 Team Status: Inactive Member Role Status Dates Dr. Reese Hicsk DO Primary Care Provider Active Start: April 28, 2025 End: April 28, 2025 Dr. Reese Hicks , Referring Provider Active Start: April 28, 2025 End: April 28, 2025 DOMENICA Sullivan Attending Provider Active Start: April 28, 2025 End: April 28, 2025 Team Status: Active Member Role/Relationship Status Dates Dr. Reese Hicks DO Primary Care Provider Active Team Status: Inactive Member Role/Relationship Status Dates Dr. Reese Hicks , DO Primary Care Provider Active Start: March 15, 2025 End: March 15, 2025 Dr. Reese Hicks , DO Referring Provider Active Start: March 15, 2025 End: March 15, 2025 Dr. Aliya Yen , DO Attending Provider Activ e Start: March 15, 2025 End: March 15, 2025 Team Status: Inactive Member Role/Relationship Status Dates Dr. Reese Hicks , DO Primary Care Provider Active Start: March 15, 2025 End: March 15, 2025 Dr. Aliya Yen , DO Attending Provider Activ e Start: March 15, 2025 End: March 15, 2025 Team Status: Active Member Role/Relationship Status Dates Dr. Reese Hicks DO Primary Care Provider Active Start: March 26, 2025 Dr. Aliya Yen , DO Attending Provider Activ e Start: March 26, 2025 Dr. Aliya Yen , DO Referring Provider Activ e Start: March 26, 2025 Dr. Aliya Yen , DO Other Provider Active Start: March 26, 2025 Dr. Liz Pruett MD Other Provider Active Sta rt: March 26, 2025 Team Status: Inactive Member Role/Relationship Status Dates Dr. Reese Hicks DO Primary Care Provider Active Start: March 26, 2025 End: March 27, 2025 Dr. Aliya Yen , DO Admit Provider Active Start: March 26, 2025 End: March 27, 2025 Dr. Aliya Yen , DO Attending Provider Activ e Start: March 26, 2025 End: March 27, 2025 Dr. Aliya Yen DO Referring Provider Activ e Start: March 26, 2025 End: March 27, 2025 Dr. Liz Pruett MD Other Provider Active Sta rt: March 26, 2025 End: March 27, 2025 Team Status: Inactive Member Role/Relationship Status Dates Dr. Reese Hicks DO Primary Care Provider Active Start: April 09, 2025 End: April 09, 2025 Dr. Reese Hicks DO Referring Provider Active Start: April 09, 2025 End: April 09, 2025 Dr. Aliya Yen DO Attending Provider Activ e Start: April 09, 2025 End: April 09, 2025 Team Status: Inactive Member Role/Relationship Status Dates Dr. Reese Hicks DO Primary Care Provider Active Start: April 28, 2025 End: April 28, 2025 Dr. Reese Hicks DO Referring Provider Active Start: April 28, 2025 End: April 28, 2025 DOMENICA Sullivan Attending Provider Active Start: April 28, 2025 End: April 28, 2025 Team Status: Inactive Member Role/Relationship Status Dates Dr. Reese Hicks DO Primary Care Provider Active Start: May 12, 2025 End: May 12, 2025 Dr. Reese Hicks DO Referring Provider Active Start: May 12, 2025 End: May 12, 2025 Dr. Aliya Yen DO Attending Provider Activ e Start: May 12, 2025 End: May 12, 2025 Team Status: Inactive Member Role/Relationship Status Dates Dr. Reese Hicks DO Primary Care Provider Active Start: May 11, 2025 Dr. Liz Pruett MD Attending Provider Active Start: May 11, 2025 Team Status: Inactive Member Role/Relationship Status Dates Dr. Reese Hicks DO Primary Care Provider Active Start: May 12, 2025 End: May 12, 2025 Dr. Reese Hicks DO Referring Provider Active Start: May 12, 2025 End: May 12, 2025 Dr. Aliya Yen , Attending Provider Activ e Start: May 12, 2025 End: May 12, 2025 Team Status: Inactive Member Role/Relationship Status Dates Dr. Reese Hicks DO Primary Care Provider Active Start: June 23, 2025 End: June 23, 2025 Dr. Reese Hicks DO Referring Provider Active Start: June 23, 2025 End: June 23, 2025 Dr. Mark Aguirre DO Attending Provider Active Start: June 23, 2025 End: June 23, 2025 Team Status: Active Member Role/Relationship Status Dates Dr. Reese Hicks DO Primary Care Provider Active Start: June 23, 2025 Dr. Reese Hicks DO Referring Provider Active Start: June 23, 2025 Dr. Mark Aguirre DO Attending Provider Active Start: June 23, 2025 Dr. Mark Aguirre DO Other Provider Active St art: June 23, 2025 Team Status: Inactive Member Role/Relationship Status Dates Dr. Reese Hicks DO Primary Care Provider Active Start: July 07, 2025 End: July 07, 2025 Dr. Reese Hicks DO Attending Provider Active Start: July 07, 2025 End: July 07, 2025 Dr. Reese Hicks DO Referring Provider Active Start: July 07, 2025 End: July 07, 2025 INFORMATION SOURCE (unrecogn ized section and content) DATE CREATED AUTHOR 03/08/2024 [facility] ([place]) DATE CREATED AUTHOR AUTHOR'S ORGANIZ ATION 06/06/2025 [facility] DATE CREATED AUTHOR AUTHOR'S ORGANIZ ATION 07/27/2025 [facility] FOR RECORDS PERTAINING TO PATIENTS WHO ARE [...] BE BASED ON THE PRIMARY CLINICAL RECORDS. [facility] [employer] [facility]. provides no warranty or guarantee of the accuracy or completeness of information in this document.
== END | disposition home or self-care (01) ==
LOC: OPBI 13:34
PROVIDERS: PCP Family Medicine; Referring Provider Nurse Practitioner Family; Visit Provider Nurse Practitioner Family
DX: Z12.31 Encounter for screening mammogram for malignant neoplasm of breast (principal)
CPT/HCPCS: 77063; 77067

== ENCOUNTER → 2025-08-02 | Outpatient (CLI) | payer MEDICARE, SELFPAY ==
[2025-08-03 16:09] LABS: H. PYLORI STOOL AG Negative (Negative)
== END | disposition home or self-care (01) ==
PROVIDERS: PCP Family Medicine; Referring Provider Student in an Organized Health Care Education/Training Program; Visit Provider Student in an Organized Health Care Education/Training Program
DX: A04.8 Other specified bacterial intestinal infections (principal)
CPT/HCPCS: 87338